=== PATIENT | female | born 1930 | race African-American/Black ===

== ENCOUNTER 2016-09-03 23:01 | Inpatient (IN) | payer MEDICARE, MEDICAID ==
[~2016-09-03] VITALS: Ht 165.1 cm; Wt 80.1 kg
[~2016-09-03 23:01] MED LIST: ACETAMINOP160 MG/51 GT; CATAPRES0.1 MG GT; COZAAR50 MG GT; DILANTIN-1125 MG/5 M GT; DOCU LIQUI50 MG/5 M1 GT; DULCOLAX10 MG RC; DUONEB 0.5-3(2.53 ML HHN; MILK OF MA400 MG/51 GT; MILK OF MA400 MG/51 ORAL; MULTI-DELYN237 ML GT; NEURONTIN100 MG GT; NORVASC5 MG GT; TYLENOL325 MG ORAL; [UNRECOGNIZED DRUG - OTHER] GT
[2016-09-03] MEDS ORDERED: EPINEPHrine 1mg/10ml Syringe IV ONE (23:30)
[2016-09-03] MEDS ORDERED: Sodium Bicarbonate 8.4% 50ml Carp ONE (23:30)
[2016-09-04] VITALS (22 sets, daily range): BP systolic 84–139; BP diastolic 37–82
[2016-09-04 01:23] LABS: MEAN CORPUSCULAR HEMOGLOBIN 34.5 PG (27.0-31.0); MEAN CORPUSCULAR HGB CONC 32.2 G/DL (32.0-36.0); MEAN CORPUSCULAR VOLUME 107 FL (80-99); MEAN PLATELET VOLUME 6.3 FL (6.5-10.1); PLATELET COUNT 146 K/UL (150-450); RED BLOOD COUNT 2.65 M/UL (4.20-5.40); RED CELL DISTRIBUTION WIDTH 13.8 % (11.6-14.8); WHITE BLOOD COUNT 14.9 K/UL (4.8-10.8)
[2016-09-04] MEDS ORDERED: Piperacillin/Tazobactam 3.375 GM in NS 110 ML IV ONE (01:45)
[2016-09-04] MEDS ORDERED: Azithromycin 500 MG in NS 275 ML IV ONE (01:45)
[2016-09-04 01:47] LABS: ALANINE AMINOTRANSFERASE 268 U/L (3-33); ALBUMIN/GLOBULIN RATIO 0.5 (1.0-2.7); ANION GAP 8 (5-15); ASPARTATE AMINO TRANSFERASE 366 U/L (5-40); CALCIUM 8.2 mg/dL (8.6-10.2); CARBON DIOXIDE 35 mEQ/L (20-30); CHLORIDE 81 mEQ/L (98-107); CREATININE 0.4 mg/dL (0.5-0.9); HEMOLYSIS 11; POTASSIUM 5.5 mEQ/L (3.4-4.9); SODIUM 124 mEQ/L (135-145); TOTAL PROTEIN 6.8 g/dL (6.6-8.7)
[2016-09-04 01:49] LABS: TROPONIN I < 0.30 ng/mL (<=0.30)
[2016-09-04] MEDS ORDERED: Zosyn 3.375gm inj ONE (01:49)
[2016-09-04 01:50] LABS: REFLEX LACTIC ACID YES OR NO YES
[2016-09-04] MEDS ORDERED: Azithromycin Inj IV ONE (02:24)
[2016-09-04 02:45] LABS: APPEARANCE,URINE SLIGHTLY CLOUDY; KETONES,URINE NEGATIVE (NEGATIVE); NITRITE,URINE NEGATIVE (NEGATIVE); PH,URINE 5 (4.5-8.0); PROTEIN,URINE 3+ (NEGATIVE); UROBILINOGEN,URINE NORMAL MG/DL (0.0-1.0)
--- NOTE | 2016-09-04 02:53 | Emergency Room Report ---
History of Present Illness General Chief Complaint: Dyspnea/Respdistress Source: Medical Record Present Illness HPI 85-year-old female presents to ED for evaluation. Per EMS patient was hypoxic at her [facility] tonight. O2 saturation low on room air. Saturations slightly improved on nonrebreather. Patient is altered and lethargic. Unable to provide any additional history at this time. No reported fevers chills. No reported chest pain. No other aggravating or leading factors. No other associated symptoms Allergies: Coded Allergies: No Known Allergies (Verified , 03/14/16) Uncoded Allergies: MILK (Allergy, Unknown, 07/11/11) Patient History Past Medical History: asthma, COPD, dementia Pertinent Family History: none Social History: Denies: alcohol use, drug use, smoking Last Menstrual Period: NA Now: No Immunizations: UTD Reviewed Nursing Documentation: PMH: Agreed, PSxH: Agreed Nursing Documentation-PMH Hx Cardiac Problems: Yes Hx Asthma: Yes Hx COPD: Yes - PNEUMONIA, SOB Hx Cancer: No Hx Dementia: Yes Hx Epilepsy: Yes Hx Paralysis: Yes - hemiplegia Review of Systems All Other Systems: limited Physical Exam Vital Signs Date Time Temp Pulse Resp B/P Pulse Ox O2 Delivery O2 Flow Rate FiO2 09/03/16 23:02 98.2 80 18 139/42 98 Room Air 09/04/16 00:15 100 Sp02 EP Interpretation: reviewed, normal General Appearance: mild distress, lethargic Head: normocephalic Eyes: bilateral eye PERRL, bilateral eye normal inspection ENT: hearing grossly normal Neck: normal inspection Respiratory: chest non-tender, decreased breath sounds, crackles, speaking full sentences Cardiovascular #1: regular rate, rhythm, no edema Gastrointestinal: normal inspection Rectal: deferred Genitourinary: no CVA tenderness Musculoskeletal: normal inspection Neurologic: other - altered Psychiatric: other - altered Skin: normal inspection Lymphatic: normal inspection Procedures Critical Care Time Critical Care Time i. I feel this is a highly complex case requiring extensive working including EKG/Rhythm strip, Xray/CT/US, Blood/urine lab work, repeat exams while in ED, and administration of strong opiates/narcotics for pain control, admission to hospital or close patient follow up. Total time: 30 min bedside evaluation and treatment excludes procedures (EKG). Reason for critical care: Respiratory arrest, cardiac arrest Possible complications: hypotension, hypertension, IA, shock, arrhythmias, metabolic acidosis, end organ damage, respiratory failure. Interventions: Intubation, defibrillation, labs, IV fluids, chest x-ray, EKG, antibiotics, central line Course: Patient brought in for shortness of breath. Just after patient was placed in bed patient became lethargic and unresponsive. Most pulses. Patient had a contracted neck with a very difficult airway. Ultimately patient was intubated. Intraosseous access placed this patient had no IV access initially. Compressions done. Given calcium and bicarbonate. Given epi x2. Patient had one run of V. fib and was shocked. Patient regained pulses. Elevated WBC. Elevated lactate. Abx given. Central line placed. Consultations: nursing staff, EMS, family Performed by: Dr Dunham Tolerated well condition = critical j. because of unstable vital signs this patient had a condition that could potentially threaten life or limb. I feel this is a critical patient who required my full attention while patient was considered critical. Total Critical Care Time excluding procedures was greater than 35 minutes Cardioversion Cardioversion: Consent: Emergent Indication: Other - vfib Type: Desynchonis Response: Sinus Attempts: One Patient Tolerated: Well Complications: None Central Line Central Line : Consent: Emergent Central Line Lumen: triple Maximal Sterile Barrier Tech: yes cap, yes mask, yes sterile gown, yes sterile gloves, yes large sterile sheet, yes hand hygiene, yes chlorhexidine prep Central Line Postion: femoral (R) Complications: none Central Line Post Position: sutured, good blood return Attempts: One Patient Tolerated: Well Complications: None CPR/Code Blue CPR/Code Blue Narrative Patient brought in for shortness of breath. Hypoxic at this facility. After patient placed in bed patient became unresponsive. lost pulses. Initial rhythm asystole. Compressions started. Given epi x2. Given calcium and bicarbonate. Patient was intubated. Patient is in V. fib and was subsequently shocked times one. Patient regained pulses. Intubation Intubation : Consent: Verbal Intubation Method: orotracheal Tube Size (cm): 6.0 Intubation Complications: no complications Post Intubation Xray: Yes Attempts: One Patient Tolerated: Well Medical Decision Making Diagnostic Impression: Primary Impression: Pneumonia Qualified Codes: J18.9 - Pneumonia, unspecified organism Additional Impressions: Cardiac arrest Respiratory distress Septic shock ER Course 85-year-old female presents ED with shortness of breath, hypoxic at this facility Differential-pneumonia, pneumothorax, COPD, CHF Patient based on stretcher. Prior to patient being initially evaluated patient became hypoxic and unresponsive. Patient lost pulses. Impression started. Patient given calcium and bicarbonate. Patient given epi x2. Patient had a contracted neck and does had a very difficult airway. Ultimately I was able to intubate the patient. Patient had one run of ventricular fibrillation and was shocked. Patient did regain pulses. Initially patient had no IV access and intraosseous was placed in the leg. Chest x-ray shows ET tube in place, right-sided infiltrates EKG-normal sinus rhythm, no acute ischemic changes Labs-leukocytosis noted, lactic acid elevated, troponins negative Patient became hypotensive despite IV fluids. Right femoral central line placed. BP improving with IV fluids. Case discussed with Dr. franklin and he agreed to admit the patient Diagnoses-pneumonia, cardiac arrest, respiratory distress, septic shock Patient admitted to ICU in critical condition Labs Test 09/04/16 01:15 09/04/16 02:19 09/04/16 02:34 White Blood Count 14.9 K/UL (4.8-10.8) Red Blood Count 2.65 M/UL (4.20-5.40) Hemoglobin 9.1 G/DL (12.0-16.0) Hematocrit 28.4 % (37.0-47.0) Mean Corpuscular Volume 107 FL (80-99) Mean Corpuscular Hemoglobin 34.5 PG (27.0-31.0) Mean Corpuscular Hemoglobin Concent 32.2 G/DL (32.0-36.0) Red Cell Distribution Width 13.8 % (11.6-14.8) Platelet Count 146 K/UL (150-450) Mean Platelet Volume 6.3 FL (6.5-10.1) Neutrophils (%) (Auto) % (45.0-75.0) Lymphocytes (%) (Auto) % (20.0-45.0) Monocytes (%) (Auto) % (1.0-10.0) Eosinophils (%) (Auto) % (0.0-3.0) Basophils (%) (Auto) % (0.0-2.0) Sodium Level 124 mEQ/L (135-145) Potassium Level 5.5 mEQ/L (3.4-4.9) Chloride Level 81 mEQ/L (98-107) Carbon Dioxide Level 35 mEQ/L (20-30) Anion Gap 8 (5-15) Blood Urea Nitrogen 27 mg/dL (7-23) Creatinine 0.4 mg/dL (0.5-0.9) Estimat Glomerular Filtration Rate mL/min (>60) Glucose Level 126 mg/dL (74-106) Lactic Acid Level 3.20 mmol/L (0.66-2.22) Calcium Level 8.2 mg/dL (8.6-10.2) Total Bilirubin < 0.2 mg/dL (0.0-1.2) Aspartate Amino Transf (AST/SGOT) 366 U/L (5-40) Alanine Aminotransferase (ALT/SGPT) 268 U/L (3-33) Alkaline Phosphatase 237 U/L (35-104) Total Creatine Kinase 104 U/L (26-140) Troponin I < 0.30 ng/mL (<=0.30) Total Protein 6.8 g/dL (6.6-8.7) Albumin 2.5 g/dL (3.5-5.2) Globulin 4.3 g/dL Albumin/Globulin Ratio 0.5 (1.0-2.7) EKG Diagnostic Results Rate: normal Rhythm: other - 1st degree av block ST Segments: no acute changes ASA given to the pt in ED: No Rhythm Strip Diag. Results EP Interpretation: yes Rhythm: NSR, no PVC's, no ectopy Chest X-Ray Diagnostic Results EP Interpretation: No Findings: no pneumothorax, no acute cardiopulmonary disease, other - intubated. R perihilar infitlrates Number of Views: 1 Last Vital Signs Date Time Temp Pulse Resp B/P Pulse Ox O2 Delivery O2 Flow Rate FiO2 09/04/16 00:57 70 14 100 09/04/16 00:19 Mechanical Ventilator 09/04/16 00:19 98.2 117/82 98 Status: improved Disposition: ADMITTED INPATIENT Condition: Critical Referrals: NON PHYSICIAN (PCP) CHRISTIANO DUNHAM M.D. September 04, 2016 02:53
[2016-09-04 02:55] LABS: LEUKOCYTE ESTERASE ,URINE 2+ (NEGATIVE); RBC,URINE 15-20 /HPF (0 - 2)
[2016-09-04 02:56] LABS: AMORPHOUS SEDIMENT,UR MANY /LPF; BACTERIA,URINE MODERATE /HPF; FINE GRANULAR CASTS,URINE 0-2 /LPF; SQUAMOUS EPITHELIAL CELL,UR FEW /LPF (NONE/OCC); WBC,URINE 15-20 /HPF (0 - 2)
[2016-09-04 02:56] LABS: CKMB 5.1 ng/mL (< 3.8)
[2016-09-04 04:16] LABS: ABG BASE EXCESS 5.2; ABG PCO2 82.8 mmHg (35.0-45.0)
[2016-09-04 04:17] LABS: ABG ALLEN TEST POSITIVE
[2016-09-04] MEDS ORDERED: Sodium Polystyrene Sulfonate 15gm Powder GT ONE (04:45)
[2016-09-04] MEDS ORDERED: D5NS 1,000 ML IV SCH (05:39)
[2016-09-04] MEDS: metroNIDAZOLE 500mg 100 ML IVPB SCH ×3 (06:36→22:00)
[2016-09-04] MEDS: DuoNeb 0.5-3(2.5)mg/3ml neb HHN SCH ×3 (06:50→20:05)
[2016-09-04] MEDS ORDERED: cefTRIAXone 1 GM in NS 55 ML IVPB SCH (08:00)
[2016-09-04] MEDS ORDERED: Tubing IV Secondary IV ONE (08:06)
[2016-09-04] MEDS ORDERED: NS 55 ML IV ONE (08:06)
--- NOTE | 2016-09-04 11:02 | Diagnostic Imaging Report ---
Indications: Shortness of breath, status post intubation Technique: Portable AP chest Findings: Comparison: 03/11/2016 Endotracheal tube has been placed, tip 4-5 cm above wilder. Defibrillator patch overlies lower left hemithorax. Pulmonary inflation has increased. Increased interstitial markings persist throughout both lungs. Focal area of parenchymal consolidation in the right infrahilar region has increased. 2 cm pleural-based lucency with mural thickening in the lateral left upper lung persists, unchanged. Blunting of the right costophrenic angle persists; left remain sharp. Heart size remains within normal limits. Pulmonary vasculature obscured. Bony bridging is present between the scapular coracoid process and overlying clavicle. IMPRESSION: Endotracheal tube in good position Persistent bilateral interstitial infiltrates/disease, nonspecific Increase in right infrahilar consolidative opacity--atelectasis versus edema versus pneumonia versus mass Persistent small right basal pleural effusion versus thickening Other stable chronic changes as described Evidence of previous injury to the left coracoclavicular ligament with ossification This correlates with [facility] preliminary report.
[2016-09-04 12:46] LABS: ABG ALLEN TEST POSITIVE; ABG BASE EXCESS 7
[2016-09-04] MEDS ORDERED: Albuterol ud Inhalation HHN SCH (13:00)
[2016-09-04] MEDS: Gentamicin 0.3% Opth Soln 5ml BOTH EYES SCH ×3 (13:00→21:19)
--- NOTE | 2016-09-04 14:23 | Cardiology Report ---
APPROVED REPORT EKG Measurement Heart [id number] Sinus rhythm with 1st degree AV block Otherwise normal ECG
[2016-09-04] MEDS: D5NS 1,000 ML IV SCH (14:43)
[2016-09-04 15:44] LABS: REFLEX LACTIC ACID YES OR NO YES
--- NOTE | 2016-09-04 15:52 | Wound Care Consultation ---
Wound Assessment Wound Assessment #1: Wound Number: #1 Wound Present on Admission: Yes New Wound: No Status Change of Wound: No Wound Location Body Site Modif: left, mid, lateral Wound Location Body Site: foot Wound Type: pressure ulcer Aydee Test: Does not Aydee Pressure Ulcer Stage: IV/unstageable Wound Thickness: Full Thickness Wound Length: 0.8 Wound Width: 0.5 Wound Depth: 0.1 Percent of Wound Victor/Red: 100 Other Colors Identified: surrounding wound noted callus, yellow Wound Drainage Description: Serosanguineous Wound Drainage Amount: Scant Wound Drainage Odor: None/Absent Tissue Surrounding Wound: Erythemic Wound General Appearance: Reddened Wound Assessment #2: Wound Number: #2 Wound Present on Admission: Yes New Wound: No Status Change of Wound: No Wound Location Body Site Modif: right Wound Location Body Site: heel Wound Type: pressure ulcer Aydee Test: Does not Aydee Pressure Ulcer Stage: deep tissue injury Wound Thickness: Full Thickness Wound Length: 5.0 Wound Width: 5.0 Wound Depth: utd Percent of Wound Purple/Maroon: 100 Wound Drainage Amount: None Wound Drainage Odor: None/Absent Tissue Surrounding Wound: Intact Wound General Appearance: Reddened Wound Comment #1 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 #2 right heel deep tissue injury. #3 Full thickness scar tissue to right lateral malleolus, scattered to left lateral foot, left 5th metatarsal head, left lateral malleolus,left heel,left mid foot, noted left 4th toe with hyperpigmentation and scar tissue. Recommendation. -Local wound care as ordered. -Apply low air loss overlay SPR mattress. -Keep clean and dry. -Optimize nutrition. -Heel protectors. -Avoid shear and friction. -Offload affected site. -Asses and notify MD for any further changes to skin noted. MITCH GAMBLE September 04, 2016 15:52
[2016-09-04] MEDS: Heparin 5000 units/ml inj SUBQ SCH (21:00)
[2016-09-04] MEDS: levETIRAcetam 500 MG in D5W 110 ML IV SCH (21:19)
[2016-09-04] MEDS: Pantoprazole Inj IVP SCH (21:20)
[2016-09-04 22:31] LABS: REFLEX LACTIC ACID YES OR NO YES
[2016-09-04 22:38] LABS: ABG ALLEN TEST POSITIVE; ABG BASE EXCESS 7.6; ABG PCO2 51.2 mmHg (35.0-45.0)
[2016-09-05] VITALS (24 sets, daily range): BP systolic 106–174; BP diastolic 34–96
[2016-09-05] MEDS: Gentamicin 0.3% Opth Soln 5ml BOTH EYES SCH ×6 (00:45→20:46)
[2016-09-05] MEDS: DuoNeb 0.5-3(2.5)mg/3ml neb HHN SCH ×4 (00:49→19:25)
[2016-09-05] MEDS: metroNIDAZOLE 500mg 100 ML IVPB SCH ×3 (05:14→22:07)
[2016-09-05 05:36] LABS: MEAN CORPUSCULAR HEMOGLOBIN 33.3 PG (27.0-31.0); MEAN CORPUSCULAR VOLUME 107 FL (80-99); MEAN PLATELET VOLUME 7.4 FL (6.5-10.1); PLATELET COUNT 100 K/UL (150-450); RED BLOOD COUNT 2.18 M/UL (4.20-5.40); RED CELL DISTRIBUTION WIDTH 15.1 % (11.6-14.8)
[2016-09-05 05:41] LABS: WHITE BLOOD COUNT 32.9 K/UL (4.8-10.8)
[2016-09-05 05:58] LABS: ALANINE AMINOTRANSFERASE 228 U/L (3-33); ANION GAP 8 (5-15); ASPARTATE AMINO TRANSFERASE 275 U/L (5-40); BILIRUBIN,DIRECT 0.1 mg/dL (0.1-0.3); CALCIUM 7.4 mg/dL (8.6-10.2); CARBON DIOXIDE 32 mEQ/L (20-30); CHLORIDE 92 mEQ/L (98-107); CREATININE 0.5 mg/dL (0.5-0.9); HEMOLYSIS 2; POTASSIUM 3.9 mEQ/L (3.4-4.9); SODIUM 132 mEQ/L (135-145); TOTAL PROTEIN 5.8 g/dL (6.6-8.7)
[2016-09-05] MEDS: D5NS 1,000 ML IV SCH (06:01)
[2016-09-05] MEDS: Heparin 5000 units/ml inj SUBQ SCH ×2 (09:00→20:47)
[2016-09-05] MEDS: levETIRAcetam 500 MG in D5W 110 ML IV SCH ×2 (09:32→20:47)
[2016-09-05] MEDS: Pantoprazole Inj IVP SCH ×2 (09:32→20:47)
[2016-09-05 10:08] LABS: BAND NEUTROPHILS % (MANUAL) 9 % (0-8); LYMPHOCYTES % (MANUAL) 7 % (20-45); METAMYELOCYTES % 2 % (0-0); NEUTROPHILS % (MANUAL) 81 % (45-75); TOTAL CELLS COUNTED 100
[2016-09-05 10:09] LABS: ANISOCYTOSIS 1+; BASOPHILS % (MANUAL) 0 % (0-2); EOSINOPHILS % (MANUAL) 0 % (0-3); PLATELET ESTIMATE DECREASED; PLATELET MORPHOLOGY NORMAL
[2016-09-05 10:10] LABS: HYPOCHROMASIA 1+; MACROCYTES 1+; STOMATOCYTES OCCASIONAL
[2016-09-05] MEDS ORDERED: KCl 10% 40mEq/30ml liquid NG ONE (11:00)
[2016-09-05 12:00] LABS: ABG PCO2 61.3 mmHg (35.0-45.0)
[2016-09-05 12:01] LABS: ABG ALLEN TEST POSITIVE; ABG BASE EXCESS 7.1
--- NOTE | 2016-09-05 12:13 | History and Physical ---
History of Present Illness General Date patient seen: September 04, 2016 Time patient seen: 10:00 Reason for Hospitalization: Dyspnea/Respdistress Present Illness HPI Acute respiratory failure and pneumonia Allergies: Coded Allergies: No Known Allergies (Verified , 03/14/16) Uncoded Allergies: MILK (Allergy, Unknown, 07/11/11) Medication History Scheduled Amlodipine Besylate (Norvasc), 5 MG GT DAILY, (Reported) Clonidine Hcl* (Catapres*), 0.1 MG GT EVERY 6 HOURS, (Reported) Gabapentin* (Neurontin*), 100 MG GT THREE TIMES A DAY, (Reported) Losartan Potassium* (Cozaar*), 100 MG GT DAILY, (Reported) Multivitamin Liquid* (Multi-Delyn*), 5 ML GT DAILY, (Reported) Phenytoin (Dilantin-125), 125 MG GT DAILY, (Reported) Scheduled PRN Acetaminophen (Tylenol), 650 MG ORAL Q6H PRN for Prn Pain/Headache/Temp > 101, ( Reported) Magnesium Hydroxide* (Milk Of Magnesia*), 30 ML ORAL DAILY PRN for Constipation, (Reported) Miscellaneous Medications Bisacodyl (Dulcolax), 10 MG RC, (Reported) Docusate Sodium (Docu Liquid), 100 MG GT, (Reported) Ipratropium/Albuterol Sulfate (DuoNeb 0.5-3(2.5)mg/3ml), 3 ML HHN, (Reported) Vit/Iron Fumarate/Fa (O-Bi Fa Tablet), 1 EACH GT, (Reported) Patient History Limited by: medical condition History Provided By: Medical Record Healthcare decision maker Resuscitation status Full Code Advanced Directive on File Social History Social History: (1) Pneumonia (2) Respiratory distress (3) Septic shock (4) Cardiac arrest (5) esophageal wall thickening (6) Feeding by G-tube (7) Dysphagia Review of Systems Eye: Reports: no symptoms ENT: Reports: no symptoms Respiratory: Reports: other, shortness of breath Cardiovascular: Reports: other - Patient had cardiac arrest Gastrointestinal: Reports: no symptoms Genitourinary: Reports: no symptoms Musculoskeletal: Reports: joint swelling, muscle stiffness Skin: Reports: no symptoms Psychiatric: Reports: prior hx Neurological: Reports: no symptoms, tremors Endocrine: Reports: no symptoms Hematologic/Lymphatic: Reports: no symptoms Physical Exam General Appearance: lethargic Lines, tubes and drains: central line HEENT: PERRL, supple Neck: normal alignment Respiratory/Chest: rhonchi - bilaterally Cardiovascular/Chest: normal rate Abdomen: normal bowel sounds Genitourinary/Rectal: normal genital exam Extremities: pitting Skin Exam: warm/dry Neurologic: unresponsiveness, other - eyes open Last 24 Hour Vital Signs Date Time Temp Pulse Resp B/P Pulse Ox O2 Delivery O2 Flow Rate FiO2 09/05/16 11:00 83 17 121/34 100 Mechanical Ventilator 60 09/05/16 10:50 82 17 60 09/05/16 10:00 86 17 115/34 100 Mechanical Ventilator 60 09/05/16 09:08 87 17 60 09/05/16 09:00 84 17 109/34 100 Mechanical Ventilator 60 09/05/16 08:00 84 09/05/16 08:00 60 09/05/16 08:00 98.1 85 17 106/34 100 Mechanical Ventilator 60 09/05/16 07:00 85 17 116/36 100 Mechanical Ventilator 60 09/05/16 07:00 83 17 100 Mechanical Ventilator 09/05/16 06:55 84 17 60 09/05/16 06:55 83 17 100 Mechanical Ventilator 09/05/16 06:00 86 20 116/56 100 Mechanical Ventilator 60 09/05/16 05:01 94 23 60 09/05/16 05:00 88 20 115/88 100 Mechanical Ventilator 60 09/05/16 04:00 98.6 90 20 115/35 100 Mechanical Ventilator 60 09/05/16 04:00 60 09/05/16 04:00 88 09/05/16 03:30 96 18 60 09/05/16 03:00 79 15 123/49 100 Mechanical Ventilator 60 09/05/16 02:00 89 15 125/56 100 Mechanical Ventilator 60 09/05/16 01:00 90 17 118/96 100 Mechanical Ventilator 60 09/05/16 00:51 96 20 100 Mechanical Ventilator 09/05/16 00:51 92 21 99 Mechanical Ventilator 09/05/16 00:50 94 20 60 09/05/16 00:00 60 09/05/16 00:00 98.4 89 17 126/79 100 Mechanical Ventilator 60 09/05/16 00:00 89 09/04/16 23:03 83 29 60 09/04/16 23:00 86 17 120/37 100 Mechanical Ventilator 45 09/04/16 22:00 86 17 119/41 100 Mechanical Ventilator 45 09/04/16 21:30 88 26 60 09/04/16 21:00 90 21 103/64 100 Mechanical Ventilator 45 09/04/16 20:17 93 19 Mechanical Ventilator 09/04/16 20:00 98.9 80 18 127/42 100 Mechanical Ventilator 45 09/04/16 20:00 50 09/04/16 19:40 99 18 100 Mechanical Ventilator 09/04/16 19:40 92 09/04/16 19:30 97 20 99 Mechanical Ventilator 09/04/16 19:30 93 19 Mechanical Ventilator 09/04/16 19:30 93 23 40 09/04/16 19:00 84 20 110/37 100 Mechanical Ventilator 45 09/04/16 18:00 92 19 104/38 100 Mechanical Ventilator 45 09/04/16 17:00 95 19 130/47 98 Mechanical Ventilator 45 09/04/16 16:58 94 20 30 09/04/16 16:00 80 09/04/16 16:00 97.4 80 18 101/37 100 Mechanical Ventilator 45 09/04/16 15:00 80 19 108/43 98 Mechanical Ventilator 45 09/04/16 14:50 78 17 30 09/04/16 14:00 80 18 111/41 98 Mechanical Ventilator 45 09/04/16 13:00 83 17 114/45 98 Mechanical Ventilator 30 09/04/16 13:00 45 09/04/16 12:43 85 17 100 Mechanical Ventilator 30 09/04/16 12:33 84 17 30 09/04/16 12:33 84 19 96 Mechanical Ventilator 30 09/04/16 12:00 97.8 84 20 128/52 99 Mechanical Ventilator 30 09/04/16 12:00 78 09/04/16 12:00 30 Intake and Output 09/04/16 09/05/16 19:00 07:00 Intake Total 1395 ml 1985 ml Output Total 570 ml 490 ml Balance 825 ml 1495 ml Intake Free Water 200 ml IV Total 1255 ml 1380 ml Tube Feeding 140 ml 405 ml Output Urine Total 570 ml 490 ml # Bowel Movements 1 1 Laboratory Tests Test 09/04/16 12:35 09/04/16 15:08 09/04/16 21:43 09/04/16 21:55 Arterial Blood pH 7.400 (7.350-7.450) 7.426 (7.350-7.450) Arterial Blood Partial Pressure CO2 53.0 mmHg (35.0-45.0) H 51.2 mmHg (35.0-45.0) H Arterial Blood Partial Pressure O2 53.0 mmHg (75.0-100.0) L 79.7 mmHg (75.0-100.0) Arterial Blood HCO3 32.4 mmol/L (22.0-26.0) H 32.9 mmol/L (22.0-26.0) H Arterial Blood Oxygen Saturation 88.0 % (92.0-98.0) L 95.7 % (92.0-98.0) Arterial Blood Base Excess 7 7.6 Victorino Test Positive Positive Lactic Acid Level 3.80 mmol/L (0.66-2.22) H 2.90 mmol/L (0.66-2.22) H Test 09/05/16 04:00 White Blood Count 32.9 K/UL (4.8-10.8) #*H Red Blood Count 2.18 M/UL (4.20-5.40) L Hemoglobin 7.3 G/DL (12.0-16.0) L Hematocrit 23.4 % (37.0-47.0) L Mean Corpuscular Volume 107 FL (80-99) H Mean Corpuscular Hemoglobin 33.3 PG (27.0-31.0) H Mean Corpuscular Hemoglobin Concent 31.0 G/DL (32.0-36.0) L Red Cell Distribution Width 15.1 % (11.6-14.8) H Platelet Count 100 K/UL (150-450) L Mean Platelet Volume 7.4 FL (6.5-10.1) Neutrophils (%) (Auto) % (45.0-75.0) Lymphocytes (%) (Auto) % (20.0-45.0) Monocytes (%) (Auto) % (1.0-10.0) Eosinophils (%) (Auto) % (0.0-3.0) Basophils (%) (Auto) % (0.0-2.0) Differential Total Cells Counted 100 Neutrophils % (Manual) 81 % (45-75) H Lymphocytes % (Manual) 7 % (20-45) L Monocytes % (Manual) 1 % (1-10) Eosinophils % (Manual) 0 % (0-3) Basophils % (Manual) 0 % (0-2) Metamyelocytes % 2 % (0-0) H Band Neutrophils 9 % (0-8) H Platelet Estimate Decreased L Platelet Morphology Normal Hypochromasia 1+ Anisocytosis 1+ Macrocytosis 1+ Stomatocytes Occasional Sodium Level 132 mEQ/L (135-145) L Potassium Level 3.9 mEQ/L (3.4-4.9) Chloride Level 92 mEQ/L (98-107) L Carbon Dioxide Level 32 mEQ/L (20-30) H Anion Gap 8 (5-15) Blood Urea Nitrogen 32 mg/dL (7-23) H Creatinine 0.5 mg/dL (0.5-0.9) Estimat Glomerular Filtration Rate mL/min (>60) Glucose Level 143 mg/dL (74-106) H Lactic Acid Level 1.50 mmol/L (0.66-2.22) Calcium Level 7.4 mg/dL (8.6-10.2) L Total Bilirubin < 0.2 mg/dL (0.0-1.2) Direct Bilirubin 0.1 mg/dL (0.1-0.3) Aspartate Amino Transf (AST/SGOT) 275 U/L (5-40) H Alanine Aminotransferase (ALT/SGPT) 228 U/L (3-33) H Alkaline Phosphatase 170 U/L (35-104) H Total Protein 5.8 g/dL (6.6-8.7) L Albumin 2.0 g/dL (3.5-5.2) L Height (Feet): 5 Height (Inches): 6.00 Weight (Pounds): 180 Medications Current Medications Medications (Trade) Dose Ordered Sig/Lonny Route PRN Reason Start Time Stop Time Status Last Admin Dose Admin Albuterol/ Ipratropium 3 ml 3 ml Q6HRT HHN 09/04/16 07:00 09/09/16 06:59 09/05/16 07:04 Dextrose/Sodium Chloride 1,000 ml @ 60 mls/hr [id number] IV 09/05/16 12:30 10/05/16 12:29 09/05/16 06:01 Gentamicin Sulfate 2 drop 2 drop EVERY 4 HOURS BOTH EYES 09/04/16 13:00 09/11/16 12:59 09/05/16 09:50 Heparin Sodium (Porcine) (Heparin 5000 units/ml) 5,000 units EVERY 12 HOURS SUBQ 09/04/16 21:00 10/04/16 20:59 Levetiracetam 500 mg/Dextrose 115 ml @ 460 mls/hr Q12HR IV 09/04/16 21:00 10/04/16 20:59 09/05/16 09:32 Metronidazole (Flagyl) 100 ml @ 100 mls/hr Q8H IVPB 09/04/16 06:00 09/11/16 05:59 09/05/16 05:14 Pantoprazole (Protonix) 40 mg EVERY 12 HOURS IVP 09/04/16 21:00 10/04/16 20:59 09/05/16 09:32 Piperacillin Sod/ Tazobactam Sod/ Dextrose (Zosyn/D5W) 110 ml @ 27.5 mls/hr Q8HR@0400,1200,1800 IVPB 09/05/16 12:00 09/12/16 11:59 Assessment/Plan Status: stable Status Narrative s/p cardiopulmonary arrest stable Assessment/Plan 1/ Acute Respiratory failure 2/ Anoxic encephalopathy 3/ Sepsis 4/ Pneumonia 5/ S/P cardiac arrest 6/ COPD 7/ Anemia 8/ Elevated LFT 9/ Hx of decubital ulcer Plan: See order YONI ROCHE September 05, 2016 12:12
[2016-09-05] MEDS: Piperacillin/Tazobactam 3.375 GM in D5W 110 ML IVPB SCH ×2 (12:32→17:24)
--- NOTE | 2016-09-05 16:42 | GI Initial Consult Note ---
Luna Rodriguez NAdolphPAdolph 09/05/16 1642: History of Present Illness General Date patient seen: September 05, 2016 Time patient seen: 16:31 Reason for Hospitalization: Dyspnea/Respdistress Referring physician: YONI ROCHE Reason for Consultation: ANEMIA Present Illness HPI 85-year-old female presents to ED for evaluation. Per EMS patient was hypoxic at her group home [facility]. O2 saturation low on room air. Saturations slightly improved on nonrebreather. Patient is altered and lethargic. Unable to provide any additional history at this time. No reported fevers chills. No reported chest pain. No other aggravating or leading factors. No other associated symptoms. GI CONSULT: HPI as noted above. GI consulted for anemia. ROS limited, pt intubated in ICU with no active s/sx of bleeding. Presents with leukocytosis, anemia with low hemoglobin 7.3, abnormal LFTs, and hypoalbuminemia. Unknown history of endoscopic procedures. Home Meds Reported Medications Acetaminophen (Tylenol) 325 Mg Tablet, 650 MG ORAL Q6H Y for Prn Pain/Headache/ Temp > 101, #30 TAB 0 Refills 03/12/16 Magnesium Hydroxide* (MILK OF MAGNESIA*) 400 Mg/5 Ml Oral.susp, 30 ML ORAL DAILY Y for Constipation, ML 03/12/16 Vit/Iron Fumarate/Fa (O-VCIK FA TABLET) 1 Each Tablet, 1 EACH GT, TAB 03/12/16 Amlodipine Besylate (Norvasc) 5 Mg Tablet, 5 MG GT DAILY, TAB 03/12/16 Gabapentin* (NEURONTIN*) 100 Mg Capsule, 100 MG GT THREE TIMES A DAY, #15 CAP 0 Refills 03/12/16 Multivitamin Liquid* (MULTI-DELYN*) 237 Ml Liquid, 5 ML GT DAILY, ML 03/12/16 Ipratropium/Albuterol Sulfate (DuoNeb 0.5-3(2.5)mg/3ml) 3 Ml Ampul.neb, 3 ML HHN , EA 03/12/16 Bisacodyl (DULCOLAX) 10 Mg Supp.rect, 10 MG RC, SUPP 03/12/16 Docusate Sodium (DOCU LIQUID) 50 Mg/5 Ml Liquid, 100 MG GT, ML 03/12/16 Phenytoin (DILANTIN-125) 125 Mg/5 Ml Oral.susp, 125 MG GT DAILY, ML 03/12/16 Losartan Potassium* (COZAAR*) 50 Mg Tablet, 100 MG GT DAILY, TAB 03/12/16 Clonidine Hcl* (CATAPRES*) 0.1 Mg Tablet, 0.1 MG GT EVERY 6 HOURS, TAB 03/12/16 Med list reviewed/reconciled: Yes Allergies: Coded Allergies: No Known Allergies (Verified , 03/14/16) Uncoded Allergies: MILK (Allergy, Unknown, 07/11/11) Patient History Limited by: medical condition History Provided By: Medical Record PMH Narrative Past Medical History: asthma, COPD, dementia Pertinent Family History: none Social History: Denies: alcohol use, drug use, smoking Last Menstrual Period: NA Now: No Immunizations: UTD Reviewed Nursing Documentation: PMH: Agreed, PSxH: Agreed Nursing Documentation-PMH Hx Cardiac Problems: Yes Hx Asthma: Yes Hx COPD: Yes - PNEUMONIA, SOB Hx Cancer: No Hx Dementia: Yes Hx Epilepsy: Yes Hx Paralysis: Yes - hemiplegia Review of Systems All Other Systems: negative except mentioned in HPI Physical Exam Vital Signs Date Time Temp Pulse Resp B/P Pulse Ox O2 Delivery O2 Flow Rate FiO2 09/03/16 23:02 98.2 80 18 139/42 98 Room Air 09/04/16 00:15 100 Sp02 EP Interpretation: reviewed Labs Laboratory Tests Test 09/04/16 21:43 09/04/16 21:55 09/05/16 04:00 09/05/16 11:50 Arterial Blood pH 7.426 (7.350-7.450) 7.359 (7.350-7.450) Arterial Blood Partial Pressure CO2 51.2 mmHg (35.0-45.0) H 61.3 mmHg (35.0-45.0) *H Arterial Blood Partial Pressure O2 79.7 mmHg (75.0-100.0) 123.3 mmHg (75.0-100.0) H Arterial Blood HCO3 32.9 mmol/L (22.0-26.0) H 33.8 mmol/L (22.0-26.0) H Arterial Blood Oxygen Saturation 95.7 % (92.0-98.0) 98.2 % (92.0-98.0) H Arterial Blood Base Excess 7.6 7.1 Victorino Test Positive Positive Lactic Acid Level 2.90 mmol/L (0.66-2.22) H 1.50 mmol/L (0.66-2.22) White Blood Count 32.9 K/UL (4.8-10.8) #*H Red Blood Count 2.18 M/UL (4.20-5.40) L Hemoglobin 7.3 G/DL (12.0-16.0) L Hematocrit 23.4 % (37.0-47.0) L Mean Corpuscular Volume 107 FL (80-99) H Mean Corpuscular Hemoglobin 33.3 PG (27.0-31.0) H Mean Corpuscular Hemoglobin Concent 31.0 G/DL (32.0-36.0) L Red Cell Distribution Width 15.1 % (11.6-14.8) H Platelet Count 100 K/UL (150-450) L Mean Platelet Volume 7.4 FL (6.5-10.1) Neutrophils (%) (Auto) % (45.0-75.0) Lymphocytes (%) (Auto) % (20.0-45.0) Monocytes (%) (Auto) % (1.0-10.0) Eosinophils (%) (Auto) % (0.0-3.0) Basophils (%) (Auto) % (0.0-2.0) Differential Total Cells Counted 100 Neutrophils % (Manual) 81 % (45-75) H Lymphocytes % (Manual) 7 % (20-45) L Monocytes % (Manual) 1 % (1-10) Eosinophils % (Manual) 0 % (0-3) Basophils % (Manual) 0 % (0-2) Metamyelocytes % 2 % (0-0) H Band Neutrophils 9 % (0-8) H Platelet Estimate Decreased L Platelet Morphology Normal Hypochromasia 1+ Anisocytosis 1+ Macrocytosis 1+ Stomatocytes Occasional Sodium Level 132 mEQ/L (135-145) L Potassium Level 3.9 mEQ/L (3.4-4.9) Chloride Level 92 mEQ/L (98-107) L Carbon Dioxide Level 32 mEQ/L (20-30) H Anion Gap 8 (5-15) Blood Urea Nitrogen 32 mg/dL (7-23) H Creatinine 0.5 mg/dL (0.5-0.9) Estimat Glomerular Filtration Rate mL/min (>60) Glucose Level 143 mg/dL (74-106) H Calcium Level 7.4 mg/dL (8.6-10.2) L Total Bilirubin < 0.2 mg/dL (0.0-1.2) Direct Bilirubin 0.1 mg/dL (0.1-0.3) Aspartate Amino Transf (AST/SGOT) 275 U/L (5-40) H Alanine Aminotransferase (ALT/SGPT) 228 U/L (3-33) H Alkaline Phosphatase 170 U/L (35-104) H Total Protein 5.8 g/dL (6.6-8.7) L Albumin 2.0 g/dL (3.5-5.2) L General Appearance: no apparent distress Head: normocephalic EENT: normal ENT inspection Neck: supple Respiratory: other - mech vent Cardiovascular: normal rate Gastrointestinal: normal inspection, non tender, soft Rectal: deferred Genitourinary: no CVA tenderness Musculoskeletal: back normal Neurologic: alert Skin: normal inspection, normal color, no rash, warm/dry Lymphatic: normal inspection, no adenopathy Current Medications Current Medications Medications (Trade) Dose Ordered Sig/Lonny Route PRN Reason Start Time Stop Time Status Last Admin Dose Admin Albuterol/ Ipratropium 3 ml 3 ml Q6HRT HHN 09/04/16 07:00 09/09/16 06:59 09/05/16 13:48 Dextrose/Sodium Chloride 1,000 ml @ 60 mls/hr [id number] IV 09/05/16 12:30 10/05/16 12:29 09/05/16 06:01 Gentamicin Sulfate 2 drop 2 drop EVERY 4 HOURS BOTH EYES 09/04/16 13:00 09/11/16 12:59 09/05/16 12:32 Heparin Sodium (Porcine) (Heparin 5000 units/ml) 5,000 units EVERY 12 HOURS SUBQ 09/04/16 21:00 10/04/16 20:59 Levetiracetam 500 mg/Dextrose 115 ml @ 460 mls/hr Q12HR IV 09/04/16 21:00 10/04/16 20:59 09/05/16 09:32 Metronidazole (Flagyl) 100 ml @ 100 mls/hr Q8H IVPB 09/04/16 06:00 09/11/16 05:59 09/05/16 14:35 Pantoprazole (Protonix) 40 mg EVERY 12 HOURS IVP 09/04/16 21:00 10/04/16 20:59 09/05/16 09:32 Piperacillin Sod/ Tazobactam Sod/ Dextrose (Zosyn/D5W) 110 ml @ 27.5 mls/hr Q8HR@0400,1200,1800 IVPB 09/05/16 12:00 09/12/16 11:59 09/05/16 12:32 GI: Plan Problems: (1) Anemia (2) LFT elevation (3) Hypoalbuminemia (4) esophageal wall thickening (5) Feeding by G-tube (6) Dysphagia (7) Septic shock Plan hold GI procedures given elevated WBC anemia work up ordered hep panel ordered abdominal U/S OB stool uncollected GTFs per dietary ppi abx fu labs Discussed with Dr. Britt. Thank you for referring this patient, we will follow. NAWAF BRITT 09/07/16 0916: History of Present Illness General Reason for Hospitalization: Dyspnea/Respdistress Present Illness Home Meds Reported Medications Acetaminophen (Tylenol) 325 Mg Tablet, 650 MG ORAL Q6H Y for Prn Pain/Headache/ Temp > 101, #30 TAB 0 Refills 03/12/16 Magnesium Hydroxide* (MILK OF MAGNESIA*) 400 Mg/5 Ml Oral.susp, 30 ML ORAL DAILY Y for Constipation, ML 03/12/16 Vit/Iron Fumarate/Fa (O-VICK FA TABLET) 1 Each Tablet, 1 EACH GT, TAB 03/12/16 Amlodipine Besylate (Norvasc) 5 Mg Tablet, 5 MG GT DAILY, TAB 03/12/16 Gabapentin* (NEURONTIN*) 100 Mg Capsule, 100 MG GT THREE TIMES A DAY, #15 CAP 0 Refills 03/12/16 Multivitamin Liquid* (MULTI-DELYN*) 237 Ml Liquid, 5 ML GT DAILY, ML 03/12/16 Ipratropium/Albuterol Sulfate (DuoNeb 0.5-3(2.5)mg/3ml) 3 Ml Ampul.neb, 3 ML HHN , EA 03/12/16 Bisacodyl (DULCOLAX) 10 Mg Supp.rect, 10 MG RC, SUPP 03/12/16 Docusate Sodium (DOCU LIQUID) 50 Mg/5 Ml Liquid, 100 MG GT, ML 03/12/16 Phenytoin (DILANTIN-125) 125 Mg/5 Ml Oral.susp, 125 MG GT DAILY, ML 03/12/16 Losartan Potassium* (COZAAR*) 50 Mg Tablet, 100 MG GT DAILY, TAB 03/12/16 Clonidine Hcl* (CATAPRES*) 0.1 Mg Tablet, 0.1 MG GT EVERY 6 HOURS, TAB 03/12/16 Allergies: Coded Allergies: No Known Allergies (Verified , 03/14/16) Uncoded Allergies: MILK (Allergy, Unknown, 07/11/11) GI: Plan Plan The patient was seen and examined at bedside and all new and available data was reviewed in the patients chart. I agree with the above findings, impression and plan. (Patient seen earlier today. Signature stamp does not reflect patient encounter time.). -[facility] Naresh N.PAdolph September 05, 2016 16:42 NAWAF BRITT September 07, 2016 09:16
--- NOTE | 2016-09-05 20:47 | Cardiology Progress Note ---
Assessment/Plan Assessment/Plan The patient is seen and examined, full consult note will be dictated. Objective Last 24 Hour Vital Signs Date Time Temp Pulse Resp B/P Pulse Ox O2 Delivery O2 Flow Rate FiO2 09/05/16 20:00 98 17 174/48 98 Mechanical Ventilator 35 09/05/16 20:00 96 09/05/16 19:40 90 18 100 Mechanical Ventilator 09/05/16 19:25 92 22 100 Mechanical Ventilator 09/05/16 19:23 92 25 35 09/05/16 19:15 35 09/05/16 19:00 98.9 97 18 154/49 100 Mechanical Ventilator 35 09/05/16 18:00 82 17 133/47 100 Mechanical Ventilator 35 09/05/16 17:10 86 18 35 09/05/16 17:00 82 17 133/47 100 Mechanical Ventilator 35 09/05/16 16:00 35 09/05/16 16:00 99.0 85 18 141/50 100 Mechanical Ventilator 40 09/05/16 16:00 87 09/05/16 15:23 87 17 35 09/05/16 15:00 85 17 127/47 99 Mechanical Ventilator 40 09/05/16 14:00 83 17 113/37 100 Mechanical Ventilator 40 09/05/16 13:29 91 19 100 Mechanical Ventilator 09/05/16 13:29 91 18 100 Mechanical Ventilator 09/05/16 13:29 91 20 40 09/05/16 13:00 87 13 117/40 100 Mechanical Ventilator 50 09/05/16 12:05 50 09/05/16 12:00 98.5 88 19 127/38 100 Mechanical Ventilator 50 09/05/16 12:00 50 09/05/16 12:00 93 09/05/16 11:00 83 17 121/34 100 Mechanical Ventilator 60 09/05/16 10:50 82 17 60 09/05/16 10:00 86 17 115/34 100 Mechanical Ventilator 60 09/05/16 09:08 87 17 60 09/05/16 09:00 84 17 109/34 100 Mechanical Ventilator 60 09/05/16 08:00 84 09/05/16 08:00 60 09/05/16 08:00 98.1 85 17 106/34 100 Mechanical Ventilator 60 09/05/16 07:00 85 17 116/36 100 Mechanical Ventilator 60 09/05/16 07:00 83 17 100 Mechanical Ventilator 09/05/16 06:55 84 17 60 09/05/16 06:55 83 17 100 Mechanical Ventilator 09/05/16 06:00 86 20 116/56 100 Mechanical Ventilator 60 09/05/16 05:01 94 23 60 09/05/16 05:00 88 20 115/88 100 Mechanical Ventilator 60 09/05/16 04:00 98.6 90 20 115/35 100 Mechanical Ventilator 60 09/05/16 04:00 60 09/05/16 04:00 88 09/05/16 03:30 96 18 60 09/05/16 03:00 79 15 123/49 100 Mechanical Ventilator 60 09/05/16 02:00 89 15 125/56 100 Mechanical Ventilator 60 09/05/16 01:00 90 17 118/96 100 Mechanical Ventilator 60 09/05/16 00:51 96 20 100 Mechanical Ventilator 09/05/16 00:51 92 21 99 Mechanical Ventilator 09/05/16 00:50 94 20 60 09/05/16 00:00 60 09/05/16 00:00 98.4 89 17 126/79 100 Mechanical Ventilator 60 09/05/16 00:00 89 09/04/16 23:03 83 29 60 09/04/16 23:00 86 17 120/37 100 Mechanical Ventilator 45 09/04/16 22:00 86 17 119/41 100 Mechanical Ventilator 45 09/04/16 21:30 88 26 60 09/04/16 21:00 90 21 103/64 100 Mechanical Ventilator 45 Intake and Output 09/04/16 09/05/16 19:00 07:00 Intake Total 1395 ml 1985 ml Output Total 570 ml 490 ml Balance 825 ml 1495 ml Intake Free Water 200 ml IV Total 1255 ml 1380 ml Tube Feeding 140 ml 405 ml Output Urine Total 570 ml 490 ml # Bowel Movements 1 1 Laboratory Tests Test 09/04/16 21:43 09/04/16 21:55 09/05/16 04:00 09/05/16 11:50 Arterial Blood pH 7.426 (7.350-7.450) 7.359 (7.350-7.450) Arterial Blood Partial Pressure CO2 51.2 mmHg (35.0-45.0) H 61.3 mmHg (35.0-45.0) *H Arterial Blood Partial Pressure O2 79.7 mmHg (75.0-100.0) 123.3 mmHg (75.0-100.0) H Arterial Blood HCO3 32.9 mmol/L (22.0-26.0) H 33.8 mmol/L (22.0-26.0) H Arterial Blood Oxygen Saturation 95.7 % (92.0-98.0) 98.2 % (92.0-98.0) H Arterial Blood Base Excess 7.6 7.1 Victorino Test Positive Positive Lactic Acid Level 2.90 mmol/L (0.66-2.22) H 1.50 mmol/L (0.66-2.22) White Blood Count 32.9 K/UL (4.8-10.8) #*H Red Blood Count 2.18 M/UL (4.20-5.40) L Hemoglobin 7.3 G/DL (12.0-16.0) L Hematocrit 23.4 % (37.0-47.0) L Mean Corpuscular Volume 107 FL (80-99) H Mean Corpuscular Hemoglobin 33.3 PG (27.0-31.0) H Mean Corpuscular Hemoglobin Concent 31.0 G/DL (32.0-36.0) L Red Cell Distribution Width 15.1 % (11.6-14.8) H Platelet Count 100 K/UL (150-450) L Mean Platelet Volume 7.4 FL (6.5-10.1) Neutrophils (%) (Auto) % (45.0-75.0) Lymphocytes (%) (Auto) % (20.0-45.0) Monocytes (%) (Auto) % (1.0-10.0) Eosinophils (%) (Auto) % (0.0-3.0) Basophils (%) (Auto) % (0.0-2.0) Differential Total Cells Counted 100 Neutrophils % (Manual) 81 % (45-75) H Lymphocytes % (Manual) 7 % (20-45) L Monocytes % (Manual) 1 % (1-10) Eosinophils % (Manual) 0 % (0-3) Basophils % (Manual) 0 % (0-2) Metamyelocytes % 2 % (0-0) H Band Neutrophils 9 % (0-8) H Platelet Estimate Decreased L Platelet Morphology Normal Hypochromasia 1+ Anisocytosis 1+ Macrocytosis 1+ Stomatocytes Occasional Sodium Level 132 mEQ/L (135-145) L Potassium Level 3.9 mEQ/L (3.4-4.9) Chloride Level 92 mEQ/L (98-107) L Carbon Dioxide Level 32 mEQ/L (20-30) H Anion Gap 8 (5-15) Blood Urea Nitrogen 32 mg/dL (7-23) H Creatinine 0.5 mg/dL (0.5-0.9) Estimat Glomerular Filtration Rate mL/min (>60) Glucose Level 143 mg/dL (74-106) H Calcium Level 7.4 mg/dL (8.6-10.2) L Total Bilirubin < 0.2 mg/dL (0.0-1.2) Direct Bilirubin 0.1 mg/dL (0.1-0.3) Aspartate Amino Transf (AST/SGOT) 275 U/L (5-40) H Alanine Aminotransferase (ALT/SGPT) 228 U/L (3-33) H Alkaline Phosphatase 170 U/L (35-104) H Total Protein 5.8 g/dL (6.6-8.7) L Albumin 2.0 g/dL (3.5-5.2) L Microbiology Date/Time Source Procedure Growth Status 09/04/16 01:15 Blood Blood Culture - Preliminary NO GROWTH AFTER 24 HOURS Resulted 09/04/16 01:00 Blood Blood Culture - Preliminary NO GROWTH AFTER 24 HOURS Resulted 09/04/16 02:19 Urine,Clean Catch Urine Culture - Preliminary NO GROWTH AFTER 24 HOURS Resulted MARK LEVY September 05, 2016 20:47
[2016-09-05] MEDS ORDERED: Diltiazem 25mg/5ml IV ONE (21:00)
[2016-09-05 21:44] LABS: TROPONIN I < 0.30 ng/mL (<=0.30)
--- NOTE | 2016-09-05 22:20 | Consultation ---
History of Present Illness General Chief Complaint: Dyspnea/Respdistress Referring physician: YONI ROCHE Reason for Consultation: Azotemia, hyponatremia Present Illness HPI Most of the history is obtained from medical the record. This is an 85-year- old female with PMHx significant for organic brain injury, COPD, dysphagia, CVA , seizure disorder and chronic anemia, who was admitted to the hospital from the residential due to respiratory issues. The patient was found to be have anemia, hyponatremia and hyperkalemia. Patient is altered and lethargic. Unable to provide any additional history at this time. No reported fevers chills. No reported chest pain. No other aggravating or leading factors. No other associated symptoms. Allergies: Coded Allergies: No Known Allergies (Verified , 03/14/16) Uncoded Allergies: MILK (Allergy, Unknown, 07/11/11) Medication History Scheduled Amlodipine Besylate (Norvasc), 5 MG GT DAILY, (Reported) Clonidine Hcl* (Catapres*), 0.1 MG GT EVERY 6 HOURS, (Reported) Gabapentin* (Neurontin*), 100 MG GT THREE TIMES A DAY, (Reported) Losartan Potassium* (Cozaar*), 100 MG GT DAILY, (Reported) Multivitamin Liquid* (Multi-Delyn*), 5 ML GT DAILY, (Reported) Phenytoin (Dilantin-125), 125 MG GT DAILY, (Reported) Scheduled PRN Acetaminophen (Tylenol), 650 MG ORAL Q6H PRN for Prn Pain/Headache/Temp > 101, ( Reported) Magnesium Hydroxide* (Milk Of Magnesia*), 30 ML ORAL DAILY PRN for Constipation, (Reported) Miscellaneous Medications Bisacodyl (Dulcolax), 10 MG RC, (Reported) Docusate Sodium (Docu Liquid), 100 MG GT, (Reported) Ipratropium/Albuterol Sulfate (DuoNeb 0.5-3(2.5)mg/3ml), 3 ML HHN, (Reported) Vit/Iron Fumarate/Fa (O-Bi Fa Tablet), 1 EACH GT, (Reported) Patient History Limited by: age, medical condition History Provided By: Medical Record Healthcare decision maker Resuscitation status Full Code Advanced Directive on File Past Medical/Surgical History Past Medical/Surgical History: (1) Respiratory distress (2) Dysphagia (3) esophageal wall thickening (4) Feeding by G-tube Review of Systems ROS Narrative Unable to obtain information due to pt's mental status Physical Exam General Appearance: no apparent distress Lines, tubes and drains: peripheral HEENT: normocephalic, atraumatic Neck: non-tender Respiratory/Chest: decreased breath sounds Cardiovascular/Chest: normal rate, regular rhythm Abdomen: soft, no organomegaly, feeding tube Extremities: no calf tenderness Skin Exam: warm/dry Neurologic: motor weakness, disoriented Last 24 Hour Vital Signs Date Time Temp Pulse Resp B/P Pulse Ox O2 Delivery O2 Flow Rate FiO2 09/05/16 21:25 96 26 35 09/05/16 21:00 93 18 145/48 99 Mechanical Ventilator 35 09/05/16 20:00 98 17 174/48 98 Mechanical Ventilator 35 09/05/16 20:00 96 09/05/16 19:40 90 18 100 Mechanical Ventilator 09/05/16 19:25 92 22 100 Mechanical Ventilator 09/05/16 19:23 92 25 35 09/05/16 19:15 35 09/05/16 19:00 98.9 97 18 154/49 100 Mechanical Ventilator 35 09/05/16 18:00 82 17 133/47 100 Mechanical Ventilator 35 09/05/16 17:10 86 18 35 09/05/16 17:00 82 17 133/47 100 Mechanical Ventilator 35 09/05/16 16:00 35 09/05/16 16:00 99.0 85 18 141/50 100 Mechanical Ventilator 40 09/05/16 16:00 87 09/05/16 15:23 87 17 35 09/05/16 15:00 85 17 127/47 99 Mechanical Ventilator 40 09/05/16 14:00 83 17 113/37 100 Mechanical Ventilator 40 09/05/16 13:29 91 19 100 Mechanical Ventilator 09/05/16 13:29 91 18 100 Mechanical Ventilator 09/05/16 13:29 91 20 40 09/05/16 13:00 87 13 117/40 100 Mechanical Ventilator 50 09/05/16 12:05 50 09/05/16 12:00 98.5 88 19 127/38 100 Mechanical Ventilator 50 09/05/16 12:00 50 09/05/16 12:00 93 09/05/16 11:00 83 17 121/34 100 Mechanical Ventilator 60 09/05/16 10:50 82 17 60 09/05/16 10:00 86 17 115/34 100 Mechanical Ventilator 60 09/05/16 09:08 87 17 60 09/05/16 09:00 84 17 109/34 100 Mechanical Ventilator 60 09/05/16 08:00 84 09/05/16 08:00 60 09/05/16 08:00 98.1 85 17 106/34 100 Mechanical Ventilator 60 09/05/16 07:00 85 17 116/36 100 Mechanical Ventilator 60 09/05/16 07:00 83 17 100 Mechanical Ventilator 09/05/16 06:55 84 17 60 09/05/16 06:55 83 17 100 Mechanical Ventilator 09/05/16 06:00 86 20 116/56 100 Mechanical Ventilator 60 09/05/16 05:01 94 23 60 09/05/16 05:00 88 20 115/88 100 Mechanical Ventilator 60 09/05/16 04:00 98.6 90 20 115/35 100 Mechanical Ventilator 60 09/05/16 04:00 60 09/05/16 04:00 88 09/05/16 03:30 96 18 60 09/05/16 03:00 79 15 123/49 100 Mechanical Ventilator 60 09/05/16 02:00 89 15 125/56 100 Mechanical Ventilator 60 09/05/16 01:00 90 17 118/96 100 Mechanical Ventilator 60 09/05/16 00:51 96 20 100 Mechanical Ventilator 09/05/16 00:51 92 21 99 Mechanical Ventilator 09/05/16 00:50 94 20 60 09/05/16 00:00 60 09/05/16 00:00 98.4 89 17 126/79 100 Mechanical Ventilator 60 09/05/16 00:00 89 09/04/16 23:03 83 29 60 09/04/16 23:00 86 17 120/37 100 Mechanical Ventilator 45 Intake and Output 09/04/16 09/05/16 19:00 07:00 Intake Total 1395 ml 1985 ml Output Total 570 ml 490 ml Balance 825 ml 1495 ml Intake Free Water 200 ml IV Total 1255 ml 1380 ml Tube Feeding 140 ml 405 ml Output Urine Total 570 ml 490 ml # Bowel Movements 1 1 Laboratory Tests Test 09/05/16 04:00 09/05/16 11:50 09/05/16 21:10 White Blood Count 32.9 K/UL (4.8-10.8) #*H Red Blood Count 2.18 M/UL (4.20-5.40) L Hemoglobin 7.3 G/DL (12.0-16.0) L Hematocrit 23.4 % (37.0-47.0) L Mean Corpuscular Volume 107 FL (80-99) H Mean Corpuscular Hemoglobin 33.3 PG (27.0-31.0) H Mean Corpuscular Hemoglobin Concent 31.0 G/DL (32.0-36.0) L Red Cell Distribution Width 15.1 % (11.6-14.8) H Platelet Count 100 K/UL (150-450) L Mean Platelet Volume 7.4 FL (6.5-10.1) Neutrophils (%) (Auto) % (45.0-75.0) Lymphocytes (%) (Auto) % (20.0-45.0) Monocytes (%) (Auto) % (1.0-10.0) Eosinophils (%) (Auto) % (0.0-3.0) Basophils (%) (Auto) % (0.0-2.0) Differential Total Cells Counted 100 Neutrophils % (Manual) 81 % (45-75) H Lymphocytes % (Manual) 7 % (20-45) L Monocytes % (Manual) 1 % (1-10) Eosinophils % (Manual) 0 % (0-3) Basophils % (Manual) 0 % (0-2) Metamyelocytes % 2 % (0-0) H Band Neutrophils 9 % (0-8) H Platelet Estimate Decreased L Platelet Morphology Normal Hypochromasia 1+ Anisocytosis 1+ Macrocytosis 1+ Stomatocytes Occasional Sodium Level 132 mEQ/L (135-145) L Potassium Level 3.9 mEQ/L (3.4-4.9) Chloride Level 92 mEQ/L (98-107) L Carbon Dioxide Level 32 mEQ/L (20-30) H Anion Gap 8 (5-15) Blood Urea Nitrogen 32 mg/dL (7-23) H Creatinine 0.5 mg/dL (0.5-0.9) Estimat Glomerular Filtration Rate mL/min (>60) Glucose Level 143 mg/dL (74-106) H Lactic Acid Level 1.50 mmol/L (0.66-2.22) Calcium Level 7.4 mg/dL (8.6-10.2) L Total Bilirubin < 0.2 mg/dL (0.0-1.2) Direct Bilirubin 0.1 mg/dL (0.1-0.3) Aspartate Amino Transf (AST/SGOT) 275 U/L (5-40) H Alanine Aminotransferase (ALT/SGPT) 228 U/L (3-33) H Alkaline Phosphatase 170 U/L (35-104) H Total Protein 5.8 g/dL (6.6-8.7) L Albumin 2.0 g/dL (3.5-5.2) L Arterial Blood pH 7.359 (7.350-7.450) Arterial Blood Partial Pressure CO2 61.3 mmHg (35.0-45.0) *H Arterial Blood Partial Pressure O2 123.3 mmHg (75.0-100.0) H Arterial Blood HCO3 33.8 mmol/L (22.0-26.0) H Arterial Blood Oxygen Saturation 98.2 % (92.0-98.0) H Arterial Blood Base Excess 7.1 Victorino Test Positive Troponin I < 0.30 ng/mL (<=0.30) Height (Feet): 5 Height (Inches): 6.00 Weight (Pounds): 180 Medications Current Medications Medications (Trade) Dose Ordered Sig/Lonny Route PRN Reason Start Time Stop Time Status Last Admin Dose Admin Albuterol/ Ipratropium 3 ml 3 ml Q6HRT HHN 09/04/16 07:00 09/09/16 06:59 09/05/16 19:25 Dextrose/Sodium Chloride 1,000 ml @ 60 mls/hr [id number] IV 09/05/16 12:30 10/05/16 12:29 09/05/16 06:01 Diltiazem HCl (Cardizem) 5 mg PRN ONCE IV 09/05/16 21:00 09/05/16 21:01 UNV Gentamicin Sulfate 2 drop 2 drop EVERY 4 HOURS BOTH EYES 09/04/16 13:00 09/11/16 12:59 09/05/16 20:46 Heparin Sodium (Porcine) (Heparin 5000 units/ml) 5,000 units EVERY 12 HOURS SUBQ 09/04/16 21:00 10/04/16 20:59 Levetiracetam 500 mg/Dextrose 115 ml @ 460 mls/hr Q12HR IV 09/04/16 21:00 10/04/16 20:59 09/05/16 20:47 Metronidazole (Flagyl) 100 ml @ 100 mls/hr Q8H IVPB 09/04/16 06:00 09/11/16 05:59 09/05/16 22:07 Pantoprazole (Protonix) 40 mg EVERY 12 HOURS IVP 09/04/16 21:00 10/04/16 20:59 09/05/16 20:47 Piperacillin Sod/ Tazobactam Sod/ Dextrose (Zosyn/D5W) 110 ml @ 27.5 mls/hr Q8HR@0400,1200,1800 IVPB 09/05/16 12:00 09/12/16 11:59 09/05/16 17:24 Assessment/Plan Problem List: (1) Azotemia ICD Codes: R79.89 - Other specified abnormal findings of blood chemistry SNOMED: 764636574 (2) Hyperkalemia ICD Codes: E87.5 - Hyperkalemia SNOMED: 71203321 (3) Hyponatremia ICD Codes: E87.1 - Hypo-osmolality and hyponatremia SNOMED: 80977378 (4) Septic shock ICD Codes: A41.9 - Sepsis, unspecified organism; R65.21 - Severe sepsis with septic shock SNOMED: 59900872 (5) Respiratory distress ICD Codes: R06.00 - Dyspnea, unspecified; R65.21 - Severe sepsis with septic shock SNOMED: 375681558 (6) Dysphagia ICD Codes: R13.10 - Dysphagia, unspecified SNOMED: 97918099, 301520426 (7) Pneumonia ICD Codes: J18.9 - Pneumonia, unspecified organism SNOMED: 287118347 Qualifiers: Qualified Codes: J18.9 - Pneumonia, unspecified organism (8) Anemia ICD Codes: D64.9 - Anemia, unspecified SNOMED: 268701496 (9) Dehydration ICD Codes: E86.0 - Dehydration SNOMED: 36670372 Assessment/Plan Supportive care Monitor lytes, correct PRN Avoid nephrotoxic agents G-Tube feeding per GI Monitor H&H, transfuse PRN Monitor neuro status Continue wound care DVT prophylaxis AM labs JOSSIE YAÑEZ September 05, 2016 22:20
[2016-09-06] VITALS (24 sets, daily range): BP systolic 121–146; BP diastolic 39–71
[2016-09-06] MEDS: Gentamicin 0.3% Opth Soln 5ml BOTH EYES SCH ×6 (01:02→20:25)
[2016-09-06] MEDS: DuoNeb 0.5-3(2.5)mg/3ml neb HHN SCH ×4 (01:06→18:55)
[2016-09-06] MEDS: D5NS 1,000 ML IV SCH ×2 (03:37→20:26)
[2016-09-06] MEDS: Piperacillin/Tazobactam 3.375 GM in D5W 110 ML IVPB SCH ×3 (03:41→18:00)
[2016-09-06 05:39] LABS: MEAN CORPUSCULAR HEMOGLOBIN 33.5 PG (27.0-31.0); MEAN CORPUSCULAR HGB CONC 32.4 G/DL (32.0-36.0); MEAN CORPUSCULAR VOLUME 104 FL (80-99); MEAN PLATELET VOLUME 8.4 FL (6.5-10.1); PLATELET COUNT 83 K/UL (150-450); RED BLOOD COUNT 3.13 M/UL (4.20-5.40); RED CELL DISTRIBUTION WIDTH 17.6 % (11.6-14.8)
[2016-09-06] MEDS: metroNIDAZOLE 500mg 100 ML IVPB SCH ×3 (05:43→22:12)
[2016-09-06 05:58] LABS: ALANINE AMINOTRANSFERASE 204 U/L (3-33); ALBUMIN/GLOBULIN RATIO 0.6 (1.0-2.7); ANION GAP 7 (5-15); ASPARTATE AMINO TRANSFERASE 160 U/L (5-40); CALCIUM 7.3 mg/dL (8.6-10.2); CARBON DIOXIDE 33 mEQ/L (20-30); CHLORIDE 99 mEQ/L (98-107); CREATININE 0.4 mg/dL (0.5-0.9); HEMOLYSIS 0; POTASSIUM 3.6 mEQ/L (3.4-4.9); SODIUM 139 mEQ/L (135-145); TOTAL PROTEIN 6.3 g/dL (6.6-8.7)
[2016-09-06 06:03] LABS: WHITE BLOOD COUNT 29.5 K/UL (4.8-10.8)
[2016-09-06 06:05] LABS: FERRITIN 406 ng/mL (13-150); THYROID STIMULATING HORMONE 0.517 uIU/mL (0.300-4.500)
[2016-09-06 06:43] LABS: HEMOLYSIS 4; IRON 32 ug/dL (37-145); TOTAL IRON BINDING CAPACITY 178 ug/dL (250-400)
[2016-09-06] MEDS: Heparin 5000 units/ml inj SUBQ SCH ×2 (09:00→20:30)
[2016-09-06] MEDS: Pantoprazole Inj IVP SCH ×2 (09:13→20:27)
[2016-09-06] MEDS: levETIRAcetam 500 MG in D5W 110 ML IV SCH ×2 (09:13→20:27)
[2016-09-06 10:56] LABS: ANISOCYTOSIS 1+; BAND NEUTROPHILS % (MANUAL) 2 % (0-8); BASOPHILS % (MANUAL) 0 % (0-2); EOSINOPHILS % (MANUAL) 0 % (0-3); LYMPHOCYTES % (MANUAL) 5 % (20-45); NEUTROPHILS % (MANUAL) 90 % (45-75); PLATELET ESTIMATE DECREASED; PLATELET MORPHOLOGY NORMAL; TOTAL CELLS COUNTED 100
[2016-09-06] MEDS ORDERED: Tubing Blood Filter IV ONE (10:56)
[2016-09-06] MEDS ORDERED: Tubing IV Secondary IV ONE (10:56)
[2016-09-06] MEDS ORDERED: NS 275ml ONE (10:56)
[2016-09-06 10:57] LABS: HYPOCHROMASIA 1+; MACROCYTES 1+
--- NOTE | 2016-09-06 11:12 | GI Progress Note ---
Assessment/Plan Problems: (1) Dehydration ICD Codes: E86.0 - Dehydration SNOMED: 18992942 (2) Hyponatremia ICD Codes: E87.1 - Hypo-osmolality and hyponatremia SNOMED: 00905433 (3) LFT elevation ICD Codes: R94.5 - Abnormal results of liver function studies SNOMED: 447764205 (4) Hypoalbuminemia ICD Codes: E88.09 - Other disorders of plasma-protein metabolism, not elsewhere classified SNOMED: 221561833 (5) Anemia ICD Codes: D64.9 - Anemia, unspecified SNOMED: 251478666 (6) Feeding by G-tube ICD Codes: Z93.1 - Gastrostomy status SNOMED: 247156750, 778335524 (7) Dysphagia ICD Codes: R13.10 - Dysphagia, unspecified SNOMED: 84887115, 531349198 Status: unchanged Status Narrative Discussed with Dr. Britt. Assessment/Plan OB stool negative elevated CEA >> 8.8 hold GI procedures given elevated WBC monitor H&H, transfuse prn GTFs per dietary ppi abx fu hep panel fu abdominal U/S fu labs The patient was seen and examined at bedside and all new and available data was reviewed in the patients chart. I agree with the above findings, impression and plan. (Patient seen earlier today. Signature stamp does not reflect patient encounter time.). -Nawaf Britt MD Subjective Subjective limited Objective Last 24 Hour Vital Signs Date Time Temp Pulse Resp B/P Pulse Ox O2 Delivery O2 Flow Rate FiO2 09/06/16 10:00 90 20 134/44 100 Mechanical Ventilator 30 09/06/16 09:00 86 19 136/51 100 Mechanical Ventilator 30 09/06/16 08:44 93 26 30 09/06/16 08:00 30 09/06/16 08:00 98.3 88 18 139/44 100 Mechanical Ventilator 30 09/06/16 08:00 95 09/06/16 07:11 98 19 100 Mechanical Ventilator 09/06/16 07:01 97 19 30 09/06/16 07:01 97 19 100 Mechanical Ventilator 09/06/16 07:00 94 19 137/44 100 Mechanical Ventilator 30 09/06/16 06:00 94 20 142/49 99 Mechanical Ventilator 30 09/06/16 05:00 92 22 129/42 99 Mechanical Ventilator 30 5/18/17 04:49 96 14 30 18/17 04:00 99 18/17 04:00 30 18/17 04:00 98.3 99 24 140/41 97 Mechanical Ventilator 30 18/17 03:22 93 27 30 18/17 03:00 92 26 140/41 98 Mechanical Ventilator 30 18/17 02:00 92 18 134/42 99 Mechanical Ventilator 30 18/17 01:17 93 18 100 Mechanical Ventilator 18/17 01:08 92 26 100 Mechanical Ventilator 18/17 01:06 94 26 30 18/17 01:00 92 18 128/40 100 Mechanical Ventilator 35 18/17 00:00 98.7 93 19 139/39 100 Mechanical Ventilator 35 18/17 00:00 35 18/17 00:00 97 09/05/16 23:15 92 28 35 09/05/17 23:00 90 18 132/40 99 Mechanical Ventilator 35 09/05/ 22:00 90 19 137/49 100 Mechanical Ventilator 35 09/05/17 21:25 96 26 35 09/05/17 21:00 35 09/05/ 21:00 93 18 145/48 99 Mechanical Ventilator 35 09/05/17 20:00 98 17 174/48 98 Mechanical Ventilator 35 09/05/17 20:00 96 09/05/16 19:40 90 18 100 Mechanical Ventilator 09/05/16 19:25 92 22 100 Mechanical Ventilator 09/05/ 19:23 92 25 35 09/05/17 19:15 35 09/05/16 19:00 98.9 97 18 154/49 100 Mechanical Ventilator 35 17/17 18:00 82 17 133/47 100 Mechanical Ventilator 35 17/17 17:10 86 18 35 17/17 17:00 82 17 133/47 100 Mechanical Ventilator 35 17/17 16:00 35 17/17 16:00 99.0 85 18 141/50 100 Mechanical Ventilator 40 17/17 16:00 87 /17/17 15:23 87 17 35 17/17 15:00 85 17 127/47 99 Mechanical Ventilator 40 17/17 14:00 83 17 113/37 100 Mechanical Ventilator 40 17/17 13:29 91 19 100 Mechanical Ventilator 09/05/16 13:29 91 18 100 Mechanical Ventilator 09/05/16 13:29 91 20 40 09/05/16 13:00 87 13 117/40 100 Mechanical Ventilator 50 09/05/16 12:05 50 09/05/16 12:00 98.5 88 19 127/38 100 Mechanical Ventilator 50 09/05/16 12:00 50 09/05/16 12:00 93 Intake and Output 09/05/16 09/06/16 19:00 07:00 Intake Total 2202.5 ml 1325.0 ml Output Total 470 ml 450 ml Balance 1732.5 ml 875.0 ml Intake Free Water 150 ml IV Total 1012.5 ml 1145.0 ml Tube Feeding 540 ml 180 ml Blood Product 500 ml Output Urine Total 470 ml 450 ml # Bowel Movements 4 Laboratory Tests Test 09/05/16 11:50 09/05/16 21:10 09/05/16 21:30 09/06/16 04:00 Arterial Blood pH 7.359 (7.350-7.450) Arterial Blood Partial Pressure CO2 61.3 mmHg (35.0-45.0) *H Arterial Blood Partial Pressure O2 123.3 mmHg (75.0-100.0) H Arterial Blood HCO3 33.8 mmol/L (22.0-26.0) H Arterial Blood Oxygen Saturation 98.2 % (92.0-98.0) H Arterial Blood Base Excess 7.1 Victorino Test Positive Troponin I < 0.30 ng/mL (<=0.30) Stool Occult Blood Negative (NEGATIVE) White Blood Count 29.5 K/UL (4.8-10.8) *H Red Blood Count 3.13 M/UL (4.20-5.40) L Hemoglobin 10.5 G/DL (12.0-16.0) #L Hematocrit 32.4 % (37.0-47.0) #L Mean Corpuscular Volume 104 FL (80-99) H Mean Corpuscular Hemoglobin 33.5 PG (27.0-31.0) H Mean Corpuscular Hemoglobin Concent 32.4 G/DL (32.0-36.0) Red Cell Distribution Width 17.6 % (11.6-14.8) H Platelet Count 83 K/UL (150-450) L Mean Platelet Volume 8.4 FL (6.5-10.1) Neutrophils (%) (Auto) % (45.0-75.0) Lymphocytes (%) (Auto) % (20.0-45.0) Monocytes (%) (Auto) % (1.0-10.0) Eosinophils (%) (Auto) % (0.0-3.0) Basophils (%) (Auto) % (0.0-2.0) Differential Total Cells Counted 100 Neutrophils % (Manual) 90 % (45-75) H Lymphocytes % (Manual) 5 % (20-45) L Monocytes % (Manual) 3 % (1-10) Eosinophils % (Manual) 0 % (0-3) Basophils % (Manual) 0 % (0-2) Band Neutrophils 2 % (0-8) Platelet Estimate Decreased L Platelet Morphology Normal Hypochromasia 1+ Anisocytosis 1+ Macrocytosis 1+ Reticulocyte Count 2.0 % (0.0-2.0) Sodium Level 139 mEQ/L (135-145) Potassium Level 3.6 mEQ/L (3.4-4.9) Chloride Level 99 mEQ/L (98-107) Carbon Dioxide Level 33 mEQ/L (20-30) H Anion Gap 7 (5-15) Blood Urea Nitrogen 24 mg/dL (7-23) H Creatinine 0.4 mg/dL (0.5-0.9) L Estimat Glomerular Filtration Rate mL/min (>60) Glucose Level 96 mg/dL (74-106) Calcium Level 7.3 mg/dL (8.6-10.2) L Iron Level 32 ug/dL (37-145) L Total Iron Binding Capacity 178 ug/dL (250-400) L Percent Iron Saturation 18 % (15-50) Unsaturated Iron Binding 146 ug/dL (112-346) Ferritin 406 ng/mL (13-150) H Total Bilirubin 0.4 mg/dL (0.0-1.2) Aspartate Amino Transf (AST/SGOT) 160 U/L (5-40) H Alanine Aminotransferase (ALT/SGPT) 204 U/L (3-33) H Alkaline Phosphatase 163 U/L (35-104) H Total Protein 6.3 g/dL (6.6-8.7) L Albumin 2.5 g/dL (3.5-5.2) L Globulin 3.8 g/dL Albumin/Globulin Ratio 0.6 (1.0-2.7) L Carcinoembryonic Antigen 8.8 ng/mL H Vitamin B12 Level > 2000 pg/mL (211-946) H Folate Pending Thyroid Stimulating Hormone (TSH) 0.517 uIU/mL (0.300-4.500) Free Thyroxine 0.87 ng/dL (0.86-1.85) Hepatitis A IgM Antibody Pending Hepatitis B Surface Antigen Pending Hepatitis B Core IgM Antibody Pending Hepatitis C Antibody Pending Microbiology Date/Time Source Procedure Growth Status 09/05/16 12:43 Sputum Gram Stain - Final Resulted 09/05/16 12:43 Sputum Sputum Culture - Preliminary NO GROWTH Resulted Height (Feet): 5 Height (Inches): 6.00 Weight (Pounds): 180 General Appearance: overweight Cardiovascular: normal rate Respiratory/Chest: other - [facility] vent Abdominal Exam: GT site - c/d/i Luna Rodriguez NKarly September 06, 2016 11:12 NAWAF BRITT September 07, 2016 09:18
--- NOTE | 2016-09-06 23:47 | Critical Care Progress Note ---
Assessment/Plan Problem List: (1) Cardiac arrest (2) Septic shock (3) Respiratory distress (4) Dysphagia (5) Pneumonia (6) Feeding by G-tube (7) esophageal wall thickening (8) Hypoalbuminemia (9) LFT elevation (10) Hyperkalemia (11) Azotemia (12) Hyponatremia (13) Dehydration Status: stable Assessment/Plan Can't wean her due to poor lung compliance. She may need diuresis. Will adjust fluids. Critical Care - Subjective Interval Events: Neuro status slightly better. Localizes to pain ROS Limited/Unobtainable: Yes Intubation Day: 3 Condition: critical IV Access: central EKG Rhythm: Sinus Rhythm IV Fluids: d5 1/2 NS Tube Feeding: yes Residuals: minimal Tube Feeding Tolerated: yes I&O: Intake and Output 09/05/16 09/06/16 19:00 07:00 Intake Total 2202.5 ml 1325.0 ml Output Total 470 ml 450 ml Balance 1732.5 ml 875.0 ml Intake Free Water 150 ml IV Total 1012.5 ml 1145.0 ml Tube Feeding 540 ml 180 ml Blood Product 500 ml Output Urine Total 470 ml 450 ml # Bowel Movements 4 Critical Care - Objective CXR: Hemodynamics stable ET-Tube: 6.0 ET Position: 23 Last 24 Hour Vital Signs Date Time Temp Pulse Resp B/P Pulse Ox O2 Delivery O2 Flow Rate FiO2 09/06/16 23:19 72 17 30 09/06/16 23:00 72 18 144/46 99 Mechanical Ventilator 30 09/06/16 22:00 79 18 144/45 98 Mechanical Ventilator 30 09/06/16 21:00 77 17 134/42 98 Mechanical Ventilator 30 09/06/16 20:51 77 17 30 09/06/16 20:00 99.9 83 21 139/45 97 Mechanical Ventilator 30 09/06/16 20:00 30 09/06/16 20:00 83 09/06/16 19:02 82 19 146/48 99 Mechanical Ventilator 30 09/06/16 19:02 84 16 100 Mechanical Ventilator 30 09/06/16 18:55 82 24 30 09/06/16 18:54 82 24 100 Mechanical Ventilator 30 09/06/16 18:00 83 19 121/71 99 Mechanical Ventilator 30 09/06/16 17:00 85 20 124/56 100 Mechanical Ventilator 30 5/18/17 16:49 80 16 30 5/18/17 16:00 83 518/17 16:00 30 518/17 16:00 98.3 87 20 128/71 100 Mechanical Ventilator 30 518/17 15:00 99 20 131/61 100 Mechanical Ventilator 30 5/18/17 14:45 92 23 30 5/18/17 14:00 88 20 129/41 100 Mechanical Ventilator 30 5/18/17 13:00 89 20 131/56 100 Mechanical Ventilator 30 518/17 12:40 82 21 100 Mechanical Ventilator 518/17 12:30 82 21 30 518/17 12:30 82 21 100 Mechanical Ventilator 518/17 12:00 30 18/17 12:00 98.4 85 20 123/46 100 Mechanical Ventilator 30 518/17 12:00 83 518/17 11:00 91 20 124/56 100 Mechanical Ventilator 30 518/17 10:48 87 26 30 5/18/17 10:00 90 20 134/44 100 Mechanical Ventilator 30 518/17 09:00 86 19 136/51 100 Mechanical Ventilator 30 518/17 08:44 93 26 30 5/18/17 08:00 30 518/17 08:00 98.3 88 18 139/44 100 Mechanical Ventilator 30 518/17 08:00 95 18/17 07:11 98 19 100 Mechanical Ventilator 18/17 07:01 97 19 30 518/17 07:01 97 19 100 Mechanical Ventilator 518/17 07:00 94 19 137/44 100 Mechanical Ventilator 30 518/17 06:00 94 20 142/49 99 Mechanical Ventilator 30 518/17 05:00 92 22 129/42 99 Mechanical Ventilator 30 5/18/17 04:49 96 14 30 5/18/17 04:00 99 5/18/17 04:00 30 5/18/17 04:00 98.3 99 24 140/41 97 Mechanical Ventilator 30 5/18/17 03:22 93 27 30 5/18/17 03:00 92 26 140/41 98 Mechanical Ventilator 30 5/18/17 02:00 92 18 134/42 99 Mechanical Ventilator 30 5/18/17 01:17 93 18 100 Mechanical Ventilator 518/17 01:08 92 26 100 Mechanical Ventilator 5/18/17 01:06 94 26 30 09/06/16 01:00 92 18 128/40 100 Mechanical Ventilator 35 09/06/16 00:00 98.7 93 19 139/39 100 Mechanical Ventilator 35 09/06/16 00:00 35 09/06/16 00:00 97 Status: somnolent Condition: improving Neck: no JVD Lungs: rhonchi Heart: normal rate Abdomen: soft Extremities: edema Micro: Microbiology Date/Time Source Procedure Growth Status 09/04/16 01:15 Blood Blood Culture - Preliminary NO GROWTH AFTER 48 HOURS Resulted 09/04/16 01:00 Blood Blood Culture - Preliminary NO GROWTH AFTER 48 HOURS Resulted 09/05/16 12:43 Sputum Gram Stain - Final Resulted 09/05/16 12:43 Sputum Sputum Culture - Preliminary NO GROWTH Resulted 09/04/16 04:22 Nasal Nares MRSA Culture - Final Staphylococcus Aureus - Mrsa Complete 09/04/16 02:19 Urine,Clean Catch Urine Culture - Final NO GROWTH AFTER 48 HOURS Complete Accucheck: 121 YONI ROCHE September 06, 2016 23:46
--- NOTE | 2016-09-06 23:58 | General Progress Note ---
Assessment/Plan Problem List: (1) Cardiac arrest Assessment & Plan: Anoxic encephalopathy with occasional myolclonic movement ICD Codes: I46.9 - Cardiac arrest, cause unspecified SNOMED: 774223056 (2) Septic shock Assessment & Plan: Improved ICD Codes: A41.9 - Sepsis, unspecified organism; R65.21 - Severe sepsis with septic shock SNOMED: 68629483 (3) Respiratory distress Assessment & Plan: On ventilator ICD Codes: R06.00 - Dyspnea, unspecified; R65.21 - Severe sepsis with septic shock SNOMED: 555128228 (4) Dysphagia Assessment & Plan: Tube feed started ICD Codes: R13.10 - Dysphagia, unspecified SNOMED: 60646120, 851490973 (5) Pneumonia Assessment & Plan: Antibiotic adjusted ICD Codes: J18.9 - Pneumonia, unspecified organism SNOMED: 940834356 Qualifiers: Qualified Codes: J18.9 - Pneumonia, unspecified organism (6) Feeding by G-tube ICD Codes: Z93.1 - Gastrostomy status SNOMED: 735991336, 854969523 (7) esophageal wall thickening (8) Hypoalbuminemia ICD Codes: E88.09 - Other disorders of plasma-protein metabolism, not elsewhere classified SNOMED: 235491287 (9) LFT elevation ICD Codes: R94.5 - Abnormal results of liver function studies SNOMED: 841502033 (10) Hyperkalemia ICD Codes: E87.5 - Hyperkalemia SNOMED: 89638135 (11) Azotemia ICD Codes: R79.89 - Other specified abnormal findings of blood chemistry SNOMED: 076038014 (12) Hyponatremia ICD Codes: E87.1 - Hypo-osmolality and hyponatremia SNOMED: 59158064 (13) Dehydration ICD Codes: E86.0 - Dehydration SNOMED: 32205501 Assessment/Plan Can't wean her due to poor lung compliance. She may need diuresis. Will adjust fluids. Subjective Date patient seen: September 05, 2016 Time patient seen: 11:30 ROS Limited/Unobtainable: Yes Constitutional: Reports: no symptoms HEENT: Reports: no symptoms Cardiovascular: Reports: no symptoms Allergies: Coded Allergies: No Known Allergies (Verified , 03/14/16) Uncoded Allergies: MILK (Allergy, Unknown, 3/21/12) Subjective On vent AC mode 35% FIO2 Objective Last 24 Hour Vital Signs Date Time Temp Pulse Resp B/P Pulse Ox O2 Delivery O2 Flow Rate FiO2 09/06/16 23:19 72 17 30 09/06/16 23:00 72 18 144/46 99 Mechanical Ventilator 30 09/06/16 22:00 79 18 144/45 98 Mechanical Ventilator 30 09/06/16 21:00 77 17 134/42 98 Mechanical Ventilator 30 09/06/16 20:51 77 17 30 09/06/16 20:00 99.9 83 21 139/45 97 Mechanical Ventilator 30 09/06/16 20:00 30 09/06/16 20:00 83 09/06/16 19:02 82 19 146/48 99 Mechanical Ventilator 30 09/06/16 19:02 84 16 100 Mechanical Ventilator 30 09/06/16 18:55 82 24 30 09/06/16 18:54 82 24 100 Mechanical Ventilator 30 09/06/16 18:00 83 19 121/71 99 Mechanical Ventilator 30 09/06/16 17:00 85 20 124/56 100 Mechanical Ventilator 30 09/06/16 16:49 80 16 30 09/06/16 16:00 83 09/06/16 16:00 30 09/06/16 16:00 98.3 87 20 128/71 100 Mechanical Ventilator 30 09/06/16 15:00 99 20 131/61 100 Mechanical Ventilator 30 09/06/16 14:45 92 23 30 09/06/16 14:00 88 20 129/41 100 Mechanical Ventilator 30 09/06/16 13:00 89 20 131/56 100 Mechanical Ventilator 30 09/06/16 12:40 82 21 100 Mechanical Ventilator 09/06/16 12:30 82 21 30 09/06/16 12:30 82 21 100 Mechanical Ventilator 09/06/16 12:00 30 09/06/16 12:00 98.4 85 20 123/46 100 Mechanical Ventilator 30 09/06/16 12:00 83 09/06/16 11:00 91 20 124/56 100 Mechanical Ventilator 30 09/06/17 10:48 87 26 30 09/06/17 10:00 90 20 134/44 100 Mechanical Ventilator 30 09/06/ 09:00 86 19 136/51 100 Mechanical Ventilator 30 09/06/16 08:44 93 26 30 09/06/ 08:00 30 09/06/16 08:00 98.3 88 18 139/44 100 Mechanical Ventilator 30 09/06/16 08:00 95 09/06/16 07:11 98 19 100 Mechanical Ventilator 09/06/16 07:01 97 19 30 09/06/16 07:01 97 19 100 Mechanical Ventilator 09/06/16 07:00 94 19 137/44 100 Mechanical Ventilator 30 09/06/16 06:00 94 20 142/49 99 Mechanical Ventilator 30 09/06/16 05:00 92 22 129/42 99 Mechanical Ventilator 30 09/06/16 04:49 96 14 30 09/06/16 04:00 99 09/06/16 04:00 30 09/06/16 04:00 98.3 99 24 140/41 97 Mechanical Ventilator 30 09/06/16 03:22 93 27 30 09/06/16 03:00 92 26 140/41 98 Mechanical Ventilator 30 09/06/16 02:00 92 18 134/42 99 Mechanical Ventilator 30 09/06/16 01:17 93 18 100 Mechanical Ventilator 09/06/16 01:08 92 26 100 Mechanical Ventilator 09/06/16 01:06 94 26 30 09/06/16 01:00 92 18 128/40 100 Mechanical Ventilator 35 09/06/16 00:00 98.7 93 19 139/39 100 Mechanical Ventilator 35 09/06/16 00:00 35 09/06/16 00:00 97 Intake and Output 09/05/16 09/06/16 19:00 07:00 Intake Total 2202.5 ml 1325.0 ml Output Total 470 ml 450 ml Balance 1732.5 ml 875.0 ml Intake Free Water 150 ml IV Total 1012.5 ml 1145.0 ml Tube Feeding 540 ml 180 ml Blood Product 500 ml Output Urine Total 470 ml 450 ml # Bowel Movements 4 Laboratory Tests 09/06/16 04:00: White Blood Count 29.5*H, Red Blood Count 3.13L, Hemoglobin 10.5#L, Hematocrit 32.4#L, Mean Corpuscular Volume 104H, Mean Corpuscular Hemoglobin 33.5H, Mean Corpuscular Hemoglobin Concent 32.4, Red Cell Distribution Width 17.6H, Platelet Count 83L, Mean Platelet Volume 8.4, Neutrophils (%) (Auto) , Lymphocytes (%) (Auto) , Monocytes (%) (Auto) , Eosinophils (%) (Auto) , Basophils (%) (Auto) , Differential Total Cells Counted 100, Neutrophils % ( Manual) 90H, Lymphocytes % (Manual) 5L, Monocytes % (Manual) 3, Eosinophils % ( Manual) 0, Basophils % (Manual) 0, Band Neutrophils 2, Platelet Estimate DecreasedL, Platelet Morphology Normal, Hypochromasia 1+, Anisocytosis 1+, Macrocytosis 1+, Reticulocyte Count 2.0, Sodium Level 139, Potassium Level 3.6, Chloride Level 99, Carbon Dioxide Level 33H, Anion Gap 7, Blood Urea Nitrogen 24H, Creatinine 0.4L, Estimat Glomerular Filtration Rate , Glucose Level 96, Calcium Level 7.3L, Iron Level 32L, Total Iron Binding Capacity 178L, Percent Iron Saturation 18, Unsaturated Iron Binding 146, Ferritin 406H, Total Bilirubin 0.4, Aspartate Amino Transf (AST/SGOT) 160H, Alanine Aminotransferase (ALT/SGPT) 204H, Alkaline Phosphatase 163H, Total Protein 6.3L, Albumin 2.5L, Globulin 3.8, Albumin/Globulin Ratio 0.6L, Carcinoembryonic Antigen 8.8H, Vitamin B12 Level > 2000H, Folate [Pending], Thyroid Stimulating Hormone (TSH) 0.517, Free Thyroxine 0.87, Hepatitis A IgM Antibody [Pending], Hepatitis B Surface Antigen [Pending], Hepatitis B Core IgM Antibody [Pending], Hepatitis C Antibody [Pending] Height (Feet): 5 Height (Inches): 6.00 Weight (Pounds): 180 General Appearance: no apparent distress EENT: PERRL/EOMI Neck: non-tender Cardiovascular: normal rate, no gallop/murmur Respiratory/Chest: chest wall non-tender Abdomen: normal bowel sounds Edema: mild edema Neurologic: unresponsive Skin: normal pigmentation YONI ROCHE September 06, 2016 23:58
[2016-09-07] VITALS (24 sets, daily range): BP systolic 132–163; BP diastolic 22–83
[2016-09-07] MEDS: Gentamicin 0.3% Opth Soln 5ml BOTH EYES SCH ×6 (01:09→20:40)
[2016-09-07] MEDS: DuoNeb 0.5-3(2.5)mg/3ml neb HHN SCH ×4 (01:20→19:16)
[2016-09-07] MEDS: Piperacillin/Tazobactam 3.375 GM in D5W 110 ML IVPB SCH ×3 (04:15→17:30)
[2016-09-07 05:38] LABS: MEAN CORPUSCULAR HEMOGLOBIN 33.7 PG (27.0-31.0); MEAN CORPUSCULAR HGB CONC 32.6 G/DL (32.0-36.0); MEAN CORPUSCULAR VOLUME 103 FL (80-99); MEAN PLATELET VOLUME 7.4 FL (6.5-10.1); PLATELET COUNT 79 K/UL (150-450); RED BLOOD COUNT 3.07 M/UL (4.20-5.40); RED CELL DISTRIBUTION WIDTH 16.9 % (11.6-14.8); WHITE BLOOD COUNT 19.6 K/UL (4.8-10.8)
[2016-09-07] MEDS: metroNIDAZOLE 500mg 100 ML IVPB SCH ×3 (05:44→21:46)
[2016-09-07 06:01] LABS: ALANINE AMINOTRANSFERASE 137 U/L (3-33); ALBUMIN/GLOBULIN RATIO 0.5 (1.0-2.7); ANION GAP 8 (5-15); ASPARTATE AMINO TRANSFERASE 79 U/L (5-40); CALCIUM 7.2 mg/dL (8.6-10.2); CARBON DIOXIDE 32 mEQ/L (20-30); CHLORIDE 99 mEQ/L (98-107); CREATININE 0.4 mg/dL (0.5-0.9); HEMOLYSIS 1; POTASSIUM 3.1 mEQ/L (3.4-4.9); SODIUM 139 mEQ/L (135-145); TOTAL PROTEIN 6.1 g/dL (6.6-8.7)
[2016-09-07] MEDS: Ascorbic Acid 500mg tab GT SCH (08:41)
[2016-09-07] MEDS: Pantoprazole Inj IVP SCH ×2 (08:41→20:40)
[2016-09-07] MEDS: levETIRAcetam 500 MG in D5W 110 ML IV SCH ×2 (08:41→21:00)
[2016-09-07] MEDS: Heparin 5000 units/ml inj SUBQ SCH ×2 (08:41→20:43)
[2016-09-07] MEDS ORDERED: D5NS 1000ml IV ONE ×2 (09:31→10:00)
[2016-09-07] MEDS ORDERED: Tubing IV Secondary IV ONE (10:00)
[2016-09-07 10:09] LABS: BAND NEUTROPHILS % (MANUAL) 3 % (0-8); EOSINOPHILS % (MANUAL) 3 % (0-3); LYMPHOCYTES % (MANUAL) 7 % (20-45); NEUTROPHILS % (MANUAL) 82 % (45-75); TOTAL CELLS COUNTED 100
[2016-09-07 10:11] LABS: ANISOCYTOSIS 1+; BASOPHILS % (MANUAL) 0 % (0-2); MACROCYTES 1+; PLATELET ESTIMATE DECREASED; PLATELET MORPHOLOGY NORMAL
[2016-09-07 10:12] LABS: HYPOCHROMASIA 1+; STOMATOCYTES OCCASIONAL
--- NOTE | 2016-09-07 10:53 | GI Progress Note ---
Assessment/Plan Problems: (1) Dehydration ICD Codes: E86.0 - Dehydration SNOMED: 52271297 (2) Hyponatremia ICD Codes: E87.1 - Hypo-osmolality and hyponatremia SNOMED: 18367885 (3) LFT elevation ICD Codes: R94.5 - Abnormal results of liver function studies SNOMED: 529213288 (4) Hypoalbuminemia ICD Codes: E88.09 - Other disorders of plasma-protein metabolism, not elsewhere classified SNOMED: 566342181 (5) Anemia ICD Codes: D64.9 - Anemia, unspecified SNOMED: 888659955 (6) Feeding by G-tube ICD Codes: Z93.1 - Gastrostomy status SNOMED: 940265384, 838504280 (7) Dysphagia ICD Codes: R13.10 - Dysphagia, unspecified SNOMED: 94371247, 774494030 Status: progressing, unchanged Status Narrative Discussed with Dr. Britt. Assessment/Plan OB stool negative elevated CEA >> 8.8 hep panel >> negative hold GI procedures given elevated WBC EGD/colonoscopy when stable given anemia and elevated CEA. monitor H&H, transfuse prn GTFs per dietary ppi abx fu abdominal U/S fu labs Subjective Subjective limited Objective Last 24 Hour Vital Signs Date Time Temp Pulse Resp B/P Pulse Ox O2 Delivery O2 Flow Rate FiO2 09/07/16 10:00 79 20 151/52 99 Mechanical Ventilator 30 09/07/16 09:11 81 20 30 09/07/16 09:00 83 22 143/52 97 Mechanical Ventilator 30 09/07/16 08:00 99.0 80 17 134/44 100 Mechanical Ventilator 30 09/07/16 08:00 76 09/07/16 08:00 30 09/07/16 07:36 75 17 100 Mechanical Ventilator 30 09/07/16 07:23 81 16 100 Mechanical Ventilator 30 09/07/16 07:22 81 17 30 09/07/16 07:00 83 17 137/52 97 Mechanical Ventilator 30 09/07/16 06:00 74 18 132/40 99 Mechanical Ventilator 30 09/07/16 05:18 83 17 30 09/07/16 05:00 84 18 135/36 99 Mechanical Ventilator 30 09/07/16 04:00 98.6 87 19 144/50 97 Mechanical Ventilator 30 09/07/16 04:00 30 5/19/17 04:00 87 17 03:00 86 18 144/50 97 Mechanical Ventilator 30 5/17 03:00 76 17 30 09/07/17 02:00 82 18 137/40 96 Mechanical Ventilator 30 5/17 01:24 103 23 100 Mechanical Ventilator 100 09/07/17 01:20 84 22 30 519/17 01:19 84 22 100 Mechanical Ventilator 30 5/17 01:00 82 18 146/48 98 Mechanical Ventilator 30 09/07/17 00:00 30 09/07/17 00:00 98.7 83 18 148/49 100 Mechanical Ventilator 30 09/07/17 00:00 77 18/17 23:19 72 17 30 518/17 23:00 72 18 144/46 99 Mechanical Ventilator 30 518/17 22:00 79 18 144/45 98 Mechanical Ventilator 30 518/17 21:00 77 17 134/42 98 Mechanical Ventilator 30 518/17 20:51 77 17 30 518/17 20:00 98.9 83 21 139/45 97 Mechanical Ventilator 30 518/17 20:00 30 18/17 20:00 83 518/17 19:02 82 19 146/48 99 Mechanical Ventilator 30 518/17 19:02 84 16 100 Mechanical Ventilator 30 518/17 18:55 82 24 30 5/18/17 18:54 82 24 100 Mechanical Ventilator 30 5/18/17 18:00 83 19 121/71 99 Mechanical Ventilator 30 518/17 17:00 85 20 124/56 100 Mechanical Ventilator 30 5/18/17 16:49 80 16 30 5/18/17 16:00 83 5/18/17 16:00 30 5/18/17 16:00 98.3 87 20 128/71 100 Mechanical Ventilator 30 5/18/17 15:00 99 20 131/61 100 Mechanical Ventilator 30 5/18/17 14:45 92 23 30 5/18/17 14:00 88 20 129/41 100 Mechanical Ventilator 30 5/18/17 13:00 89 20 131/56 100 Mechanical Ventilator 30 5/18/17 12:40 82 21 100 Mechanical Ventilator 5/18/17 12:30 82 21 30 5/18/17 12:30 82 21 100 Mechanical Ventilator 5/18/17 12:00 30 09/06/16 12:00 98.4 85 20 123/46 100 Mechanical Ventilator 30 09/06/16 12:00 83 09/06/16 11:00 91 20 124/56 100 Mechanical Ventilator 30 Intake and Output 09/06/16 09/07/16 19:00 07:00 Intake Total 1352.5 ml 957.5 ml Output Total 420 ml 470 ml Balance 932.5 ml 487.5 ml Intake Free Water 200 ml IV Total 1072.5 ml 957.5 ml Tube Feeding 80 ml 0 ml Output Urine Total 420 ml 470 ml # Bowel Movements 3 2 Laboratory Tests Test 09/07/16 04:00 White Blood Count 19.6 K/UL (4.8-10.8) H Red Blood Count 3.07 M/UL (4.20-5.40) L Hemoglobin 10.3 G/DL (12.0-16.0) L Hematocrit 31.6 % (37.0-47.0) L Mean Corpuscular Volume 103 FL (80-99) H Mean Corpuscular Hemoglobin 33.7 PG (27.0-31.0) H Mean Corpuscular Hemoglobin Concent 32.6 G/DL (32.0-36.0) Red Cell Distribution Width 16.9 % (11.6-14.8) H Platelet Count 79 K/UL (150-450) L Mean Platelet Volume 7.4 FL (6.5-10.1) Neutrophils (%) (Auto) % (45.0-75.0) Lymphocytes (%) (Auto) % (20.0-45.0) Monocytes (%) (Auto) % (1.0-10.0) Eosinophils (%) (Auto) % (0.0-3.0) Basophils (%) (Auto) % (0.0-2.0) Differential Total Cells Counted 100 Neutrophils % (Manual) 82 % (45-75) H Lymphocytes % (Manual) 7 % (20-45) L Monocytes % (Manual) 5 % (1-10) Eosinophils % (Manual) 3 % (0-3) Basophils % (Manual) 0 % (0-2) Band Neutrophils 3 % (0-8) Platelet Estimate Decreased L Platelet Morphology Normal Hypochromasia 1+ Anisocytosis 1+ Macrocytosis 1+ Stomatocytes Occasional Sodium Level 139 mEQ/L (135-145) Potassium Level 3.1 mEQ/L (3.4-4.9) L Chloride Level 99 mEQ/L (98-107) Carbon Dioxide Level 32 mEQ/L (20-30) H Anion Gap 8 (5-15) Blood Urea Nitrogen 18 mg/dL (7-23) Creatinine 0.4 mg/dL (0.5-0.9) L Estimat Glomerular Filtration Rate mL/min (>60) Glucose Level 98 mg/dL (74-106) Calcium Level 7.2 mg/dL (8.6-10.2) L Total Bilirubin 0.4 mg/dL (0.0-1.2) Aspartate Amino Transf (AST/SGOT) 79 U/L (5-40) H Alanine Aminotransferase (ALT/SGPT) 137 U/L (3-33) H Alkaline Phosphatase 143 U/L (35-104) H Total Protein 6.1 g/dL (6.6-8.7) L Albumin 2.1 g/dL (3.5-5.2) L Globulin 4.0 g/dL Albumin/Globulin Ratio 0.5 (1.0-2.7) L Height (Feet): 5 Height (Inches): 6.00 Weight (Pounds): 180 General Appearance: no apparent distress, alert Cardiovascular: normal rate, other Respiratory/Chest: other - mech vent Abdominal Exam: GT site - c/d/i Luna Rodriguez N.P. September 07, 2016 10:53
[2016-09-07] MEDS ORDERED: Heparin 2000 units/Ns 1000ml INJ ONE (13:15)
[2016-09-07] MEDS ORDERED: Sodium Bicarbonate 4% 2.4meq/5ml vial INJ ONE (13:15)
[2016-09-07] MEDS ORDERED: Lidocaine 1% Plain 30 ml INJ ONE (13:15)
[2016-09-07] MEDS ORDERED: KCl 10% 40mEq/30ml liquid NG ONE ×2 (14:00)
--- NOTE | 2016-09-07 15:21 | Diagnostic Imaging Report ---
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 The right upper extremity was prepped with alcohol. All elements of maximal sterile barrier technique were followed including usage of a cap, mask, sterile gown, sterile gloves, hand hygiene and a large sterile sheet. Sonographic evaluation of the upper extremity was performed demonstrating a patent and compressible basilic vein. Access was obtained under real-time ultrasound guidance and digital image was saved and archived. An .018 wire was introduced. Needle exchanged for a 5 [place] peel-away sheath. Measurements were obtained. A 5 [place] dual-lumen Power PICC line catheter was cut to 35 cm and introduced over the wire. Peel-away sheath and wire were removed.Catheter was secured to the skin using 2-0 Prolene suture. Both ports aspirate and flush easily. Post procedure chest x-ray demonstrates good position of the PICC line catheter within the SVC. Moderate pulmonary edema noted. Impression: Successful placement of an upper extremity PICC line catheter
--- NOTE | 2016-09-07 20:46 | Nephrology Progress Note ---
Assessment/Plan Problem List: (1) Azotemia (2) Hyperkalemia (3) Hyponatremia (4) Septic shock (5) Respiratory distress (6) Dysphagia (7) Pneumonia (8) Anemia (9) Dehydration Plan Supportive care Monitor lytes, correct PRN Avoid nephrotoxic agents G-Tube feeding per GI Monitor H&H, transfuse PRN Monitor neuro status Continue wound care DVT prophylaxis PPI AM labs Subjective ROS Limited/Unobtainable: Yes Subjective In no distress Objective Objective Last 24 Hour Vital Signs Date Time Temp Pulse Resp B/P Pulse Ox O2 Delivery O2 Flow Rate FiO2 09/07/16 20:00 98.3 68 20 148/70 100 Mechanical Ventilator 30 09/07/16 20:00 30 09/07/16 19:37 77 18 100 Mechanical Ventilator 30 09/07/16 19:16 77 18 100 Mechanical Ventilator 30 09/07/16 19:12 77 18 30 09/07/16 19:00 78 20 153/58 97 Mechanical Ventilator 30 09/07/16 18:00 83 26 163/83 100 Mechanical Ventilator 30 09/07/16 17:00 75 18 163/69 99 Mechanical Ventilator 30 09/07/16 16:53 78 18 30 09/07/16 16:00 30 09/07/16 16:00 98.6 75 17 154/58 100 Mechanical Ventilator 30 09/07/16 16:00 75 09/07/16 15:01 94 18 30 09/07/16 15:00 89 21 160/22 99 Mechanical Ventilator 30 09/07/16 14:00 89 21 141/49 97 Mechanical Ventilator 30 09/07/16 13:06 77 17 100 Mechanical Ventilator 30 09/07/16 13:00 78 17 151/55 100 Mechanical Ventilator 30 09/07/16 12:56 89 18 100 Mechanical Ventilator 30 09/07/16 12:50 82 19 30 09/07/16 12:00 98.7 82 22 157/67 99 Mechanical Ventilator 30 09/07/16 12:00 82 09/07/16 12:00 30 09/07/16 11:27 78 18 30 09/07/16 11:00 81 18 150/58 100 Mechanical Ventilator 30 09/07/16 10:00 79 20 151/52 99 Mechanical Ventilator 30 09/07/16 09:11 81 20 30 09/07/16 09:00 83 22 143/52 97 Mechanical Ventilator 30 09/07/16 08:00 99.0 80 17 134/44 100 Mechanical Ventilator 30 09/07/16 08:00 76 09/07/16 08:00 30 09/07/16 07:36 75 17 100 Mechanical Ventilator 30 09/07/16 07:23 81 16 100 Mechanical Ventilator 30 09/07/16 07:22 81 17 30 09/07/16 07:00 83 17 137/52 97 Mechanical Ventilator 30 09/07/16 06:00 74 18 132/40 99 Mechanical Ventilator 30 09/07/16 05:18 83 17 30 09/07/16 05:00 84 18 135/36 99 Mechanical Ventilator 30 09/07/16 04:00 98.6 87 19 144/50 97 Mechanical Ventilator 30 09/07/16 04:00 30 09/07/16 04:00 87 09/07/16 03:00 86 18 144/50 97 Mechanical Ventilator 30 09/07/16 03:00 76 17 30 09/07/16 02:00 82 18 137/40 96 Mechanical Ventilator 30 09/07/16 01:24 103 23 100 Mechanical Ventilator 100 09/07/16 01:20 84 22 30 09/07/16 01:19 84 22 100 Mechanical Ventilator 30 09/07/16 01:00 82 18 146/48 98 Mechanical Ventilator 30 09/07/16 00:00 30 09/07/16 00:00 98.7 83 18 148/49 100 Mechanical Ventilator 30 09/07/16 00:00 77 09/06/16 23:19 72 17 30 09/06/16 23:00 72 18 144/46 99 Mechanical Ventilator 30 09/06/16 22:00 79 18 144/45 98 Mechanical Ventilator 30 09/06/16 21:00 77 17 134/42 98 Mechanical Ventilator 30 09/06/16 20:51 77 17 30 Intake and Output 09/06/16 09/07/16 19:00 07:00 Intake Total 1352.5 ml 957.5 ml Output Total 420 ml 470 ml Balance 932.5 ml 487.5 ml Intake Free Water 200 ml IV Total 1072.5 ml 957.5 ml Tube Feeding 80 ml 0 ml Output Urine Total 420 ml 470 ml # Bowel Movements 3 2 Laboratory Tests 09/07/16 04:00: White Blood Count 19.6H, Red Blood Count 3.07L, Hemoglobin 10.3L, Hematocrit 31.6L, Mean Corpuscular Volume 103H, Mean Corpuscular Hemoglobin 33.7H, Mean Corpuscular Hemoglobin Concent 32.6, Red Cell Distribution Width 16.9H, Platelet Count 79L, Mean Platelet Volume 7.4, Neutrophils (%) (Auto) , Lymphocytes (%) (Auto) , Monocytes (%) (Auto) , Eosinophils (%) (Auto) , Basophils (%) (Auto) , Differential Total Cells Counted 100, Neutrophils % ( Manual) 82H, Lymphocytes % (Manual) 7L, Monocytes % (Manual) 5, Eosinophils % ( Manual) 3, Basophils % (Manual) 0, Band Neutrophils 3, Platelet Estimate DecreasedL, Platelet Morphology Normal, Hypochromasia 1+, Anisocytosis 1+, Macrocytosis 1+, Stomatocytes Occasional, Sodium Level 139, Potassium Level 3.1L , Chloride Level 99, Carbon Dioxide Level 32H, Anion Gap 8, Blood Urea Nitrogen 18, Creatinine 0.4L, Estimat Glomerular Filtration Rate , Glucose Level 98, Calcium Level 7.2L, Total Bilirubin 0.4, Aspartate Amino Transf (AST/SGOT) 79H, Alanine Aminotransferase (ALT/SGPT) 137H, Alkaline Phosphatase 143H, Total Protein 6.1L, Albumin 2.1L, Globulin 4.0, Albumin/Globulin Ratio 0.5L Height (Feet): 5 Height (Inches): 6.00 Weight (Pounds): 180 General Appearance: no apparent distress EENT: normal ENT inspection Neck: normal alignment Cardiovascular: normal rate, regular rhythm Respiratory/Chest: decreased breath sounds, crackles/rales Abdomen: soft, other - PEG Extremities: non-tender Neurologic: motor weakness JOSSIE YAÑEZ September 07, 2016 20:46
[2016-09-08] VITALS (24 sets, daily range): BP systolic 120–165; BP diastolic 34–94
[2016-09-08] MEDS: DuoNeb 0.5-3(2.5)mg/3ml neb HHN SCH ×4 (00:41→19:25)
--- NOTE | 2016-09-08 00:56 | General Progress Note ---
Assessment/Plan Problem List: (1) Cardiac arrest Assessment & Plan: Anoxic encephalopathy with occasional myolclonic movement ICD Codes: I46.9 - Cardiac arrest, cause unspecified SNOMED: 999410147 (2) Septic shock Assessment & Plan: Improved ICD Codes: A41.9 - Sepsis, unspecified organism; R65.21 - Severe sepsis with septic shock SNOMED: 58332445 (3) Respiratory distress Assessment & Plan: On ventilator ICD Codes: R06.00 - Dyspnea, unspecified; R65.21 - Severe sepsis with septic shock SNOMED: 665330356 (4) Dysphagia Assessment & Plan: Tube feed started ICD Codes: R13.10 - Dysphagia, unspecified SNOMED: 69177511, 953903850 (5) Pneumonia Assessment & Plan: Antibiotic adjusted ICD Codes: J18.9 - Pneumonia, unspecified organism SNOMED: 425375801 Qualifiers: Qualified Codes: J18.9 - Pneumonia, unspecified organism (6) Feeding by G-tube ICD Codes: Z93.1 - Gastrostomy status SNOMED: 033665567, 084479821 (7) esophageal wall thickening (8) Hypoalbuminemia ICD Codes: E88.09 - Other disorders of plasma-protein metabolism, not elsewhere classified SNOMED: 782472926 (9) LFT elevation ICD Codes: R94.5 - Abnormal results of liver function studies SNOMED: 291413712 (10) Hyperkalemia ICD Codes: E87.5 - Hyperkalemia SNOMED: 81759943 (11) Azotemia ICD Codes: R79.89 - Other specified abnormal findings of blood chemistry SNOMED: 367691884 (12) Hyponatremia ICD Codes: E87.1 - Hypo-osmolality and hyponatremia SNOMED: 81335207 (13) Dehydration ICD Codes: E86.0 - Dehydration SNOMED: 09859216 Status: stable Status Narrative She is improving. WBC better. Will check ABG in am. Will wean as tolerated. 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 Bactroban ordered for nares. Assessment/Plan Can't wean her due to poor lung compliance. She may need diuresis. Will adjust fluids. Subjective Date patient seen: September 07, 2016 Time patient seen: 13:54 ROS Limited/Unobtainable: Yes Constitutional: Reports: no symptoms HEENT: Reports: no symptoms Cardiovascular: Reports: no symptoms Respiratory: Reports: other, sputum Allergies: Coded Allergies: No Known Allergies (Verified , 03/14/16) Uncoded Allergies: MILK (Allergy, Unknown, 07/11/11) Subjective On vent AC mode 35% FIO2 Objective Last 24 Hour Vital Signs Date Time Temp Pulse Resp B/P Pulse Ox O2 Delivery O2 Flow Rate FiO2 09/08/16 00:42 77 17 100 Mechanical Ventilator 30 09/08/16 00:41 72 17 30 09/07/16 23:00 77 17 133/43 100 Mechanical Ventilator 30 09/07/16 22:48 75 17 30 09/07/16 22:00 79 17 151/61 100 Mechanical Ventilator 30 09/07/16 21:00 82 17 137/50 100 Mechanical Ventilator 30 09/07/16 20:55 75 17 30 09/07/16 20:00 98.3 68 20 148/70 100 Mechanical Ventilator 30 09/07/16 20:00 30 09/07/16 20:00 78 09/07/16 19:37 77 18 100 Mechanical Ventilator 30 09/07/16 19:16 77 18 100 Mechanical Ventilator 30 09/07/16 19:12 77 18 30 09/07/16 19:00 78 20 153/58 97 Mechanical Ventilator 30 09/07/16 18:00 83 26 163/83 100 Mechanical Ventilator 30 09/07/16 17:00 75 18 163/69 99 Mechanical Ventilator 30 09/07/16 16:53 78 18 30 09/07/16 16:00 30 09/07/16 16:00 98.6 75 17 154/58 100 Mechanical Ventilator 30 09/07/16 16:00 75 09/07/16 15:01 94 18 30 09/07/16 15:00 89 21 160/22 99 Mechanical Ventilator 30 09/07/16 14:00 89 21 141/49 97 Mechanical Ventilator 30 09/07/16 13:06 77 17 100 Mechanical Ventilator 30 09/07/16 13:00 78 17 151/55 100 Mechanical Ventilator 30 09/07/16 12:56 89 18 100 Mechanical Ventilator 30 09/07/16 12:50 82 19 30 09/07/16 12:00 98.7 82 22 157/67 99 Mechanical Ventilator 30 09/07/16 12:00 82 09/07/16 12:00 30 09/07/16 11:27 78 18 30 09/07/16 11:00 81 18 150/58 100 Mechanical Ventilator 30 09/07/16 10:00 79 20 151/52 99 Mechanical Ventilator 30 09/07/16 09:11 81 20 30 09/07/16 09:00 83 22 143/52 97 Mechanical Ventilator 30 09/07/16 08:00 99.0 80 17 134/44 100 Mechanical Ventilator 30 09/07/16 08:00 76 09/07/16 08:00 30 09/07/16 07:36 75 17 100 Mechanical Ventilator 30 09/07/16 07:23 81 16 100 Mechanical Ventilator 30 09/07/16 07:22 81 17 30 09/07/16 07:00 83 17 137/52 97 Mechanical Ventilator 30 09/07/16 06:00 74 18 132/40 99 Mechanical Ventilator 30 09/07/16 05:18 83 17 30 09/07/16 05:00 84 18 135/36 99 Mechanical Ventilator 30 09/07/16 04:00 98.6 87 19 144/50 97 Mechanical Ventilator 30 09/07/16 04:00 30 09/07/16 04:00 87 09/07/16 03:00 86 18 144/50 97 Mechanical Ventilator 30 09/07/16 03:00 76 17 30 09/07/16 02:00 82 18 137/40 96 Mechanical Ventilator 30 09/07/16 01:24 103 23 100 Mechanical Ventilator 100 09/07/16 01:20 84 22 30 09/07/16 01:19 84 22 100 Mechanical Ventilator 30 09/07/16 01:00 82 18 146/48 98 Mechanical Ventilator 30 Intake and Output 09/07/16 09/08/16 19:00 07:00 Intake Total 1402.5 ml 170 ml Output Total 895 ml 215 ml Balance 507.5 ml -45 ml Intake Free Water 100 ml IV Total 927.5 ml Tube Feeding 315 ml 170 ml Other 60 ml Output Urine Total 895 ml 215 ml # Bowel Movements 1 1 Laboratory Tests 09/07/16 04:00: White Blood Count 19.6H, Red Blood Count 3.07L, Hemoglobin 10.3L, Hematocrit 31.6L, Mean Corpuscular Volume 103H, Mean Corpuscular Hemoglobin 33.7H, Mean Corpuscular Hemoglobin Concent 32.6, Red Cell Distribution Width 16.9H, Platelet Count 79L, Mean Platelet Volume 7.4, Neutrophils (%) (Auto) , Lymphocytes (%) (Auto) , Monocytes (%) (Auto) , Eosinophils (%) (Auto) , Basophils (%) (Auto) , Differential Total Cells Counted 100, Neutrophils % ( Manual) 82H, Lymphocytes % (Manual) 7L, Monocytes % (Manual) 5, Eosinophils % ( Manual) 3, Basophils % (Manual) 0, Band Neutrophils 3, Platelet Estimate DecreasedL, Platelet Morphology Normal, Hypochromasia 1+, Anisocytosis 1+, Macrocytosis 1+, Stomatocytes Occasional, Sodium Level 139, Potassium Level 3.1L , Chloride Level 99, Carbon Dioxide Level 32H, Anion Gap 8, Blood Urea Nitrogen 18, Creatinine 0.4L, Estimat Glomerular Filtration Rate , Glucose Level 98, Calcium Level 7.2L, Total Bilirubin 0.4, Aspartate Amino Transf (AST/SGOT) 79H, Alanine Aminotransferase (ALT/SGPT) 137H, Alkaline Phosphatase 143H, Total Protein 6.1L, Albumin 2.1L, Globulin 4.0, Albumin/Globulin Ratio 0.5L Height (Feet): 5 Height (Inches): 6.00 Weight (Pounds): 180 General Appearance: no apparent distress EENT: PERRL/EOMI Neck: non-tender Cardiovascular: normal rate Respiratory/Chest: chest wall non-tender, rhonchi - bilaterally Abdomen: normal bowel sounds, non tender Extremities: swelling Neurologic: unresponsive YONI ROCHE September 08, 2016 00:56
[2016-09-08] MEDS: Gentamicin 0.3% Opth Soln 5ml BOTH EYES SCH ×6 (01:04→21:25)
[2016-09-08 04:13] LABS: MEAN CORPUSCULAR HEMOGLOBIN 32.8 PG (27.0-31.0); MEAN CORPUSCULAR HGB CONC 31.7 G/DL (32.0-36.0); MEAN CORPUSCULAR VOLUME 104 FL (80-99); MEAN PLATELET VOLUME 8.2 FL (6.5-10.1); PLATELET COUNT 79 K/UL (150-450); RED CELL DISTRIBUTION WIDTH 16.3 % (11.6-14.8)
[2016-09-08 04:36] LABS: ALANINE AMINOTRANSFERASE 95 U/L (3-33); ALBUMIN/GLOBULIN RATIO 0.5 (1.0-2.7); ANION GAP 11 (5-15); ASPARTATE AMINO TRANSFERASE 45 U/L (5-40); CALCIUM 7.5 mg/dL (8.6-10.2); CARBON DIOXIDE 31 mEQ/L (20-30); CHLORIDE 101 mEQ/L (98-107); CREATININE 0.5 mg/dL (0.5-0.9); HEMOLYSIS 1; POTASSIUM 3.4 mEQ/L (3.4-4.9); SODIUM 143 mEQ/L (135-145); TOTAL PROTEIN 5.7 g/dL (6.6-8.7)
[2016-09-08] MEDS: Piperacillin/Tazobactam 3.375 GM in D5W 110 ML IVPB SCH ×2 (04:38→13:01)
[2016-09-08] MEDS: Dyna-Hex 2% Top Sol 8oz TOPIC SCH (04:38)
[2016-09-08] MEDS: metroNIDAZOLE 500mg 100 ML IVPB SCH ×3 (06:12→22:40)
--- NOTE | 2016-09-08 07:04 | Critical Care Progress Note ---
Assessment/Plan Problem List: (1) Cardiac arrest (2) Septic shock (3) Respiratory distress (4) Dysphagia (5) Pneumonia (6) Feeding by G-tube (7) esophageal wall thickening (8) Anemia (9) Hypoalbuminemia (10) Azotemia (11) Hyponatremia (12) Dehydration Assessment/Plan additional medical problems Respiratory acidosis Respiratory failure PLAN ID evaluation IV antibiotics follow up final cultures wean if able cardiology follow up noted meds reviewed medications/laboratory data/nursing notes/ICU care reviewed in detail note reviewed and edited care discussed with RN and RT ICU time spent 35 minutes Critical Care - Subjective Interval Events: asked to follow for Dr. Preciado patient critical ROS Limited/Unobtainable: Yes Condition: critical EKG Rhythm: Sinus Rhythm Residuals: minimal Tube Feeding Tolerated: yes I&O: Intake and Output 09/07/16 09/08/16 19:00 07:00 Intake Total 1402.5 ml 1145.0 ml Output Total 895 ml 595 ml Balance 507.5 ml 550.0 ml Intake Free Water 100 ml IV Total 927.5 ml 630.0 ml Tube Feeding 315 ml 515 ml Other 60 ml Output Urine Total 895 ml 595 ml # Bowel Movements 1 5 Critical Care - Objective ET-Tube: 6.0 ET Position: 23 Last 24 Hour Vital Signs Date Time Temp Pulse Resp B/P Pulse Ox O2 Delivery O2 Flow Rate FiO2 09/08/16 06:00 88 17 164/55 97 Mechanical Ventilator 30 09/08/16 05:08 99 25 30 09/08/16 05:00 97 17 156/55 100 Mechanical Ventilator 30 09/08/16 04:00 30 09/08/16 04:00 85 09/08/16 04:00 98.9 89 21 149/58 96 Mechanical Ventilator 30 09/08/16 03:00 96 17 135/38 100 Mechanical Ventilator 30 09/08/16 02:57 69 17 30 09/08/16 02:00 94 17 120/49 100 Mechanical Ventilator 30 09/08/16 01:02 77 17 100 Mechanical Ventilator 30 09/08/16 01:00 68 17 141/46 100 Mechanical Ventilator 30 09/08/16 00:42 77 17 100 Mechanical Ventilator 30 09/08/16 00:41 72 17 30 09/08/16 00:00 30 09/08/16 00:00 99.4 74 17 131/40 100 Mechanical Ventilator 30 09/08/16 00:00 74 09/07/16 23:00 77 17 133/43 100 Mechanical Ventilator 30 09/07/16 22:48 75 17 30 09/07/16 22:00 79 17 151/61 100 Mechanical Ventilator 30 09/07/16 21:00 82 17 137/50 100 Mechanical Ventilator 30 09/07/16 20:55 75 17 30 09/07/16 20:00 98.3 68 20 148/70 100 Mechanical Ventilator 30 09/07/16 20:00 30 09/07/16 20:00 78 09/07/16 19:37 77 18 100 Mechanical Ventilator 30 09/07/16 19:16 77 18 100 Mechanical Ventilator 30 09/07/16 19:12 77 18 30 09/07/16 19:00 78 20 153/58 97 Mechanical Ventilator 30 09/07/16 18:00 83 26 163/83 100 Mechanical Ventilator 30 09/07/16 17:00 75 18 163/69 99 Mechanical Ventilator 30 09/07/16 16:53 78 18 30 09/07/16 16:00 30 09/07/16 16:00 98.6 75 17 154/58 100 Mechanical Ventilator 30 09/07/16 16:00 75 09/07/16 15:01 94 18 30 09/07/16 15:00 89 21 160/22 99 Mechanical Ventilator 30 09/07/16 14:00 89 21 141/49 97 Mechanical Ventilator 30 09/07/16 13:06 77 17 100 Mechanical Ventilator 30 09/07/16 13:00 78 17 151/55 100 Mechanical Ventilator 30 09/07/16 12:56 89 18 100 Mechanical Ventilator 30 09/07/16 12:50 82 19 30 09/07/16 12:00 98.7 82 22 157/67 99 Mechanical Ventilator 30 09/07/16 12:00 82 09/07/16 12:00 30 09/07/16 11:27 78 18 30 09/07/16 11:00 81 18 150/58 100 Mechanical Ventilator 30 09/07/16 10:00 79 20 151/52 99 Mechanical Ventilator 30 09/07/16 09:11 81 20 30 09/07/16 09:00 83 22 143/52 97 Mechanical Ventilator 30 09/07/16 08:00 99.0 80 17 134/44 100 Mechanical Ventilator 30 09/07/16 08:00 76 5/19/17 08:00 30 09/07/16 07:36 75 17 100 Mechanical Ventilator 30 09/07/16 07:23 81 16 100 Mechanical Ventilator 30 09/07/16 07:22 81 17 30 Labs: Labs Test 09/05/16 11:50 09/05/16 21:10 09/05/16 21:30 09/06/16 04:00 Arterial Blood pH 7.359 (7.350-7.450) Arterial Blood Partial Pressure CO2 61.3 mmHg (35.0-45.0) Arterial Blood Partial Pressure O2 123.3 mmHg (75.0-100.0) Arterial Blood HCO3 33.8 mmol/L (22.0-26.0) Arterial Blood Oxygen Saturation 98.2 % (92.0-98.0) Arterial Blood Base Excess 7.1 Victorino Test Positive Troponin I < 0.30 ng/mL (<=0.30) Stool Occult Blood Negative (NEGATIVE) White Blood Count 29.5 K/UL (4.8-10.8) Red Blood Count 3.13 M/UL (4.20-5.40) Hemoglobin 10.5 G/DL (12.0-16.0) Hematocrit 32.4 % (37.0-47.0) Mean Corpuscular Volume 104 FL (80-99) Mean Corpuscular Hemoglobin 33.5 PG (27.0-31.0) Mean Corpuscular Hemoglobin Concent 32.4 G/DL (32.0-36.0) Red Cell Distribution Width 17.6 % (11.6-14.8) Platelet Count 83 K/UL (150-450) Mean Platelet Volume 8.4 FL (6.5-10.1) Neutrophils (%) (Auto) % (45.0-75.0) Lymphocytes (%) (Auto) % (20.0-45.0) Monocytes (%) (Auto) % (1.0-10.0) Eosinophils (%) (Auto) % (0.0-3.0) Basophils (%) (Auto) % (0.0-2.0) Differential Total Cells Counted 100 Neutrophils % (Manual) 90 % (45-75) Lymphocytes % (Manual) 5 % (20-45) Monocytes % (Manual) 3 % (1-10) Eosinophils % (Manual) 0 % (0-3) Basophils % (Manual) 0 % (0-2) Band Neutrophils 2 % (0-8) Platelet Estimate Decreased Platelet Morphology Normal Hypochromasia 1+ Anisocytosis 1+ Macrocytosis 1+ Reticulocyte Count 2.0 % (0.0-2.0) Sodium Level 139 mEQ/L (135-145) Potassium Level 3.6 mEQ/L (3.4-4.9) Chloride Level 99 mEQ/L (98-107) Carbon Dioxide Level 33 mEQ/L (20-30) Anion Gap 7 (5-15) Blood Urea Nitrogen 24 mg/dL (7-23) Creatinine 0.4 mg/dL (0.5-0.9) Estimat Glomerular Filtration Rate mL/min (>60) Glucose Level 96 mg/dL (74-106) Calcium Level 7.3 mg/dL (8.6-10.2) Iron Level 32 ug/dL (37-145) Total Iron Binding Capacity 178 ug/dL (250-400) Percent Iron Saturation 18 % (15-50) Unsaturated Iron Binding 146 ug/dL (112-346) Ferritin 406 ng/mL (13-150) Total Bilirubin 0.4 mg/dL (0.0-1.2) Aspartate Amino Transf (AST/SGOT) 160 U/L (5-40) Alanine Aminotransferase (ALT/SGPT) 204 U/L (3-33) Alkaline Phosphatase 163 U/L (35-104) Total Protein 6.3 g/dL (6.6-8.7) Albumin 2.5 g/dL (3.5-5.2) Globulin 3.8 g/dL Albumin/Globulin Ratio 0.6 (1.0-2.7) Carcinoembryonic Antigen 8.8 ng/mL Vitamin B12 Level > 2000 pg/mL (211-946) Folate 19.2 ng/mL (>3.0) Thyroid Stimulating Hormone (TSH) 0.517 uIU/mL (0.300-4.500) Free Thyroxine 0.87 ng/dL (0.86-1.85) Hepatitis A IgM Antibody Negative (Negative) Hepatitis B Surface Antigen Negative (Negative) Hepatitis B Core IgM Antibody Negative (Negative) Hepatitis C Antibody 0.2 s/co ratio (0.0-0.9) Test 09/07/16 04:00 09/08/16 04:00 White Blood Count 19.6 K/UL (4.8-10.8) 11.0 K/UL (4.8-10.8) Red Blood Count 3.07 M/UL (4.20-5.40) 3.00 M/UL (4.20-5.40) Hemoglobin 10.3 G/DL (12.0-16.0) 9.8 G/DL (12.0-16.0) Hematocrit 31.6 % (37.0-47.0) 31.0 % (37.0-47.0) Mean Corpuscular Volume 103 FL (80-99) 104 FL (80-99) Mean Corpuscular Hemoglobin 33.7 PG (27.0-31.0) 32.8 PG (27.0-31.0) Mean Corpuscular Hemoglobin Concent 32.6 G/DL (32.0-36.0) 31.7 G/DL (32.0-36.0) Red Cell Distribution Width 16.9 % (11.6-14.8) 16.3 % (11.6-14.8) Platelet Count 79 K/UL (150-450) 79 K/UL (150-450) Mean Platelet Volume 7.4 FL (6.5-10.1) 8.2 FL (6.5-10.1) Neutrophils (%) (Auto) % (45.0-75.0) % (45.0-75.0) Lymphocytes (%) (Auto) % (20.0-45.0) % (20.0-45.0) Monocytes (%) (Auto) % (1.0-10.0) % (1.0-10.0) Eosinophils (%) (Auto) % (0.0-3.0) % (0.0-3.0) Basophils (%) (Auto) % (0.0-2.0) % (0.0-2.0) Differential Total Cells Counted 100 Neutrophils % (Manual) 82 % (45-75) Lymphocytes % (Manual) 7 % (20-45) Monocytes % (Manual) 5 % (1-10) Eosinophils % (Manual) 3 % (0-3) Basophils % (Manual) 0 % (0-2) Band Neutrophils 3 % (0-8) Platelet Estimate Decreased Platelet Morphology Normal Hypochromasia 1+ Anisocytosis 1+ Macrocytosis 1+ Stomatocytes Occasional Sodium Level 139 mEQ/L (135-145) 143 mEQ/L (135-145) Potassium Level 3.1 mEQ/L (3.4-4.9) 3.4 mEQ/L (3.4-4.9) Chloride Level 99 mEQ/L (98-107) 101 mEQ/L (98-107) Carbon Dioxide Level 32 mEQ/L (20-30) 31 mEQ/L (20-30) Anion Gap 8 (5-15) 11 (5-15) Blood Urea Nitrogen 18 mg/dL (7-23) 17 mg/dL (7-23) Creatinine 0.4 mg/dL (0.5-0.9) 0.5 mg/dL (0.5-0.9) Estimat Glomerular Filtration Rate mL/min (>60) mL/min (>60) Glucose Level 98 mg/dL (74-106) 108 mg/dL (74-106) Calcium Level 7.2 mg/dL (8.6-10.2) 7.5 mg/dL (8.6-10.2) Total Bilirubin 0.4 mg/dL (0.0-1.2) 0.3 mg/dL (0.0-1.2) Aspartate Amino Transf (AST/SGOT) 79 U/L (5-40) 45 U/L (5-40) Alanine Aminotransferase (ALT/SGPT) 137 U/L (3-33) 95 U/L (3-33) Alkaline Phosphatase 143 U/L (35-104) 116 U/L (35-104) Total Protein 6.1 g/dL (6.6-8.7) 5.7 g/dL (6.6-8.7) Albumin 2.1 g/dL (3.5-5.2) 2.1 g/dL (3.5-5.2) Globulin 4.0 g/dL 3.6 g/dL Albumin/Globulin Ratio 0.5 (1.0-2.7) 0.5 (1.0-2.7) Objective: WDWN NAD chronically ill oral ETT reduced breath sounds bilaterally with some rhonchi [id number] without MRG NABS nontender no HSM; feeding tube no CCE nonfocal; reduced LOC Micro: Microbiology Date/Time Source Procedure Growth Status 09/05/16 12:43 Sputum Gram Stain - Final Resulted 09/05/16 12:43 Sputum Culture - Preliminary Gram Negative Bacillus 1 Resulted Accucheck: 121 LESLY COLINDRES September 08, 2016 07:04
[2016-09-08] MEDS: Heparin 5000 units/ml inj SUBQ SCH ×2 (09:00→21:00)
[2016-09-08] MEDS ORDERED: Dyna-Hex 2% Top Sol 8oz TOPIC SCH (09:00)
[2016-09-08] MEDS: Pantoprazole Inj IVP SCH ×2 (09:28→21:25)
[2016-09-08] MEDS: Ascorbic Acid 500mg tab GT SCH (09:28)
[2016-09-08] MEDS: levETIRAcetam 500 MG in D5W 110 ML IV SCH ×2 (09:28→21:25)
[2016-09-08] MEDS ORDERED: 1/2 NS 1000ml IV ONE (10:17)
[2016-09-08] MEDS ORDERED: D5NS 1000ml IV ONE (10:17)
[2016-09-08] MEDS ORDERED: NS 275ml ONE (10:17)
--- NOTE | 2016-09-08 11:22 | General Progress Note ---
Assessment/Plan Problem List: (1) Respiratory failure ICD Codes: J96.90 - Respiratory failure, unspecified, unspecified whether with hypoxia or hypercapnia SNOMED: 564547713 (2) LFT elevation ICD Codes: R94.5 - Abnormal results of liver function studies SNOMED: 744339859 (3) Anemia ICD Codes: D64.9 - Anemia, unspecified SNOMED: 616966952 (4) Feeding by G-tube ICD Codes: Z93.1 - Gastrostomy status SNOMED: 076002412, 708154002 (5) Dysphagia ICD Codes: R13.10 - Dysphagia, unspecified SNOMED: 99658717, 190004167 Assessment/Plan neg stool OB hold GI procedures for now ppi GTF fu abd us fu labs Subjective ROS Limited/Unobtainable: No Allergies: Coded Allergies: No Known Allergies (Verified , 03/14/16) Uncoded Allergies: MILK (Allergy, Unknown, 07/11/11) Objective Last 24 Hour Vital Signs Date Time Temp Pulse Resp B/P Pulse Ox O2 Delivery O2 Flow Rate FiO2 09/08/16 10:00 94 18 165/63 100 Mechanical Ventilator 30 09/08/16 09:17 90 19 30 09/08/16 09:00 90 20 143/43 100 Mechanical Ventilator 30 09/08/16 08:00 98.6 93 23 152/94 96 Mechanical Ventilator 30 09/08/16 08:00 30 09/08/16 08:00 91 09/08/16 07:20 87 17 100 Mechanical Ventilator 30 09/08/16 07:09 88 17 100 Mechanical Ventilator 30 09/08/16 07:08 90 18 30 09/08/16 07:00 93 17 157/50 100 Mechanical Ventilator 30 09/08/16 06:00 88 17 164/55 97 Mechanical Ventilator 30 09/08/16 05:08 99 25 30 09/08/16 05:00 97 17 156/55 100 Mechanical Ventilator 30 09/08/16 04:00 30 09/08/16 04:00 85 09/08/16 04:00 98.9 89 21 149/58 96 Mechanical Ventilator 30 09/08/16 03:00 96 17 135/38 100 Mechanical Ventilator 30 09/08/16 02:57 69 17 30 09/08/16 02:00 94 17 120/49 100 Mechanical Ventilator 30 09/08/16 01:02 77 17 100 Mechanical Ventilator 30 09/08/16 01:00 68 17 141/46 100 Mechanical Ventilator 30 09/08/16 00:42 77 17 100 Mechanical Ventilator 30 09/08/16 00:41 72 17 30 09/08/16 00:00 30 09/08/16 00:00 99.4 74 17 131/40 100 Mechanical Ventilator 30 09/08/16 00:00 74 09/07/16 23:00 77 17 133/43 100 Mechanical Ventilator 30 09/07/16 22:48 75 17 30 09/07/16 22:00 79 17 151/61 100 Mechanical Ventilator 30 09/07/16 21:00 82 17 137/50 100 Mechanical Ventilator 30 09/07/16 20:55 75 17 30 09/07/16 20:00 98.3 68 20 148/70 100 Mechanical Ventilator 30 09/07/16 20:00 30 09/07/16 20:00 78 09/07/16 19:37 77 18 100 Mechanical Ventilator 30 09/07/16 19:16 77 18 100 Mechanical Ventilator 30 09/07/16 19:12 77 18 30 09/07/16 19:00 78 20 153/58 97 Mechanical Ventilator 30 09/07/16 18:00 83 26 163/83 100 Mechanical Ventilator 30 09/07/16 17:00 75 18 163/69 99 Mechanical Ventilator 30 09/07/16 16:53 78 18 30 09/07/16 16:00 30 09/07/16 16:00 98.6 75 17 154/58 100 Mechanical Ventilator 30 09/07/16 16:00 75 09/07/16 15:01 94 18 30 09/07/16 15:00 89 21 160/22 99 Mechanical Ventilator 30 09/07/16 14:00 89 21 141/49 97 Mechanical Ventilator 30 09/07/16 13:06 77 17 100 Mechanical Ventilator 30 09/07/16 13:00 78 17 151/55 100 Mechanical Ventilator 30 09/07/16 12:56 89 18 100 Mechanical Ventilator 30 09/07/16 12:50 82 19 30 09/07/16 12:00 98.7 82 22 157/67 99 Mechanical Ventilator 30 09/07/16 12:00 82 09/07/16 12:00 30 09/07/16 11:27 78 18 30 Intake and Output 09/07/16 09/08/16 19:00 07:00 Intake Total 1402.5 ml 1335.0 ml Output Total 895 ml 655 ml Balance 507.5 ml 680.0 ml Intake Free Water 100 ml IV Total 927.5 ml 765.0 ml Tube Feeding 315 ml 570 ml Other 60 ml Output Urine Total 895 ml 655 ml # Bowel Movements 1 5 Laboratory Tests 09/08/16 04:00: White Blood Count 11.0H, Red Blood Count 3.00L, Hemoglobin 9.8L, Hematocrit 31.0L, Mean Corpuscular Volume 104H, Mean Corpuscular Hemoglobin 32.8H, Mean Corpuscular Hemoglobin Concent 31.7L, Red Cell Distribution Width 16.3H, Platelet Count 79L, Mean Platelet Volume 8.2, Neutrophils (%) (Auto) , Lymphocytes (%) (Auto) , Monocytes (%) (Auto) , Eosinophils (%) (Auto) , Basophils (%) (Auto) , Sodium Level 143, Potassium Level 3.4, Chloride Level 101 , Carbon Dioxide Level 31H, Anion Gap 11, Blood Urea Nitrogen 17, Creatinine 0.5 , Estimat Glomerular Filtration Rate , Glucose Level 108H, Calcium Level 7.5L, Total Bilirubin 0.3, Aspartate Amino Transf (AST/SGOT) 45H, Alanine Aminotransferase (ALT/SGPT) 95H, Alkaline Phosphatase 116H, Total Protein 5.7L, Albumin 2.1L, Globulin 3.6, Albumin/Globulin Ratio 0.5L Height (Feet): 5 Height (Inches): 6.00 Weight (Pounds): 180 General Appearance: lethargic EENT: normal ENT inspection Neck: supple Cardiovascular: normal rate Respiratory/Chest: decreased breath sounds Abdomen: normal bowel sounds, non tender, soft Extremities: non-tender PILAR SCHMITT September 08, 2016 11:22
--- NOTE | 2016-09-08 17:35 | Nephrology Progress Note ---
Assessment/Plan Problem List: (1) Azotemia Assessment: Resolved (2) Hyperkalemia Assessment: Resolved (3) Hyponatremia Assessment: Resolved (4) Septic shock (5) Respiratory distress (6) Dysphagia (7) Pneumonia (8) Anemia (9) Dehydration Plan Supportive care Monitor lytes, correct PRN Avoid nephrotoxic agents G-Tube feeding per GI Monitor H&H, transfuse PRN Monitor neuro status Continue wound care DVT prophylaxis PPI AM labs Subjective ROS Limited/Unobtainable: Yes Subjective In no distress Objective Objective Last 24 Hour Vital Signs Date Time Temp Pulse Resp B/P Pulse Ox O2 Delivery O2 Flow Rate FiO2 09/08/16 17:02 89 22 30 09/08/16 17:00 91 23 143/58 100 Mechanical Ventilator 30 09/08/16 16:00 97.1 89 20 139/64 100 Mechanical Ventilator 30 09/08/16 16:00 91 09/08/16 16:00 30 09/08/16 15:03 90 19 30 09/08/16 15:00 93 21 140/47 98 Mechanical Ventilator 30 09/08/16 14:00 94 22 149/56 99 Mechanical Ventilator 30 09/08/16 13:23 78 17 100 Mechanical Ventilator 30 09/08/16 13:14 87 17 100 Mechanical Ventilator 30 09/08/16 13:12 87 17 30 09/08/16 13:00 85 32 139/50 98 Mechanical Ventilator 30 09/08/16 12:00 98.5 85 27 142/51 98 Mechanical Ventilator 30 09/08/16 12:00 30 09/08/16 12:00 84 09/08/16 11:23 91 18 30 09/08/16 11:00 85 20 151/50 100 Mechanical Ventilator 30 09/08/16 10:00 94 18 165/63 100 Mechanical Ventilator 30 09/08/16 09:17 90 19 30 09/08/16 09:00 90 20 143/43 100 Mechanical Ventilator 30 09/08/16 08:00 98.6 93 23 152/94 96 Mechanical Ventilator 30 09/08/16 08:00 30 09/08/16 08:00 91 09/08/16 07:20 87 17 100 Mechanical Ventilator 30 09/08/16 07:09 88 17 100 Mechanical Ventilator 30 09/08/16 07:08 90 18 30 09/08/16 07:00 93 17 157/50 100 Mechanical Ventilator 30 09/08/16 06:00 88 17 164/55 97 Mechanical Ventilator 30 09/08/16 05:08 99 25 30 09/08/16 05:00 97 17 156/55 100 Mechanical Ventilator 30 09/08/16 04:00 30 09/08/16 04:00 85 09/08/16 04:00 98.9 89 21 149/58 96 Mechanical Ventilator 30 09/08/16 03:00 96 17 135/38 100 Mechanical Ventilator 30 09/08/16 02:57 69 17 30 09/08/16 02:00 94 17 120/49 100 Mechanical Ventilator 30 09/08/16 01:02 77 17 100 Mechanical Ventilator 30 09/08/16 01:00 68 17 141/46 100 Mechanical Ventilator 30 09/08/16 00:42 77 17 100 Mechanical Ventilator 30 09/08/16 00:41 72 17 30 09/08/16 00:00 30 09/08/16 00:00 99.4 74 17 131/40 100 Mechanical Ventilator 30 09/08/16 00:00 74 09/07/16 23:00 77 17 133/43 100 Mechanical Ventilator 30 09/07/16 22:48 75 17 30 09/07/16 22:00 79 17 151/61 100 Mechanical Ventilator 30 09/07/16 21:00 82 17 137/50 100 Mechanical Ventilator 30 09/07/16 20:55 75 17 30 09/07/16 20:00 98.3 68 20 148/70 100 Mechanical Ventilator 30 09/07/16 20:00 30 09/07/16 20:00 78 09/07/16 19:37 77 18 100 Mechanical Ventilator 30 09/07/16 19:16 77 18 100 Mechanical Ventilator 30 09/07/16 19:12 77 18 30 09/07/16 19:00 78 20 153/58 97 Mechanical Ventilator 30 09/07/16 18:00 83 26 163/83 100 Mechanical Ventilator 30 Intake and Output 09/07/16 09/08/16 19:00 07:00 Intake Total 1402.5 ml 1335.0 ml Output Total 895 ml 655 ml Balance 507.5 ml 680.0 ml Intake Free Water 100 ml IV Total 927.5 ml 765.0 ml Tube Feeding 315 ml 570 ml Other 60 ml Output Urine Total 895 ml 655 ml # Bowel Movements 1 5 Laboratory Tests 09/08/16 04:00: White Blood Count 11.0H, Red Blood Count 3.00L, Hemoglobin 9.8L, Hematocrit 31.0L, Mean Corpuscular Volume 104H, Mean Corpuscular Hemoglobin 32.8H, Mean Corpuscular Hemoglobin Concent 31.7L, Red Cell Distribution Width 16.3H, Platelet Count 79L, Mean Platelet Volume 8.2, Neutrophils (%) (Auto) , Lymphocytes (%) (Auto) , Monocytes (%) (Auto) , Eosinophils (%) (Auto) , Basophils (%) (Auto) , Sodium Level 143, Potassium Level 3.4, Chloride Level 101 , Carbon Dioxide Level 31H, Anion Gap 11, Blood Urea Nitrogen 17, Creatinine 0.5 , Estimat Glomerular Filtration Rate , Glucose Level 108H, Calcium Level 7.5L, Total Bilirubin 0.3, Aspartate Amino Transf (AST/SGOT) 45H, Alanine Aminotransferase (ALT/SGPT) 95H, Alkaline Phosphatase 116H, Total Protein 5.7L, Albumin 2.1L, Globulin 3.6, Albumin/Globulin Ratio 0.5L Height (Feet): 5 Height (Inches): 6.00 Weight (Pounds): 180 General Appearance: no apparent distress EENT: normal ENT inspection Neck: normal alignment Cardiovascular: normal rate Respiratory/Chest: decreased breath sounds, crackles/rales Abdomen: soft - PEG Extremities: non-tender JOSSIE YAÑEZ September 08, 2016 17:35
[2016-09-08] MEDS ORDERED: Meropenem 1 GM in NS 55 ML IVPB SCH (18:30)
[2016-09-08] MEDS: Meropenem 1 GM in NS 110 ML IVPB SCH (19:53)
--- NOTE | 2016-09-08 23:55 | Cardiology Progress Note ---
Assessment/Plan Assessment/Plan 1. Asystole cardiac arrest due to respiratory arrest due to severe hypoxemia due to acute exacerbation of COPD/pneumonia, echo reveals normal LVEF with no wall motion abnormalities. 2. Pneumonia/leukocytosis. Subjective Subjective On mechanical ventilator. Sinus rhythm at 94. Objective Last 24 Hour Vital Signs Date Time Temp Pulse Resp B/P Pulse Ox O2 Delivery O2 Flow Rate FiO2 09/08/16 23:30 94 20 30 09/08/16 21:03 92 23 30 09/08/16 20:00 98.0 89 17 123/66 100 Mechanical Ventilator 30 09/08/16 20:00 89 09/08/16 20:00 30 09/08/16 19:35 94 20 100 Mechanical Ventilator 30 09/08/16 19:26 93 20 100 Mechanical Ventilator 30 09/08/16 19:23 95 26 30 09/08/16 19:00 88 18 132/46 97 Mechanical Ventilator 30 09/08/16 18:00 93 20 140/34 100 Mechanical Ventilator 30 09/08/16 17:02 89 22 30 09/08/16 17:00 91 23 143/58 100 Mechanical Ventilator 30 09/08/16 16:00 97.1 89 20 139/64 100 Mechanical Ventilator 30 09/08/16 16:00 91 09/08/16 16:00 30 09/08/16 15:03 90 19 30 09/08/16 15:00 93 21 140/47 98 Mechanical Ventilator 30 09/08/16 14:00 94 22 149/56 99 Mechanical Ventilator 30 09/08/16 13:23 78 17 100 Mechanical Ventilator 30 09/08/16 13:14 87 17 100 Mechanical Ventilator 30 09/08/16 13:12 87 17 30 09/08/16 13:00 85 32 139/50 98 Mechanical Ventilator 30 09/08/16 12:00 98.5 85 27 142/51 98 Mechanical Ventilator 30 09/08/16 12:00 30 09/08/16 12:00 84 09/08/16 11:23 91 18 30 09/08/16 11:00 85 20 151/50 100 Mechanical Ventilator 30 09/08/16 10:00 94 18 165/63 100 Mechanical Ventilator 30 09/08/16 09:17 90 19 30 09/08/16 09:00 90 20 143/43 100 Mechanical Ventilator 30 09/08/16 08:00 98.6 93 23 152/94 96 Mechanical Ventilator 30 09/08/16 08:00 30 09/08/16 08:00 91 09/08/16 07:20 87 17 100 Mechanical Ventilator 30 09/08/16 07:09 88 17 100 Mechanical Ventilator 30 09/08/16 07:08 90 18 30 09/08/16 07:00 93 17 157/50 100 Mechanical Ventilator 30 09/08/16 06:00 88 17 164/55 97 Mechanical Ventilator 30 09/08/16 05:08 99 25 30 09/08/16 05:00 97 17 156/55 100 Mechanical Ventilator 30 09/08/16 04:00 30 09/08/16 04:00 85 09/08/16 04:00 98.9 89 21 149/58 96 Mechanical Ventilator 09/08/16 03:00 96 17 135/38 100 Mechanical Ventilator 30 09/08/16 02:57 69 17 30 09/08/16 02:00 94 17 120/49 100 Mechanical Ventilator 09/08/16 01:02 77 17 100 Mechanical Ventilator 30 09/08/16 01:00 68 17 141/46 100 Mechanical Ventilator 30 09/08/16 00:42 77 17 100 Mechanical Ventilator 30 09/08/16 00:41 72 17 30 09/08/16 00:00 30 09/08/16 00:00 99.4 74 17 131/40 100 Mechanical Ventilator 09/08/16 00:00 74 Intake and Output 09/07/16 09/08/16 19:00 07:00 Intake Total 1402.5 ml 1335.0 ml Output Total 895 ml 655 ml Balance 507.5 ml 680.0 ml Intake Free Water 100 ml IV Total 927.5 ml 765.0 ml Tube Feeding 315 ml 570 ml Other 60 ml Output Urine Total 895 ml 655 ml # Bowel Movements 1 5 2D Echo: LVEf 55%, Grade I LVDD, RVSP 57 mmHg Laboratory Tests Test 09/08/16 04:00 White Blood Count 11.0 K/UL (4.8-10.8) H Red Blood Count 3.00 M/UL (4.20-5.40) L Hemoglobin 9.8 G/DL (12.0-16.0) L Hematocrit 31.0 % (37.0-47.0) L Mean Corpuscular Volume 104 FL (80-99) H Mean Corpuscular Hemoglobin 32.8 PG (27.0-31.0) H Mean Corpuscular Hemoglobin Concent 31.7 G/DL (32.0-36.0) L Red Cell Distribution Width 16.3 % (11.6-14.8) H Platelet Count 79 K/UL (150-450) L Mean Platelet Volume 8.2 FL (6.5-10.1) Neutrophils (%) (Auto) % (45.0-75.0) Lymphocytes (%) (Auto) % (20.0-45.0) Monocytes (%) (Auto) % (1.0-10.0) Eosinophils (%) (Auto) % (0.0-3.0) Basophils (%) (Auto) % (0.0-2.0) Sodium Level 143 mEQ/L (135-145) Potassium Level 3.4 mEQ/L (3.4-4.9) Chloride Level 101 mEQ/L (98-107) Carbon Dioxide Level 31 mEQ/L (20-30) H Anion Gap 11 (5-15) Blood Urea Nitrogen 17 mg/dL (7-23) Creatinine 0.5 mg/dL (0.5-0.9) Estimat Glomerular Filtration Rate mL/min (>60) Glucose Level 108 mg/dL (74-106) H Calcium Level 7.5 mg/dL (8.6-10.2) L Total Bilirubin 0.3 mg/dL (0.0-1.2) Aspartate Amino Transf (AST/SGOT) 45 U/L (5-40) H Alanine Aminotransferase (ALT/SGPT) 95 U/L (3-33) H Alkaline Phosphatase 116 U/L (35-104) H Total Protein 5.7 g/dL (6.6-8.7) L Albumin 2.1 g/dL (3.5-5.2) L Globulin 3.6 g/dL Albumin/Globulin Ratio 0.5 (1.0-2.7) L Objective HEENT: normocephalic, atraumatic, PERRLA, EOMI Neck: no JVD, no carotid bruit, upstroke 2+ B/L Respiratory: decreased breath sounds, crackles Cardiovascular: regular rate, rhythm, normal S1S2, no murmurs, gallops or rubs Gastrointestinal: normal BS, soft non-tender, non-distended Musculoskeletal: no clubbing cyanosis or edema MARK LEVY September 08, 2016 23:55
[2016-09-09] VITALS (24 sets, daily range): BP systolic 129–160; BP diastolic 32–81
[2016-09-09] MEDS: DuoNeb 0.5-3(2.5)mg/3ml neb HHN SCH ×2 (00:49→06:54)
[2016-09-09] MEDS: Gentamicin 0.3% Opth Soln 5ml BOTH EYES SCH ×6 (01:00→20:38)
--- NOTE | 2016-09-09 01:00 | Cardiology Progress Note ---
Assessment/Plan Assessment/Plan 1. Pulmonary arrest leading to asystole cardiac arrest. Echo reveals normal LVEF (55%) and no wall motion abnormalities. 2. Acute exacerbation of COPD with respiratory failure 3. Pneumonia/Leukocytosis Subjective Subjective Sinus rhythm at 76 with 1st degree AVB. Objective Last 24 Hour Vital Signs Date Time Temp Pulse Resp B/P Pulse Ox O2 Delivery O2 Flow Rate FiO2 09/09/16 00:47 97 27 30 09/08/16 23:30 94 20 30 09/08/16 21:03 92 23 30 09/08/16 20:00 98.0 89 17 123/66 100 Mechanical Ventilator 30 09/08/16 20:00 89 09/08/16 20:00 30 09/08/16 19:35 94 20 100 Mechanical Ventilator 30 09/08/16 19:26 93 20 100 Mechanical Ventilator 30 09/08/16 19:23 95 26 30 09/08/16 19:00 88 18 132/46 97 Mechanical Ventilator 30 09/08/16 18:00 93 20 140/34 100 Mechanical Ventilator 30 09/08/16 17:02 89 22 30 09/08/16 17:00 91 23 143/58 100 Mechanical Ventilator 30 09/08/16 16:00 97.1 89 20 139/64 100 Mechanical Ventilator 30 09/08/16 16:00 91 09/08/16 16:00 30 09/08/16 15:03 90 19 30 09/08/16 15:00 93 21 140/47 98 Mechanical Ventilator 30 09/08/16 14:00 94 22 149/56 99 Mechanical Ventilator 30 09/08/16 13:23 78 17 100 Mechanical Ventilator 30 09/08/16 13:14 87 17 100 Mechanical Ventilator 30 09/08/16 13:12 87 17 30 09/08/16 13:00 85 32 139/50 98 Mechanical Ventilator 30 09/08/16 12:00 98.5 85 27 142/51 98 Mechanical Ventilator 30 09/08/16 12:00 30 09/08/16 12:00 84 09/08/16 11:23 91 18 30 09/08/16 11:00 85 20 151/50 100 Mechanical Ventilator 30 09/08/16 10:00 94 18 165/63 100 Mechanical Ventilator 30 09/08/16 09:17 90 19 30 09/08/16 09:00 90 20 143/43 100 Mechanical Ventilator 30 09/08/16 08:00 98.6 93 23 152/94 96 Mechanical Ventilator 30 09/08/16 08:00 30 09/08/16 08:00 91 09/08/16 07:20 87 17 100 Mechanical Ventilator 30 09/08/16 07:09 88 17 100 Mechanical Ventilator 30 09/08/16 07:08 90 18 30 09/08/16 07:00 93 17 157/50 100 Mechanical Ventilator 30 09/08/16 06:00 88 17 164/55 97 Mechanical Ventilator 30 09/08/16 05:08 99 25 30 09/08/16 05:00 97 17 156/55 100 Mechanical Ventilator 30 09/08/16 04:00 30 09/08/16 04:00 85 09/08/16 04:00 98.9 89 21 149/58 96 Mechanical Ventilator 30 09/08/16 03:00 96 17 135/38 100 Mechanical Ventilator 30 09/08/16 02:57 69 17 30 09/08/16 02:00 94 17 120/49 100 Mechanical Ventilator 30 09/08/16 01:02 77 17 100 Mechanical Ventilator 30 09/08/16 01:00 68 17 141/46 100 Mechanical Ventilator 30 Intake and Output 09/08/16 09/09/16 19:00 07:00 Intake Total 1712.5 ml 205 ml Output Total 385 ml 50 ml Balance 1327.5 ml 155 ml IV Total 852.5 ml 150 ml Tube Feeding 660 ml 55 ml Blood Product 200 ml Output Urine Total 385 ml 50 ml # Bowel Movements 1 1 2D Echo: LVEF 55%, Grade I LVDD, RVSP 57 mmHg c/w Moderate Pul. HTN Laboratory Tests Test 09/08/16 04:00 White Blood Count 11.0 K/UL (4.8-10.8) H Red Blood Count 3.00 M/UL (4.20-5.40) L Hemoglobin 9.8 G/DL (12.0-16.0) L Hematocrit 31.0 % (37.0-47.0) L Mean Corpuscular Volume 104 FL (80-99) H Mean Corpuscular Hemoglobin 32.8 PG (27.0-31.0) H Mean Corpuscular Hemoglobin Concent 31.7 G/DL (32.0-36.0) L Red Cell Distribution Width 16.3 % (11.6-14.8) H Platelet Count 79 K/UL (150-450) L Mean Platelet Volume 8.2 FL (6.5-10.1) Neutrophils (%) (Auto) % (45.0-75.0) Lymphocytes (%) (Auto) % (20.0-45.0) Monocytes (%) (Auto) % (1.0-10.0) Eosinophils (%) (Auto) % (0.0-3.0) Basophils (%) (Auto) % (0.0-2.0) Sodium Level 143 mEQ/L (135-145) Potassium Level 3.4 mEQ/L (3.4-4.9) Chloride Level 101 mEQ/L (98-107) Carbon Dioxide Level 31 mEQ/L (20-30) H Anion Gap 11 (5-15) Blood Urea Nitrogen 17 mg/dL (7-23) Creatinine 0.5 mg/dL (0.5-0.9) Estimat Glomerular Filtration Rate mL/min (>60) Glucose Level 108 mg/dL (74-106) H Calcium Level 7.5 mg/dL (8.6-10.2) L Total Bilirubin 0.3 mg/dL (0.0-1.2) Aspartate Amino Transf (AST/SGOT) 45 U/L (5-40) H Alanine Aminotransferase (ALT/SGPT) 95 U/L (3-33) H Alkaline Phosphatase 116 U/L (35-104) H Total Protein 5.7 g/dL (6.6-8.7) L Albumin 2.1 g/dL (3.5-5.2) L Globulin 3.6 g/dL Albumin/Globulin Ratio 0.5 (1.0-2.7) L Objective HEENT: normocephalic, atraumatic, PERRLA, EOMI Neck: no JVD, no carotid bruit with normal upstroke Respiratory: decreased breath sounds, crackles both bases Cardiovascular: Normal S1S2, regular rate, rhythm, no murmurs, gallops or rubs Musculoskeletal: no clubbing, cyanosis or edema MARK LEVY September 09, 2016 01:00
[2016-09-09 05:39] LABS: MEAN CORPUSCULAR HEMOGLOBIN 33.5 PG (27.0-31.0); MEAN CORPUSCULAR HGB CONC 32.2 G/DL (32.0-36.0); MEAN CORPUSCULAR VOLUME 104 FL (80-99); MEAN PLATELET VOLUME 7.8 FL (6.5-10.1); PLATELET COUNT 82 K/UL (150-450); RED BLOOD COUNT 2.92 M/UL (4.20-5.40); RED CELL DISTRIBUTION WIDTH 16.3 % (11.6-14.8); WHITE BLOOD COUNT 12.2 K/UL (4.8-10.8)
[2016-09-09] MEDS: metroNIDAZOLE 500mg 100 ML IVPB SCH ×3 (05:50→22:00)
[2016-09-09 06:35] LABS: ALANINE AMINOTRANSFERASE 68 U/L (3-33); ALBUMIN/GLOBULIN RATIO 0.5 (1.0-2.7); ANION GAP 10 (5-15); ASPARTATE AMINO TRANSFERASE 29 U/L (5-40); CALCIUM 7.4 mg/dL (8.6-10.2); CARBON DIOXIDE 31 mEQ/L (20-30); CHLORIDE 101 mEQ/L (98-107); CREATININE 0.4 mg/dL (0.5-0.9); HEMOLYSIS 9; POTASSIUM 3.5 mEQ/L (3.4-4.9); SODIUM 142 mEQ/L (135-145); TOTAL PROTEIN 5.6 g/dL (6.6-8.7)
[2016-09-09 08:10] LABS: ANISOCYTOSIS 1+; BAND NEUTROPHILS % (MANUAL) 0 % (0-8); BASOPHILS % (MANUAL) 0 % (0-2); EOSINOPHILS % (MANUAL) 4 % (0-3); HYPOCHROMASIA 1+; LYMPHOCYTES % (MANUAL) 11 % (20-45); MACROCYTES 1+; NEUTROPHILS % (MANUAL) 73 % (45-75); PLATELET ESTIMATE DECREASED; PLATELET MORPHOLOGY NORMAL; TOTAL CELLS COUNTED 100
--- NOTE | 2016-09-09 08:38 | Critical Care Progress Note ---
Assessment/Plan Problem List: (1) Cardiac arrest (2) Septic shock (3) Respiratory distress (4) Dysphagia (5) Pneumonia (6) Feeding by G-tube (7) esophageal wall thickening (8) Anemia (9) Hypoalbuminemia (10) Azotemia (11) Hyponatremia (12) Dehydration Assessment/Plan additional medical problems Respiratory acidosis Respiratory failure ESBL PLAN ID evaluation pending IV antibiotics empiric follow up final cultures wean if able cardiology follow up noted meds reviewed continue as is consider wean in am supportive care ICU management noted medications/laboratory data/nursing notes/ICU care reviewed in detail note reviewed and edited care discussed with RN and RT ICU time spent 35 minutes Critical Care - Subjective Interval Events: care noted with ESBL on the ventilator poor LOC ROS Limited/Unobtainable: Yes Condition: critical EKG Rhythm: Sinus Rhythm Residuals: minimal Tube Feeding Tolerated: yes I&O: Intake and Output 09/08/16 09/09/16 19:00 07:00 Intake Total 1712.5 ml 1680 ml Output Total 385 ml 480 ml Balance 1327.5 ml 1200 ml Intake Free Water 200 ml IV Total 852.5 ml 875 ml Tube Feeding 660 ml 605 ml Blood Product 200 ml Output Urine Total 385 ml 480 ml # Bowel Movements 1 3 Critical Care - Objective ET-Tube: 6.0 ET Position: 23 Last 24 Hour Vital Signs Date Time Temp Pulse Resp B/P Pulse Ox O2 Delivery O2 Flow Rate FiO2 09/09/16 07:00 90 20 100 Mechanical Ventilator 30 09/09/16 06:40 96 20 30 09/09/16 06:40 98 20 100 Mechanical Ventilator 30 09/09/16 06:00 25 23 143/56 100 Mechanical Ventilator 30 09/09/16 05:51 98 20 30 09/09/16 05:00 98.0 92 18 131/52 100 Mechanical Ventilator 30 09/09/16 04:00 85 17 141/43 100 Mechanical Ventilator 30 09/09/16 04:00 90 09/09/16 04:00 30 09/09/16 03:06 79 16 30 09/09/16 03:00 89 18 140/51 100 Mechanical Ventilator 30 09/09/16 02:00 81 17 143/81 100 Mechanical Ventilator 30 09/09/16 01:30 90 20 100 Mechanical Ventilator 30 09/09/16 01:00 89 17 155/65 100 Mechanical Ventilator 30 09/09/16 00:49 96 20 100 Mechanical Ventilator 30 09/09/16 00:47 97 27 30 09/09/16 00:00 98.5 89 17 146/66 100 Mechanical Ventilator 30 09/09/16 00:00 30 09/09/16 00:00 97 09/08/16 23:30 94 20 30 09/08/16 23:00 89 17 141/57 100 Mechanical Ventilator 30 09/08/16 22:00 89 17 146/63 100 Mechanical Ventilator 30 09/08/16 21:03 92 23 30 09/08/16 21:00 89 17 146/39 100 Mechanical Ventilator 30 09/08/16 20:00 98.0 89 17 123/66 100 Mechanical Ventilator 30 09/08/16 20:00 89 09/08/16 20:00 30 09/08/16 19:35 94 20 100 Mechanical Ventilator 30 09/08/16 19:26 93 20 100 Mechanical Ventilator 30 09/08/16 19:23 95 26 30 09/08/16 19:00 88 18 132/46 97 Mechanical Ventilator 30 09/08/16 18:00 93 20 140/34 100 Mechanical Ventilator 30 09/08/16 17:02 89 22 30 09/08/16 17:00 91 23 143/58 100 Mechanical Ventilator 30 09/08/16 16:00 97.1 89 20 139/64 100 Mechanical Ventilator 30 09/08/16 16:00 91 09/08/16 16:00 30 09/08/16 15:03 90 19 30 09/08/16 15:00 93 21 140/47 98 Mechanical Ventilator 30 09/08/16 14:00 94 22 149/56 99 Mechanical Ventilator 30 09/08/16 13:23 78 17 100 Mechanical Ventilator 30 09/08/16 13:14 87 17 100 Mechanical Ventilator 30 09/08/16 13:12 87 17 30 09/08/16 13:00 85 32 139/50 98 Mechanical Ventilator 30 09/08/16 12:00 98.5 85 27 142/51 98 Mechanical Ventilator 30 09/08/16 12:00 30 09/08/16 12:00 84 09/08/16 11:23 91 18 30 09/08/16 11:00 85 20 151/50 100 Mechanical Ventilator 30 09/08/16 10:00 94 18 165/63 100 Mechanical Ventilator 30 09/08/16 09:17 90 19 30 09/08/16 09:00 90 20 143/43 100 Mechanical Ventilator 30 Labs: Labs Test 09/07/16 04:00 09/08/16 04:00 09/09/16 04:30 White Blood Count 19.6 K/UL (4.8-10.8) 11.0 K/UL (4.8-10.8) 12.2 K/UL (4.8-10.8) Red Blood Count 3.07 M/UL (4.20-5.40) 3.00 M/UL (4.20-5.40) 2.92 M/UL (4.20-5.40) Hemoglobin 10.3 G/DL (12.0-16.0) 9.8 G/DL (12.0-16.0) 9.8 G/DL (12.0-16.0) Hematocrit 31.6 % (37.0-47.0) 31.0 % (37.0-47.0) 30.5 % (37.0-47.0) Mean Corpuscular Volume 103 FL (80-99) 104 FL (80-99) 104 FL (80-99) Mean Corpuscular Hemoglobin 33.7 PG (27.0-31.0) 32.8 PG (27.0-31.0) 33.5 PG (27.0-31.0) Mean Corpuscular Hemoglobin Concent 32.6 G/DL (32.0-36.0) 31.7 G/DL (32.0-36.0) 32.2 G/DL (32.0-36.0) Red Cell Distribution Width 16.9 % (11.6-14.8) 16.3 % (11.6-14.8) 16.3 % (11.6-14.8) Platelet Count 79 K/UL (150-450) 79 K/UL (150-450) 82 K/UL (150-450) Mean Platelet Volume 7.4 FL (6.5-10.1) 8.2 FL (6.5-10.1) 7.8 FL (6.5-10.1) Neutrophils (%) (Auto) % (45.0-75.0) % (45.0-75.0) % (45.0-75.0) Lymphocytes (%) (Auto) % (20.0-45.0) % (20.0-45.0) % (20.0-45.0) Monocytes (%) (Auto) % (1.0-10.0) % (1.0-10.0) % (1.0-10.0) Eosinophils (%) (Auto) % (0.0-3.0) % (0.0-3.0) % (0.0-3.0) Basophils (%) (Auto) % (0.0-2.0) % (0.0-2.0) % (0.0-2.0) Differential Total Cells Counted 100 100 Neutrophils % (Manual) 82 % (45-75) 73 % (45-75) Lymphocytes % (Manual) 7 % (20-45) 11 % (20-45) Monocytes % (Manual) 5 % (1-10) 12 % (1-10) Eosinophils % (Manual) 3 % (0-3) 4 % (0-3) Basophils % (Manual) 0 % (0-2) 0 % (0-2) Band Neutrophils 3 % (0-8) 0 % (0-8) Platelet Estimate Decreased Decreased Platelet Morphology Normal Normal Hypochromasia 1+ 1+ Anisocytosis 1+ 1+ Macrocytosis 1+ 1+ Stomatocytes Occasional Sodium Level 139 mEQ/L (135-145) 143 mEQ/L (135-145) 142 mEQ/L (135-145) Potassium Level 3.1 mEQ/L (3.4-4.9) 3.4 mEQ/L (3.4-4.9) 3.5 mEQ/L (3.4-4.9) Chloride Level 99 mEQ/L (98-107) 101 mEQ/L (98-107) 101 mEQ/L (98-107) Carbon Dioxide Level 32 mEQ/L (20-30) 31 mEQ/L (20-30) 31 mEQ/L (20-30) Anion Gap 8 (5-15) 11 (5-15) 10 (5-15) Blood Urea Nitrogen 18 mg/dL (7-23) 17 mg/dL (7-23) 18 mg/dL (7-23) Creatinine 0.4 mg/dL (0.5-0.9) 0.5 mg/dL (0.5-0.9) 0.4 mg/dL (0.5-0.9) Estimat Glomerular Filtration Rate mL/min (>60) mL/min (>60) mL/min (>60) Glucose Level 98 mg/dL (74-106) 108 mg/dL (74-106) 101 mg/dL (74-106) Calcium Level 7.2 mg/dL (8.6-10.2) 7.5 mg/dL (8.6-10.2) 7.4 mg/dL (8.6-10.2) Total Bilirubin 0.4 mg/dL (0.0-1.2) 0.3 mg/dL (0.0-1.2) 0.3 mg/dL (0.0-1.2) Aspartate Amino Transf (AST/SGOT) 79 U/L (5-40) 45 U/L (5-40) 29 U/L (5-40) Alanine Aminotransferase (ALT/SGPT) 137 U/L (3-33) 95 U/L (3-33) 68 U/L (3-33) Alkaline Phosphatase 143 U/L (35-104) 116 U/L (35-104) 106 U/L (35-104) Total Protein 6.1 g/dL (6.6-8.7) 5.7 g/dL (6.6-8.7) 5.6 g/dL (6.6-8.7) Albumin 2.1 g/dL (3.5-5.2) 2.1 g/dL (3.5-5.2) 2.0 g/dL (3.5-5.2) Globulin 4.0 g/dL 3.6 g/dL 3.6 g/dL Albumin/Globulin Ratio 0.5 (1.0-2.7) 0.5 (1.0-2.7) 0.5 (1.0-2.7) Objective: WDWN NAD chronically ill oral ETT in place reduced breath sounds bilaterally with some persistent rhonchi [id number] without MRG NABS nontender no HSM; feeding tube; no distention no CCE nonfocal; reduced LOC reduced ROM Accucheck: 121 LESLY COLINDRES September 09, 2016 08:38
--- NOTE | 2016-09-09 08:54 | General Progress Note ---
Assessment/Plan Problem List: (1) Respiratory failure ICD Codes: J96.90 - Respiratory failure, unspecified, unspecified whether with hypoxia or hypercapnia SNOMED: 478717490 (2) LFT elevation ICD Codes: R94.5 - Abnormal results of liver function studies SNOMED: 122169418 (3) Anemia ICD Codes: D64.9 - Anemia, unspecified SNOMED: 720260114 (4) Feeding by G-tube ICD Codes: Z93.1 - Gastrostomy status SNOMED: 054243859, 322137376 (5) Dysphagia ICD Codes: R13.10 - Dysphagia, unspecified SNOMED: 00990891, 320095397 Assessment/Plan neg stool OB hold GI procedures for now ppi GTF fu abd us fu labs Subjective ROS Limited/Unobtainable: No Allergies: Coded Allergies: No Known Allergies (Verified , 03/14/16) Uncoded Allergies: MILK (Allergy, Unknown, 07/11/11) Objective Last 24 Hour Vital Signs Date Time Temp Pulse Resp B/P Pulse Ox O2 Delivery O2 Flow Rate FiO2 09/09/16 07:00 90 20 100 Mechanical Ventilator 30 09/09/16 06:40 96 20 30 09/09/16 06:40 98 20 100 Mechanical Ventilator 30 09/09/16 06:00 25 23 143/56 100 Mechanical Ventilator 30 09/09/16 05:51 98 20 30 09/09/16 05:00 98.0 92 18 131/52 100 Mechanical Ventilator 30 09/09/16 04:00 85 17 141/43 100 Mechanical Ventilator 30 09/09/16 04:00 90 09/09/16 04:00 30 09/09/16 03:06 79 16 30 09/09/16 03:00 89 18 140/51 100 Mechanical Ventilator 30 09/09/16 02:00 81 17 143/81 100 Mechanical Ventilator 30 09/09/16 01:30 90 20 100 Mechanical Ventilator 30 09/09/16 01:00 89 17 155/65 100 Mechanical Ventilator 30 09/09/16 00:49 96 20 100 Mechanical Ventilator 30 09/09/16 00:47 97 27 30 09/09/16 00:00 98.5 89 17 146/66 100 Mechanical Ventilator 30 09/09/16 00:00 30 09/09/16 00:00 97 09/08/16 23:30 94 20 30 09/08/16 23:00 89 17 141/57 100 Mechanical Ventilator 30 09/08/16 22:00 89 17 146/63 100 Mechanical Ventilator 30 09/08/16 21:03 92 23 30 09/08/16 21:00 89 17 146/39 100 Mechanical Ventilator 30 09/08/16 20:00 98.0 89 17 123/66 100 Mechanical Ventilator 30 09/08/16 20:00 89 09/08/16 20:00 30 09/08/16 19:35 94 20 100 Mechanical Ventilator 30 09/08/16 19:26 93 20 100 Mechanical Ventilator 30 09/08/16 19:23 95 26 30 09/08/16 19:00 88 18 132/46 97 Mechanical Ventilator 30 09/08/16 18:00 93 20 140/34 100 Mechanical Ventilator 30 09/08/16 17:02 89 22 30 09/08/16 17:00 91 23 143/58 100 Mechanical Ventilator 30 09/08/16 16:00 97.1 89 20 139/64 100 Mechanical Ventilator 30 09/08/16 16:00 91 09/08/16 16:00 30 09/08/16 15:03 90 19 30 09/08/16 15:00 93 21 140/47 98 Mechanical Ventilator 30 09/08/16 14:00 94 22 149/56 99 Mechanical Ventilator 30 09/08/16 13:23 78 17 100 Mechanical Ventilator 30 09/08/16 13:14 87 17 100 Mechanical Ventilator 30 09/08/16 13:12 87 17 30 09/08/16 13:00 85 32 139/50 98 Mechanical Ventilator 30 09/08/16 12:00 98.5 85 27 142/51 98 Mechanical Ventilator 30 09/08/16 12:00 30 09/08/16 12:00 84 09/08/16 11:23 91 18 30 09/08/16 11:00 85 20 151/50 100 Mechanical Ventilator 30 09/08/16 10:00 94 18 165/63 100 Mechanical Ventilator 30 09/08/16 09:17 90 19 30 09/08/16 09:00 90 20 143/43 100 Mechanical Ventilator 30 Intake and Output 09/08/16 09/09/16 19:00 07:00 Intake Total 1712.5 ml 1680 ml Output Total 385 ml 480 ml Balance 1327.5 ml 1200 ml Intake Free Water 200 ml IV Total 852.5 ml 875 ml Tube Feeding 660 ml 605 ml Blood Product 200 ml Output Urine Total 385 ml 480 ml # Bowel Movements 1 3 Laboratory Tests 09/09/16 04:30: White Blood Count 12.2H, Red Blood Count 2.92L, Hemoglobin 9.8L, Hematocrit 30.5L, Mean Corpuscular Volume 104H, Mean Corpuscular Hemoglobin 33.5H, Mean Corpuscular Hemoglobin Concent 32.2, Red Cell Distribution Width 16.3H, Platelet Count 82L, Mean Platelet Volume 7.8, Neutrophils (%) (Auto) , Lymphocytes (%) (Auto) , Monocytes (%) (Auto) , Eosinophils (%) (Auto) , Basophils (%) (Auto) , Differential Total Cells Counted 100, Neutrophils % ( Manual) 73, Lymphocytes % (Manual) 11L, Monocytes % (Manual) 12H, Eosinophils % (Manual) 4H, Basophils % (Manual) 0, Band Neutrophils 0, Platelet Estimate DecreasedL, Platelet Morphology Normal, Hypochromasia 1+, Anisocytosis 1+, Macrocytosis 1+, Sodium Level 142, Potassium Level 3.5, Chloride Level 101, Carbon Dioxide Level 31H, Anion Gap 10, Blood Urea Nitrogen 18, Creatinine 0.4L , Estimat Glomerular Filtration Rate , Glucose Level 101, Calcium Level 7.4L, Total Bilirubin 0.3, Aspartate Amino Transf (AST/SGOT) 29, Alanine Aminotransferase (ALT/SGPT) 68H, Alkaline Phosphatase 106H, Total Protein 5.6L, Albumin 2.0L, Globulin 3.6, Albumin/Globulin Ratio 0.5L Height (Feet): 5 Height (Inches): 6.00 Weight (Pounds): 176 General Appearance: no apparent distress EENT: normal ENT inspection Neck: supple Cardiovascular: normal rate Respiratory/Chest: decreased breath sounds Abdomen: normal bowel sounds, non tender, soft Extremities: non-tender PILAR SCHMITT September 09, 2016 08:54
[2016-09-09] MEDS: Heparin 5000 units/ml inj SUBQ SCH ×2 (09:00→20:39)
[2016-09-09] MEDS: Meropenem 1 GM in NS 110 ML IVPB SCH ×2 (09:50→19:19)
[2016-09-09] MEDS: Pantoprazole Inj IVP SCH ×2 (10:12→20:38)
[2016-09-09] MEDS: levETIRAcetam 500 MG in D5W 110 ML IV SCH ×2 (10:12→20:38)
[2016-09-09] MEDS: Ascorbic Acid 500mg tab GT SCH (10:12)
[2016-09-09] MEDS: Dyna-Hex 2% Top Sol 8oz TOPIC SCH (13:05)
--- NOTE | 2016-09-09 17:00 | Nephrology Progress Note ---
Assessment/Plan Problem List: (1) Azotemia Assessment: Resolved (2) Hyperkalemia Assessment: Resolved (3) Hyponatremia Assessment: Resolved (4) Septic shock (5) Respiratory distress (6) Dysphagia (7) Pneumonia (8) Anemia (9) Dehydration Plan Supportive care Monitor lytes, correct PRN Avoid nephrotoxic agents G-Tube feeding per GI Monitor H&H, transfuse PRN Monitor neuro status Continue wound care DVT prophylaxis AM labs Subjective ROS Limited/Unobtainable: Yes Subjective In no distress Objective Objective Last 24 Hour Vital Signs Date Time Temp Pulse Resp B/P Pulse Ox O2 Delivery O2 Flow Rate FiO2 09/09/16 15:00 89 29 132/36 99 Mechanical Ventilator 30 09/09/16 14:50 88 17 30 09/09/16 14:00 87 30 129/40 100 Mechanical Ventilator 30 09/09/16 14:00 87 25 129/40 100 Mechanical Ventilator 30 09/09/16 13:10 90 21 98 Mechanical Ventilator 30 09/09/16 13:10 Mechanical Ventilator 30 09/09/16 13:10 91 21 30 09/09/16 13:00 90 31 144/50 99 Mechanical Ventilator 30 09/09/16 12:00 98.0 90 22 134/33 99 Mechanical Ventilator 30 09/09/16 12:00 30 09/09/16 12:00 89 09/09/16 11:00 89 22 135/32 100 Mechanical Ventilator 30 09/09/16 10:50 91 23 30 09/09/16 10:00 92 23 144/49 98 Mechanical Ventilator 30 09/09/16 09:20 94 23 30 09/09/16 09:00 93 23 143/52 98 Mechanical Ventilator 30 09/09/16 08:00 30 09/09/16 08:00 98.0 96 20 137/46 100 Mechanical Ventilator 30 09/09/16 08:00 100 09/09/16 07:00 93 20 138/52 100 Mechanical Ventilator 30 09/09/16 07:00 90 20 100 Mechanical Ventilator 30 09/09/16 06:40 96 20 30 09/09/16 06:40 98 20 100 Mechanical Ventilator 30 09/09/16 06:00 25 23 143/56 100 Mechanical Ventilator 30 09/09/16 05:51 98 20 30 09/09/16 05:00 98.0 92 18 131/52 100 Mechanical Ventilator 30 09/09/16 04:00 85 17 141/43 100 Mechanical Ventilator 30 09/09/16 04:00 90 09/09/16 04:00 30 09/09/16 03:06 79 16 30 09/09/16 03:00 89 18 140/51 100 Mechanical Ventilator 30 09/09/16 02:00 81 17 143/81 100 Mechanical Ventilator 30 09/09/16 01:30 90 20 100 Mechanical Ventilator 30 09/09/16 01:00 89 17 155/65 100 Mechanical Ventilator 30 09/09/16 00:49 96 20 100 Mechanical Ventilator 30 09/09/16 00:47 97 27 30 09/09/16 00:00 98.5 89 17 146/66 100 Mechanical Ventilator 30 09/09/16 00:00 30 09/09/16 00:00 97 09/08/16 23:30 94 20 30 09/08/16 23:00 89 17 141/57 100 Mechanical Ventilator 30 09/08/16 22:00 89 17 146/63 100 Mechanical Ventilator 30 09/08/16 21:03 92 23 30 09/08/16 21:00 89 17 146/39 100 Mechanical Ventilator 30 09/08/16 20:00 98.0 89 17 123/66 100 Mechanical Ventilator 30 09/08/16 20:00 89 09/08/16 20:00 30 09/08/16 19:35 94 20 100 Mechanical Ventilator 30 09/08/16 19:26 93 20 100 Mechanical Ventilator 30 09/08/16 19:23 95 26 30 09/08/16 19:00 88 18 132/46 97 Mechanical Ventilator 30 09/08/16 18:00 93 20 140/34 100 Mechanical Ventilator 30 09/08/16 17:02 89 22 30 09/08/16 17:00 91 23 143/58 100 Mechanical Ventilator 30 Intake and Output 09/08/16 09/09/16 19:00 07:00 Intake Total 1712.5 ml 1735 ml Output Total 385 ml 515 ml Balance 1327.5 ml 1220 ml Intake Free Water 200 ml IV Total 852.5 ml 875 ml Tube Feeding 660 ml 660 ml Blood Product 200 ml Output Urine Total 385 ml 515 ml # Bowel Movements 1 3 Laboratory Tests 09/09/16 04:30: White Blood Count 12.2H, Red Blood Count 2.92L, Hemoglobin 9.8L, Hematocrit 30.5L, Mean Corpuscular Volume 104H, Mean Corpuscular Hemoglobin 33.5H, Mean Corpuscular Hemoglobin Concent 32.2, Red Cell Distribution Width 16.3H, Platelet Count 82L, Mean Platelet Volume 7.8, Neutrophils (%) (Auto) , Lymphocytes (%) (Auto) , Monocytes (%) (Auto) , Eosinophils (%) (Auto) , Basophils (%) (Auto) , Differential Total Cells Counted 100, Neutrophils % ( Manual) 73, Lymphocytes % (Manual) 11L, Monocytes % (Manual) 12H, Eosinophils % (Manual) 4H, Basophils % (Manual) 0, Band Neutrophils 0, Platelet Estimate DecreasedL, Platelet Morphology Normal, Hypochromasia 1+, Anisocytosis 1+, Macrocytosis 1+, Sodium Level 142, Potassium Level 3.5, Chloride Level 101, Carbon Dioxide Level 31H, Anion Gap 10, Blood Urea Nitrogen 18, Creatinine 0.4L , Estimat Glomerular Filtration Rate , Glucose Level 101, Calcium Level 7.4L, Total Bilirubin 0.3, Aspartate Amino Transf (AST/SGOT) 29, Alanine Aminotransferase (ALT/SGPT) 68H, Alkaline Phosphatase 106H, Total Protein 5.6L, Albumin 2.0L, Globulin 3.6, Albumin/Globulin Ratio 0.5L Height (Feet): 5 Height (Inches): 6.00 Weight (Pounds): 176 General Appearance: no apparent distress Neck: supple Cardiovascular: normal rate Respiratory/Chest: decreased breath sounds, crackles/rales Abdomen: soft, other - PEG Extremities: moderate edema, pitting Neurologic: unresponsive JOSSIE YAÑEZ September 09, 2016 17:00
[2016-09-09] MEDS ORDERED: 1/2 NS 1000ml IV ONE (17:25)
[2016-09-09] MEDS ORDERED: Tubing IV Secondary IV ONE (17:25)
--- NOTE | 2016-09-09 19:15 | Consultation ---
DATE OF CONSULTATION: 09/09/2016 This consult is for coverage of Dr. Curran CONSULTING PHYSICIAN: Tico Turner M.D. PRIMARY ATTENDING: Aren Preciado M.D. REASON FOR CONSULTATION: Sepsis and pneumonia. HISTORY OF PRESENT ILLNESS: This is an 85-year-old female who is a [facility] resident admitted on 09/04/2016 with hypoxemia decreasing the O2 saturation in the [facility]. She had also altered mental status. She had asystolic cardiac arrest in hospital. The patient was hyponatremic, hyperkalemic, and had lactic acidosis at the time of admission. She is currently intubated. During the Hospital Course, a PICC line was placed. PAST MEDICAL HISTORY: Significant for COPD, dementia, anemia, and seizure disorder. The patient has a history of NG tube placement. ALLERGIES: No known drug allergies. MEDICATIONS: Meropenem, chlorhexidine, sodium chloride, vitamin C, Cardizem, heparin, Protonix, Keppra, gentamicin eye drops, and Flagyl. SOCIAL HISTORY: A penit[facility]iary resident with advanced dementia. No other history can be obtained. PHYSICAL EXAMINATION: VITAL SIGNS: Pulse is 90, temperature 98, and blood pressure 143/56. The patient was afebrile since admission, but was hypothermic at the time of admission. HEAD AND NECK: Orally intubated. Has protruding tongue and swollen lip. HEART: Regular. LUNGS: The patient has mechanical ventilator. Has bilateral rhonchi. ABDOMEN: Very soft. The patient has G-tube placement. EXTREMITIES: PICC line in the right upper extremity. Has bilateral sequential compression devices of legs. LABORATORY DATA: WBC 12.2, hemoglobin 9.8, hematocrit 30.5, and platelets 82,000. Coags with the latest labs are sodium of 142, potassium 3.5, chloride 101, bicarbonate 31, BUN 18, and creatinine 0.4. AST and ALT are 29 and 68. Alkaline phosphatase is 106. Albumin is 2. MRSA screen is positive. Blood culture x2 are negative. Urine culture negative. UA screening is positive. Sputum culture grew E. coli ESBL and usual upper respiratory ben. Chest x-ray showed bilateral interstitial infiltrate or disease. Increasing right infrahilar opacity, atelectasis versus pneumonia versus edema versus mass. IMPRESSION: 1. Sepsis. Source of infection seems to be pneumonia. 2. The patient also has hypercarbic respiratory failure. 3. Had cardiac arrest. 4. Had advanced dementia. 5. Has a gastrostomy tube in place. 6. Had history of seizure disorder. 7. Has anemia and thrombocytopenia. 8. Decreased albumin RECOMMENDATION: We would continue with meropenem that was started yesterday. We will follow up the cultures and clinical course. At the end of my exam, I thank Dr. Levine and Dr. Heaton for involving me in the care of this patient. Tico Turner M.D. DR: ELVIS JOB#: [id number] CC:
--- NOTE | 2016-09-09 22:12 | Cardiology Progress Note ---
Assessment/Plan Assessment/Plan 1. Asystole cardiac arrest due to respiratory arrest due to severe hypoxemia due to acute exacerbation of COPD/pneumonia, echo reveals normal LVEF with no wall motion abnormalities. 2. Pneumonia/leukocytosis. 3. Hypoxic, hypercarbic respiratory failure Subjective Subjective On mechanical ventilator. High peak inspiratory pressure on the vent. per RT Sinus rhythm at 90. Objective Last 24 Hour Vital Signs Date Time Temp Pulse Resp B/P Pulse Ox O2 Delivery O2 Flow Rate FiO2 09/09/16 21:00 88 19 144/51 9 Mechanical Ventilator 30 09/09/16 20:56 90 17 Mechanical Ventilator 30 09/09/16 20:55 90 17 30 09/09/16 20:00 98.1 86 19 149/49 100 Mechanical Ventilator 30 09/09/16 20:00 30 09/09/16 19:10 93 18 30 09/09/16 19:00 91 19 160/80 98 Mechanical Ventilator 30 09/09/16 18:00 89 32 141/49 100 Mechanical Ventilator 30 09/09/16 17:10 88 20 30 09/09/16 17:00 89 33 132/36 100 Mechanical Ventilator 30 09/09/16 16:00 30 09/09/16 16:00 87 09/09/16 16:00 97.8 87 31 144/50 99 Mechanical Ventilator 30 09/09/16 15:00 89 29 132/36 99 Mechanical Ventilator 30 09/09/16 14:50 88 17 30 09/09/16 14:00 87 30 129/40 100 Mechanical Ventilator 30 09/09/16 14:00 87 25 129/40 100 Mechanical Ventilator 30 09/09/16 13:10 90 21 98 Mechanical Ventilator 30 09/09/16 13:10 Mechanical Ventilator 30 09/09/16 13:10 91 21 30 09/09/16 13:00 90 31 144/50 99 Mechanical Ventilator 30 09/09/16 12:00 98.0 90 22 134/33 99 Mechanical Ventilator 30 09/09/16 12:00 30 09/09/16 12:00 89 09/09/16 11:00 89 22 135/32 100 Mechanical Ventilator 30 09/09/16 10:50 91 23 30 09/09/16 10:00 92 23 144/49 98 Mechanical Ventilator 30 09/09/16 09:20 94 23 30 09/09/16 09:00 93 23 143/52 98 Mechanical Ventilator 30 09/09/16 08:00 30 09/09/16 08:00 98.0 96 20 137/46 100 Mechanical Ventilator 30 09/09/16 08:00 100 09/09/16 07:00 93 20 138/52 100 Mechanical Ventilator 30 09/09/16 07:00 90 20 100 Mechanical Ventilator 30 09/09/16 06:40 96 20 30 09/09/16 06:40 98 20 100 Mechanical Ventilator 30 09/09/16 06:00 25 23 143/56 100 Mechanical Ventilator 30 09/09/16 05:51 98 20 30 09/09/16 05:00 98.0 92 18 131/52 100 Mechanical Ventilator 30 09/09/16 04:00 85 17 141/43 100 Mechanical Ventilator 30 09/09/16 04:00 90 09/09/16 04:00 30 09/09/16 03:06 79 16 30 09/09/16 03:00 89 18 140/51 100 Mechanical Ventilator 30 09/09/16 02:00 81 17 143/81 100 Mechanical Ventilator 30 09/09/16 01:30 90 20 100 Mechanical Ventilator 30 09/09/16 01:00 89 17 155/65 100 Mechanical Ventilator 30 09/09/16 00:49 96 20 100 Mechanical Ventilator 30 09/09/16 00:47 97 27 30 09/09/16 00:00 98.5 89 17 146/66 100 Mechanical Ventilator 30 09/09/16 00:00 30 09/09/16 00:00 97 09/08/16 23:30 94 20 30 09/08/16 23:00 89 17 141/57 100 Mechanical Ventilator 30 Intake and Output 09/08/16 09/09/16 19:00 07:00 Intake Total 1712.5 ml 1775 ml Output Total 385 ml 515 ml Balance 1327.5 ml 1260 ml Intake Free Water 200 ml IV Total 852.5 ml 915 ml Tube Feeding 660 ml 660 ml Blood Product 200 ml Output Urine Total 385 ml 515 ml # Bowel Movements 1 3 2D Echo: LVEf 55%, Grade I LVDD, RVSP 57 mmHg Laboratory Tests Test 09/09/16 04:30 White Blood Count 12.2 K/UL (4.8-10.8) H Red Blood Count 2.92 M/UL (4.20-5.40) L Hemoglobin 9.8 G/DL (12.0-16.0) L Hematocrit 30.5 % (37.0-47.0) L Mean Corpuscular Volume 104 FL (80-99) H Mean Corpuscular Hemoglobin 33.5 PG (27.0-31.0) H Mean Corpuscular Hemoglobin Concent 32.2 G/DL (32.0-36.0) Red Cell Distribution Width 16.3 % (11.6-14.8) H Platelet Count 82 K/UL (150-450) L Mean Platelet Volume 7.8 FL (6.5-10.1) Neutrophils (%) (Auto) % (45.0-75.0) Lymphocytes (%) (Auto) % (20.0-45.0) Monocytes (%) (Auto) % (1.0-10.0) Eosinophils (%) (Auto) % (0.0-3.0) Basophils (%) (Auto) % (0.0-2.0) Differential Total Cells Counted 100 Neutrophils % (Manual) 73 % (45-75) Lymphocytes % (Manual) 11 % (20-45) L Monocytes % (Manual) 12 % (1-10) H Eosinophils % (Manual) 4 % (0-3) H Basophils % (Manual) 0 % (0-2) Band Neutrophils 0 % (0-8) Platelet Estimate Decreased L Platelet Morphology Normal Hypochromasia 1+ Anisocytosis 1+ Macrocytosis 1+ Sodium Level 142 mEQ/L (135-145) Potassium Level 3.5 mEQ/L (3.4-4.9) Chloride Level 101 mEQ/L (98-107) Carbon Dioxide Level 31 mEQ/L (20-30) H Anion Gap 10 (5-15) Blood Urea Nitrogen 18 mg/dL (7-23) Creatinine 0.4 mg/dL (0.5-0.9) L Estimat Glomerular Filtration Rate mL/min (>60) Glucose Level 101 mg/dL (74-106) Calcium Level 7.4 mg/dL (8.6-10.2) L Total Bilirubin 0.3 mg/dL (0.0-1.2) Aspartate Amino Transf (AST/SGOT) 29 U/L (5-40) Alanine Aminotransferase (ALT/SGPT) 68 U/L (3-33) H Alkaline Phosphatase 106 U/L (35-104) H Total Protein 5.6 g/dL (6.6-8.7) L Albumin 2.0 g/dL (3.5-5.2) L Globulin 3.6 g/dL Albumin/Globulin Ratio 0.5 (1.0-2.7) L Objective HEENT: Intubated, normocephalic, atraumatic, PERRLA, EOMI Neck: no JVD, no carotid bruit, upstroke 2+ B/L Respiratory: decreased breath sounds, crackles both bases Cardiovascular: regular rate, rhythm, normal S1S2, no murmurs, gallops or rubs Gastrointestinal: normal BS, soft non-tender, non-distended Musculoskeletal: no clubbing cyanosis or edema MARK LEVY September 09, 2016 22:12
[2016-09-10] VITALS (24 sets, daily range): BP systolic 126–163; BP diastolic 40–71
[2016-09-10] MEDS: Gentamicin 0.3% Opth Soln 5ml BOTH EYES SCH ×6 (01:26→20:38)
[2016-09-10] MEDS: metroNIDAZOLE 500mg 100 ML IVPB SCH ×3 (05:48→22:28)
[2016-09-10] MEDS: Heparin 5000 units/ml inj SUBQ SCH ×2 (08:07→20:39)
[2016-09-10] MEDS: Meropenem 1 GM in NS 110 ML IVPB SCH ×2 (08:07→20:38)
[2016-09-10] MEDS: Pantoprazole Inj IVP SCH ×2 (08:07→20:39)
[2016-09-10] MEDS: Dyna-Hex 2% Top Sol 8oz TOPIC SCH (08:07)
[2016-09-10] MEDS: Ascorbic Acid 500mg tab GT SCH (08:07)
--- NOTE | 2016-09-10 08:53 | Critical Care Progress Note ---
Assessment/Plan Problem List: (1) Cardiac arrest (2) Septic shock (3) Respiratory distress (4) Dysphagia (5) Pneumonia (6) Feeding by G-tube (7) esophageal wall thickening (8) Anemia (9) Hypoalbuminemia (10) Azotemia (11) Hyponatremia (12) Dehydration Assessment/Plan additional medical problems Respiratory acidosis Respiratory failure ESBL PLAN ID evaluation noted IV antibiotics noted follow up final cultures wean as able; orders placed cardiology follow up noted; rate controlled meds reviewed continue as is skin care wound care supportive care ICU management noted medications/laboratory data/nursing notes/ICU care reviewed in detail note reviewed and edited care discussed with RN and RT ICU time spent 36 minutes Critical Care - Subjective Interval Events: care noted all ICU care discussed remains ill ROS Limited/Unobtainable: Yes Condition: critical EKG Rhythm: Sinus Rhythm Residuals: minimal Tube Feeding Tolerated: yes I&O: Intake and Output 09/09/16 09/10/16 19:00 07:00 Intake Total 1140 ml 2300 ml Output Total 522 ml 610 ml Balance 618 ml 1690 ml Intake Free Water 200 ml IV Total 480 ml 1440 ml Tube Feeding 660 ml 660 ml Output Urine Total 522 ml 610 ml # Bowel Movements 3 1 Critical Care - Objective ET-Tube: 6.0 ET Position: 23 Last 24 Hour Vital Signs Date Time Temp Pulse Resp B/P Pulse Ox O2 Delivery O2 Flow Rate FiO2 09/10/16 08:00 91 09/10/16 08:00 98.5 92 18 158/60 99 Mechanical Ventilator 30 09/10/16 07:04 88 21 30 09/10/16 07:00 93 19 150/56 96 Mechanical Ventilator 30 09/10/16 06:00 87 19 143/54 98 Mechanical Ventilator 30 09/10/16 05:07 91 21 30 09/10/16 05:00 91 19 152/57 100 Mechanical Ventilator 30 09/10/16 04:00 30 09/10/16 04:00 90 09/10/16 04:00 98.7 90 19 151/48 96 Mechanical Ventilator 30 09/10/16 03:10 88 18 30 09/10/16 03:00 89 19 155/54 96 Mechanical Ventilator 30 09/10/16 02:00 90 19 145/47 96 Mechanical Ventilator 30 09/10/16 01:10 88 21 30 09/10/16 01:00 88 19 147/49 96 Mechanical Ventilator 30 09/10/16 00:00 88 09/10/16 00:00 98.5 86 19 149/58 96 Mechanical Ventilator 30 09/10/16 00:00 30 09/09/16 23:00 89 19 157/54 97 Mechanical Ventilator 30 09/09/16 22:48 89 20 30 09/09/16 22:00 87 19 143/47 96 Mechanical Ventilator 30 09/09/16 21:00 88 19 144/51 99 Mechanical Ventilator 30 09/09/16 20:56 90 17 Mechanical Ventilator 30 09/09/16 20:55 90 17 30 09/09/16 20:00 98.1 86 19 149/49 100 Mechanical Ventilator 30 09/09/16 20:00 93 09/09/16 20:00 30 09/09/16 19:10 93 18 30 09/09/16 19:00 91 19 160/80 98 Mechanical Ventilator 30 09/09/16 18:00 89 32 141/49 100 Mechanical Ventilator 30 09/09/16 17:10 88 20 30 09/09/16 17:00 89 33 132/36 100 Mechanical Ventilator 30 09/09/16 16:00 30 09/09/16 16:00 87 09/09/16 16:00 97.8 87 31 144/50 99 Mechanical Ventilator 30 09/09/16 15:00 89 29 132/36 99 Mechanical Ventilator 30 09/09/16 14:50 88 17 30 09/09/16 14:00 87 30 129/40 100 Mechanical Ventilator 30 09/09/16 14:00 87 25 129/40 100 Mechanical Ventilator 30 09/09/16 13:10 90 21 98 Mechanical Ventilator 30 09/09/16 13:10 Mechanical Ventilator 30 09/09/16 13:10 91 21 30 09/09/16 13:00 90 31 144/50 99 Mechanical Ventilator 30 09/09/16 12:00 98.0 90 22 134/33 99 Mechanical Ventilator 30 09/09/16 12:00 30 09/09/16 12:00 89 09/09/16 11:00 89 22 135/32 100 Mechanical Ventilator 30 09/09/16 10:50 91 23 30 09/09/16 10:00 92 23 144/49 98 Mechanical Ventilator 30 09/09/16 09:20 94 23 30 09/09/16 09:00 93 23 143/52 98 Mechanical Ventilator 30 Labs: Labs Test 09/08/16 04:00 09/09/16 04:30 White Blood Count 11.0 K/UL (4.8-10.8) 12.2 K/UL (4.8-10.8) Red Blood Count 3.00 M/UL (4.20-5.40) 2.92 M/UL (4.20-5.40) Hemoglobin 9.8 G/DL (12.0-16.0) 9.8 G/DL (12.0-16.0) Hematocrit 31.0 % (37.0-47.0) 30.5 % (37.0-47.0) Mean Corpuscular Volume 104 FL (80-99) 104 FL (80-99) Mean Corpuscular Hemoglobin 32.8 PG (27.0-31.0) 33.5 PG (27.0-31.0) Mean Corpuscular Hemoglobin Concent 31.7 G/DL (32.0-36.0) 32.2 G/DL (32.0-36.0) Red Cell Distribution Width 16.3 % (11.6-14.8) 16.3 % (11.6-14.8) Platelet Count 79 K/UL (150-450) 82 K/UL (150-450) Mean Platelet Volume 8.2 FL (6.5-10.1) 7.8 FL (6.5-10.1) Neutrophils (%) (Auto) % (45.0-75.0) % (45.0-75.0) Lymphocytes (%) (Auto) % (20.0-45.0) % (20.0-45.0) Monocytes (%) (Auto) % (1.0-10.0) % (1.0-10.0) Eosinophils (%) (Auto) % (0.0-3.0) % (0.0-3.0) Basophils (%) (Auto) % (0.0-2.0) % (0.0-2.0) Sodium Level 143 mEQ/L (135-145) 142 mEQ/L (135-145) Potassium Level 3.4 mEQ/L (3.4-4.9) 3.5 mEQ/L (3.4-4.9) Chloride Level 101 mEQ/L (98-107) 101 mEQ/L (98-107) Carbon Dioxide Level 31 mEQ/L (20-30) 31 mEQ/L (20-30) Anion Gap 11 (5-15) 10 (5-15) Blood Urea Nitrogen 17 mg/dL (7-23) 18 mg/dL (7-23) Creatinine 0.5 mg/dL (0.5-0.9) 0.4 mg/dL (0.5-0.9) Estimat Glomerular Filtration Rate mL/min (>60) mL/min (>60) Glucose Level 108 mg/dL (74-106) 101 mg/dL (74-106) Calcium Level 7.5 mg/dL (8.6-10.2) 7.4 mg/dL (8.6-10.2) Total Bilirubin 0.3 mg/dL (0.0-1.2) 0.3 mg/dL (0.0-1.2) Aspartate Amino Transf (AST/SGOT) 45 U/L (5-40) 29 U/L (5-40) Alanine Aminotransferase (ALT/SGPT) 95 U/L (3-33) 68 U/L (3-33) Alkaline Phosphatase 116 U/L (35-104) 106 U/L (35-104) Total Protein 5.7 g/dL (6.6-8.7) 5.6 g/dL (6.6-8.7) Albumin 2.1 g/dL (3.5-5.2) 2.0 g/dL (3.5-5.2) Globulin 3.6 g/dL 3.6 g/dL Albumin/Globulin Ratio 0.5 (1.0-2.7) 0.5 (1.0-2.7) Differential Total Cells Counted 100 Neutrophils % (Manual) 73 % (45-75) Lymphocytes % (Manual) 11 % (20-45) Monocytes % (Manual) 12 % (1-10) Eosinophils % (Manual) 4 % (0-3) Basophils % (Manual) 0 % (0-2) Band Neutrophils 0 % (0-8) Platelet Estimate Decreased Platelet Morphology Normal Hypochromasia 1+ Anisocytosis 1+ Macrocytosis 1+ Objective: WDWN NAD pupils sluggish chronically ill oral ETT in place reduced breath sounds bilaterally with improved rhonchi [id number] without MRG NABS nontender no HSM; feeding tube; no distention no CCE nonfocal; reduced LOC reduced ROM reviewed and edited Accucheck: 121 LESLY COLINDRES September 10, 2016 08:53
[2016-09-10] MEDS: levETIRAcetam 500 MG in D5W 110 ML IV SCH ×2 (09:05→20:38)
--- NOTE | 2016-09-10 10:08 | Diagnostic Imaging Report ---
Indication: Dyspnea Technique: One view of the chest Comparison: 09/07/2016 post PICC chest radiograph Findings: Again demonstrated is a right arm PICC, tip projected at the level of the right innominate vein. Extensive airspace opacities within the right upper and middle lobe, right-sided pleural effusion persists. Interstitial opacities throughout the left lung are unchanged. Some scarring is again demonstrated in the left lung. This area appears somewhat less cavitary than previously. Stable satisfactory position of endotracheal tube. Small left pleural effusion persists. Coracoclavicular ligament ossification persists, unchanged Impression: Extensive right lung infiltrates, unchanged since 09/07/2016 Bilateral diffuse interstitial disease, on the basis of interstitial edema, could also have a chronic component, likewise stable Other stable findings as described, including right-sided and small left-sided pleural effusion
--- NOTE | 2016-09-10 11:12 | Infectious Diseases Prog Note ---
Assessment/Plan Assessment/Plan A: Sepsis Pneumonia MRSA & NISREEN colonization Cardiac arrest Hypercapnic respiratory failure Dementia Anemia P; Continue Meropenem Subjective ROS Limited/Unobtainable: Yes Allergies: Coded Allergies: No Known Allergies (Verified , 03/14/16) Uncoded Allergies: MILK (Allergy, Unknown, 07/11/11) Objective Vital Signs Last 24 Hour Vital Signs Date Time Temp Pulse Resp B/P Pulse Ox O2 Delivery O2 Flow Rate FiO2 09/10/16 10:43 90 17 30 09/10/16 10:00 91 18 140/50 98 Mechanical Ventilator 30 09/10/16 09:00 92 18 154/56 98 Mechanical Ventilator 30 09/10/16 08:46 93 17 30 09/10/16 08:00 91 09/10/16 08:00 98.5 92 18 158/60 99 Mechanical Ventilator 30 09/10/16 08:00 30 09/10/16 07:04 88 21 30 09/10/16 07:00 93 19 150/56 96 Mechanical Ventilator 30 09/10/16 06:00 87 19 143/54 98 Mechanical Ventilator 30 09/10/16 05:07 91 21 30 09/10/16 05:00 91 19 152/57 100 Mechanical Ventilator 30 09/10/16 04:00 30 09/10/16 04:00 90 09/10/16 04:00 98.7 90 19 151/48 96 Mechanical Ventilator 30 09/10/16 03:10 88 18 30 09/10/16 03:00 89 19 155/54 96 Mechanical Ventilator 30 09/10/16 02:00 90 19 145/47 96 Mechanical Ventilator 30 09/10/16 01:10 88 21 30 09/10/16 01:00 88 19 147/49 96 Mechanical Ventilator 30 09/10/16 00:00 88 09/10/16 00:00 98.5 86 19 149/58 96 Mechanical Ventilator 30 09/10/16 00:00 30 09/09/16 23:00 89 19 157/54 97 Mechanical Ventilator 30 09/09/16 22:48 89 20 30 09/09/16 22:00 87 19 143/47 96 Mechanical Ventilator 30 09/09/16 21:00 88 19 144/51 99 Mechanical Ventilator 30 09/09/16 20:56 90 17 Mechanical Ventilator 30 09/09/16 20:55 90 17 30 09/09/16 20:00 98.1 86 19 149/49 100 Mechanical Ventilator 30 09/09/16 20:00 93 09/09/16 20:00 30 09/09/16 19:10 93 18 30 09/09/16 19:00 91 19 160/80 98 Mechanical Ventilator 30 09/09/16 18:00 89 32 141/49 100 Mechanical Ventilator 30 09/09/16 17:10 88 20 30 09/09/16 17:00 89 33 132/36 100 Mechanical Ventilator 30 09/09/16 16:00 30 09/09/16 16:00 87 09/09/16 16:00 97.8 87 31 144/50 99 Mechanical Ventilator 30 09/09/16 15:00 89 29 132/36 99 Mechanical Ventilator 30 09/09/16 14:50 88 17 30 09/09/16 14:00 87 30 129/40 100 Mechanical Ventilator 30 09/09/16 14:00 87 25 129/40 100 Mechanical Ventilator 30 09/09/16 13:10 90 21 98 Mechanical Ventilator 30 09/09/16 13:10 Mechanical Ventilator 30 09/09/16 13:10 91 21 30 09/09/16 13:00 90 31 144/50 99 Mechanical Ventilator 30 09/09/16 12:00 98.0 90 22 134/33 99 Mechanical Ventilator 30 09/09/16 12:00 30 09/09/16 12:00 89 Height (Feet): 5 Height (Inches): 6.00 Weight (Pounds): 186 HEENT: other - orally intubated, swelling of tongue & lower lip Respiratory/Chest: other - on ventilator Cardiovascular: normal rate Abdomen: soft, non tender, other - GT feeding Extremities: other - edema, R arm PICC line Neurologic/Psychiatric: other - opens eyes Current Medications Medications (Trade) Dose Ordered Sig/Lonny Route PRN Reason Start Time Stop Time Status Last Admin Dose Admin Ascorbic Acid (Vitamin C) 500 mg DAILY GT 09/07/16 09:00 10/07/16 08:59 09/10/16 08:07 Chlorhexidine Gluconate 1 applic 1 applic DAILY TOPIC 09/08/16 09:00 10/08/16 08:59 09/10/16 08:07 Diltiazem HCl (Cardizem) 5 mg Q1H PRN IV SBP>170 09/06/16 08:00 10/06/16 07:59 Gentamicin Sulfate 2 drop 2 drop EVERY 4 HOURS BOTH EYES 09/04/16 13:00 09/11/16 12:59 09/10/16 08:07 Heparin Sodium (Porcine) (Heparin 5000 units/ml) 5,000 units EVERY 12 HOURS SUBQ 09/04/16 21:00 10/04/16 20:59 Levetiracetam/ Dextrose (Keppra/D5W) 115 ml @ 460 mls/hr Q12HR IV 09/04/16 21:00 10/04/16 20:59 09/10/16 09:05 Meropenem/Sodium Chloride (Merrem/Sodium Chloride) 110 ml @ 220 mls/hr Q12HR@0730,1930 IVPB 09/08/16 19:30 09/13/16 19:29 09/10/16 08:07 Metronidazole (Flagyl) 100 ml @ 100 mls/hr Q8H IVPB 09/04/16 06:00 09/11/16 05:59 09/10/16 05:48 Pantoprazole (Protonix) 40 mg EVERY 12 HOURS IVP 09/04/16 21:00 10/04/16 20:59 09/10/16 08:07 Sodium Chloride 1,000 ml @ 40 mls/hr Q24H IV 09/07/16 15:00 10/07/16 14:59 09/09/16 15:15 JAYLIN BENTLEY September 10, 2016 11:12
--- NOTE | 2016-09-10 12:41 | GI Progress Note ---
Assessment/Plan Problems: (1) Dehydration ICD Codes: E86.0 - Dehydration SNOMED: 23044568 (2) Hyponatremia ICD Codes: E87.1 - Hypo-osmolality and hyponatremia SNOMED: 74537561 (3) LFT elevation ICD Codes: R94.5 - Abnormal results of liver function studies SNOMED: 380563662 (4) Hypoalbuminemia ICD Codes: E88.09 - Other disorders of plasma-protein metabolism, not elsewhere classified SNOMED: 103609895 (5) Anemia ICD Codes: D64.9 - Anemia, unspecified SNOMED: 935184525 (6) Feeding by G-tube ICD Codes: Z93.1 - Gastrostomy status SNOMED: 868850801, 015953934 (7) Dysphagia ICD Codes: R13.10 - Dysphagia, unspecified SNOMED: 27433525, 376739810 Status: unchanged Status Narrative Discussed with Dr. Britt. Assessment/Plan OB stool negative elevated CEA >> 8.8 hep panel >> negative hold GI procedures given elevated WBC EGD/colonoscopy when stable given anemia and elevated CEA. monitor H&H, transfuse prn GTFs per dietary ppi abx fu abdominal U/S fu labs Subjective Subjective limited Objective Last 24 Hour Vital Signs Date Time Temp Pulse Resp B/P Pulse Ox O2 Delivery O2 Flow Rate FiO2 09/10/16 12:00 89.9 89 20 144/50 98 Mechanical Ventilator 30 09/10/16 12:00 88 09/10/16 12:00 30 09/10/16 11:00 89 17 129/48 98 Mechanical Ventilator 30 09/10/16 10:45 30 09/10/16 10:43 90 17 30 09/10/16 10:00 91 18 140/50 98 Mechanical Ventilator 30 09/10/16 09:00 92 18 154/56 98 Mechanical Ventilator 30 09/10/16 08:46 93 17 30 09/10/16 08:00 91 09/10/16 08:00 98.5 92 18 158/60 99 Mechanical Ventilator 30 09/10/16 08:00 30 09/10/16 07:04 88 21 30 09/10/16 07:00 93 19 150/56 96 Mechanical Ventilator 30 09/10/16 06:00 87 19 143/54 98 Mechanical Ventilator 30 09/10/16 05:07 91 21 30 09/10/16 05:00 91 19 152/57 100 Mechanical Ventilator 30 09/10/16 04:00 30 09/10/16 04:00 90 09/10/16 04:00 98.7 90 19 151/48 96 Mechanical Ventilator 30 09/10/16 03:10 88 18 30 09/10/16 03:00 89 19 155/54 96 Mechanical Ventilator 30 09/10/16 02:00 90 19 145/47 96 Mechanical Ventilator 30 09/10/16 01:10 88 21 30 09/10/16 01:00 88 19 147/49 96 Mechanical Ventilator 30 09/10/16 00:00 88 09/10/16 00:00 98.5 86 19 149/58 96 Mechanical Ventilator 30 09/10/16 00:00 30 09/09/16 23:00 89 19 157/54 97 Mechanical Ventilator 30 09/09/16 22:48 89 20 30 09/09/16 22:00 87 19 143/47 96 Mechanical Ventilator 30 09/09/16 21:00 88 19 144/51 99 Mechanical Ventilator 30 09/09/16 20:56 90 17 Mechanical Ventilator 30 09/09/16 20:55 90 17 30 09/09/16 20:00 98.1 86 19 149/49 100 Mechanical Ventilator 30 09/09/16 20:00 93 09/09/16 20:00 30 09/09/16 19:10 93 18 30 09/09/16 19:00 91 19 160/80 98 Mechanical Ventilator 30 09/09/16 18:00 89 32 141/49 100 Mechanical Ventilator 30 09/09/16 17:10 88 20 30 09/09/16 17:00 89 33 132/36 100 Mechanical Ventilator 30 09/09/16 16:00 30 09/09/16 16:00 87 09/09/16 16:00 97.8 87 31 144/50 99 Mechanical Ventilator 30 09/09/16 15:00 89 29 132/36 99 Mechanical Ventilator 30 09/09/16 14:50 88 17 30 09/09/16 14:00 87 30 129/40 100 Mechanical Ventilator 30 09/09/16 14:00 87 25 129/40 100 Mechanical Ventilator 30 09/09/16 13:10 90 21 98 Mechanical Ventilator 30 09/09/16 13:10 Mechanical Ventilator 30 09/09/16 13:10 91 21 30 09/09/16 13:00 90 31 144/50 99 Mechanical Ventilator 30 Intake and Output 09/09/16 09/10/16 19:00 07:00 Intake Total 1140 ml 2300 ml Output Total 522 ml 610 ml Balance 618 ml 1690 ml Intake Free Water 200 ml IV Total 480 ml 1440 ml Tube Feeding 660 ml 660 ml Output Urine Total 522 ml 610 ml # Bowel Movements 3 1 Height (Feet): 5 Height (Inches): 6.00 Weight (Pounds): 186 General Appearance: no apparent distress, alert Cardiovascular: normal rate Respiratory/Chest: other - mech vent Abdominal Exam: normal bowel sounds, GT site - c/d/i Luna Rodriguez N.P. September 10, 2016 12:41
[2016-09-10 13:37] LABS: EOSINOPHILS % (AUTO) 11.9 % (0.0-3.0); LYMPHOCYTES % (AUTO) 11.7 % (20.0-45.0); MEAN CORPUSCULAR HEMOGLOBIN 32.9 PG (27.0-31.0); MEAN CORPUSCULAR HGB CONC 31.8 G/DL (32.0-36.0); MEAN CORPUSCULAR VOLUME 104 FL (80-99); MEAN PLATELET VOLUME 8.3 FL (6.5-10.1); NEUTROPHILS % (AUTO) 66.4 % (45.0-75.0); PLATELET COUNT 104 K/UL (150-450); RED BLOOD COUNT 3.04 M/UL (4.20-5.40); WHITE BLOOD COUNT 9.5 K/UL (4.8-10.8)
[2016-09-10 13:58] LABS: ALANINE AMINOTRANSFERASE 51 U/L (3-33); ALBUMIN/GLOBULIN RATIO 0.5 (1.0-2.7); ANION GAP 8 (5-15); ASPARTATE AMINO TRANSFERASE 33 U/L (5-40); CALCIUM 7.7 mg/dL (8.6-10.2); CARBON DIOXIDE 32 mEQ/L (20-30); CHLORIDE 102 mEQ/L (98-107); CREATININE 0.4 mg/dL (0.5-0.9); HEMOLYSIS 2; POTASSIUM 3.6 mEQ/L (3.4-4.9); SODIUM 142 mEQ/L (135-145); TOTAL PROTEIN 5.8 g/dL (6.6-8.7)
[2016-09-10] MEDS ORDERED: Tubing IV Secondary IV ONE (17:13)
--- NOTE | 2016-09-10 18:59 | Nephrology Progress Note ---
Assessment/Plan Problem List: (1) Cardiac arrest (2) Septic shock (3) Respiratory distress (4) Dysphagia (5) Pneumonia (6) Anemia (7) Azotemia (8) Dehydration (9) Respiratory failure Plan Supportive care Monitor lytes, correct PRN Avoid nephrotoxic agents G-Tube feeding per GI Monitor H&H, transfuse PRN Monitor neuro status Continue wound care DVT prophylaxis AM labs Subjective ROS Limited/Unobtainable: Yes Subjective Intubated, in ICU Objective Objective Last 24 Hour Vital Signs Date Time Temp Pulse Resp B/P Pulse Ox O2 Delivery O2 Flow Rate FiO2 09/10/16 18:00 90 19 153/53 98 Mechanical Ventilator 30 09/10/16 17:00 89 21 151/44 98 Mechanical Ventilator 30 09/10/16 16:43 92 17 30 09/10/16 16:00 98.4 91 48 139/47 97 Mechanical Ventilator 30 09/10/16 16:00 89 09/10/16 16:00 30 09/10/16 15:00 91 20 126/40 98 Mechanical Ventilator 30 09/10/16 14:32 84 17 30 09/10/16 14:00 83 18 141/43 98 Mechanical Ventilator 30 09/10/16 13:00 88 18 145/46 98 Mechanical Ventilator 30 09/10/16 12:45 30 09/10/16 12:34 93 17 30 09/10/16 12:00 89.9 89 20 144/50 98 Mechanical Ventilator 30 09/10/16 12:00 88 09/10/16 12:00 30 09/10/16 11:00 89 17 129/48 98 Mechanical Ventilator 30 09/10/16 10:45 30 09/10/16 10:43 90 17 30 09/10/16 10:00 91 18 140/50 98 Mechanical Ventilator 30 09/10/16 09:00 92 18 154/56 98 Mechanical Ventilator 30 09/10/16 08:46 93 17 30 09/10/16 08:00 91 09/10/16 08:00 98.5 92 18 158/60 99 Mechanical Ventilator 30 09/10/16 08:00 30 09/10/16 07:04 88 21 30 09/10/16 07:00 93 19 150/56 96 Mechanical Ventilator 30 09/10/16 06:00 87 19 143/54 98 Mechanical Ventilator 30 5/22/17 05:07 91 21 30 09/10/16 05:00 91 19 152/57 100 Mechanical Ventilator 30 09/10/16 04:00 30 09/10/16 04:00 90 09/10/16 04:00 98.7 90 19 151/48 96 Mechanical Ventilator 30 09/10/16 03:10 88 18 30 09/10/16 03:00 89 19 155/54 96 Mechanical Ventilator 30 09/10/16 02:00 90 19 145/47 96 Mechanical Ventilator 30 09/10/16 01:10 88 21 30 09/10/16 01:00 88 19 147/49 96 Mechanical Ventilator 30 09/10/16 00:00 88 09/10/16 00:00 98.5 86 19 149/58 96 Mechanical Ventilator 30 09/10/16 00:00 30 09/09/16 23:00 89 19 157/54 97 Mechanical Ventilator 30 09/09/16 22:48 89 20 30 09/09/16 22:00 87 19 143/47 96 Mechanical Ventilator 30 09/09/16 21:00 88 19 144/51 99 Mechanical Ventilator 30 09/09/16 20:56 90 17 Mechanical Ventilator 30 09/09/16 20:55 90 17 30 09/09/16 20:00 98.1 86 19 149/49 100 Mechanical Ventilator 30 09/09/16 20:00 93 09/09/16 20:00 30 09/09/16 19:10 93 18 30 09/09/16 19:00 91 19 160/80 98 Mechanical Ventilator 30 Intake and Output 09/09/16 09/10/16 19:00 07:00 Intake Total 1140 ml 2300 ml Output Total 522 ml 610 ml Balance 618 ml 1690 ml Intake Free Water 200 ml IV Total 480 ml 1440 ml Tube Feeding 660 ml 660 ml Output Urine Total 522 ml 610 ml # Bowel Movements 3 1 Laboratory Tests 09/10/16 13:15: White Blood Count 9.5, Red Blood Count 3.04L, Hemoglobin 10.0L, Hematocrit 31.5L , Mean Corpuscular Volume 104H, Mean Corpuscular Hemoglobin 32.9H, Mean Corpuscular Hemoglobin Concent 31.8L, Red Cell Distribution Width 16.0H, Platelet Count 104L, Mean Platelet Volume 8.3, Neutrophils (%) (Auto) 66.4, Lymphocytes (%) (Auto) 11.7L, Monocytes (%) (Auto) 9.0, Eosinophils (%) (Auto) 11.9H, Basophils (%) (Auto) 1.0, Sodium Level 142, Potassium Level 3.6, Chloride Level 102, Carbon Dioxide Level 32H, Anion Gap 8, Blood Urea Nitrogen 19, Creatinine 0.4L, Estimat Glomerular Filtration Rate , Glucose Level 117H, Calcium Level 7.7L, Total Bilirubin 0.2, Aspartate Amino Transf (AST/SGOT) 33, Alanine Aminotransferase (ALT/SGPT) 51H, Alkaline Phosphatase 99, Total Protein 5.8L, Albumin 2.1L, Globulin 3.7, Albumin/Globulin Ratio 0.5L Height (Feet): 5 Height (Inches): 6.00 Weight (Pounds): 186 General Appearance: no apparent distress Neck: non-tender Cardiovascular: regular rhythm Respiratory/Chest: decreased breath sounds Abdomen: soft Extremities: pitting Neurologic: unresponsive Allison Johnson N.P. September 10, 2016 18:59
--- NOTE | 2016-09-10 19:09 | Cardiology Report ---
APPROVED REPORT EKG Measurement Heart [id number] Normal sinus rhythm Normal ECG
[2016-09-10] MEDS ORDERED: Etomidate 40mg/20ml Inj IV ONE (19:58)
[2016-09-10] MEDS ORDERED: Succinylcholine 20mg/ml 10ml vial ONE (19:58)
--- NOTE | 2016-09-10 22:25 | Cardiology Progress Note ---
Assessment/Plan Assessment/Plan 1. Asystole cardiac arrest responded well to epinephrine during the code, due to respiratory failure, echo reveals normal LVEF with no wall motion abnormalities. 2. Pneumonia/leukocytosis. 3. Hypoxic, hypercarbic respiratory failure Subjective Subjective Still intubated. Sinus rhythm at 89. Objective Last 24 Hour Vital Signs Date Time Temp Pulse Resp B/P Pulse Ox O2 Delivery O2 Flow Rate FiO2 09/10/16 21:08 91 17 30 09/10/16 20:00 98.9 90 17 163/61 98 Mechanical Ventilator 30 09/10/16 20:00 30 09/10/16 19:23 89 17 30 09/10/16 19:00 91 18 157/58 98 Mechanical Ventilator 30 09/10/16 18:00 90 19 153/53 98 Mechanical Ventilator 30 09/10/16 17:00 89 21 151/44 98 Mechanical Ventilator 30 09/10/16 16:43 92 17 30 09/10/16 16:00 98.4 91 48 139/47 97 Mechanical Ventilator 30 09/10/16 16:00 89 09/10/16 16:00 30 09/10/16 15:00 91 20 126/40 98 Mechanical Ventilator 30 09/10/16 14:32 84 17 30 09/10/16 14:00 83 18 141/43 98 Mechanical Ventilator 30 09/10/16 13:00 88 18 145/46 98 Mechanical Ventilator 30 09/10/16 12:45 30 09/10/16 12:34 93 17 30 09/10/16 12:00 89.9 89 20 144/50 98 Mechanical Ventilator 30 09/10/16 12:00 88 09/10/16 12:00 30 09/10/16 11:00 89 17 129/48 98 Mechanical Ventilator 30 09/10/16 10:45 30 09/10/16 10:43 90 17 30 09/10/16 10:00 91 18 140/50 98 Mechanical Ventilator 30 09/10/16 09:00 92 18 154/56 98 Mechanical Ventilator 30 09/10/16 08:46 93 17 30 09/10/16 08:00 91 09/10/16 08:00 98.5 92 18 158/60 99 Mechanical Ventilator 30 09/10/16 08:00 30 09/10/16 07:04 88 21 30 09/10/16 07:00 93 19 150/56 96 Mechanical Ventilator 30 09/10/16 06:00 87 19 143/54 98 Mechanical Ventilator 30 09/10/16 05:07 91 21 30 09/10/16 05:00 91 19 152/57 100 Mechanical Ventilator 30 09/10/16 04:00 30 09/10/16 04:00 90 09/10/16 04:00 98.7 90 19 151/48 96 Mechanical Ventilator 30 09/10/16 03:10 88 18 30 09/10/16 03:00 89 19 155/54 96 Mechanical Ventilator 30 09/10/16 02:00 90 19 145/47 96 Mechanical Ventilator 30 09/10/16 01:10 88 21 30 09/10/16 01:00 88 19 147/49 96 Mechanical Ventilator 30 09/10/16 00:00 88 09/10/16 00:00 98.5 86 19 149/58 96 Mechanical Ventilator 30 09/10/16 00:00 30 09/09/16 23:00 89 19 157/54 97 Mechanical Ventilator 30 09/09/16 22:48 89 20 30 Intake and Output 09/09/16 09/10/16 19:00 07:00 Intake Total 1140 ml 2300 ml Output Total 522 ml 610 ml Balance 618 ml 1690 ml Intake Free Water 200 ml IV Total 480 ml 1440 ml Tube Feeding 660 ml 660 ml Output Urine Total 522 ml 610 ml # Bowel Movements 3 1 2D Echo: LVEF 55%, Grade I LVDD, RVSP 57 mmHg Laboratory Tests Test 09/10/16 13:15 White Blood Count 9.5 K/UL (4.8-10.8) Red Blood Count 3.04 M/UL (4.20-5.40) L Hemoglobin 10.0 G/DL (12.0-16.0) L Hematocrit 31.5 % (37.0-47.0) L Mean Corpuscular Volume 104 FL (80-99) H Mean Corpuscular Hemoglobin 32.9 PG (27.0-31.0) H Mean Corpuscular Hemoglobin Concent 31.8 G/DL (32.0-36.0) L Red Cell Distribution Width 16.0 % (11.6-14.8) H Platelet Count 104 K/UL (150-450) L Mean Platelet Volume 8.3 FL (6.5-10.1) Neutrophils (%) (Auto) 66.4 % (45.0-75.0) Lymphocytes (%) (Auto) 11.7 % (20.0-45.0) L Monocytes (%) (Auto) 9.0 % (1.0-10.0) Eosinophils (%) (Auto) 11.9 % (0.0-3.0) H Basophils (%) (Auto) 1.0 % (0.0-2.0) Sodium Level 142 mEQ/L (135-145) Potassium Level 3.6 mEQ/L (3.4-4.9) Chloride Level 102 mEQ/L (98-107) Carbon Dioxide Level 32 mEQ/L (20-30) H Anion Gap 8 (5-15) Blood Urea Nitrogen 19 mg/dL (7-23) Creatinine 0.4 mg/dL (0.5-0.9) L Estimat Glomerular Filtration Rate mL/min (>60) Glucose Level 117 mg/dL (74-106) H Calcium Level 7.7 mg/dL (8.6-10.2) L Total Bilirubin 0.2 mg/dL (0.0-1.2) Aspartate Amino Transf (AST/SGOT) 33 U/L (5-40) Alanine Aminotransferase (ALT/SGPT) 51 U/L (3-33) H Alkaline Phosphatase 99 U/L (35-104) Total Protein 5.8 g/dL (6.6-8.7) L Albumin 2.1 g/dL (3.5-5.2) L Globulin 3.7 g/dL Albumin/Globulin Ratio 0.5 (1.0-2.7) L Objective HEENT: Intubated, normocephalic, atraumatic, PERRLA, EOMI Neck: no JVD, no carotid bruit, upstroke 2+ B/L Respiratory: decreased breath sounds, crackles both bases Cardiovascular: regular rate, rhythm, normal S1S2, tachycardic,no murmurs, gallops or rubs Gastrointestinal: normal BS, soft non-tender, non-distended Musculoskeletal: no clubbing cyanosis or edema MARK LEVY September 10, 2016 22:25
[2016-09-11] VITALS (24 sets, daily range): BP systolic 124–166; BP diastolic 42–89
[2016-09-11] MEDS: Gentamicin 0.3% Opth Soln 5ml BOTH EYES SCH ×3 (01:00→08:03)
[2016-09-11] MEDS: Dyna-Hex 2% Top Sol 8oz TOPIC SCH (04:26)
[2016-09-11 05:31] LABS: MEAN CORPUSCULAR HEMOGLOBIN 32.9 PG (27.0-31.0); MEAN CORPUSCULAR HGB CONC 31.4 G/DL (32.0-36.0); MEAN CORPUSCULAR VOLUME 105 FL (80-99); MEAN PLATELET VOLUME 8.2 FL (6.5-10.1); PLATELET COUNT 99 K/UL (150-450); RED BLOOD COUNT 2.89 M/UL (4.20-5.40); RED CELL DISTRIBUTION WIDTH 15.6 % (11.6-14.8); WHITE BLOOD COUNT 9.9 K/UL (4.8-10.8)
[2016-09-11 06:39] LABS: ANION GAP 10 (5-15); CALCIUM 7.2 mg/dL (8.6-10.2); CARBON DIOXIDE 29 mEQ/L (20-30); CHLORIDE 99 mEQ/L (98-107); CREATININE 0.3 mg/dL (0.5-0.9); HEMOLYSIS 4; POTASSIUM 3.5 mEQ/L (3.4-4.9); SODIUM 138 mEQ/L (135-145)
[2016-09-11] MEDS: Meropenem 1 GM in NS 110 ML IVPB SCH ×2 (08:03→19:35)
[2016-09-11] MEDS: Ascorbic Acid 500mg tab GT SCH (08:03)
[2016-09-11] MEDS: Pantoprazole Inj IVP SCH ×2 (08:03→20:59)
[2016-09-11] MEDS: Heparin 5000 units/ml inj SUBQ SCH ×2 (08:04→20:59)
--- NOTE | 2016-09-11 08:29 | Critical Care Progress Note ---
Assessment/Plan Problem List: (1) Cardiac arrest (2) Septic shock (3) Respiratory distress (4) Dysphagia (5) Pneumonia (6) Feeding by G-tube (7) esophageal wall thickening (8) Anemia (9) Hypoalbuminemia (10) Azotemia (11) Hyponatremia (12) Dehydration Assessment/Plan additional medical problems Respiratory acidosis Respiratory failure ESBL PLAN ID evaluation and follow up reviewed IV antibiotics noted follow up final cultures wean as able; orders placed monitor hemodynamics meds reviewed continue as is skin care wound care without change supportive care ICU management noted medications/laboratory data/nursing notes/ICU care reviewed in detail note reviewed and edited care discussed with RN and RT ICU time spent 37 minutes Critical Care - Subjective Interval Events: care noted ICU care reviewed all appreciated ROS Limited/Unobtainable: Yes Condition: critical EKG Rhythm: Sinus Rhythm Tube Feeding Tolerated: yes I&O: Intake and Output 09/10/16 09/11/16 19:00 07:00 Intake Total 2062 ml 2200 ml Output Total 560 ml 545 ml Balance 1502 ml 1655 ml Intake Free Water 200 ml 200 ml IV Total 1172 ml 1340 ml Tube Feeding 660 ml 660 ml Other 30 ml Output Urine Total 560 ml 545 ml # Bowel Movements 1 2 Critical Care - Objective ET-Tube: 6.0 ET Position: 23 Last 24 Hour Vital Signs Date Time Temp Pulse Resp B/P Pulse Ox O2 Delivery O2 Flow Rate FiO2 09/11/16 07:17 94 18 30 09/11/16 07:00 95 18 161/89 97 Mechanical Ventilator 30 09/11/16 06:00 97 18 163/56 97 Mechanical Ventilator 30 09/11/16 05:09 96 17 30 09/11/16 05:00 95 18 164/59 96 Mechanical Ventilator 30 09/11/16 04:00 93 09/11/16 04:00 98.4 96 18 161/57 96 Mechanical Ventilator 30 09/11/16 04:00 30 09/11/16 03:00 91 18 161/61 98 Mechanical Ventilator 30 09/11/16 02:46 92 18 30 09/11/16 02:00 92 18 156/65 98 Mechanical Ventilator 30 09/11/16 01:00 93 18 151/59 96 Mechanical Ventilator 30 09/11/16 00:47 92 18 30 09/11/16 00:00 93 09/11/16 00:00 98.9 89 18 161/62 98 Mechanical Ventilator 30 09/11/16 00:00 30 09/10/16 23:00 91 18 157/55 98 Mechanical Ventilator 30 09/10/16 22:57 90 17 30 09/10/16 22:00 92 18 155/49 98 Mechanical Ventilator 30 09/10/16 21:08 91 17 30 09/10/16 21:00 89 18 152/71 98 Mechanical Ventilator 30 09/10/16 20:00 98.9 90 17 163/61 98 Mechanical Ventilator 30 09/10/16 20:00 30 09/10/16 20:00 89 09/10/16 19:23 89 17 30 09/10/16 19:00 91 18 157/58 98 Mechanical Ventilator 30 09/10/16 18:00 90 19 153/53 98 Mechanical Ventilator 30 09/10/16 17:00 89 21 151/44 98 Mechanical Ventilator 30 09/10/16 16:43 92 17 30 09/10/16 16:00 98.4 91 48 139/47 97 Mechanical Ventilator 30 09/10/16 16:00 89 09/10/16 16:00 30 09/10/16 15:00 91 20 126/40 98 Mechanical Ventilator 30 09/10/16 14:32 84 17 30 09/10/16 14:00 83 18 141/43 98 Mechanical Ventilator 30 09/10/16 13:00 88 18 145/46 98 Mechanical Ventilator 30 09/10/16 12:45 30 09/10/16 12:34 93 17 30 09/10/16 12:00 89.9 89 20 144/50 98 Mechanical Ventilator 30 09/10/16 12:00 88 09/10/16 12:00 30 09/10/16 11:00 89 17 129/48 98 Mechanical Ventilator 30 09/10/16 10:45 30 09/10/16 10:43 90 17 30 09/10/16 10:00 91 18 140/50 98 Mechanical Ventilator 30 09/10/16 09:00 92 18 154/56 98 Mechanical Ventilator 30 09/10/16 08:46 93 17 30 Labs: Labs Test 09/09/16 04:30 09/10/16 13:15 09/11/16 04:00 White Blood Count 12.2 K/UL (4.8-10.8) 9.5 K/UL (4.8-10.8) 9.9 K/UL (4.8-10.8) Red Blood Count 2.92 M/UL (4.20-5.40) 3.04 M/UL (4.20-5.40) 2.89 M/UL (4.20-5.40) Hemoglobin 9.8 G/DL (12.0-16.0) 10.0 G/DL (12.0-16.0) 9.5 G/DL (12.0-16.0) Hematocrit 30.5 % (37.0-47.0) 31.5 % (37.0-47.0) 30.2 % (37.0-47.0) Mean Corpuscular Volume 104 FL (80-99) 104 FL (80-99) 105 FL (80-99) Mean Corpuscular Hemoglobin 33.5 PG (27.0-31.0) 32.9 PG (27.0-31.0) 32.9 PG (27.0-31.0) Mean Corpuscular Hemoglobin Concent 32.2 G/DL (32.0-36.0) 31.8 G/DL (32.0-36.0) 31.4 G/DL (32.0-36.0) Red Cell Distribution Width 16.3 % (11.6-14.8) 16.0 % (11.6-14.8) 15.6 % (11.6-14.8) Platelet Count 82 K/UL (150-450) 104 K/UL (150-450) 99 K/UL (150-450) Mean Platelet Volume 7.8 FL (6.5-10.1) 8.3 FL (6.5-10.1) 8.2 FL (6.5-10.1) Neutrophils (%) (Auto) % (45.0-75.0) 66.4 % (45.0-75.0) % (45.0-75.0) Lymphocytes (%) (Auto) % (20.0-45.0) 11.7 % (20.0-45.0) % (20.0-45.0) Monocytes (%) (Auto) % (1.0-10.0) 9.0 % (1.0-10.0) % (1.0-10.0) Eosinophils (%) (Auto) % (0.0-3.0) 11.9 % (0.0-3.0) % (0.0-3.0) Basophils (%) (Auto) % (0.0-2.0) 1.0 % (0.0-2.0) % (0.0-2.0) Differential Total Cells Counted 100 Neutrophils % (Manual) 73 % (45-75) Lymphocytes % (Manual) 11 % (20-45) Monocytes % (Manual) 12 % (1-10) Eosinophils % (Manual) 4 % (0-3) Basophils % (Manual) 0 % (0-2) Band Neutrophils 0 % (0-8) Platelet Estimate Decreased Platelet Morphology Normal Hypochromasia 1+ Anisocytosis 1+ Macrocytosis 1+ Sodium Level 142 mEQ/L (135-145) 142 mEQ/L (135-145) 138 mEQ/L (135-145) Potassium Level 3.5 mEQ/L (3.4-4.9) 3.6 mEQ/L (3.4-4.9) 3.5 mEQ/L (3.4-4.9) Chloride Level 101 mEQ/L (98-107) 102 mEQ/L (98-107) 99 mEQ/L (98-107) Carbon Dioxide Level 31 mEQ/L (20-30) 32 mEQ/L (20-30) 29 mEQ/L (20-30) Anion Gap 10 (5-15) 8 (5-15) 10 (5-15) Blood Urea Nitrogen 18 mg/dL (7-23) 19 mg/dL (7-23) 17 mg/dL (7-23) Creatinine 0.4 mg/dL (0.5-0.9) 0.4 mg/dL (0.5-0.9) 0.3 mg/dL (0.5-0.9) Estimat Glomerular Filtration Rate mL/min (>60) mL/min (>60) mL/min (>60) Glucose Level 101 mg/dL (74-106) 117 mg/dL (74-106) 77 mg/dL (74-106) Calcium Level 7.4 mg/dL (8.6-10.2) 7.7 mg/dL (8.6-10.2) 7.2 mg/dL (8.6-10.2) Total Bilirubin 0.3 mg/dL (0.0-1.2) 0.2 mg/dL (0.0-1.2) Aspartate Amino Transf (AST/SGOT) 29 U/L (5-40) 33 U/L (5-40) Alanine Aminotransferase (ALT/SGPT) 68 U/L (3-33) 51 U/L (3-33) Alkaline Phosphatase 106 U/L (35-104) 99 U/L (35-104) Total Protein 5.6 g/dL (6.6-8.7) 5.8 g/dL (6.6-8.7) Albumin 2.0 g/dL (3.5-5.2) 2.1 g/dL (3.5-5.2) Globulin 3.6 g/dL 3.7 g/dL Albumin/Globulin Ratio 0.5 (1.0-2.7) 0.5 (1.0-2.7) Objective: WDWN NAD pupils sluggish chronically ill oral ETT in place reduced breath sounds bilaterally with improved rhonchi [id number] without MRG NABS nontender no HSM; feeding tube; no distention no CCE nonfocal; reduced LOC reduced ROM reviewed and edited Accucheck: 121 LESLY COLINDRES September 11, 2016 08:29
--- NOTE | 2016-09-11 09:15 | Cardiology Report ---
APPROVED REPORT EXAM: Two-dimensional and M-mode echocardiogram with Doppler and color Doppler. INDICATION Other M-Mode DIMENSIONS IVSd0.9 (0.7-1.1cm)Left Atrium (MM)3.5 (1.6-4.0cm) LVDd3.5 (3.5-5.6cm)Aortic Root2.9 (2.0-3.7cm) PWd0.8 (0.7-1.1cm)Aortic Cusp Exc.1.8 (1.5-2.0cm) LVDs2.2 (2.5-4.0cm) PWs1.3 cm Technically difficult study due to poor acoustic windows. Study quality precludes accurate assessment of regional wall motion. Normal left ventricular chamber size, systolic function and wall motion. Left ventricular ejection fraction estimated to be65-70 %. No evidence of ventricular hypertrophy. Anterior Echo-free space, may be due to pericardial fat or effusion. All other cardiac chamber sizes are within normal limits. Mild focal aortic valve sclerosis with adequate cusp excursion. Mildly thickened mitral valve leaflets with normal excursion. Mild mitral annulus and aortic root calcification. Pulmonic valve not well visualized. Normal tricuspid valve structure. IVC dilated at 1.8 cm with minimal physiologic collapse. A color flow and spectral Doppler study was performed and revealed: No aortic regurgitation. No mitral regurgitation. Mitral diastolic velocities suggest reduced left ventricular relaxation (Grade I). Mild tricuspid regurgitation. Tricuspid systolic velocities suggests peak right ventricular systolic pressure of 57 mmHg, consistent with moderate pulmonary hypertension. No pulmonic regurgitation present.
[2016-09-11] MEDS: levETIRAcetam 500 MG in D5W 110 ML IV SCH ×2 (10:44→20:59)
--- NOTE | 2016-09-11 11:42 | Infectious Diseases Prog Note ---
Assessment/Plan Assessment/Plan antibiotics : meropenem A 1. e.coli pneumonia 2. respiratory failure 3. allergic reaction 4. leucocytosis improving 5. 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 continue meropenem 2. will follow up cultures Subjective ROS Limited/Unobtainable: Yes Allergies: Coded Allergies: No Known Allergies (Verified , 03/14/16) Uncoded Allergies: MILK (Allergy, Unknown, 07/11/11) Objective Vital Signs Last 24 Hour Vital Signs Date Time Temp Pulse Resp B/P Pulse Ox O2 Delivery O2 Flow Rate FiO2 09/11/16 11:00 102 20 166/52 98 Mechanical Ventilator 40 09/11/16 11:00 102 18 40 09/11/16 10:00 98 21 158/54 95 Mechanical Ventilator 30 09/11/16 09:30 30 09/11/16 09:27 91 23 30 09/11/16 09:26 95 09/11/16 09:00 92 17 162/61 97 Mechanical Ventilator 30 09/11/16 08:00 30 09/11/16 08:00 94 09/11/16 08:00 98.9 95 20 150/49 95 Mechanical Ventilator 30 09/11/16 07:17 94 18 30 09/11/16 07:00 95 18 161/89 97 Mechanical Ventilator 30 09/11/16 06:00 97 18 163/56 97 Mechanical Ventilator 30 09/11/16 05:09 96 17 30 09/11/16 05:00 95 18 164/59 96 Mechanical Ventilator 30 09/11/16 04:00 93 09/11/16 04:00 98.4 96 18 161/57 96 Mechanical Ventilator 30 09/11/16 04:00 30 09/11/16 03:00 91 18 161/61 98 Mechanical Ventilator 30 09/11/16 02:46 92 18 30 09/11/16 02:00 92 18 156/65 98 Mechanical Ventilator 30 09/11/16 01:00 93 18 151/59 96 Mechanical Ventilator 30 09/11/16 00:47 92 18 30 09/11/16 00:00 93 09/11/16 00:00 98.9 89 18 161/62 98 Mechanical Ventilator 30 09/11/16 00:00 30 09/10/16 23:00 91 18 157/55 98 Mechanical Ventilator 30 09/10/16 22:57 90 17 30 09/10/16 22:00 92 18 155/49 98 Mechanical Ventilator 30 09/10/16 21:08 91 17 30 09/10/16 21:00 89 18 152/71 98 Mechanical Ventilator 30 09/10/16 20:00 98.9 90 17 163/61 98 Mechanical Ventilator 30 09/10/16 20:00 30 09/10/16 20:00 89 09/10/16 19:23 89 17 30 09/10/16 19:00 91 18 157/58 98 Mechanical Ventilator 30 09/10/16 18:00 90 19 153/53 98 Mechanical Ventilator 30 09/10/16 17:00 89 21 151/44 98 Mechanical Ventilator 30 09/10/16 16:43 92 17 30 09/10/16 16:00 98.4 91 48 139/47 97 Mechanical Ventilator 30 09/10/16 16:00 89 09/10/16 16:00 30 09/10/16 15:00 91 20 126/40 98 Mechanical Ventilator 30 09/10/16 14:32 84 17 30 09/10/16 14:00 83 18 141/43 98 Mechanical Ventilator 30 09/10/16 13:00 88 18 145/46 98 Mechanical Ventilator 30 09/10/16 12:45 30 09/10/16 12:34 93 17 30 09/10/16 12:00 89.9 89 20 144/50 98 Mechanical Ventilator 30 09/10/16 12:00 88 09/10/16 12:00 30 Height (Feet): 5 Height (Inches): 6.00 Weight (Pounds): 187 HEENT: other - intubated, tongue swelling Respiratory/Chest: lungs clear Cardiovascular: normal rate, regular rhythm, no gallop/murmur Abdomen: soft, non tender, other - GT Extremities: other - + edema, right arm PICC Laboratory Tests Test 09/10/16 13:15 09/11/16 04:00 White Blood Count 9.5 K/UL (4.8-10.8) 9.9 K/UL (4.8-10.8) Red Blood Count 3.04 M/UL (4.20-5.40) L 2.89 M/UL (4.20-5.40) L Hemoglobin 10.0 G/DL (12.0-16.0) L 9.5 G/DL (12.0-16.0) L Hematocrit 31.5 % (37.0-47.0) L 30.2 % (37.0-47.0) L Mean Corpuscular Volume 104 FL (80-99) H 105 FL (80-99) H Mean Corpuscular Hemoglobin 32.9 PG (27.0-31.0) H 32.9 PG (27.0-31.0) H Mean Corpuscular Hemoglobin Concent 31.8 G/DL (32.0-36.0) L 31.4 G/DL (32.0-36.0) L Red Cell Distribution Width 16.0 % (11.6-14.8) H 15.6 % (11.6-14.8) H Platelet Count 104 K/UL (150-450) L 99 K/UL (150-450) L Mean Platelet Volume 8.3 FL (6.5-10.1) 8.2 FL (6.5-10.1) Neutrophils (%) (Auto) 66.4 % (45.0-75.0) % (45.0-75.0) Lymphocytes (%) (Auto) 11.7 % (20.0-45.0) L % (20.0-45.0) Monocytes (%) (Auto) 9.0 % (1.0-10.0) % (1.0-10.0) Eosinophils (%) (Auto) 11.9 % (0.0-3.0) H % (0.0-3.0) Basophils (%) (Auto) 1.0 % (0.0-2.0) % (0.0-2.0) Sodium Level 142 mEQ/L (135-145) 138 mEQ/L (135-145) Potassium Level 3.6 mEQ/L (3.4-4.9) 3.5 mEQ/L (3.4-4.9) Chloride Level 102 mEQ/L (98-107) 99 mEQ/L (98-107) Carbon Dioxide Level 32 mEQ/L (20-30) H 29 mEQ/L (20-30) Anion Gap 8 (5-15) 10 (5-15) Blood Urea Nitrogen 19 mg/dL (7-23) 17 mg/dL (7-23) Creatinine 0.4 mg/dL (0.5-0.9) L 0.3 mg/dL (0.5-0.9) L Estimat Glomerular Filtration Rate mL/min (>60) mL/min (>60) Glucose Level 117 mg/dL (74-106) H 77 mg/dL (74-106) Calcium Level 7.7 mg/dL (8.6-10.2) L 7.2 mg/dL (8.6-10.2) L Total Bilirubin 0.2 mg/dL (0.0-1.2) Aspartate Amino Transf (AST/SGOT) 33 U/L (5-40) Alanine Aminotransferase (ALT/SGPT) 51 U/L (3-33) H Alkaline Phosphatase 99 U/L (35-104) Total Protein 5.8 g/dL (6.6-8.7) L Albumin 2.1 g/dL (3.5-5.2) L Globulin 3.7 g/dL Albumin/Globulin Ratio 0.5 (1.0-2.7) L KELLEY MITCHELL September 11, 2016 11:42
--- NOTE | 2016-09-11 13:45 | GI Progress Note ---
Assessment/Plan Problems: (1) Dehydration ICD Codes: E86.0 - Dehydration SNOMED: 82527523 (2) Hyponatremia ICD Codes: E87.1 - Hypo-osmolality and hyponatremia SNOMED: 10349614 (3) LFT elevation ICD Codes: R94.5 - Abnormal results of liver function studies SNOMED: 325887178 (4) Hypoalbuminemia ICD Codes: E88.09 - Other disorders of plasma-protein metabolism, not elsewhere classified SNOMED: 057963721 (5) Anemia ICD Codes: D64.9 - Anemia, unspecified SNOMED: 167109784 (6) Feeding by G-tube ICD Codes: Z93.1 - Gastrostomy status SNOMED: 463486169, 440933600 (7) Dysphagia ICD Codes: R13.10 - Dysphagia, unspecified SNOMED: 68297074, 309784780 Status: stable Status Narrative Discussed with Dr. Britt. Assessment/Plan OB stool negative elevated CEA >> 8.8 hep panel >> negative hold GI procedures given elevated WBC EGD/colonoscopy when stable given anemia and elevated CEA. monitor H&H, transfuse prn GTFs per dietary ppi abx fu abdominal U/S fu labs Subjective Subjective limited Objective Last 24 Hour Vital Signs Date Time Temp Pulse Resp B/P Pulse Ox O2 Delivery O2 Flow Rate FiO2 09/11/16 12:37 101 28 40 09/11/16 12:30 30 09/11/16 12:00 98.7 100 25 154/51 98 Mechanical Ventilator 40 09/11/16 12:00 30 09/11/16 12:00 99 09/11/16 11:00 102 20 166/52 98 Mechanical Ventilator 40 09/11/16 11:00 102 18 40 09/11/16 10:00 98 21 158/54 95 Mechanical Ventilator 30 09/11/16 09:30 30 09/11/16 09:27 91 23 30 09/11/16 09:26 95 09/11/16 09:00 92 17 162/61 97 Mechanical Ventilator 30 09/11/16 08:00 30 09/11/16 08:00 94 09/11/16 08:00 98.9 95 20 150/49 95 Mechanical Ventilator 30 09/11/16 07:17 94 18 30 09/11/16 07:00 95 18 161/89 97 Mechanical Ventilator 30 09/11/16 06:00 97 18 163/56 97 Mechanical Ventilator 30 09/11/16 05:09 96 17 30 09/11/16 05:00 95 18 164/59 96 Mechanical Ventilator 30 09/11/16 04:00 93 09/11/16 04:00 98.4 96 18 161/57 96 Mechanical Ventilator 30 09/11/16 04:00 30 09/11/16 03:00 91 18 161/61 98 Mechanical Ventilator 30 09/11/16 02:46 92 18 30 09/11/16 02:00 92 18 156/65 98 Mechanical Ventilator 30 09/11/16 01:00 93 18 151/59 96 Mechanical Ventilator 30 09/11/16 00:47 92 18 30 09/11/16 00:00 93 09/11/16 00:00 98.9 89 18 161/62 98 Mechanical Ventilator 30 09/11/16 00:00 30 09/10/16 23:00 91 18 157/55 98 Mechanical Ventilator 30 09/10/16 22:57 90 17 30 09/10/16 22:00 92 18 155/49 98 Mechanical Ventilator 30 09/10/16 21:08 91 17 30 09/10/16 21:00 89 18 152/71 98 Mechanical Ventilator 30 09/10/16 20:00 98.9 90 17 163/61 98 Mechanical Ventilator 30 09/10/16 20:00 30 09/10/16 20:00 89 09/10/16 19:23 89 17 30 09/10/16 19:00 91 18 157/58 98 Mechanical Ventilator 30 09/10/16 18:00 90 19 153/53 98 Mechanical Ventilator 30 09/10/16 17:00 89 21 151/44 98 Mechanical Ventilator 30 09/10/16 16:43 92 17 30 09/10/16 16:00 98.4 91 48 139/47 97 Mechanical Ventilator 30 09/10/16 16:00 89 09/10/16 16:00 30 09/10/16 15:00 91 20 126/40 98 Mechanical Ventilator 30 09/10/16 14:32 84 17 30 09/10/16 14:00 83 18 141/43 98 Mechanical Ventilator 30 Intake and Output 09/10/16 09/11/16 19:00 07:00 Intake Total 2062 ml 2200 ml Output Total 560 ml 545 ml Balance 1502 ml 1655 ml Intake Free Water 200 ml 200 ml IV Total 1172 ml 1340 ml Tube Feeding 660 ml 660 ml Other 30 ml Output Urine Total 560 ml 545 ml # Bowel Movements 1 2 Laboratory Tests Test 09/11/16 04:00 White Blood Count 9.9 K/UL (4.8-10.8) Red Blood Count 2.89 M/UL (4.20-5.40) L Hemoglobin 9.5 G/DL (12.0-16.0) L Hematocrit 30.2 % (37.0-47.0) L Mean Corpuscular Volume 105 FL (80-99) H Mean Corpuscular Hemoglobin 32.9 PG (27.0-31.0) H Mean Corpuscular Hemoglobin Concent 31.4 G/DL (32.0-36.0) L Red Cell Distribution Width 15.6 % (11.6-14.8) H Platelet Count 99 K/UL (150-450) L Mean Platelet Volume 8.2 FL (6.5-10.1) Neutrophils (%) (Auto) % (45.0-75.0) Lymphocytes (%) (Auto) % (20.0-45.0) Monocytes (%) (Auto) % (1.0-10.0) Eosinophils (%) (Auto) % (0.0-3.0) Basophils (%) (Auto) % (0.0-2.0) Sodium Level 138 mEQ/L (135-145) Potassium Level 3.5 mEQ/L (3.4-4.9) Chloride Level 99 mEQ/L (98-107) Carbon Dioxide Level 29 mEQ/L (20-30) Anion Gap 10 (5-15) Blood Urea Nitrogen 17 mg/dL (7-23) Creatinine 0.3 mg/dL (0.5-0.9) L Estimat Glomerular Filtration Rate mL/min (>60) Glucose Level 77 mg/dL (74-106) Calcium Level 7.2 mg/dL (8.6-10.2) L Height (Feet): 5 Height (Inches): 6.00 Weight (Pounds): 187 General Appearance: no apparent distress, alert Cardiovascular: normal rate Respiratory/Chest: other - [facility] vent Abdominal Exam: site - c/d/i Luna Rodriguez N.P. September 11, 2016 13:45
[2016-09-11] MEDS ORDERED: Etomidate 40mg/20ml Inj IV ONE (17:07)
[2016-09-11] MEDS ORDERED: Succinylcholine 20mg/ml 10ml vial ONE (17:07)
[2016-09-11] MEDS ORDERED: 1/2 NS 1000ml IV ONE (17:56)
[2016-09-11] MEDS ORDERED: Tubing IV Secondary IV ONE (17:56)
--- NOTE | 2016-09-11 20:31 | Nephrology Progress Note ---
Assessment/Plan Problem List: (1) Azotemia Assessment: Resolved (2) Hyperkalemia Assessment: Resolved (3) Hyponatremia Assessment: Resolved (4) Septic shock (5) Respiratory distress (6) Dysphagia (7) Pneumonia (8) Anemia (9) Dehydration Plan Supportive care Monitor lytes, correct PRN Avoid nephrotoxic agents G-Tube feeding per GI Monitor H&H, transfuse PRN Monitor neuro status Continue wound care DVT prophylaxis PPI AM labs Subjective ROS Limited/Unobtainable: Yes Subjective In no distress Objective Objective Last 24 Hour Vital Signs Date Time Temp Pulse Resp B/P Pulse Ox O2 Delivery O2 Flow Rate FiO2 09/11/16 20:00 98.0 97 23 130/44 98 Mechanical Ventilator 40 09/11/16 20:00 30 09/11/16 19:18 98 24 40 09/11/16 19:00 98 23 131/44 98 Mechanical Ventilator 40 09/11/16 18:00 100 23 140/47 95 Mechanical Ventilator 40 09/11/16 17:17 103 25 40 09/11/16 17:00 101 22 142/42 95 Mechanical Ventilator 40 09/11/16 16:00 95 09/11/16 16:00 98.8 95 20 143/50 100 Mechanical Ventilator 40 09/11/16 15:40 30 09/11/16 15:29 92 21 40 09/11/16 15:00 93 19 129/46 100 Mechanical Ventilator 40 09/11/16 14:00 90 25 125/42 100 Mechanical Ventilator 40 09/11/16 13:00 97 20 141/48 98 Mechanical Ventilator 40 09/11/16 12:37 101 28 40 09/11/16 12:30 30 09/11/16 12:00 98.7 100 25 154/51 98 Mechanical Ventilator 40 09/11/16 12:00 30 09/11/16 12:00 99 09/11/16 11:00 102 20 166/52 98 Mechanical Ventilator 40 09/11/16 11:00 102 18 40 09/11/16 10:00 98 21 158/54 95 Mechanical Ventilator 30 09/11/16 09:30 30 09/11/16 09:27 91 23 30 09/11/16 09:26 95 09/11/16 09:00 92 17 162/61 97 Mechanical Ventilator 30 09/11/16 08:00 30 09/11/16 08:00 94 09/11/16 08:00 98.9 95 20 150/49 95 Mechanical Ventilator 30 09/11/16 07:17 94 18 30 09/11/16 07:00 95 18 161/89 97 Mechanical Ventilator 30 09/11/16 06:00 97 18 163/56 97 Mechanical Ventilator 30 09/11/16 05:09 96 17 30 09/11/16 05:00 95 18 164/59 96 Mechanical Ventilator 30 09/11/16 04:00 93 09/11/16 04:00 98.4 96 18 161/57 96 Mechanical Ventilator 30 09/11/16 04:00 30 09/11/16 03:00 91 18 161/61 98 Mechanical Ventilator 30 09/11/16 02:46 92 18 30 09/11/16 02:00 92 18 156/65 98 Mechanical Ventilator 30 09/11/16 01:00 93 18 151/59 96 Mechanical Ventilator 30 09/11/16 00:47 92 18 30 09/11/16 00:00 93 09/11/16 00:00 98.9 89 18 161/62 98 Mechanical Ventilator 30 09/11/16 00:00 30 09/10/16 23:00 91 18 157/55 98 Mechanical Ventilator 30 09/10/16 22:57 90 17 30 09/10/16 22:00 92 18 155/49 98 Mechanical Ventilator 30 09/10/16 21:08 91 17 30 09/10/16 21:00 89 18 152/71 98 Mechanical Ventilator 30 Intake and Output 09/10/16 09/11/16 19:00 07:00 Intake Total 2062 ml 2200 ml Output Total 560 ml 545 ml Balance 1502 ml 1655 ml Intake Free Water 200 ml 200 ml IV Total 1172 ml 1340 ml Tube Feeding 660 ml 660 ml Other 30 ml Output Urine Total 560 ml 545 ml # Bowel Movements 1 2 Laboratory Tests 09/11/16 04:00: White Blood Count 9.9, Red Blood Count 2.89L, Hemoglobin 9.5L, Hematocrit 30.2L , Mean Corpuscular Volume 105H, Mean Corpuscular Hemoglobin 32.9H, Mean Corpuscular Hemoglobin Concent 31.4L, Red Cell Distribution Width 15.6H, Platelet Count 99L, Mean Platelet Volume 8.2, Neutrophils (%) (Auto) , Lymphocytes (%) (Auto) , Monocytes (%) (Auto) , Eosinophils (%) (Auto) , Basophils (%) (Auto) , Sodium Level 138, Potassium Level 3.5, Chloride Level 99 , Carbon Dioxide Level 29, Anion Gap 10, Blood Urea Nitrogen 17, Creatinine 0.3L , Estimat Glomerular Filtration Rate , Glucose Level 77, Calcium Level 7.2L Height (Feet): 5 Height (Inches): 6.00 Weight (Pounds): 187 General Appearance: no apparent distress Neck: supple Cardiovascular: normal rate Respiratory/Chest: decreased breath sounds Abdomen: soft, other - PEG Extremities: moderate edema, pitting Neurologic: unresponsive JOSSIE YAÑEZ September 11, 2016 20:31
--- NOTE | 2016-09-11 22:30 | Cardiology Progress Note ---
Assessment/Plan Assessment/Plan 1. Asystole cardiac arrest due to respiratory failure, echo reveals normal LVEF with no wall motion abnormalities. 2. Pneumonia/leukocytosis. 3. Hypoxic, hypercarbic respiratory failure Subjective Subjective Still intubated. Sinus rhythm at 89. Objective Last 24 Hour Vital Signs Date Time Temp Pulse Resp B/P Pulse Ox O2 Delivery O2 Flow Rate FiO2 09/11/16 21:14 96 25 40 09/11/16 21:00 97 23 125/44 98 Mechanical Ventilator 40 09/11/16 20:00 98.0 97 23 130/44 98 Mechanical Ventilator 40 09/11/16 20:00 30 09/11/16 19:18 98 24 40 09/11/16 19:00 98 23 131/44 98 Mechanical Ventilator 40 09/11/16 18:00 100 23 140/47 95 Mechanical Ventilator 40 09/11/16 17:17 103 25 40 09/11/16 17:00 101 22 142/42 95 Mechanical Ventilator 40 09/11/16 16:00 95 09/11/16 16:00 98.8 95 20 143/50 100 Mechanical Ventilator 40 09/11/16 15:40 30 09/11/16 15:29 92 21 40 09/11/16 15:00 93 19 129/46 100 Mechanical Ventilator 40 09/11/16 14:00 90 25 125/42 100 Mechanical Ventilator 40 09/11/16 13:00 97 20 141/48 98 Mechanical Ventilator 40 09/11/16 12:37 101 28 40 09/11/16 12:30 30 09/11/16 12:00 98.7 100 25 154/51 98 Mechanical Ventilator 40 09/11/16 12:00 30 09/11/16 12:00 99 09/11/16 11:00 102 20 166/52 98 Mechanical Ventilator 40 09/11/16 11:00 102 18 40 09/11/16 10:00 98 21 158/54 95 Mechanical Ventilator 30 09/11/16 09:30 30 09/11/16 09:27 91 23 30 09/11/16 09:26 95 09/11/16 09:00 92 17 162/61 97 Mechanical Ventilator 30 09/11/16 08:00 30 09/11/16 08:00 94 09/11/16 08:00 98.9 95 20 150/49 95 Mechanical Ventilator 30 09/11/16 07:17 94 18 30 09/11/16 07:00 95 18 161/89 97 Mechanical Ventilator 30 09/11/16 06:00 97 18 163/56 97 Mechanical Ventilator 30 09/11/16 05:09 96 17 30 09/11/16 05:00 95 18 164/59 96 Mechanical Ventilator 30 09/11/16 04:00 93 09/11/16 04:00 98.4 96 18 161/57 96 Mechanical Ventilator 30 09/11/16 04:00 30 09/11/16 03:00 91 18 161/61 98 Mechanical Ventilator 30 09/11/16 02:46 92 18 30 09/11/16 02:00 92 18 156/65 98 Mechanical Ventilator 30 09/11/16 01:00 93 18 151/59 96 Mechanical Ventilator 30 09/11/16 00:47 92 18 30 09/11/16 00:00 93 09/11/16 00:00 98.9 89 18 161/62 98 Mechanical Ventilator 30 09/11/16 00:00 30 09/10/16 23:00 91 18 157/55 98 Mechanical Ventilator 30 09/10/16 22:57 90 17 30 Intake and Output 09/10/16 09/11/16 19:00 07:00 Intake Total 2062 ml 2200 ml Output Total 560 ml 545 ml Balance 1502 ml 1655 ml Intake Free Water 200 ml 200 ml IV Total 1172 ml 1340 ml Tube Feeding 660 ml 660 ml Other 30 ml Output Urine Total 560 ml 545 ml # Bowel Movements 1 2 2D Echo: LVEF 55%, Grade I LVDD, RVSP 57 mmHg Laboratory Tests Test 09/11/16 04:00 White Blood Count 9.9 K/UL (4.8-10.8) Red Blood Count 2.89 M/UL (4.20-5.40) L Hemoglobin 9.5 G/DL (12.0-16.0) L Hematocrit 30.2 % (37.0-47.0) L Mean Corpuscular Volume 105 FL (80-99) H Mean Corpuscular Hemoglobin 32.9 PG (27.0-31.0) H Mean Corpuscular Hemoglobin Concent 31.4 G/DL (32.0-36.0) L Red Cell Distribution Width 15.6 % (11.6-14.8) H Platelet Count 99 K/UL (150-450) L Mean Platelet Volume 8.2 FL (6.5-10.1) Neutrophils (%) (Auto) % (45.0-75.0) Lymphocytes (%) (Auto) % (20.0-45.0) Monocytes (%) (Auto) % (1.0-10.0) Eosinophils (%) (Auto) % (0.0-3.0) Basophils (%) (Auto) % (0.0-2.0) Sodium Level 138 mEQ/L (135-145) Potassium Level 3.5 mEQ/L (3.4-4.9) Chloride Level 99 mEQ/L (98-107) Carbon Dioxide Level 29 mEQ/L (20-30) Anion Gap 10 (5-15) Blood Urea Nitrogen 17 mg/dL (7-23) Creatinine 0.3 mg/dL (0.5-0.9) L Estimat Glomerular Filtration Rate mL/min (>60) Glucose Level 77 mg/dL (74-106) Calcium Level 7.2 mg/dL (8.6-10.2) L Objective HEENT: Intubated, normocephalic, atraumatic, PERRLA, EOMI Neck: no JVD, no carotid bruit, upstroke 2+ B/L Respiratory: decreased breath sounds, crackles both bases Cardiovascular: regular rate, rhythm, normal S1S2, tachycardic,no murmurs, gallops or rubs Gastrointestinal: normal BS, soft non-tender, non-distended Musculoskeletal: no clubbing cyanosis or edema MARK LEVY September 11, 2016 22:30
[2016-09-12] VITALS (24 sets, daily range): BP systolic 105–133; BP diastolic 36–69
[2016-09-12 05:29] LABS: EOSINOPHILS % (AUTO) 10.1 % (0.0-3.0); LYMPHOCYTES % (AUTO) 14.6 % (20.0-45.0); MEAN CORPUSCULAR HEMOGLOBIN 32.1 PG (27.0-31.0); MEAN CORPUSCULAR HGB CONC 29.5 G/DL (32.0-36.0); MEAN CORPUSCULAR VOLUME 109 FL (80-99); MEAN PLATELET VOLUME 7.2 FL (6.5-10.1); MONOCYTES % (AUTO) 10.1 % (1.0-10.0); NEUTROPHILS % (AUTO) 64.2 % (45.0-75.0); PLATELET COUNT 145 K/UL (150-450); RED BLOOD COUNT 3.13 M/UL (4.20-5.40); RED CELL DISTRIBUTION WIDTH 16.7 % (11.6-14.8); WHITE BLOOD COUNT 9.5 K/UL (4.8-10.8)
[2016-09-12 05:56] LABS: ALANINE AMINOTRANSFERASE 47 U/L (3-33); ALBUMIN/GLOBULIN RATIO 0.4 (1.0-2.7); ANION GAP 4 (5-15); ASPARTATE AMINO TRANSFERASE 39 U/L (5-40); CALCIUM 7.7 mg/dL (8.6-10.2); CARBON DIOXIDE 33 mEQ/L (20-30); CHLORIDE 107 mEQ/L (98-107); CREATININE 0.4 mg/dL (0.5-0.9); HEMOLYSIS 2; POTASSIUM 4.1 mEQ/L (3.4-4.9); SODIUM 144 mEQ/L (135-145); TOTAL PROTEIN 5.8 g/dL (6.6-8.7)
[2016-09-12] MEDS: Meropenem 1 GM in NS 110 ML IVPB SCH ×2 (08:25→19:35)
--- NOTE | 2016-09-12 08:29 | Critical Care Progress Note ---
Assessment/Plan Problem List: (1) Cardiac arrest (2) Septic shock (3) Respiratory distress (4) Dysphagia (5) Pneumonia (6) Feeding by G-tube (7) esophageal wall thickening (8) Anemia (9) Hypoalbuminemia (10) Azotemia (11) Hyponatremia (12) Dehydration Assessment/Plan additional medical problems Respiratory acidosis Respiratory failure ESBL PLAN ID evaluation noted IV antibiotics noted reviewed final cultures wean as able; orders placed but difficulty with SIMV monitor hemodynamics meds reviewed continue as is skin care wound care without change supportive care ICU management noted medications/laboratory data/nursing notes/ICU care reviewed in detail note reviewed and edited care discussed with RN and RT ICU time spent 38 minutes Critical Care - Subjective Interval Events: not weaning well was on SIMV back to AC ROS Limited/Unobtainable: Yes Condition: critical EKG Rhythm: Sinus Rhythm Residuals: minimal Tube Feeding Tolerated: yes I&O: Intake and Output 09/11/16 09/12/16 19:00 07:00 Intake Total 1960 ml 1800 ml Output Total 480 ml 445 ml Balance 1480 ml 1355 ml Intake Free Water 200 ml 100 ml IV Total 1100 ml 1040 ml Tube Feeding 660 ml 660 ml Output Urine Total 480 ml 445 ml # Bowel Movements 3 1 Critical Care - Objective CXR: extensive infiltrate ET-Tube: 6.0 ET Position: 23 Last 24 Hour Vital Signs Date Time Temp Pulse Resp B/P Pulse Ox O2 Delivery O2 Flow Rate FiO2 09/12/16 07:00 87 19 121/69 100 Mechanical Ventilator 40 09/12/16 06:37 90 17 40 09/12/16 06:00 87 19 105/69 100 Mechanical Ventilator 40 09/12/16 05:24 96 17 40 09/12/16 05:00 90 21 128/45 100 Mechanical Ventilator 40 09/12/16 05:00 40 09/12/16 04:00 98.9 95 24 130/46 100 Mechanical Ventilator 40 09/12/16 04:00 95 09/12/16 04:00 40 09/12/16 03:30 95 22 40 09/12/16 03:00 97 21 133/46 100 Mechanical Ventilator 40 09/12/16 02:00 97 21 132/49 100 Mechanical Ventilator 40 09/12/16 01:30 96 25 40 09/12/16 01:00 96 23 131/47 99 Mechanical Ventilator 40 09/12/16 00:00 94 09/12/16 00:00 40 09/12/16 00:00 97.9 92 27 130/50 100 Mechanical Ventilator 40 09/11/16 23:30 94 20 40 09/11/16 23:00 91 23 124/44 99 Mechanical Ventilator 40 09/11/16 22:00 94 23 128/45 99 Mechanical Ventilator 40 09/11/16 21:14 96 25 40 09/11/16 21:00 97 23 125/44 98 Mechanical Ventilator 40 09/11/16 20:00 98.0 97 23 130/44 98 Mechanical Ventilator 40 09/11/16 20:00 98 09/11/16 20:00 40 09/11/16 19:18 98 24 40 09/11/16 19:00 98 23 131/44 98 Mechanical Ventilator 40 09/11/16 18:00 100 23 140/47 95 Mechanical Ventilator 40 09/11/16 17:17 103 25 40 09/11/16 17:00 101 22 142/42 95 Mechanical Ventilator 40 09/11/16 16:00 95 09/11/16 16:00 98.8 95 20 143/50 100 Mechanical Ventilator 40 09/11/16 15:40 30 09/11/16 15:29 92 21 40 09/11/16 15:00 93 19 129/46 100 Mechanical Ventilator 40 09/11/16 14:00 90 25 125/42 100 Mechanical Ventilator 40 09/11/16 13:00 97 20 141/48 98 Mechanical Ventilator 40 09/11/16 12:37 101 28 40 09/11/16 12:30 30 09/11/16 12:00 98.7 100 25 154/51 98 Mechanical Ventilator 40 09/11/16 12:00 30 09/11/16 12:00 99 09/11/16 11:00 102 20 166/52 98 Mechanical Ventilator 40 09/11/16 11:00 102 18 40 09/11/16 10:00 98 21 158/54 95 Mechanical Ventilator 30 09/11/16 09:30 30 09/11/16 09:27 91 23 30 09/11/16 09:26 95 09/11/16 09:00 92 17 162/61 97 Mechanical Ventilator 30 Labs: Labs Test 09/10/16 13:15 09/11/16 04:00 09/12/16 03:45 White Blood Count 9.5 K/UL (4.8-10.8) 9.9 K/UL (4.8-10.8) 9.5 K/UL (4.8-10.8) Red Blood Count 3.04 M/UL (4.20-5.40) 2.89 M/UL (4.20-5.40) 3.13 M/UL (4.20-5.40) Hemoglobin 10.0 G/DL (12.0-16.0) 9.5 G/DL (12.0-16.0) 10.1 G/DL (12.0-16.0) Hematocrit 31.5 % (37.0-47.0) 30.2 % (37.0-47.0) 34.1 % (37.0-47.0) Mean Corpuscular Volume 104 FL (80-99) 105 FL (80-99) 109 FL (80-99) Mean Corpuscular Hemoglobin 32.9 PG (27.0-31.0) 32.9 PG (27.0-31.0) 32.1 PG (27.0-31.0) Mean Corpuscular Hemoglobin Concent 31.8 G/DL (32.0-36.0) 31.4 G/DL (32.0-36.0) 29.5 G/DL (32.0-36.0) Red Cell Distribution Width 16.0 % (11.6-14.8) 15.6 % (11.6-14.8) 16.7 % (11.6-14.8) Platelet Count 104 K/UL (150-450) 99 K/UL (150-450) 145 K/UL (150-450) Mean Platelet Volume 8.3 FL (6.5-10.1) 8.2 FL (6.5-10.1) 7.2 FL (6.5-10.1) Neutrophils (%) (Auto) 66.4 % (45.0-75.0) % (45.0-75.0) 64.2 % (45.0-75.0) Lymphocytes (%) (Auto) 11.7 % (20.0-45.0) % (20.0-45.0) 14.6 % (20.0-45.0) Monocytes (%) (Auto) 9.0 % (1.0-10.0) % (1.0-10.0) 10.1 % (1.0-10.0) Eosinophils (%) (Auto) 11.9 % (0.0-3.0) % (0.0-3.0) 10.1 % (0.0-3.0) Basophils (%) (Auto) 1.0 % (0.0-2.0) % (0.0-2.0) 1.0 % (0.0-2.0) Sodium Level 142 mEQ/L (135-145) 138 mEQ/L (135-145) 144 mEQ/L (135-145) Potassium Level 3.6 mEQ/L (3.4-4.9) 3.5 mEQ/L (3.4-4.9) 4.1 mEQ/L (3.4-4.9) Chloride Level 102 mEQ/L (98-107) 99 mEQ/L (98-107) 107 mEQ/L (98-107) Carbon Dioxide Level 32 mEQ/L (20-30) 29 mEQ/L (20-30) 33 mEQ/L (20-30) Anion Gap 8 (5-15) 10 (5-15) 4 (5-15) Blood Urea Nitrogen 19 mg/dL (7-23) 17 mg/dL (7-23) 25 mg/dL (7-23) Creatinine 0.4 mg/dL (0.5-0.9) 0.3 mg/dL (0.5-0.9) 0.4 mg/dL (0.5-0.9) Estimat Glomerular Filtration Rate mL/min (>60) mL/min (>60) mL/min (>60) Glucose Level 117 mg/dL (74-106) 77 mg/dL (74-106) 99 mg/dL (74-106) Calcium Level 7.7 mg/dL (8.6-10.2) 7.2 mg/dL (8.6-10.2) 7.7 mg/dL (8.6-10.2) Total Bilirubin 0.2 mg/dL (0.0-1.2) < 0.2 mg/dL (0.0-1.2) Aspartate Amino Transf (AST/SGOT) 33 U/L (5-40) 39 U/L (5-40) Alanine Aminotransferase (ALT/SGPT) 51 U/L (3-33) 47 U/L (3-33) Alkaline Phosphatase 99 U/L (35-104) 104 U/L (35-104) Total Protein 5.8 g/dL (6.6-8.7) 5.8 g/dL (6.6-8.7) Albumin 2.1 g/dL (3.5-5.2) 1.8 g/dL (3.5-5.2) Globulin 3.7 g/dL 4.0 g/dL Albumin/Globulin Ratio 0.5 (1.0-2.7) 0.4 (1.0-2.7) Objective: WDWN NAD pupils sluggish chronically ill oral ETT in place reduced breath sounds bilaterally with some rhonchi [id number] without MRG NABS nontender no HSM; feeding tube; no distention no CCE nonfocal; reduced LOC reduced ROM reviewed and edited Accucheck: 121 LESLY COLINDRES September 12, 2016 08:29
[2016-09-12] MEDS: Heparin 5000 units/ml inj SUBQ SCH ×2 (09:00→21:02)
[2016-09-12] MEDS: levETIRAcetam 500 MG in D5W 110 ML IV SCH ×2 (09:28→21:21)
[2016-09-12] MEDS: Pantoprazole Inj IVP SCH ×2 (09:28→21:01)
[2016-09-12] MEDS: Dyna-Hex 2% Top Sol 8oz TOPIC SCH (09:28)
[2016-09-12] MEDS: Ascorbic Acid 500mg tab GT SCH (09:28)
[2016-09-12] MEDS ORDERED: 1/2 NS 1000ml IV ONE (10:41)
--- NOTE | 2016-09-12 11:14 | Infectious Diseases Prog Note ---
Assessment/Plan Assessment/Plan antibiotics : meropenem A 1. e.coli pneumonia 2. respiratory failure 3. allergic reaction 4. leucocytosis improving 5. 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 continue meropenem 2. will follow up cultures Subjective ROS Limited/Unobtainable: Yes Allergies: Coded Allergies: No Known Allergies (Verified , 03/14/16) Uncoded Allergies: MILK (Allergy, Unknown, 07/11/11) Objective Vital Signs Last 24 Hour Vital Signs Date Time Temp Pulse Resp B/P Pulse Ox O2 Delivery O2 Flow Rate FiO2 09/12/16 11:11 40 09/12/16 11:00 98 25 132/49 95 Mechanical Ventilator 40 09/12/16 10:00 94 26 122/49 98 Mechanical Ventilator 40 09/12/16 09:31 40 09/12/16 09:29 91 25 40 09/12/16 09:28 93 09/12/16 09:00 87 23 112/48 100 Mechanical Ventilator 40 09/12/16 08:00 40 09/12/16 08:00 97.6 86 18 117/52 100 Mechanical Ventilator 40 09/12/16 08:00 93 09/12/16 07:00 87 19 121/69 100 Mechanical Ventilator 40 09/12/16 06:37 90 17 40 09/12/16 06:00 87 19 105/69 100 Mechanical Ventilator 40 09/12/16 05:24 96 17 40 09/12/16 05:00 90 21 128/45 100 Mechanical Ventilator 40 09/12/16 05:00 40 09/12/16 04:00 98.9 95 24 130/46 100 Mechanical Ventilator 40 09/12/16 04:00 95 09/12/16 04:00 40 09/12/16 03:30 95 22 40 09/12/16 03:00 97 21 133/46 100 Mechanical Ventilator 40 09/12/16 02:00 97 21 132/49 100 Mechanical Ventilator 40 09/12/16 01:30 96 25 40 09/12/16 01:00 96 23 131/47 99 Mechanical Ventilator 40 09/12/16 00:00 94 09/12/16 00:00 40 09/12/16 00:00 97.9 92 27 130/50 100 Mechanical Ventilator 40 09/11/16 23:30 94 20 40 09/11/16 23:00 91 23 124/44 99 Mechanical Ventilator 40 09/11/16 22:00 94 23 128/45 99 Mechanical Ventilator 40 09/11/16 21:14 96 25 40 09/11/16 21:00 97 23 125/44 98 Mechanical Ventilator 40 09/11/16 20:00 98.0 97 23 130/44 98 Mechanical Ventilator 40 09/11/16 20:00 98 09/11/16 20:00 40 09/11/16 19:18 98 24 40 09/11/16 19:00 98 23 131/44 98 Mechanical Ventilator 40 09/11/16 18:00 100 23 140/47 95 Mechanical Ventilator 40 09/11/16 17:17 103 25 40 09/11/16 17:00 101 22 142/42 95 Mechanical Ventilator 40 09/11/16 16:00 95 09/11/16 16:00 98.8 95 20 143/50 100 Mechanical Ventilator 40 09/11/16 15:40 30 09/11/16 15:29 92 21 40 09/11/16 15:00 93 19 129/46 100 Mechanical Ventilator 40 09/11/16 14:00 90 25 125/42 100 Mechanical Ventilator 40 09/11/16 13:00 97 20 141/48 98 Mechanical Ventilator 40 09/11/16 12:37 101 28 40 09/11/16 12:30 30 09/11/16 12:00 98.7 100 25 154/51 98 Mechanical Ventilator 40 09/11/16 12:00 30 09/11/16 12:00 99 Height (Feet): 5 Height (Inches): 6.00 Weight (Pounds): 184 HEENT: other - intubated, tongue swelling Respiratory/Chest: lungs clear Cardiovascular: normal rate, regular rhythm, no gallop/murmur Abdomen: soft, non tender, other - GT Extremities: other - + edema, right arm PICC Laboratory Tests Test 09/12/16 03:45 White Blood Count 9.5 K/UL (4.8-10.8) Red Blood Count 3.13 M/UL (4.20-5.40) L Hemoglobin 10.1 G/DL (12.0-16.0) L Hematocrit 34.1 % (37.0-47.0) L Mean Corpuscular Volume 109 FL (80-99) H Mean Corpuscular Hemoglobin 32.1 PG (27.0-31.0) H Mean Corpuscular Hemoglobin Concent 29.5 G/DL (32.0-36.0) L Red Cell Distribution Width 16.7 % (11.6-14.8) H Platelet Count 145 K/UL (150-450) L Mean Platelet Volume 7.2 FL (6.5-10.1) Neutrophils (%) (Auto) 64.2 % (45.0-75.0) Lymphocytes (%) (Auto) 14.6 % (20.0-45.0) L Monocytes (%) (Auto) 10.1 % (1.0-10.0) H Eosinophils (%) (Auto) 10.1 % (0.0-3.0) H Basophils (%) (Auto) 1.0 % (0.0-2.0) Sodium Level 144 mEQ/L (135-145) Potassium Level 4.1 mEQ/L (3.4-4.9) Chloride Level 107 mEQ/L (98-107) Carbon Dioxide Level 33 mEQ/L (20-30) H Anion Gap 4 (5-15) L Blood Urea Nitrogen 25 mg/dL (7-23) H Creatinine 0.4 mg/dL (0.5-0.9) L Estimat Glomerular Filtration Rate mL/min (>60) Glucose Level 99 mg/dL (74-106) Calcium Level 7.7 mg/dL (8.6-10.2) L Total Bilirubin < 0.2 mg/dL (0.0-1.2) Aspartate Amino Transf (AST/SGOT) 39 U/L (5-40) Alanine Aminotransferase (ALT/SGPT) 47 U/L (3-33) H Alkaline Phosphatase 104 U/L (35-104) Total Protein 5.8 g/dL (6.6-8.7) L Albumin 1.8 g/dL (3.5-5.2) L Globulin 4.0 g/dL Albumin/Globulin Ratio 0.4 (1.0-2.7) L Immunoglobulin E Pending KELLEY MITCHELL September 12, 2016 11:14
--- NOTE | 2016-09-12 11:35 | GI Progress Note ---
Assessment/Plan Problems: (1) Dehydration ICD Codes: E86.0 - Dehydration SNOMED: 39088226 (2) Hyponatremia ICD Codes: E87.1 - Hypo-osmolality and hyponatremia SNOMED: 05476497 (3) LFT elevation ICD Codes: R94.5 - Abnormal results of liver function studies SNOMED: 476632794 (4) Hypoalbuminemia ICD Codes: E88.09 - Other disorders of plasma-protein metabolism, not elsewhere classified SNOMED: 255746723 (5) Anemia ICD Codes: D64.9 - Anemia, unspecified SNOMED: 772260968 (6) Feeding by G-tube ICD Codes: Z93.1 - Gastrostomy status SNOMED: 988847546, 243209316 (7) Dysphagia ICD Codes: R13.10 - Dysphagia, unspecified SNOMED: 82652609, 420562643 Status: unchanged Status Narrative Discussed with Dr. Britt. Assessment/Plan OB stool negative elevated CEA >> 8.8 hep panel >> negative hold GI procedures given elevated WBC EGD/colonoscopy when stable given anemia and elevated CEA. monitor H&H, transfuse prn GTFs per dietary ppi abx fu IgE allergy fu abdominal U/S fu labs Subjective Subjective limited Objective Last 24 Hour Vital Signs Date Time Temp Pulse Resp B/P Pulse Ox O2 Delivery O2 Flow Rate FiO2 09/12/16 11:12 99 27 40 09/12/16 11:11 40 09/12/16 11:00 98 25 132/49 95 Mechanical Ventilator 40 09/12/16 10:00 94 26 122/49 98 Mechanical Ventilator 40 09/12/16 09:31 40 09/12/16 09:29 91 25 40 09/12/16 09:28 93 09/12/16 09:00 87 23 112/48 100 Mechanical Ventilator 40 09/12/16 08:00 40 09/12/16 08:00 97.6 86 18 117/52 100 Mechanical Ventilator 40 09/12/16 08:00 93 09/12/16 07:00 87 19 121/69 100 Mechanical Ventilator 40 09/12/16 06:37 90 17 40 09/12/16 06:00 87 19 105/69 100 Mechanical Ventilator 40 09/12/16 05:24 96 17 40 09/12/16 05:00 90 21 128/45 100 Mechanical Ventilator 40 09/12/16 05:00 40 09/12/16 04:00 98.9 95 24 130/46 100 Mechanical Ventilator 40 09/12/16 04:00 95 09/12/16 04:00 40 09/12/16 03:30 95 22 40 09/12/16 03:00 97 21 133/46 100 Mechanical Ventilator 40 09/12/16 02:00 97 21 132/49 100 Mechanical Ventilator 40 09/12/16 01:30 96 25 40 09/12/16 01:00 96 23 131/47 99 Mechanical Ventilator 40 09/12/16 00:00 94 09/12/16 00:00 40 09/12/16 00:00 97.9 92 27 130/50 100 Mechanical Ventilator 40 09/11/16 23:30 94 20 40 09/11/16 23:00 91 23 124/44 99 Mechanical Ventilator 40 09/11/16 22:00 94 23 128/45 99 Mechanical Ventilator 40 09/11/16 21:14 96 25 40 09/11/16 21:00 97 23 125/44 98 Mechanical Ventilator 40 09/11/16 20:00 98.0 97 23 130/44 98 Mechanical Ventilator 40 09/11/16 20:00 98 09/11/16 20:00 40 09/11/16 19:18 98 24 40 09/11/16 19:00 98 23 131/44 98 Mechanical Ventilator 40 09/11/16 18:00 100 23 140/47 95 Mechanical Ventilator 40 09/11/16 17:17 103 25 40 09/11/16 17:00 101 22 142/42 95 Mechanical Ventilator 40 09/11/16 16:00 95 09/11/16 16:00 98.8 95 20 143/50 100 Mechanical Ventilator 40 09/11/16 15:40 30 09/11/16 15:29 92 21 40 09/11/16 15:00 93 19 129/46 100 Mechanical Ventilator 40 09/11/16 14:00 90 25 125/42 100 Mechanical Ventilator 40 09/11/16 13:00 97 20 141/48 98 Mechanical Ventilator 40 09/11/16 12:37 101 28 40 09/11/16 12:30 30 09/11/16 12:00 98.7 100 25 154/51 98 Mechanical Ventilator 40 09/11/16 12:00 30 09/11/16 12:00 99 Intake and Output 09/11/16 09/12/16 19:00 07:00 Intake Total 1960 ml 1800 ml Output Total 480 ml 445 ml Balance 1480 ml 1355 ml Intake Free Water 200 ml 100 ml IV Total 1100 ml 1040 ml Tube Feeding 660 ml 660 ml Output Urine Total 480 ml 445 ml # Bowel Movements 3 1 Laboratory Tests Test 09/12/16 03:45 White Blood Count 9.5 K/UL (4.8-10.8) Red Blood Count 3.13 M/UL (4.20-5.40) L Hemoglobin 10.1 G/DL (12.0-16.0) L Hematocrit 34.1 % (37.0-47.0) L Mean Corpuscular Volume 109 FL (80-99) H Mean Corpuscular Hemoglobin 32.1 PG (27.0-31.0) H Mean Corpuscular Hemoglobin Concent 29.5 G/DL (32.0-36.0) L Red Cell Distribution Width 16.7 % (11.6-14.8) H Platelet Count 145 K/UL (150-450) L Mean Platelet Volume 7.2 FL (6.5-10.1) Neutrophils (%) (Auto) 64.2 % (45.0-75.0) Lymphocytes (%) (Auto) 14.6 % (20.0-45.0) L Monocytes (%) (Auto) 10.1 % (1.0-10.0) H Eosinophils (%) (Auto) 10.1 % (0.0-3.0) H Basophils (%) (Auto) 1.0 % (0.0-2.0) Sodium Level 144 mEQ/L (135-145) Potassium Level 4.1 mEQ/L (3.4-4.9) Chloride Level 107 mEQ/L (98-107) Carbon Dioxide Level 33 mEQ/L (20-30) H Anion Gap 4 (5-15) L Blood Urea Nitrogen 25 mg/dL (7-23) H Creatinine 0.4 mg/dL (0.5-0.9) L Estimat Glomerular Filtration Rate mL/min (>60) Glucose Level 99 mg/dL (74-106) Calcium Level 7.7 mg/dL (8.6-10.2) L Total Bilirubin < 0.2 mg/dL (0.0-1.2) Aspartate Amino Transf (AST/SGOT) 39 U/L (5-40) Alanine Aminotransferase (ALT/SGPT) 47 U/L (3-33) H Alkaline Phosphatase 104 U/L (35-104) Total Protein 5.8 g/dL (6.6-8.7) L Albumin 1.8 g/dL (3.5-5.2) L Globulin 4.0 g/dL Albumin/Globulin Ratio 0.4 (1.0-2.7) L Immunoglobulin E Pending Height (Feet): 5 Height (Inches): 6.00 Weight (Pounds): 184 General Appearance: no apparent distress Cardiovascular: normal rate Respiratory/Chest: other - [facility] vent Abdominal Exam: GT site - c/d/i Luna Rodriguez N.P. September 12, 2016 11:35
--- NOTE | 2016-09-12 15:35 | Wound Nurse Progress Note ---
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 #2 right heel deep tissue injury. #3 Full thickness scar tissue to right lateral malleolus, scattered to left lateral foot, left 5th metatarsal head, left lateral malleolus,left heel,left mid foot, noted left 4th toe with hyperpigmentation and scar tissue. Sites are still intact. No deterioration noted. will cont same treatment and recommendations. VALARIE PARSONS RN September 12, 2016 15:35
--- NOTE | 2016-09-12 18:59 | Nephrology Progress Note ---
Assessment/Plan Problem List: (1) Cardiac arrest (2) Septic shock (3) Respiratory distress (4) Dysphagia (5) Pneumonia (6) Anemia (7) Azotemia (8) Dehydration (9) Respiratory failure Plan Supportive care Monitor lytes, correct PRN Avoid nephrotoxic agents G-Tube feeding per GI Monitor H&H, transfuse PRN Monitor neuro status Continue wound care DVT prophylaxis AM labs Subjective ROS Limited/Unobtainable: Yes Subjective Intubated, in ICU Objective Objective Last 24 Hour Vital Signs Date Time Temp Pulse Resp B/P Pulse Ox O2 Delivery O2 Flow Rate FiO2 09/12/16 18:00 88 18 118/49 100 Mechanical Ventilator 40 09/12/16 17:00 88 17 122/50 100 Mechanical Ventilator 40 09/12/16 16:33 98 17 40 09/12/16 16:00 97.9 89 19 124/54 100 Mechanical Ventilator 40 09/12/16 16:00 89 09/12/16 15:10 40 09/12/16 15:06 94 17 40 09/12/16 15:00 92 22 108/39 100 Mechanical Ventilator 40 09/12/16 14:00 93 23 108/36 98 Mechanical Ventilator 40 09/12/16 13:15 96 29 40 09/12/16 13:00 95 23 125/56 94 Mechanical Ventilator 40 09/12/16 12:00 97 09/12/16 12:00 97.2 97 28 122/53 95 Mechanical Ventilator 40 09/12/16 12:00 40 09/12/16 11:12 99 27 40 09/12/16 11:11 40 09/12/16 11:00 98 25 132/49 95 Mechanical Ventilator 40 09/12/16 10:00 94 26 122/49 98 Mechanical Ventilator 40 09/12/16 09:31 40 09/12/16 09:29 91 25 40 09/12/16 09:28 93 09/12/16 09:00 87 23 112/48 100 Mechanical Ventilator 40 09/12/16 08:00 40 09/12/16 08:00 97.6 86 18 117/52 100 Mechanical Ventilator 40 09/12/16 08:00 93 09/12/16 07:00 87 19 121/69 100 Mechanical Ventilator 40 09/12/16 06:37 90 17 40 09/12/16 06:00 87 19 105/69 100 Mechanical Ventilator 40 09/12/16 05:24 96 17 40 09/12/16 05:00 90 21 128/45 100 Mechanical Ventilator 40 09/12/16 05:00 40 09/12/16 04:00 98.9 95 24 130/46 100 Mechanical Ventilator 40 09/12/16 04:00 95 09/12/16 04:00 40 09/12/16 03:30 95 22 40 09/12/16 03:00 97 21 133/46 100 Mechanical Ventilator 40 09/12/16 02:00 97 21 132/49 100 Mechanical Ventilator 40 09/12/16 01:30 96 25 40 09/12/16 01:00 96 23 131/47 99 Mechanical Ventilator 40 09/12/16 00:00 94 09/12/16 00:00 40 09/12/16 00:00 97.9 92 27 130/50 100 Mechanical Ventilator 40 09/11/16 23:30 94 20 40 09/11/16 23:00 91 23 124/44 99 Mechanical Ventilator 40 09/11/16 22:00 94 23 128/45 99 Mechanical Ventilator 40 09/11/16 21:14 96 25 40 09/11/16 21:00 97 23 125/44 98 Mechanical Ventilator 40 09/11/16 20:00 98.0 97 23 130/44 98 Mechanical Ventilator 40 09/11/16 20:00 98 09/11/16 20:00 40 09/11/16 19:18 98 24 40 09/11/16 19:00 98 23 131/44 98 Mechanical Ventilator 40 Intake and Output 09/11/16 09/12/16 19:00 07:00 Intake Total 1960 ml 1800 ml Output Total 480 ml 445 ml Balance 1480 ml 1355 ml Intake Free Water 200 ml 100 ml IV Total 1100 ml 1040 ml Tube Feeding 660 ml 660 ml Output Urine Total 480 ml 445 ml # Bowel Movements 3 1 Laboratory Tests 09/12/16 03:45: White Blood Count 9.5, Red Blood Count 3.13L, Hemoglobin 10.1L, Hematocrit 34.1L , Mean Corpuscular Volume 109H, Mean Corpuscular Hemoglobin 32.1H, Mean Corpuscular Hemoglobin Concent 29.5L, Red Cell Distribution Width 16.7H, Platelet Count 145L, Mean Platelet Volume 7.2, Neutrophils (%) (Auto) 64.2, Lymphocytes (%) (Auto) 14.6L, Monocytes (%) (Auto) 10.1H, Eosinophils (%) (Auto ) 10.1H, Basophils (%) (Auto) 1.0, Sodium Level 144, Potassium Level 4.1, Chloride Level 107, Carbon Dioxide Level 33H, Anion Gap 4L, Blood Urea Nitrogen 25H, Creatinine 0.4L, Estimat Glomerular Filtration Rate , Glucose Level 99, Calcium Level 7.7L, Total Bilirubin < 0.2, Aspartate Amino Transf (AST/SGOT) 39 , Alanine Aminotransferase (ALT/SGPT) 47H, Alkaline Phosphatase 104, Total Protein 5.8L, Albumin 1.8L, Globulin 4.0, Albumin/Globulin Ratio 0.4L, Immunoglobulin E [Pending] Height (Feet): 5 Height (Inches): 6.00 Weight (Pounds): 184 General Appearance: no apparent distress Neck: non-tender Cardiovascular: no JVD Respiratory/Chest: decreased breath sounds Abdomen: soft Extremities: moderate edema, pitting Neurologic: unresponsive Allison Johnson N.P. September 12, 2016 18:59
--- NOTE | 2016-09-12 19:48 | Cardiology Progress Note ---
Assessment/Plan Assessment/Plan 1. Asystole cardiac arrest due to respiratory failure, echo reveals normal LVEF with no wall motion abnormalities. 2. E.Coli pneumonia/leukocytosis. 3. Hypoxic, hypercarbic respiratory failure Subjective Subjective Intubated, Fio2 40% Sinus rhythm at 88. Objective Last 24 Hour Vital Signs Date Time Temp Pulse Resp B/P Pulse Ox O2 Delivery O2 Flow Rate FiO2 09/12/16 19:17 88 17 40 09/12/16 19:00 89 18 114/68 100 Mechanical Ventilator 40 09/12/16 18:00 88 18 118/49 100 Mechanical Ventilator 40 09/12/16 17:00 88 17 122/50 100 Mechanical Ventilator 40 09/12/16 16:33 98 17 40 09/12/16 16:00 97.9 89 19 124/54 100 Mechanical Ventilator 40 09/12/16 16:00 89 09/12/16 15:10 40 09/12/16 15:06 94 17 40 09/12/16 15:00 92 22 108/39 100 Mechanical Ventilator 40 09/12/16 14:00 93 23 108/36 98 Mechanical Ventilator 40 09/12/16 13:15 96 29 40 09/12/16 13:00 95 23 125/56 94 Mechanical Ventilator 40 09/12/16 12:00 97 09/12/16 12:00 97.2 97 28 122/53 95 Mechanical Ventilator 40 09/12/16 12:00 40 09/12/16 11:12 99 27 40 09/12/16 11:11 40 09/12/16 11:00 98 25 132/49 95 Mechanical Ventilator 40 09/12/16 10:00 94 26 122/49 98 Mechanical Ventilator 40 09/12/16 09:31 40 09/12/16 09:29 91 25 40 09/12/16 09:28 93 09/12/16 09:00 87 23 112/48 100 Mechanical Ventilator 40 09/12/16 08:00 40 09/12/16 08:00 97.6 86 18 117/52 100 Mechanical Ventilator 40 09/12/16 08:00 93 09/12/16 07:00 87 19 121/69 100 Mechanical Ventilator 40 09/12/16 06:37 90 17 40 09/12/16 06:00 87 19 105/69 100 Mechanical Ventilator 40 09/12/16 05:24 96 17 40 09/12/16 05:00 90 21 128/45 100 Mechanical Ventilator 40 09/12/16 05:00 40 09/12/16 04:00 98.9 95 24 130/46 100 Mechanical Ventilator 40 09/12/16 04:00 95 09/12/16 04:00 40 09/12/16 03:30 95 22 40 09/12/16 03:00 97 21 133/46 100 Mechanical Ventilator 40 09/12/16 02:00 97 21 132/49 100 Mechanical Ventilator 40 09/12/16 01:30 96 25 40 09/12/16 01:00 96 23 131/47 99 Mechanical Ventilator 40 09/12/16 00:00 94 09/12/16 00:00 40 09/12/16 00:00 97.9 92 27 130/50 100 Mechanical Ventilator 40 09/11/16 23:30 94 20 40 09/11/16 23:00 91 23 124/44 99 Mechanical Ventilator 40 09/11/16 22:00 94 23 128/45 99 Mechanical Ventilator 40 09/11/16 21:14 96 25 40 09/11/16 21:00 97 23 125/44 98 Mechanical Ventilator 40 09/11/16 20:00 98.0 97 23 130/44 98 Mechanical Ventilator 40 09/11/16 20:00 98 09/11/16 20:00 40 Intake and Output 09/11/16 09/12/16 19:00 07:00 Intake Total 1960 ml 1800 ml Output Total 480 ml 445 ml Balance 1480 ml 1355 ml Intake Free Water 200 ml 100 ml IV Total 1100 ml 1040 ml Tube Feeding 660 ml 660 ml Output Urine Total 480 ml 445 ml # Bowel Movements 3 1 2D Echo: LVEF 55%, Grade I LVDD, RVSP 57 mmHg Laboratory Tests Test 09/12/16 03:45 White Blood Count 9.5 K/UL (4.8-10.8) Red Blood Count 3.13 M/UL (4.20-5.40) L Hemoglobin 10.1 G/DL (12.0-16.0) L Hematocrit 34.1 % (37.0-47.0) L Mean Corpuscular Volume 109 FL (80-99) H Mean Corpuscular Hemoglobin 32.1 PG (27.0-31.0) H Mean Corpuscular Hemoglobin Concent 29.5 G/DL (32.0-36.0) L Red Cell Distribution Width 16.7 % (11.6-14.8) H Platelet Count 145 K/UL (150-450) L Mean Platelet Volume 7.2 FL (6.5-10.1) Neutrophils (%) (Auto) 64.2 % (45.0-75.0) Lymphocytes (%) (Auto) 14.6 % (20.0-45.0) L Monocytes (%) (Auto) 10.1 % (1.0-10.0) H Eosinophils (%) (Auto) 10.1 % (0.0-3.0) H Basophils (%) (Auto) 1.0 % (0.0-2.0) Sodium Level 144 mEQ/L (135-145) Potassium Level 4.1 mEQ/L (3.4-4.9) Chloride Level 107 mEQ/L (98-107) Carbon Dioxide Level 33 mEQ/L (20-30) H Anion Gap 4 (5-15) L Blood Urea Nitrogen 25 mg/dL (7-23) H Creatinine 0.4 mg/dL (0.5-0.9) L Estimat Glomerular Filtration Rate mL/min (>60) Glucose Level 99 mg/dL (74-106) Calcium Level 7.7 mg/dL (8.6-10.2) L Total Bilirubin < 0.2 mg/dL (0.0-1.2) Aspartate Amino Transf (AST/SGOT) 39 U/L (5-40) Alanine Aminotransferase (ALT/SGPT) 47 U/L (3-33) H Alkaline Phosphatase 104 U/L (35-104) Total Protein 5.8 g/dL (6.6-8.7) L Albumin 1.8 g/dL (3.5-5.2) L Globulin 4.0 g/dL Albumin/Globulin Ratio 0.4 (1.0-2.7) L Immunoglobulin E Pending Objective HEENT: Intubated, normocephalic, atraumatic, PERRLA, EOMI Neck: no JVD, no carotid bruit, upstroke 2+ B/L Respiratory: decreased breath sounds, crackles both bases Cardiovascular: regular rate, rhythm, normal S1S2,no murmurs, gallops or rubs Gastrointestinal: normal BS, soft non-tender, non-distended Musculoskeletal: no clubbing cyanosis or edema MARK LEVY September 12, 2016 19:48
[2016-09-13] VITALS (24 sets, daily range): BP systolic 117–168; BP diastolic 37–79
[2016-09-13 05:24] LABS: BASOPHILS % (AUTO) 0.4 % (0.0-2.0); EOSINOPHILS % (AUTO) 7.8 % (0.0-3.0); LYMPHOCYTES % (AUTO) 16.2 % (20.0-45.0); MEAN CORPUSCULAR HEMOGLOBIN 32.5 PG (27.0-31.0); MEAN CORPUSCULAR HGB CONC 30.8 G/DL (32.0-36.0); MEAN CORPUSCULAR VOLUME 105 FL (80-99); MEAN PLATELET VOLUME 7.2 FL (6.5-10.1); MONOCYTES % (AUTO) 8.2 % (1.0-10.0); NEUTROPHILS % (AUTO) 67.4 % (45.0-75.0); PLATELET COUNT 138 K/UL (150-450); RED BLOOD COUNT 2.63 M/UL (4.20-5.40); RED CELL DISTRIBUTION WIDTH 16.2 % (11.6-14.8)
[2016-09-13] MEDS: Dyna-Hex 2% Top Sol 8oz TOPIC SCH (05:26)
[2016-09-13 05:42] LABS: ANION GAP 5 (5-15); CALCIUM 7.6 mg/dL (8.6-10.2); CARBON DIOXIDE 33 mEQ/L (20-30); CHLORIDE 106 mEQ/L (98-107); CREATININE 0.3 mg/dL (0.5-0.9); HEMOLYSIS 4; MAGNESIUM 1.7 mg/dL (1.7-2.5); PHOSPHORUS 1.6 mg/dL (2.5-4.8); POTASSIUM 4.1 mEQ/L (3.4-4.9); SODIUM 144 mEQ/L (135-145)
[2016-09-13] MEDS: Pantoprazole Inj IVP SCH ×2 (08:23→21:28)
[2016-09-13] MEDS: Meropenem 1 GM in NS 110 ML IVPB SCH ×2 (08:23→19:04)
[2016-09-13] MEDS: Ascorbic Acid 500mg tab GT SCH (08:23)
[2016-09-13] MEDS: Heparin 5000 units/ml inj SUBQ SCH ×2 (08:26→21:29)
[2016-09-13] MEDS: levETIRAcetam 500 MG in D5W 110 ML IV SCH ×2 (10:14→21:28)
--- NOTE | 2016-09-13 11:52 | GI Progress Note ---
Assessment/Plan Problems: (1) Dehydration ICD Codes: E86.0 - Dehydration SNOMED: 74592195 (2) Hyponatremia ICD Codes: E87.1 - Hypo-osmolality and hyponatremia SNOMED: 61639065 (3) LFT elevation ICD Codes: R94.5 - Abnormal results of liver function studies SNOMED: 498670693 (4) Hypoalbuminemia ICD Codes: E88.09 - Other disorders of plasma-protein metabolism, not elsewhere classified SNOMED: 434868457 (5) Anemia ICD Codes: D64.9 - Anemia, unspecified SNOMED: 745154686 (6) Feeding by G-tube ICD Codes: Z93.1 - Gastrostomy status SNOMED: 212628668, 513917489 (7) Dysphagia ICD Codes: R13.10 - Dysphagia, unspecified SNOMED: 52156806, 461840094 Status: unchanged Status Narrative Discussed with Dr. Britt. Assessment/Plan OB stool negative elevated CEA >> 8.8 hep panel >> negative IgE elevation >> milk allergy? concerns for GTF dairy based formula. hold GI procedures given elevated WBC EGD/colonoscopy when stable given anemia and elevated CEA. monitor H&H, transfuse prn GTFs per dietary ppi abx fu labs Subjective Subjective limited Objective Last 24 Hour Vital Signs Date Time Temp Pulse Resp B/P Pulse Ox O2 Delivery O2 Flow Rate FiO2 09/13/16 11:00 99 20 148/64 100 Mechanical Ventilator 40 09/13/16 10:52 98 18 40 09/13/16 10:00 99 09/13/16 10:00 98 20 146/61 100 Mechanical Ventilator 40 09/13/16 09:27 93 16 40 09/13/16 09:00 92 20 168/63 100 Mechanical Ventilator 40 09/13/16 08:00 88 09/13/16 08:00 99.2 87 20 120/47 100 Mechanical Ventilator 40 09/13/16 08:00 40 09/13/16 07:11 90 17 40 09/13/16 07:00 89 20 119/48 100 Mechanical Ventilator 40 09/13/16 06:00 93 20 129/37 100 Mechanical Ventilator 40 09/13/16 05:21 95 17 40 09/13/16 05:00 94 17 134/57 100 Mechanical Ventilator 40 09/13/16 04:00 98.3 97 17 134/56 99 Mechanical Ventilator 40 09/13/16 04:00 95 09/13/16 04:00 40 09/13/16 03:00 90 28 120/50 99 Mechanical Ventilator 40 09/13/16 02:55 87 17 40 09/13/16 02:00 88 27 117/41 100 Mechanical Ventilator 40 09/13/16 01:13 92 17 40 09/13/16 01:00 90 30 129/44 100 Mechanical Ventilator 40 09/13/16 00:00 98 27 125/41 100 Mechanical Ventilator 40 09/13/16 00:00 105 09/13/16 00:00 40 09/12/16 23:00 96 17 127/46 100 Mechanical Ventilator 40 09/12/16 23:00 97.9 96 17 127/48 99 Mechanical Ventilator 40 09/12/16 22:45 89 17 40 09/12/16 22:00 90 19 126/40 100 Mechanical Ventilator 40 09/12/16 21:00 89 17 133/51 100 Mechanical Ventilator 40 09/12/16 20:56 87 17 40 09/12/16 20:00 40 09/12/16 20:00 97.8 88 17 123/50 100 Mechanical Ventilator 40 09/12/16 20:00 88 09/12/16 19:17 88 17 40 09/12/16 19:00 89 18 114/68 100 Mechanical Ventilator 40 09/12/16 18:00 88 18 118/49 100 Mechanical Ventilator 40 09/12/16 17:00 88 17 122/50 100 Mechanical Ventilator 40 09/12/16 16:33 98 17 40 09/12/16 16:00 97.9 89 19 124/54 100 Mechanical Ventilator 40 09/12/16 16:00 89 09/12/16 15:10 40 09/12/16 15:06 94 17 40 09/12/16 15:00 92 22 108/39 100 Mechanical Ventilator 40 09/12/16 14:00 93 23 108/36 98 Mechanical Ventilator 40 09/12/16 13:15 96 29 40 09/12/16 13:00 95 23 125/56 94 Mechanical Ventilator 40 09/12/16 12:00 97 09/12/16 12:00 97.2 97 28 122/53 95 Mechanical Ventilator 40 09/12/16 12:00 40 Intake and Output 09/12/16 09/13/16 19:00 07:00 Intake Total 1525 ml 1620 ml Output Total 415 ml 440 ml Balance 1110 ml 1180 ml Intake Free Water 100 ml 200 ml IV Total 705 ml 705 ml Tube Feeding 660 ml 715 ml Other 60 ml Output Urine Total 415 ml 440 ml # Bowel Movements 2 Laboratory Tests Test 09/13/16 04:00 White Blood Count 8.0 K/UL (4.8-10.8) Red Blood Count 2.63 M/UL (4.20-5.40) L Hemoglobin 8.6 G/DL (12.0-16.0) L Hematocrit 27.7 % (37.0-47.0) L Mean Corpuscular Volume 105 FL (80-99) H Mean Corpuscular Hemoglobin 32.5 PG (27.0-31.0) H Mean Corpuscular Hemoglobin Concent 30.8 G/DL (32.0-36.0) L Red Cell Distribution Width 16.2 % (11.6-14.8) H Platelet Count 138 K/UL (150-450) L Mean Platelet Volume 7.2 FL (6.5-10.1) Neutrophils (%) (Auto) 67.4 % (45.0-75.0) Lymphocytes (%) (Auto) 16.2 % (20.0-45.0) L Monocytes (%) (Auto) 8.2 % (1.0-10.0) Eosinophils (%) (Auto) 7.8 % (0.0-3.0) H Basophils (%) (Auto) 0.4 % (0.0-2.0) Sodium Level 144 mEQ/L (135-145) Potassium Level 4.1 mEQ/L (3.4-4.9) Chloride Level 106 mEQ/L (98-107) Carbon Dioxide Level 33 mEQ/L (20-30) H Anion Gap 5 (5-15) Blood Urea Nitrogen 32 mg/dL (7-23) H Creatinine 0.3 mg/dL (0.5-0.9) L Estimat Glomerular Filtration Rate mL/min (>60) Glucose Level 97 mg/dL (74-106) Calcium Level 7.6 mg/dL (8.6-10.2) L Phosphorus Level 1.6 mg/dL (2.5-4.8) L Magnesium Level 1.7 mg/dL (1.7-2.5) Height (Feet): 5 Height (Inches): 6.00 Weight (Pounds): 190 General Appearance: no apparent distress Cardiovascular: normal rate Respiratory/Chest: other - mech vent Abdominal Exam: GT site - c/d/i Luna Rodriguez N.P. September 13, 2016 11:52
--- NOTE | 2016-09-13 13:26 | Infectious Diseases Prog Note ---
Assessment/Plan Assessment/Plan A: Sepsis Pneumonia MRSA & NISREEN colonization Cardiac arrest Hypercapnic respiratory failure Dementia Anemia P; Continue Meropenem Subjective ROS Limited/Unobtainable: Yes Allergies: Coded Allergies: No Known Allergies (Verified , 03/14/16) Uncoded Allergies: MILK (Allergy, Unknown, 07/11/11) Objective Vital Signs Last 24 Hour Vital Signs Date Time Temp Pulse Resp B/P Pulse Ox O2 Delivery O2 Flow Rate FiO2 09/13/16 13:00 95 20 143/51 100 Mechanical Ventilator 40 09/13/16 12:36 98 19 40 09/13/16 12:00 40 09/13/16 12:00 97 09/13/16 12:00 98.7 98 20 138/58 100 Mechanical Ventilator 40 09/13/16 11:00 99 20 148/64 100 Mechanical Ventilator 40 09/13/16 10:52 98 18 40 09/13/16 10:00 99 09/13/16 10:00 40 09/13/16 10:00 98 20 146/61 100 Mechanical Ventilator 40 09/13/16 09:27 93 16 40 09/13/16 09:00 92 20 168/63 100 Mechanical Ventilator 40 09/13/16 08:00 88 09/13/16 08:00 99.2 87 20 120/47 100 Mechanical Ventilator 40 09/13/16 08:00 40 09/13/16 07:11 90 17 40 09/13/16 07:00 89 20 119/48 100 Mechanical Ventilator 40 09/13/16 06:00 93 20 129/37 100 Mechanical Ventilator 40 09/13/16 05:21 95 17 40 09/13/16 05:00 94 17 134/57 100 Mechanical Ventilator 40 09/13/16 04:00 98.3 97 17 134/56 99 Mechanical Ventilator 40 09/13/16 04:00 95 09/13/16 04:00 40 09/13/16 03:00 90 28 120/50 99 Mechanical Ventilator 40 09/13/16 02:55 87 17 40 09/13/16 02:00 88 27 117/41 100 Mechanical Ventilator 40 09/13/16 01:13 92 17 40 09/13/16 01:00 90 30 129/44 100 Mechanical Ventilator 40 09/13/16 00:00 98 27 125/41 100 Mechanical Ventilator 40 09/13/16 00:00 105 09/13/16 00:00 40 09/12/16 23:00 96 17 127/46 100 Mechanical Ventilator 40 09/12/16 23:00 97.9 96 17 127/48 99 Mechanical Ventilator 40 09/12/16 22:45 89 17 40 09/12/16 22:00 90 19 126/40 100 Mechanical Ventilator 40 09/12/16 21:00 89 17 133/51 100 Mechanical Ventilator 40 09/12/16 20:56 87 17 40 09/12/16 20:00 40 09/12/16 20:00 97.8 88 17 123/50 100 Mechanical Ventilator 40 09/12/16 20:00 88 09/12/16 19:17 88 17 40 09/12/16 19:00 89 18 114/68 100 Mechanical Ventilator 40 09/12/16 18:00 88 18 118/49 100 Mechanical Ventilator 40 09/12/16 17:00 88 17 122/50 100 Mechanical Ventilator 40 09/12/16 16:33 98 17 40 09/12/16 16:00 97.9 89 19 124/54 100 Mechanical Ventilator 40 09/12/16 16:00 89 09/12/16 15:10 40 09/12/16 15:06 94 17 40 09/12/16 15:00 92 22 108/39 100 Mechanical Ventilator 40 09/12/16 14:00 93 23 108/36 98 Mechanical Ventilator 40 Height (Feet): 5 Height (Inches): 6.00 Weight (Pounds): 190 HEENT: other - orally intubated, swelling of tongues & lips Respiratory/Chest: expiratory wheezing, other - orally intubated Cardiovascular: normal rate Abdomen: soft, non tender, other - GT feeding Extremities: other - R arm PICC line, edema Neurologic/Psychiatric: unresponsiveness Laboratory Tests Test 09/13/16 04:00 White Blood Count 8.0 K/UL (4.8-10.8) Red Blood Count 2.63 M/UL (4.20-5.40) L Hemoglobin 8.6 G/DL (12.0-16.0) L Hematocrit 27.7 % (37.0-47.0) L Mean Corpuscular Volume 105 FL (80-99) H Mean Corpuscular Hemoglobin 32.5 PG (27.0-31.0) H Mean Corpuscular Hemoglobin Concent 30.8 G/DL (32.0-36.0) L Red Cell Distribution Width 16.2 % (11.6-14.8) H Platelet Count 138 K/UL (150-450) L Mean Platelet Volume 7.2 FL (6.5-10.1) Neutrophils (%) (Auto) 67.4 % (45.0-75.0) Lymphocytes (%) (Auto) 16.2 % (20.0-45.0) L Monocytes (%) (Auto) 8.2 % (1.0-10.0) Eosinophils (%) (Auto) 7.8 % (0.0-3.0) H Basophils (%) (Auto) 0.4 % (0.0-2.0) Sodium Level 144 mEQ/L (135-145) Potassium Level 4.1 mEQ/L (3.4-4.9) Chloride Level 106 mEQ/L (98-107) Carbon Dioxide Level 33 mEQ/L (20-30) H Anion Gap 5 (5-15) Blood Urea Nitrogen 32 mg/dL (7-23) H Creatinine 0.3 mg/dL (0.5-0.9) L Estimat Glomerular Filtration Rate mL/min (>60) Glucose Level 97 mg/dL (74-106) Calcium Level 7.6 mg/dL (8.6-10.2) L Phosphorus Level 1.6 mg/dL (2.5-4.8) L Magnesium Level 1.7 mg/dL (1.7-2.5) Current Medications Medications (Trade) Dose Ordered Sig/Lonny Route PRN Reason Start Time Stop Time Status Last Admin Dose Admin Ascorbic Acid (Vitamin C) 500 mg DAILY GT 09/07/16 09:00 10/07/16 08:59 09/13/16 08:23 Chlorhexidine Gluconate 1 applic 1 applic DAILY TOPIC 09/08/16 09:00 10/08/16 08:59 09/13/16 05:26 Diltiazem HCl (Cardizem) 5 mg Q1H PRN IV SBP>170 09/06/16 08:00 10/06/16 07:59 Heparin Sodium (Porcine) (Heparin 5000 units/ml) 5,000 units EVERY 12 HOURS SUBQ 09/04/16 21:00 10/04/16 20:59 09/13/16 08:26 Levetiracetam/ Dextrose (Keppra/D5W) 115 ml @ 460 mls/hr Q12HR IV 09/04/16 21:00 10/04/16 20:59 09/13/16 10:14 Meropenem/Sodium Chloride (Merrem/Sodium Chloride) 110 ml @ 220 mls/hr Q12HR@0730,1930 IVPB 09/08/16 19:30 09/17/16 19:29 09/13/16 08:23 Pantoprazole 40 mg 40 mg EVERY 12 HOURS IVP 09/04/16 21:00 10/04/16 20:59 09/13/16 08:23 Phosphorus (Phospha 250 Neutral) 500 mg THREE TIMES A DAY GT 09/13/16 13:00 10/13/16 12:59 Sodium Chloride 1,000 ml @ 40 mls/hr Q24H IV 09/07/16 15:00 10/07/16 14:59 09/11/16 15:32 JAYLIN BENTLEY September 13, 2016 13:26
[2016-09-13] MEDS: Phospha 250 Neutral tab GT SCH ×2 (13:31→17:53)
--- NOTE | 2016-09-13 23:57 | Cardiology Progress Note ---
Assessment/Plan Assessment/Plan 1. Asystole cardiac arrest due to respiratory failure, echo reveals normal LVEF with no wall motion abnormalities. 2. E.Coli pneumonia/leukocytosis. 3. Hypoxic, hypercarbic respiratory failure Subjective Subjective Intubated, Fio2 40% Sinus rhythm at 86. Objective Last 24 Hour Vital Signs Date Time Temp Pulse Resp B/P Pulse Ox O2 Delivery O2 Flow Rate FiO2 09/13/16 23:15 88 17 40 09/13/16 21:25 90 18 40 09/13/16 19:12 93 17 40 09/13/16 19:00 88 24 154/58 100 Mechanical Ventilator 40 09/13/16 18:00 88 24 152/52 100 Mechanical Ventilator 40 09/13/16 17:18 88 16 40 09/13/16 17:00 88 24 147/62 100 Mechanical Ventilator 40 09/13/16 16:00 91 09/13/16 16:00 98.6 89 20 157/79 100 Mechanical Ventilator 40 09/13/16 16:00 40 09/13/16 15:00 40 09/13/16 15:00 86 24 144/52 100 Mechanical Ventilator 40 09/13/16 14:46 87 17 40 09/13/16 14:00 89 24 144/58 100 Mechanical Ventilator 40 09/13/16 13:00 95 20 143/51 100 Mechanical Ventilator 40 09/13/16 12:36 98 19 40 09/13/16 12:00 40 09/13/16 12:00 97 09/13/16 12:00 98.7 98 20 138/58 100 Mechanical Ventilator 40 09/13/16 11:00 99 20 148/64 100 Mechanical Ventilator 40 09/13/16 10:52 98 18 40 09/13/16 10:00 99 09/13/16 10:00 40 09/13/16 10:00 98 20 146/61 100 Mechanical Ventilator 40 09/13/16 09:27 93 16 40 09/13/16 09:00 92 20 168/63 100 Mechanical Ventilator 40 09/13/16 08:00 88 09/13/16 08:00 99.2 87 20 120/47 100 Mechanical Ventilator 40 09/13/16 08:00 40 09/13/16 07:11 90 17 40 09/13/16 07:00 89 20 119/48 100 Mechanical Ventilator 40 09/13/16 06:00 93 20 129/37 100 Mechanical Ventilator 40 09/13/16 05:21 95 17 40 09/13/16 05:00 94 17 134/57 100 Mechanical Ventilator 40 09/13/16 04:00 98.3 97 17 134/56 99 Mechanical Ventilator 40 09/13/16 04:00 95 09/13/16 04:00 40 09/13/16 03:00 90 28 120/50 99 Mechanical Ventilator 40 09/13/16 02:55 87 17 40 09/13/16 02:00 88 27 117/41 100 Mechanical Ventilator 40 09/13/16 01:13 92 17 40 09/13/16 01:00 90 30 129/44 100 Mechanical Ventilator 40 09/13/16 00:00 98 27 125/41 100 Mechanical Ventilator 40 09/13/16 00:00 105 09/13/16 00:00 40 Intake and Output 09/12/16 09/13/16 19:00 07:00 Intake Total 1525 ml 1620 ml Output Total 415 ml 440 ml Balance 1110 ml 1180 ml Intake Free Water 100 ml 200 ml IV Total 705 ml 705 ml Tube Feeding 660 ml 715 ml Other 60 ml Output Urine Total 415 ml 440 ml # Bowel Movements 2 2D Echo: LVEF 55%, Grade I LVDD, RVSP 57 mmHg Laboratory Tests Test 09/13/16 04:00 White Blood Count 8.0 K/UL (4.8-10.8) Red Blood Count 2.63 M/UL (4.20-5.40) L Hemoglobin 8.6 G/DL (12.0-16.0) L Hematocrit 27.7 % (37.0-47.0) L Mean Corpuscular Volume 105 FL (80-99) H Mean Corpuscular Hemoglobin 32.5 PG (27.0-31.0) H Mean Corpuscular Hemoglobin Concent 30.8 G/DL (32.0-36.0) L Red Cell Distribution Width 16.2 % (11.6-14.8) H Platelet Count 138 K/UL (150-450) L Mean Platelet Volume 7.2 FL (6.5-10.1) Neutrophils (%) (Auto) 67.4 % (45.0-75.0) Lymphocytes (%) (Auto) 16.2 % (20.0-45.0) L Monocytes (%) (Auto) 8.2 % (1.0-10.0) Eosinophils (%) (Auto) 7.8 % (0.0-3.0) H Basophils (%) (Auto) 0.4 % (0.0-2.0) Sodium Level 144 mEQ/L (135-145) Potassium Level 4.1 mEQ/L (3.4-4.9) Chloride Level 106 mEQ/L (98-107) Carbon Dioxide Level 33 mEQ/L (20-30) H Anion Gap 5 (5-15) Blood Urea Nitrogen 32 mg/dL (7-23) H Creatinine 0.3 mg/dL (0.5-0.9) L Estimat Glomerular Filtration Rate mL/min (>60) Glucose Level 97 mg/dL (74-106) Calcium Level 7.6 mg/dL (8.6-10.2) L Phosphorus Level 1.6 mg/dL (2.5-4.8) L Magnesium Level 1.7 mg/dL (1.7-2.5) Microbiology Date/Time Source Procedure Growth Status 09/13/16 04:00 Stool Clostridium difficile Toxin Assay - Final Complete Objective HEENT: Intubated, normocephalic, atraumatic, PERRLA, EOMI Neck: no JVD, no carotid bruit, upstroke 2+ B/L Respiratory: decreased breath sounds, crackles both bases Cardiovascular: regular rate, rhythm, normal S1S2,no murmurs, gallops or rubs Gastrointestinal: normal BS, soft non-tender, non-distended Musculoskeletal: no clubbing cyanosis or edema MARK LEVY September 13, 2016 23:57
[2016-09-14] VITALS (24 sets, daily range): BP systolic 141–181; BP diastolic 49–95
[2016-09-14] MEDS: Diltiazem 25mg/5ml IV PRN ×4 (01:29→10:17)
[2016-09-14] MEDS: Dyna-Hex 2% Top Sol 8oz TOPIC SCH (01:47)
[2016-09-14 05:12] LABS: BASOPHILS % (AUTO) 0.7 % (0.0-2.0); EOSINOPHILS % (AUTO) 7.7 % (0.0-3.0); MEAN CORPUSCULAR HEMOGLOBIN 32.8 PG (27.0-31.0); MEAN CORPUSCULAR HGB CONC 31.3 G/DL (32.0-36.0); MEAN CORPUSCULAR VOLUME 105 FL (80-99); MONOCYTES % (AUTO) 7.7 % (1.0-10.0); PLATELET COUNT 209 K/UL (150-450); RED BLOOD COUNT 2.81 M/UL (4.20-5.40); RED CELL DISTRIBUTION WIDTH 15.4 % (11.6-14.8); WHITE BLOOD COUNT 8.7 K/UL (4.8-10.8)
[2016-09-14 05:46] LABS: ANION GAP 4 (5-15); CALCIUM 7.9 mg/dL (8.6-10.2); CARBON DIOXIDE 36 mEQ/L (20-30); CHLORIDE 106 mEQ/L (98-107); CREATININE 0.3 mg/dL (0.5-0.9); HEMOLYSIS 0; PHOSPHORUS 2.9 mg/dL (2.5-4.8); SODIUM 146 mEQ/L (135-145)
[2016-09-14] MEDS: Meropenem 1 GM in NS 110 ML IVPB SCH ×2 (07:37→19:30)
[2016-09-14] MEDS: Heparin 5000 units/ml inj SUBQ SCH ×2 (09:16→20:50)
[2016-09-14] MEDS: Ascorbic Acid 500mg tab GT SCH (09:17)
[2016-09-14] MEDS: Phospha 250 Neutral tab GT SCH ×3 (09:17→18:08)
[2016-09-14] MEDS: Pantoprazole Inj IVP SCH ×2 (09:17→20:53)
[2016-09-14] MEDS: levETIRAcetam 500 MG in D5W 110 ML IV SCH ×2 (09:17→20:52)
--- NOTE | 2016-09-14 10:54 | General Progress Note ---
Assessment/Plan Problem List: (1) Cardiac arrest Assessment & Plan: Anoxic encephalopathy with occasional myolclonic movement ICD Codes: I46.9 - Cardiac arrest, cause unspecified SNOMED: 886198594 (2) Septic shock Assessment & Plan: Improved ICD Codes: A41.9 - Sepsis, unspecified organism; R65.21 - Severe sepsis with septic shock SNOMED: 68319966 (3) Respiratory distress Assessment & Plan: On ventilator ICD Codes: R06.00 - Dyspnea, unspecified; R65.21 - Severe sepsis with septic shock SNOMED: 267678996 (4) Dysphagia Assessment & Plan: Tube feed started ICD Codes: R13.10 - Dysphagia, unspecified SNOMED: 60623961, 625299126 (5) Pneumonia Assessment & Plan: Antibiotic adjusted ICD Codes: J18.9 - Pneumonia, unspecified organism SNOMED: 687878816 Qualifiers: Qualified Codes: J13 - Pneumonia due to Streptococcus pneumoniae (6) Feeding by G-tube ICD Codes: Z93.1 - Gastrostomy status SNOMED: 696743271, 659013836 (7) esophageal wall thickening (8) Hypoalbuminemia ICD Codes: E88.09 - Other disorders of plasma-protein metabolism, not elsewhere classified SNOMED: 098534770 (9) LFT elevation ICD Codes: R94.5 - Abnormal results of liver function studies SNOMED: 751505026 (10) Hyperkalemia ICD Codes: E87.5 - Hyperkalemia SNOMED: 74134649 (11) Azotemia ICD Codes: R79.89 - Other specified abnormal findings of blood chemistry SNOMED: 512766124 (12) Hyponatremia ICD Codes: E87.1 - Hypo-osmolality and hyponatremia SNOMED: 96625296 (13) Dehydration ICD Codes: E86.0 - Dehydration SNOMED: 65212440 (14) Anemia ICD Codes: D64.9 - Anemia, unspecified SNOMED: 141369784 Status: stable - Will need trach. will check ABG, lasix started Assessment/Plan Can't wean her due to poor lung compliance. She may need diuresis. Will adjust fluids. Subjective Date patient seen: September 13, 2016 Time patient seen: 14:25 ROS Limited/Unobtainable: Yes Genitourinary: Reports: other Allergies: Coded Allergies: No Known Allergies (Verified , 03/14/16) Uncoded Allergies: MILK (Allergy, Unknown, 07/11/11) Subjective On vent AC mode 35% FIO2 Objective Last 24 Hour Vital Signs Date Time Temp Pulse Resp B/P Pulse Ox O2 Delivery O2 Flow Rate FiO2 09/14/16 10:17 87 186/63 09/14/16 10:00 35 09/14/16 10:00 88 18 168/69 100 Mechanical Ventilator 35 09/14/16 09:45 100 09/14/16 09:00 83 19 141/49 100 Mechanical Ventilator 40 09/14/16 09:00 88 17 40 09/14/16 08:00 40 09/14/16 08:00 86 09/14/16 08:00 98.7 84 26 149/55 98 Mechanical Ventilator 40 09/14/16 07:00 83 24 158/53 98 Mechanical Ventilator 40 09/14/16 07:00 82 17 40 09/14/16 06:27 93 181/84 09/14/16 06:00 80 28 181/84 99 Mechanical Ventilator 40 09/14/16 05:03 91 17 40 09/14/16 05:00 88 28 174/77 99 Mechanical Ventilator 40 09/14/16 04:09 90 171/61 09/14/16 04:00 98.2 91 31 174/73 100 Mechanical Ventilator 40 09/14/16 04:00 40 09/14/16 04:00 91 09/14/16 03:00 89 32 180/85 100 Mechanical Ventilator 40 09/14/16 02:31 89 17 40 09/14/16 02:00 91 28 161/78 99 Mechanical Ventilator 40 09/14/16 01:29 89 171/56 09/14/16 01:10 87 19 40 09/14/16 01:00 90 28 150/60 99 Mechanical Ventilator 40 09/14/16 00:00 98.8 91 28 158/60 99 Mechanical Ventilator 40 09/14/16 00:00 91 09/14/16 00:00 40 09/13/16 23:15 88 17 40 09/13/16 23:00 88 29 160/60 100 Mechanical Ventilator 40 09/13/16 22:00 86 23 154/58 100 Mechanical Ventilator 40 09/13/16 21:25 90 18 40 09/13/16 21:00 88 23 156/58 100 Mechanical Ventilator 40 09/13/16 20:00 144 09/13/16 20:00 98.6 88 30 155/53 100 Mechanical Ventilator 40 09/13/16 20:00 40 09/13/16 19:12 93 17 40 09/13/16 19:00 88 24 154/58 100 Mechanical Ventilator 40 09/13/16 18:00 88 24 152/52 100 Mechanical Ventilator 40 09/13/16 17:18 88 16 40 09/13/16 17:00 88 24 147/62 100 Mechanical Ventilator 40 09/13/16 16:00 91 09/13/16 16:00 98.6 89 20 157/79 100 Mechanical Ventilator 40 09/13/16 16:00 40 09/13/16 15:00 40 09/13/16 15:00 86 24 144/52 100 Mechanical Ventilator 40 09/13/16 14:46 87 17 40 09/13/16 14:00 89 24 144/58 100 Mechanical Ventilator 40 09/13/16 13:00 95 20 143/51 100 Mechanical Ventilator 40 09/13/16 12:36 98 19 40 09/13/16 12:00 40 09/13/16 12:00 97 09/13/16 12:00 98.7 98 20 138/58 100 Mechanical Ventilator 40 09/13/16 11:00 99 20 148/64 100 Mechanical Ventilator 40 09/13/16 10:52 98 18 40 Intake and Output 09/13/16 09/14/16 19:00 07:00 Intake Total 1275 ml 1390 ml Output Total 1250 ml 2400 ml Balance 25 ml -1010 ml Intake Free Water 210 ml 250 ml IV Total 405 ml 480 ml Tube Feeding 660 ml 660 ml Output Urine Total 1250 ml 2400 ml # Bowel Movements 2 5 Laboratory Tests 09/14/16 04:00: White Blood Count 8.7, Red Blood Count 2.81L, Hemoglobin 9.2L, Hematocrit 29.4L , Mean Corpuscular Volume 105H, Mean Corpuscular Hemoglobin 32.8H, Mean Corpuscular Hemoglobin Concent 31.3L, Red Cell Distribution Width 15.4H, Platelet Count 209#, Mean Platelet Volume 7.0, Neutrophils (%) (Auto) 64.0, Lymphocytes (%) (Auto) 20.0, Monocytes (%) (Auto) 7.7, Eosinophils (%) (Auto) 7.7H, Basophils (%) (Auto) 0.7, Sodium Level 146H, Potassium Level 4.0, Chloride Level 106, Carbon Dioxide Level 36H, Anion Gap 4L, Blood Urea Nitrogen 24H, Creatinine 0.3L, Estimat Glomerular Filtration Rate , Glucose Level 100, Calcium Level 7.9L, Phosphorus Level 2.9 Height (Feet): 5 Height (Inches): 6.00 Weight (Pounds): 189 General Appearance: no apparent distress EENT: pharynx normal Neck: non-tender Cardiovascular: normal rate Respiratory/Chest: rhonchi - bilaterally Abdomen: normal bowel sounds Edema: no edema noted Generalized Edema: moderate edema YONI ROCHE September 14, 2016 10:54
[2016-09-14 11:01] LABS: ABG PCO2 57.7 mmHg (35.0-45.0)
[2016-09-14 11:02] LABS: ABG ALLEN TEST POSITIVE; ABG BASE EXCESS 14.5
--- NOTE | 2016-09-14 12:37 | Infectious Diseases Prog Note ---
Assessment/Plan Assessment/Plan antibiotics : meropenem A 1. e.coli pneumonia 2. respiratory failure 3. allergic reaction 4. leucocytosis resolved 5. 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 continue meropenem 2. will follow up cultures Subjective ROS Limited/Unobtainable: Yes Allergies: Coded Allergies: No Known Allergies (Verified , 03/14/16) Uncoded Allergies: MILK (Allergy, Unknown, 07/11/11) Objective Vital Signs Last 24 Hour Vital Signs Date Time Temp Pulse Resp B/P Pulse Ox O2 Delivery O2 Flow Rate FiO2 09/14/16 12:00 98.9 87 20 153/53 98 Mechanical Ventilator 35 09/14/16 12:00 82 09/14/16 11:00 84 17 40 09/14/16 11:00 40 09/14/16 11:00 87 18 169/80 98 Mechanical Ventilator 35 09/14/16 10:35 35 09/14/16 10:17 87 186/63 09/14/16 10:00 35 09/14/16 10:00 88 18 168/69 100 Mechanical Ventilator 35 09/14/16 09:45 100 09/14/16 09:00 83 19 141/49 100 Mechanical Ventilator 40 09/14/16 09:00 88 17 40 09/14/16 08:00 40 09/14/16 08:00 86 09/14/16 08:00 98.7 84 26 149/55 98 Mechanical Ventilator 40 09/14/16 07:00 83 24 158/53 98 Mechanical Ventilator 40 09/14/16 07:00 82 17 40 09/14/16 06:27 93 181/84 09/14/16 06:00 80 28 181/84 99 Mechanical Ventilator 40 09/14/16 05:03 91 17 40 09/14/16 05:00 88 28 174/77 99 Mechanical Ventilator 40 09/14/16 04:09 90 171/61 09/14/16 04:00 98.2 91 31 174/73 100 Mechanical Ventilator 40 09/14/16 04:00 40 09/14/16 04:00 91 09/14/16 03:00 89 32 180/85 100 Mechanical Ventilator 40 09/14/16 02:31 89 17 40 09/14/16 02:00 91 28 161/78 99 Mechanical Ventilator 40 09/14/16 01:29 89 171/56 09/14/16 01:10 87 19 40 09/14/16 01:00 90 28 150/60 99 Mechanical Ventilator 40 09/14/16 00:00 98.8 91 28 158/60 99 Mechanical Ventilator 40 09/14/16 00:00 91 09/14/16 00:00 40 09/13/16 23:15 88 17 40 09/13/16 23:00 88 29 160/60 100 Mechanical Ventilator 40 09/13/16 22:00 86 23 154/58 100 Mechanical Ventilator 40 09/13/16 21:25 90 18 40 09/13/16 21:00 88 23 156/58 100 Mechanical Ventilator 40 09/13/16 20:00 144 09/13/16 20:00 98.6 88 30 155/53 100 Mechanical Ventilator 40 09/13/16 20:00 40 09/13/16 19:12 93 17 40 09/13/16 19:00 88 24 154/58 100 Mechanical Ventilator 40 09/13/16 18:00 88 24 152/52 100 Mechanical Ventilator 40 09/13/16 17:18 88 16 40 09/13/16 17:00 88 24 147/62 100 Mechanical Ventilator 40 09/13/16 16:00 91 09/13/16 16:00 98.6 89 20 157/79 100 Mechanical Ventilator 40 09/13/16 16:00 40 09/13/16 15:00 40 09/13/16 15:00 86 24 144/52 100 Mechanical Ventilator 40 09/13/16 14:46 87 17 40 09/13/16 14:00 89 24 144/58 100 Mechanical Ventilator 40 09/13/16 13:00 95 20 143/51 100 Mechanical Ventilator 40 09/13/16 12:36 98 19 40 Height (Feet): 5 Height (Inches): 6.00 Weight (Pounds): 189 HEENT: other - intubated Respiratory/Chest: lungs clear Cardiovascular: normal rate, regular rhythm, no gallop/murmur Abdomen: soft, non tender, other - GT Extremities: other - + edema, right arm PICC Microbiology Date/Time Source Procedure Growth Status 09/13/16 04:00 Stool Clostridium difficile Toxin Assay - Final Complete Laboratory Tests Test 09/14/16 04:00 09/14/16 10:54 White Blood Count 8.7 K/UL (4.8-10.8) Red Blood Count 2.81 M/UL (4.20-5.40) L Hemoglobin 9.2 G/DL (12.0-16.0) L Hematocrit 29.4 % (37.0-47.0) L Mean Corpuscular Volume 105 FL (80-99) H Mean Corpuscular Hemoglobin 32.8 PG (27.0-31.0) H Mean Corpuscular Hemoglobin Concent 31.3 G/DL (32.0-36.0) L Red Cell Distribution Width 15.4 % (11.6-14.8) H Platelet Count 209 K/UL (150-450) # Mean Platelet Volume 7.0 FL (6.5-10.1) Neutrophils (%) (Auto) 64.0 % (45.0-75.0) Lymphocytes (%) (Auto) 20.0 % (20.0-45.0) Monocytes (%) (Auto) 7.7 % (1.0-10.0) Eosinophils (%) (Auto) 7.7 % (0.0-3.0) H Basophils (%) (Auto) 0.7 % (0.0-2.0) Sodium Level 146 mEQ/L (135-145) H Potassium Level 4.0 mEQ/L (3.4-4.9) Chloride Level 106 mEQ/L (98-107) Carbon Dioxide Level 36 mEQ/L (20-30) H Anion Gap 4 (5-15) L Blood Urea Nitrogen 24 mg/dL (7-23) H Creatinine 0.3 mg/dL (0.5-0.9) L Estimat Glomerular Filtration Rate mL/min (>60) Glucose Level 100 mg/dL (74-106) Calcium Level 7.9 mg/dL (8.6-10.2) L Phosphorus Level 2.9 mg/dL (2.5-4.8) Arterial Blood pH 7.463 (7.350-7.450) Arterial Blood Partial Pressure CO2 57.7 mmHg (35.0-45.0) *H Arterial Blood Partial Pressure O2 70.8 mmHg (75.0-100.0) L Arterial Blood HCO3 40.4 mmol/L (22.0-26.0) H Arterial Blood Oxygen Saturation 94.3 % (92.0-98.0) Arterial Blood Base Excess 14.5 Victorino Test Positive KELLEY MITCHELL September 14, 2016 12:37
--- NOTE | 2016-09-14 13:38 | GI Progress Note ---
Assessment/Plan Problems: (1) Dehydration ICD Codes: E86.0 - Dehydration SNOMED: 83895209 (2) Hyponatremia ICD Codes: E87.1 - Hypo-osmolality and hyponatremia SNOMED: 14069558 (3) LFT elevation ICD Codes: R94.5 - Abnormal results of liver function studies SNOMED: 948926771 (4) Hypoalbuminemia ICD Codes: E88.09 - Other disorders of plasma-protein metabolism, not elsewhere classified SNOMED: 963713209 (5) Anemia ICD Codes: D64.9 - Anemia, unspecified SNOMED: 894404709 (6) Feeding by G-tube ICD Codes: Z93.1 - Gastrostomy status SNOMED: 745943060, 482781561 (7) Dysphagia ICD Codes: R13.10 - Dysphagia, unspecified SNOMED: 03437877, 019365061 Status: unchanged Status Narrative Discussed with Dr. Britt. Assessment/Plan OB stool negative elevated CEA >> 8.8 hep panel >> negative IgE elevation >> milk allergy? concerns for GTF dairy based formula. hold GI procedures given elevated WBC EGD/colonoscopy when stable given anemia and elevated CEA. monitor H&H, transfuse prn GTFs per dietary >> TF CHANGE:--> VIVONEX RTF @60 ml x 24 hrs + Prosource BID ppi abx fu labs Subjective Subjective limited Objective Last 24 Hour Vital Signs Date Time Temp Pulse Resp B/P Pulse Ox O2 Delivery O2 Flow Rate FiO2 09/14/16 13:00 80 17 40 09/14/16 13:00 77 18 154/52 100 Mechanical Ventilator 40 09/14/16 12:00 98.9 87 20 153/53 98 Mechanical Ventilator 35 09/14/16 12:00 82 09/14/16 11:00 84 17 40 09/14/16 11:00 40 09/14/16 11:00 87 18 169/80 98 Mechanical Ventilator 35 09/14/16 10:35 35 09/14/16 10:17 87 186/63 09/14/16 10:00 35 09/14/16 10:00 88 18 168/69 100 Mechanical Ventilator 35 09/14/16 09:45 100 09/14/16 09:00 83 19 141/49 100 Mechanical Ventilator 40 09/14/16 09:00 88 17 40 09/14/16 08:00 40 5/26/17 08:00 86 09/14/16 08:00 98.7 84 26 149/55 98 Mechanical Ventilator 40 09/14/16 07:00 83 24 158/53 98 Mechanical Ventilator 40 09/14/16 07:00 82 17 40 09/14/16 06:27 93 181/84 09/14/16 06:00 80 28 181/84 99 Mechanical Ventilator 40 09/14/16 05:03 91 17 40 09/14/16 05:00 88 28 174/77 99 Mechanical Ventilator 40 09/14/16 04:09 90 171/61 09/14/16 04:00 98.2 91 31 174/73 100 Mechanical Ventilator 40 09/14/16 04:00 40 09/14/16 04:00 91 09/14/16 03:00 89 32 180/85 100 Mechanical Ventilator 40 09/14/16 02:31 89 17 40 09/14/16 02:00 91 28 161/78 99 Mechanical Ventilator 40 09/14/16 01:29 89 171/56 09/14/16 01:10 87 19 40 09/14/16 01:00 90 28 150/60 99 Mechanical Ventilator 40 09/14/16 00:00 98.8 91 28 158/60 99 Mechanical Ventilator 40 09/14/16 00:00 91 09/14/16 00:00 40 09/13/16 23:15 88 17 40 09/13/16 23:00 88 29 160/60 100 Mechanical Ventilator 40 09/13/16 22:00 86 23 154/58 100 Mechanical Ventilator 40 09/13/16 21:25 90 18 40 09/13/16 21:00 88 23 156/58 100 Mechanical Ventilator 40 09/13/16 20:00 144 09/13/16 20:00 98.6 88 30 155/53 100 Mechanical Ventilator 40 09/13/16 20:00 40 09/13/16 19:12 93 17 40 09/13/16 19:00 88 24 154/58 100 Mechanical Ventilator 40 09/13/16 18:00 88 24 152/52 100 Mechanical Ventilator 40 09/13/16 17:18 88 16 40 09/13/16 17:00 88 24 147/62 100 Mechanical Ventilator 40 09/13/16 16:00 91 09/13/16 16:00 98.6 89 20 157/79 100 Mechanical Ventilator 40 09/13/16 16:00 40 09/13/16 15:00 40 09/13/16 15:00 86 24 144/52 100 Mechanical Ventilator 40 09/13/16 14:46 87 17 40 09/13/16 14:00 89 24 144/58 100 Mechanical Ventilator 40 Intake and Output 09/13/16 09/14/16 19:00 07:00 Intake Total 1275 ml 1390 ml Output Total 1250 ml 2400 ml Balance 25 ml -1010 ml Intake Free Water 210 ml 250 ml IV Total 405 ml 480 ml Tube Feeding 660 ml 660 ml Output Urine Total 1250 ml 2400 ml # Bowel Movements 2 5 Laboratory Tests Test 09/14/16 04:00 09/14/16 10:54 White Blood Count 8.7 K/UL (4.8-10.8) Red Blood Count 2.81 M/UL (4.20-5.40) L Hemoglobin 9.2 G/DL (12.0-16.0) L Hematocrit 29.4 % (37.0-47.0) L Mean Corpuscular Volume 105 FL (80-99) H Mean Corpuscular Hemoglobin 32.8 PG (27.0-31.0) H Mean Corpuscular Hemoglobin Concent 31.3 G/DL (32.0-36.0) L Red Cell Distribution Width 15.4 % (11.6-14.8) H Platelet Count 209 K/UL (150-450) # Mean Platelet Volume 7.0 FL (6.5-10.1) Neutrophils (%) (Auto) 64.0 % (45.0-75.0) Lymphocytes (%) (Auto) 20.0 % (20.0-45.0) Monocytes (%) (Auto) 7.7 % (1.0-10.0) Eosinophils (%) (Auto) 7.7 % (0.0-3.0) H Basophils (%) (Auto) 0.7 % (0.0-2.0) Sodium Level 146 mEQ/L (135-145) H Potassium Level 4.0 mEQ/L (3.4-4.9) Chloride Level 106 mEQ/L (98-107) Carbon Dioxide Level 36 mEQ/L (20-30) H Anion Gap 4 (5-15) L Blood Urea Nitrogen 24 mg/dL (7-23) H Creatinine 0.3 mg/dL (0.5-0.9) L Estimat Glomerular Filtration Rate mL/min (>60) Glucose Level 100 mg/dL (74-106) Calcium Level 7.9 mg/dL (8.6-10.2) L Phosphorus Level 2.9 mg/dL (2.5-4.8) Arterial Blood pH 7.463 (7.350-7.450) Arterial Blood Partial Pressure CO2 57.7 mmHg (35.0-45.0) *H Arterial Blood Partial Pressure O2 70.8 mmHg (75.0-100.0) L Arterial Blood HCO3 40.4 mmol/L (22.0-26.0) H Arterial Blood Oxygen Saturation 94.3 % (92.0-98.0) Arterial Blood Base Excess 14.5 Victorino Test Positive Height (Feet): 5 Height (Inches): 6.00 Weight (Pounds): 189 General Appearance: no apparent distress, alert Cardiovascular: normal rate Respiratory/Chest: other - mech vent Abdominal Exam: normal bowel sounds, non tender, soft, GT site - c/d/i Luna Rodriguez N.P. September 14, 2016 13:38
--- NOTE | 2016-09-14 14:32 | Nephrology Progress Note ---
Assessment/Plan Problem List: (1) Cardiac arrest (2) Septic shock (3) Respiratory distress (4) Dysphagia (5) Pneumonia (6) Anemia (7) Azotemia (8) Dehydration (9) Respiratory failure Plan Supportive care Monitor lytes, correct PRN Avoid nephrotoxic agents G-Tube feeding per GI Monitor H&H, transfuse PRN Monitor neuro status Continue wound care DVT prophylaxis AM labs Subjective ROS Limited/Unobtainable: Yes Subjective Intubated, in ICU Objective Objective Last 24 Hour Vital Signs Date Time Temp Pulse Resp B/P Pulse Ox O2 Delivery O2 Flow Rate FiO2 09/14/16 14:00 79 17 165/63 100 Mechanical Ventilator 40 09/14/16 13:00 80 17 40 09/14/16 13:00 77 18 154/52 100 Mechanical Ventilator 40 09/14/16 12:00 98.9 87 20 153/53 98 Mechanical Ventilator 35 09/14/16 12:00 82 09/14/16 11:00 84 17 40 09/14/16 11:00 40 09/14/16 11:00 87 18 169/80 98 Mechanical Ventilator 35 09/14/16 10:35 35 09/14/16 10:17 87 186/63 09/14/16 10:00 35 09/14/16 10:00 88 18 168/69 100 Mechanical Ventilator 35 09/14/16 09:45 100 09/14/16 09:00 83 19 141/49 100 Mechanical Ventilator 40 09/14/16 09:00 88 17 40 09/14/16 08:00 40 09/14/16 08:00 86 09/14/16 08:00 98.7 84 26 149/55 98 Mechanical Ventilator 40 09/14/16 07:00 83 24 158/53 98 Mechanical Ventilator 40 09/14/16 07:00 82 17 40 09/14/16 06:27 93 181/84 09/14/16 06:00 80 28 181/84 99 Mechanical Ventilator 40 09/14/16 05:03 91 17 40 09/14/16 05:00 88 28 174/77 99 Mechanical Ventilator 40 09/14/16 04:09 90 171/61 09/14/16 04:00 98.2 91 31 174/73 100 Mechanical Ventilator 40 09/14/16 04:00 40 09/14/16 04:00 91 09/14/16 03:00 89 32 180/85 100 Mechanical Ventilator 40 09/14/16 02:31 89 17 40 09/14/16 02:00 91 28 161/78 99 Mechanical Ventilator 40 09/14/16 01:29 89 171/56 09/14/16 01:10 87 19 40 09/14/16 01:00 90 28 150/60 99 Mechanical Ventilator 40 09/14/16 00:00 98.8 91 28 158/60 99 Mechanical Ventilator 40 09/14/16 00:00 91 09/14/16 00:00 40 09/13/16 23:15 88 17 40 09/13/16 23:00 88 29 160/60 100 Mechanical Ventilator 40 09/13/16 22:00 86 23 154/58 100 Mechanical Ventilator 40 09/13/16 21:25 90 18 40 09/13/16 21:00 88 23 156/58 100 Mechanical Ventilator 40 09/13/16 20:00 144 09/13/16 20:00 98.6 88 30 155/53 100 Mechanical Ventilator 40 09/13/16 20:00 40 09/13/16 19:12 93 17 40 09/13/16 19:00 88 24 154/58 100 Mechanical Ventilator 40 09/13/16 18:00 88 24 152/52 100 Mechanical Ventilator 40 09/13/16 17:18 88 16 40 09/13/16 17:00 88 24 147/62 100 Mechanical Ventilator 40 09/13/16 16:00 91 09/13/16 16:00 98.6 89 20 157/79 100 Mechanical Ventilator 40 09/13/16 16:00 40 09/13/16 15:00 40 09/13/16 15:00 86 24 144/52 100 Mechanical Ventilator 40 09/13/16 14:46 87 17 40 Intake and Output 09/13/16 09/14/16 19:00 07:00 Intake Total 1275 ml 1390 ml Output Total 1250 ml 2400 ml Balance 25 ml -1010 ml Intake Free Water 210 ml 250 ml IV Total 405 ml 480 ml Tube Feeding 660 ml 660 ml Output Urine Total 1250 ml 2400 ml # Bowel Movements 2 5 Laboratory Tests 09/14/16 04:00: White Blood Count 8.7, Red Blood Count 2.81L, Hemoglobin 9.2L, Hematocrit 29.4L , Mean Corpuscular Volume 105H, Mean Corpuscular Hemoglobin 32.8H, Mean Corpuscular Hemoglobin Concent 31.3L, Red Cell Distribution Width 15.4H, Platelet Count 209#, Mean Platelet Volume 7.0, Neutrophils (%) (Auto) 64.0, Lymphocytes (%) (Auto) 20.0, Monocytes (%) (Auto) 7.7, Eosinophils (%) (Auto) 7.7H, Basophils (%) (Auto) 0.7, Sodium Level 146H, Potassium Level 4.0, Chloride Level 106, Carbon Dioxide Level 36H, Anion Gap 4L, Blood Urea Nitrogen 24H, Creatinine 0.3L, Estimat Glomerular Filtration Rate , Glucose Level 100, Calcium Level 7.9L, Phosphorus Level 2.9 09/14/16 10:54: Arterial Blood pH 7.463H, Arterial Blood Partial Pressure CO2 57.7*H, Arterial Blood Partial Pressure O2 70.8L, Arterial Blood HCO3 40.4H, Arterial Blood Oxygen Saturation 94.3, Arterial Blood Base Excess 14.5, Victorino Test Positive Height (Feet): 5 Height (Inches): 6.00 Weight (Pounds): 189 General Appearance: no apparent distress Neck: supple Cardiovascular: normal rate, regular rhythm Respiratory/Chest: decreased breath sounds Abdomen: other - PEG Neurologic: unresponsive Allison Johnson N.P. September 14, 2016 14:32
[2016-09-14] MEDS ORDERED: 1/2 NS 1000ml IV ONE ×2 (17:45→17:47)
--- NOTE | 2016-09-14 19:43 | Nephrology Progress Note ---
Assessment/Plan Problem List: (1) Azotemia (2) Hyperkalemia Assessment: Resolved (3) Hyponatremia Assessment: Resolved (4) Septic shock (5) Respiratory distress (6) Dysphagia (7) Pneumonia (8) Anemia (9) Dehydration Plan Supportive care Monitor lytes, correct PRN Avoid nephrotoxic agents G-Tube feeding per GI Monitor H&H, transfuse PRN Monitor neuro status Continue wound care DVT prophylaxis PPI AM labs Subjective ROS Limited/Unobtainable: Yes Subjective Late entry for 09/13/16 Objective Objective Last 24 Hour Vital Signs Date Time Temp Pulse Resp B/P Pulse Ox O2 Delivery O2 Flow Rate FiO2 09/14/16 19:00 75 21 153/51 100 Mechanical Ventilator 40 09/14/16 18:45 68 17 40 09/14/16 18:00 72 19 152/64 100 Mechanical Ventilator 40 09/14/16 17:30 83 17 40 09/14/16 17:00 80 19 157/62 100 Mechanical Ventilator 40 09/14/16 16:00 83 09/14/16 16:00 98.7 81 20 154/54 98 Mechanical Ventilator 40 09/14/16 16:00 40 09/14/16 15:00 82 17 40 09/14/16 15:00 76 20 157/61 100 Mechanical Ventilator 40 09/14/16 14:00 79 17 165/63 100 Mechanical Ventilator 40 09/14/16 13:00 80 17 40 09/14/16 13:00 77 18 154/52 100 Mechanical Ventilator 40 09/14/16 12:00 98.9 87 20 153/53 98 Mechanical Ventilator 35 09/14/16 12:00 82 09/14/16 11:00 84 17 40 09/14/16 11:00 40 09/14/16 11:00 87 18 169/80 98 Mechanical Ventilator 35 09/14/16 10:35 35 09/14/16 10:17 87 186/63 09/14/16 10:00 35 09/14/16 10:00 88 18 168/69 100 Mechanical Ventilator 35 09/14/16 09:45 100 09/14/16 09:00 83 19 141/49 100 Mechanical Ventilator 40 09/14/16 09:00 88 17 40 09/14/16 08:00 40 09/14/16 08:00 86 09/14/16 08:00 98.7 84 26 149/55 98 Mechanical Ventilator 40 09/14/16 07:00 83 24 158/53 98 Mechanical Ventilator 40 09/14/16 07:00 82 17 40 09/14/16 06:27 93 181/84 09/14/16 06:00 80 28 181/84 99 Mechanical Ventilator 40 09/14/16 05:03 91 17 40 09/14/16 05:00 88 28 174/77 99 Mechanical Ventilator 40 09/14/16 04:09 90 171/61 09/14/16 04:00 98.2 91 31 174/73 100 Mechanical Ventilator 40 09/14/16 04:00 40 09/14/16 04:00 91 09/14/16 03:00 89 32 180/85 100 Mechanical Ventilator 40 09/14/16 02:31 89 17 40 09/14/16 02:00 91 28 161/78 99 Mechanical Ventilator 40 09/14/16 01:29 89 171/56 09/14/16 01:10 87 19 40 09/14/16 01:00 90 28 150/60 99 Mechanical Ventilator 40 09/14/16 00:00 98.8 91 28 158/60 99 Mechanical Ventilator 40 09/14/16 00:00 91 09/14/16 00:00 40 09/13/16 23:15 88 17 40 09/13/16 23:00 88 29 160/60 100 Mechanical Ventilator 40 09/13/16 22:00 86 23 154/58 100 Mechanical Ventilator 40 09/13/16 21:25 90 18 40 09/13/16 21:00 88 23 156/58 100 Mechanical Ventilator 40 09/13/16 20:00 144 09/13/16 20:00 98.6 88 30 155/53 100 Mechanical Ventilator 40 09/13/16 20:00 40 Intake and Output 09/13/16 09/14/16 19:00 07:00 Intake Total 1275 ml 1390 ml Output Total 1250 ml 2400 ml Balance 25 ml -1010 ml Intake Free Water 210 ml 250 ml IV Total 405 ml 480 ml Tube Feeding 660 ml 660 ml Output Urine Total 1250 ml 2400 ml # Bowel Movements 2 5 Laboratory Tests 09/14/16 04:00: White Blood Count 8.7, Red Blood Count 2.81L, Hemoglobin 9.2L, Hematocrit 29.4L , Mean Corpuscular Volume 105H, Mean Corpuscular Hemoglobin 32.8H, Mean Corpuscular Hemoglobin Concent 31.3L, Red Cell Distribution Width 15.4H, Platelet Count 209#, Mean Platelet Volume 7.0, Neutrophils (%) (Auto) 64.0, Lymphocytes (%) (Auto) 20.0, Monocytes (%) (Auto) 7.7, Eosinophils (%) (Auto) 7.7H, Basophils (%) (Auto) 0.7, Sodium Level 146H, Potassium Level 4.0, Chloride Level 106, Carbon Dioxide Level 36H, Anion Gap 4L, Blood Urea Nitrogen 24H, Creatinine 0.3L, Estimat Glomerular Filtration Rate , Glucose Level 100, Calcium Level 7.9L, Phosphorus Level 2.9 09/14/16 10:54: Arterial Blood pH 7.463H, Arterial Blood Partial Pressure CO2 57.7*H, Arterial Blood Partial Pressure O2 70.8L, Arterial Blood HCO3 40.4H, Arterial Blood Oxygen Saturation 94.3, Arterial Blood Base Excess 14.5, Victorino Test Positive Height (Feet): 5 Height (Inches): 6.00 Weight (Pounds): 189 General Appearance: no apparent distress Cardiovascular: normal rate Respiratory/Chest: decreased breath sounds, crackles/rales Abdomen: other - PEG Neurologic: unresponsive JOSSIE YAÑEZ September 14, 2016 19:43
--- NOTE | 2016-09-14 23:59 | Pulmonolgy Critical Care Note ---
Critical Care - Asmt/Plan Problems: (1) Respiratory failure (2) Respiratory distress (3) Dysphagia (4) Pneumonia (5) Feeding by G-tube (6) Anemia (7) Hypoalbuminemia (8) LFT elevation (9) Hyperkalemia Disposition: keep in ICU Critical Care - Objective Last 24 Hour Vital Signs Date Time Temp Pulse Resp B/P Pulse Ox O2 Delivery O2 Flow Rate FiO2 09/14/16 23:00 73 17 144/50 100 Mechanical Ventilator 40 09/14/16 22:53 84 19 40 09/14/16 22:00 78 28 156/59 99 Mechanical Ventilator 40 09/14/16 21:06 86 17 40 09/14/16 21:00 78 22 169/50 100 Mechanical Ventilator 40 09/14/16 20:30 85 17 Mechanical Ventilator 30 09/14/16 20:00 98.9 84 22 143/95 100 Mechanical Ventilator 40 09/14/16 20:00 84 09/14/16 20:00 40 09/14/16 19:00 75 21 153/51 100 Mechanical Ventilator 40 09/14/16 18:45 68 17 40 09/14/16 18:00 72 19 152/64 100 Mechanical Ventilator 40 09/14/16 17:30 83 17 40 09/14/16 17:00 80 19 157/62 100 Mechanical Ventilator 40 09/14/16 16:00 83 09/14/16 16:00 98.7 81 20 154/54 98 Mechanical Ventilator 40 09/14/16 16:00 40 09/14/16 15:00 82 17 40 09/14/16 15:00 76 20 157/61 100 Mechanical Ventilator 40 09/14/16 14:00 79 17 165/63 100 Mechanical Ventilator 40 09/14/16 13:00 80 17 40 09/14/16 13:00 77 18 154/52 100 Mechanical Ventilator 40 09/14/16 12:00 98.9 87 20 153/53 98 Mechanical Ventilator 35 09/14/16 12:00 82 09/14/16 11:00 84 17 40 09/14/16 11:00 40 09/14/16 11:00 87 18 169/80 98 Mechanical Ventilator 35 09/14/16 10:35 35 09/14/16 10:17 87 186/63 09/14/16 10:00 35 09/14/16 10:00 88 18 168/69 100 Mechanical Ventilator 35 09/14/16 09:45 100 09/14/16 09:00 83 19 141/49 100 Mechanical Ventilator 40 09/14/16 09:00 88 17 40 09/14/16 08:00 40 09/14/16 08:00 86 09/14/16 08:00 98.7 84 26 149/55 98 Mechanical Ventilator 40 09/14/16 07:00 83 24 158/53 98 Mechanical Ventilator 40 09/14/16 07:00 82 17 40 09/14/16 06:27 93 181/84 09/14/16 06:00 80 28 181/84 99 Mechanical Ventilator 40 09/14/16 05:03 91 17 40 09/14/16 05:00 88 28 174/77 99 Mechanical Ventilator 40 09/14/16 04:09 90 171/61 09/14/16 04:00 98.2 91 31 174/73 100 Mechanical Ventilator 40 09/14/16 04:00 40 09/14/16 04:00 91 09/14/16 03:00 89 32 180/85 100 Mechanical Ventilator 40 09/14/16 02:31 89 17 40 09/14/16 02:00 91 28 161/78 99 Mechanical Ventilator 40 09/14/16 01:29 89 171/56 09/14/16 01:10 87 19 40 09/14/16 01:00 90 28 150/60 99 Mechanical Ventilator 40 09/14/16 00:00 98.8 91 28 158/60 99 Mechanical Ventilator 40 09/14/16 00:00 91 09/14/16 00:00 40 Status: somnolent Condition: grave HEENT: atraumatic Neck: full ROM Lungs: rhonchi Heart: HR/BP stable Abdomen: soft, non-tender, active bowel sounds, feeding tube Micro: Microbiology Date/Time Source Procedure Growth Status 09/13/16 04:00 Stool Clostridium difficile Toxin Assay - Final Complete Accucheck: 121 Critical Care - Subjective ROS Limited/Unobtainable: Yes ICU Day: 10 Intubation Day: 10 Condition: improving IV Access: central EKG Rhythm: Sinus Rhythm FI02: 40 Vent Support Breath Rate: 17 Vent Support Mode: AC Vent Tidal Volume: 500 Sputum Amount: Scant PEEP: 5.0 PIP: 45 Tube Feeding Amount: 50 I&O: Intake and Output 09/13/16 09/14/16 19:00 07:00 Intake Total 1275 ml 1390 ml Output Total 1250 ml 2400 ml Balance 25 ml -1010 ml Intake Free Water 210 ml 250 ml IV Total 405 ml 480 ml Tube Feeding 660 ml 660 ml Output Urine Total 1250 ml 2400 ml # Bowel Movements 2 5 ET-Tube: 6.0 ET Position: 23 YONI ROCHE September 14, 2016 23:59
[2016-09-15] VITALS (24 sets, daily range): BP systolic 146–169; BP diastolic 50–85
[2016-09-15] MEDS: Dyna-Hex 2% Top Sol 8oz TOPIC SCH (04:40)
[2016-09-15 05:55] LABS: BASOPHILS % (AUTO) 0.7 % (0.0-2.0); EOSINOPHILS % (AUTO) 7.4 % (0.0-3.0); LYMPHOCYTES % (AUTO) 22.1 % (20.0-45.0); MEAN CORPUSCULAR HEMOGLOBIN 32.4 PG (27.0-31.0); MEAN CORPUSCULAR HGB CONC 31.7 G/DL (32.0-36.0); MEAN CORPUSCULAR VOLUME 102 FL (80-99); MONOCYTES % (AUTO) 7.4 % (1.0-10.0); NEUTROPHILS % (AUTO) 62.4 % (45.0-75.0); PLATELET COUNT 231 K/UL (150-450); RED BLOOD COUNT 2.86 M/UL (4.20-5.40); RED CELL DISTRIBUTION WIDTH 15.3 % (11.6-14.8); WHITE BLOOD COUNT 7.9 K/UL (4.8-10.8)
[2016-09-15 06:13] LABS: ALANINE AMINOTRANSFERASE 33 U/L (3-33); ALBUMIN/GLOBULIN RATIO 0.5 (1.0-2.7); ASPARTATE AMINO TRANSFERASE 34 U/L (5-40); CALCIUM 8.1 mg/dL (8.6-10.2); CHLORIDE 100 mEQ/L (98-107); CREATININE 0.3 mg/dL (0.5-0.9); HEMOLYSIS 2; POTASSIUM 3.6 mEQ/L (3.4-4.9); SODIUM 144 mEQ/L (135-145); TOTAL PROTEIN 5.9 g/dL (6.6-8.7)
[2016-09-15 06:14] LABS: ANION GAP 4 (5-15); CARBON DIOXIDE 40 mEQ/L (20-30)
[2016-09-15] MEDS: Meropenem 1 GM in NS 110 ML IVPB SCH ×2 (07:39→19:36)
[2016-09-15] MEDS: Pantoprazole Inj IVP SCH ×2 (08:15→20:45)
[2016-09-15] MEDS: Phospha 250 Neutral tab GT SCH ×3 (08:15→17:30)
[2016-09-15] MEDS: Ascorbic Acid 500mg tab GT SCH (08:15)
[2016-09-15] MEDS: Heparin 5000 units/ml inj SUBQ SCH ×2 (08:17→20:57)
[2016-09-15] MEDS: levETIRAcetam 500 MG in D5W 110 ML IV SCH ×2 (08:44→20:51)
--- NOTE | 2016-09-15 10:48 | Infectious Diseases Prog Note ---
Assessment/Plan Assessment/Plan antibiotics : meropenem A 1. e.coli pneumonia 2. respiratory failure 3. allergic reaction 4. leucocytosis resolved 5. 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 continue meropenem 2. will follow up cultures 3. cxr Subjective ROS Limited/Unobtainable: Yes Allergies: Coded Allergies: No Known Allergies (Verified , 03/14/16) Uncoded Allergies: MILK (Allergy, Unknown, 07/11/11) Objective Vital Signs Last 24 Hour Vital Signs Date Time Temp Pulse Resp B/P Pulse Ox O2 Delivery O2 Flow Rate FiO2 09/15/16 10:00 85 20 152/54 100 Mechanical Ventilator 40 09/15/16 09:01 80 18 40 09/15/16 09:00 79 21 168/61 100 Mechanical Ventilator 40 09/15/16 08:00 98.7 80 20 160/54 100 Mechanical Ventilator 40 09/15/16 08:00 73 09/15/16 07:58 40 09/15/16 07:00 81 21 156/58 100 Mechanical Ventilator 09/15/16 07:00 82 17 40 09/15/16 06:00 79 17 152/51 100 Mechanical Ventilator 40 09/15/16 05:04 90 20 40 09/15/16 05:00 80 23 169/76 100 Mechanical Ventilator 40 09/15/16 04:00 40 09/15/16 04:00 98.9 80 21 167/60 100 Mechanical Ventilator 40 09/15/16 04:00 81 09/15/16 03:00 78 22 167/58 100 Mechanical Ventilator 40 09/15/16 02:50 79 18 40 09/15/16 02:00 84 21 160/60 100 Mechanical Ventilator 40 09/15/16 01:23 75 17 40 09/15/16 01:00 76 19 167/65 100 Mechanical Ventilator 40 09/15/16 00:00 69 09/15/16 00:00 98.8 69 23 167/52 100 Mechanical Ventilator 40 09/15/16 00:00 40 09/14/16 23:00 73 17 144/50 100 Mechanical Ventilator 40 09/14/16 22:53 84 19 40 09/14/16 22:00 78 28 156/59 99 Mechanical Ventilator 40 09/14/16 21:06 86 17 40 09/14/16 21:00 78 22 169/50 100 Mechanical Ventilator 40 09/14/16 20:30 85 17 Mechanical Ventilator 30 09/14/16 20:00 98.9 84 22 143/95 100 Mechanical Ventilator 40 09/14/16 20:00 84 09/14/16 20:00 40 09/14/16 19:00 75 21 153/51 100 Mechanical Ventilator 40 09/14/16 18:45 68 17 40 09/14/16 18:00 72 19 152/64 100 Mechanical Ventilator 40 09/14/16 17:30 83 17 40 09/14/16 17:00 80 19 157/62 100 Mechanical Ventilator 40 09/14/16 16:00 83 09/14/16 16:00 98.7 81 20 154/54 98 Mechanical Ventilator 40 09/14/16 16:00 40 09/14/16 15:00 82 17 40 09/14/16 15:00 76 20 157/61 100 Mechanical Ventilator 40 09/14/16 14:00 79 17 165/63 100 Mechanical Ventilator 40 09/14/16 13:00 80 17 40 09/14/16 13:00 77 18 154/52 100 Mechanical Ventilator 40 09/14/16 12:00 98.9 87 20 153/53 98 Mechanical Ventilator 35 09/14/16 12:00 82 09/14/16 11:00 84 17 40 09/14/16 11:00 40 09/14/16 11:00 87 18 169/80 98 Mechanical Ventilator 35 Height (Feet): 5 Height (Inches): 6.00 Weight (Pounds): 198 HEENT: other Respiratory/Chest: lungs clear Cardiovascular: normal rate, regular rhythm, no gallop/murmur Abdomen: soft, non tender, other - GT Extremities: other - + edema, right arm PICC Microbiology Date/Time Source Procedure Growth Status 09/13/16 04:00 Stool Clostridium difficile Toxin Assay - Final Complete Laboratory Tests Test 09/14/16 10:54 09/15/16 05:00 Arterial Blood pH 7.463 (7.350-7.450) Arterial Blood Partial Pressure CO2 57.7 mmHg (35.0-45.0) *H Arterial Blood Partial Pressure O2 70.8 mmHg (75.0-100.0) L Arterial Blood HCO3 40.4 mmol/L (22.0-26.0) H Arterial Blood Oxygen Saturation 94.3 % (92.0-98.0) Arterial Blood Base Excess 14.5 Victorino Test Positive White Blood Count 7.9 K/UL (4.8-10.8) Red Blood Count 2.86 M/UL (4.20-5.40) L Hemoglobin 9.3 G/DL (12.0-16.0) L Hematocrit 29.3 % (37.0-47.0) L Mean Corpuscular Volume 102 FL (80-99) H Mean Corpuscular Hemoglobin 32.4 PG (27.0-31.0) H Mean Corpuscular Hemoglobin Concent 31.7 G/DL (32.0-36.0) L Red Cell Distribution Width 15.3 % (11.6-14.8) H Platelet Count 231 K/UL (150-450) Mean Platelet Volume 7.0 FL (6.5-10.1) Neutrophils (%) (Auto) 62.4 % (45.0-75.0) Lymphocytes (%) (Auto) 22.1 % (20.0-45.0) Monocytes (%) (Auto) 7.4 % (1.0-10.0) Eosinophils (%) (Auto) 7.4 % (0.0-3.0) H Basophils (%) (Auto) 0.7 % (0.0-2.0) Sodium Level 144 mEQ/L (135-145) Potassium Level 3.6 mEQ/L (3.4-4.9) Chloride Level 100 mEQ/L (98-107) Carbon Dioxide Level 40 mEQ/L (20-30) H Anion Gap 4 (5-15) L Blood Urea Nitrogen 19 mg/dL (7-23) Creatinine 0.3 mg/dL (0.5-0.9) L Estimat Glomerular Filtration Rate mL/min (>60) Glucose Level 110 mg/dL (74-106) H Calcium Level 8.1 mg/dL (8.6-10.2) L Total Bilirubin < 0.2 mg/dL (0.0-1.2) Aspartate Amino Transf (AST/SGOT) 34 U/L (5-40) Alanine Aminotransferase (ALT/SGPT) 33 U/L (3-33) Alkaline Phosphatase 94 U/L (35-104) Total Protein 5.9 g/dL (6.6-8.7) L Albumin 2.0 g/dL (3.5-5.2) L Globulin 3.9 g/dL Albumin/Globulin Ratio 0.5 (1.0-2.7) L KELLEY MITCHELL September 15, 2016 10:48
--- NOTE | 2016-09-15 11:06 | Pulmonolgy Critical Care Note ---
Critical Care - Asmt/Plan Problems: (1) Respiratory failure (2) Respiratory distress (3) Dysphagia (4) Pneumonia (5) Feeding by G-tube (6) Anemia (7) Hypoalbuminemia (8) LFT elevation (9) Hyperkalemia Assessment/Plan: Because of her mental status right lung pneumonia and inability to wean from the vent, she will need tracheostomy. Disposition: keep in ICU Time Spent (Minutes): 40 Notes Reviewed: ID Discussed with: nurses Critical Care - Objective Last 24 Hour Vital Signs Date Time Temp Pulse Resp B/P Pulse Ox O2 Delivery O2 Flow Rate FiO2 09/15/16 10:00 85 20 152/54 100 Mechanical Ventilator 40 09/15/16 09:01 80 18 40 09/15/16 09:00 79 21 168/61 100 Mechanical Ventilator 40 09/15/16 08:00 98.7 80 20 160/54 100 Mechanical Ventilator 40 09/15/16 08:00 73 09/15/16 07:58 40 09/15/16 07:00 81 21 156/58 100 Mechanical Ventilator 09/15/16 07:00 82 17 40 09/15/16 06:00 79 17 152/51 100 Mechanical Ventilator 40 09/15/16 05:04 90 20 40 09/15/16 05:00 80 23 169/76 100 Mechanical Ventilator 40 09/15/16 04:00 40 09/15/16 04:00 98.9 80 21 167/60 100 Mechanical Ventilator 40 09/15/16 04:00 81 09/15/16 03:00 78 22 167/58 100 Mechanical Ventilator 40 09/15/16 02:50 79 18 40 09/15/16 02:00 84 21 160/60 100 Mechanical Ventilator 40 09/15/16 01:23 75 17 40 09/15/16 01:00 76 19 167/65 100 Mechanical Ventilator 40 09/15/16 00:00 69 09/15/16 00:00 98.8 69 23 167/52 100 Mechanical Ventilator 40 09/15/16 00:00 40 09/14/16 23:00 73 17 144/50 100 Mechanical Ventilator 40 09/14/16 22:53 84 19 40 09/14/16 22:00 78 28 156/59 99 Mechanical Ventilator 40 09/14/16 21:06 86 17 40 09/14/16 21:00 78 22 169/50 100 Mechanical Ventilator 40 09/14/16 20:30 85 17 Mechanical Ventilator 30 09/14/16 20:00 98.9 84 22 143/95 100 Mechanical Ventilator 40 09/14/16 20:00 84 09/14/16 20:00 40 09/14/16 19:00 75 21 153/51 100 Mechanical Ventilator 40 09/14/16 18:45 68 17 40 09/14/16 18:00 72 19 152/64 100 Mechanical Ventilator 40 09/14/16 17:30 83 17 40 09/14/16 17:00 80 19 157/62 100 Mechanical Ventilator 40 09/14/16 16:00 83 09/14/16 16:00 98.7 81 20 154/54 98 Mechanical Ventilator 40 09/14/16 16:00 40 09/14/16 15:00 82 17 40 09/14/16 15:00 76 20 157/61 100 Mechanical Ventilator 40 09/14/16 14:00 79 17 165/63 100 Mechanical Ventilator 40 09/14/16 13:00 80 17 40 09/14/16 13:00 77 18 154/52 100 Mechanical Ventilator 40 09/14/16 12:00 98.9 87 20 153/53 98 Mechanical Ventilator 35 09/14/16 12:00 82 09/14/16 11:00 84 17 40 09/14/16 11:00 40 09/14/16 11:00 87 18 169/80 98 Mechanical Ventilator 35 Status: sedated Condition: grave HEENT: atraumatic Neck: trach Lungs: rhonchi Abdomen: non-tender, active bowel sounds Extremities: edema Decubiti: none, other - DTI of left lateral foot and right heal Micro: Microbiology Date/Time Source Procedure Growth Status 09/13/16 04:00 Stool Clostridium difficile Toxin Assay - Final Complete Accucheck: 121 Critical Care - Subjective ROS Limited/Unobtainable: Yes ICU Day: 11 Intubation Day: 11 Interval Events: Her tongue is enlarging and her lips are large. FI02: 40 Vent Support Breath Rate: 17 Vent Support Mode: AC Vent Tidal Volume: 500 Sputum Amount: Large PEEP: 5.0 PIP: 45 Tube Feeding Amount: 50 I&O: Intake and Output 09/14/16 09/15/16 19:00 07:00 Intake Total 1220 ml 1505 ml Output Total 1750 ml 1210 ml Balance -530 ml 295 ml Intake Free Water 50 ml 200 ml IV Total 675 ml 705 ml Tube Feeding 395 ml 600 ml Other 100 ml Output Urine Total 1750 ml 1210 ml # Bowel Movements 1 6 CXR: Failed weaning multiple times. She will need trach. ET-Tube: 6.0 ET Position: 23 YONI ROCHE September 15, 2016 11:06
--- NOTE | 2016-09-15 11:43 | Diagnostic Imaging Report ---
Indication: Abnormal breath sounds Comparison: 09/10/16 A single view chest radiograph was obtained. Findings: Interstitial edema is present. Heart size is normal. There is a right pleural effusion. Endotracheal tube position remains satisfactory. PICC line again noted. Impression: Interstitial edema. This may be noncardiogenic. Right pleural effusion No change
--- NOTE | 2016-09-15 14:34 | Cardiology Progress Note ---
Assessment/Plan Assessment/Plan 1. Asystole cardiac arrest due to respiratory failure, echo reveals normal LVEF with no wall motion abnormalities. 2. E.Coli pneumonia/leukocytosis. 3. Hypoxic, hypercarbic respiratory failure, awaiting tracheostomy tube placement. 4. s/p PEG Subjective Subjective Intubated, Fio2 40% Sinus rhythm a 75. Sedated Objective Last 24 Hour Vital Signs Date Time Temp Pulse Resp B/P Pulse Ox O2 Delivery O2 Flow Rate FiO2 09/15/16 14:00 76 21 156/62 100 Mechanical Ventilator 40 09/15/16 13:00 76 17 40 09/15/16 13:00 70 19 161/62 99 Mechanical Ventilator 40 09/15/16 12:00 98.2 74 20 146/54 100 Mechanical Ventilator 40 09/15/16 12:00 74 09/15/16 12:00 40 09/15/16 11:00 70 20 146/58 100 Mechanical Ventilator 40 09/15/16 10:56 71 17 40 09/15/16 10:00 85 20 152/54 100 Mechanical Ventilator 40 09/15/16 09:01 80 18 40 09/15/16 09:00 79 21 168/61 100 Mechanical Ventilator 40 09/15/16 08:00 98.7 80 20 160/54 100 Mechanical Ventilator 40 09/15/16 08:00 73 09/15/16 07:58 40 09/15/16 07:00 81 21 156/58 100 Mechanical Ventilator 09/15/16 07:00 82 17 40 09/15/16 06:00 79 17 152/51 100 Mechanical Ventilator 40 09/15/16 05:04 90 20 40 09/15/16 05:00 80 23 169/76 100 Mechanical Ventilator 40 09/15/16 04:00 40 09/15/16 04:00 98.9 80 21 167/60 100 Mechanical Ventilator 40 09/15/16 04:00 81 09/15/16 03:00 78 22 167/58 100 Mechanical Ventilator 40 09/15/16 02:50 79 18 40 09/15/16 02:00 84 21 160/60 100 Mechanical Ventilator 40 09/15/16 01:23 75 17 40 09/15/16 01:00 76 19 167/65 100 Mechanical Ventilator 40 09/15/16 00:00 69 09/15/16 00:00 98.8 69 23 167/52 100 Mechanical Ventilator 40 09/15/16 00:00 40 09/14/16 23:00 73 17 144/50 100 Mechanical Ventilator 40 09/14/16 22:53 84 19 40 09/14/16 22:00 78 28 156/59 99 Mechanical Ventilator 40 09/14/16 21:06 86 17 40 09/14/16 21:00 78 22 169/50 100 Mechanical Ventilator 40 09/14/16 20:30 85 17 Mechanical Ventilator 30 09/14/16 20:00 98.9 84 22 143/95 100 Mechanical Ventilator 40 09/14/16 20:00 84 09/14/16 20:00 40 09/14/16 19:00 75 21 153/51 100 Mechanical Ventilator 40 09/14/16 18:45 68 17 40 09/14/16 18:00 72 19 152/64 100 Mechanical Ventilator 40 09/14/16 17:30 83 17 40 09/14/16 17:00 80 19 157/62 100 Mechanical Ventilator 40 09/14/16 16:00 83 09/14/16 16:00 98.7 81 20 154/54 98 Mechanical Ventilator 40 09/14/16 16:00 40 09/14/16 15:00 82 17 40 09/14/16 15:00 76 20 157/61 100 Mechanical Ventilator 40 Intake and Output 09/14/16 09/15/16 19:00 07:00 Intake Total 1220 ml 1505 ml Output Total 1750 ml 1210 ml Balance -530 ml 295 ml Intake Free Water 50 ml 200 ml IV Total 675 ml 705 ml Tube Feeding 395 ml 600 ml Other 100 ml Output Urine Total 1750 ml 1210 ml # Bowel Movements 1 6 2D Echo: LVEF 55%, Grade I LVDD, RVSP 57 mmHg Laboratory Tests Test 09/15/16 05:00 White Blood Count 7.9 K/UL (4.8-10.8) Red Blood Count 2.86 M/UL (4.20-5.40) L Hemoglobin 9.3 G/DL (12.0-16.0) L Hematocrit 29.3 % (37.0-47.0) L Mean Corpuscular Volume 102 FL (80-99) H Mean Corpuscular Hemoglobin 32.4 PG (27.0-31.0) H Mean Corpuscular Hemoglobin Concent 31.7 G/DL (32.0-36.0) L Red Cell Distribution Width 15.3 % (11.6-14.8) H Platelet Count 231 K/UL (150-450) Mean Platelet Volume 7.0 FL (6.5-10.1) Neutrophils (%) (Auto) 62.4 % (45.0-75.0) Lymphocytes (%) (Auto) 22.1 % (20.0-45.0) Monocytes (%) (Auto) 7.4 % (1.0-10.0) Eosinophils (%) (Auto) 7.4 % (0.0-3.0) H Basophils (%) (Auto) 0.7 % (0.0-2.0) Sodium Level 144 mEQ/L (135-145) Potassium Level 3.6 mEQ/L (3.4-4.9) Chloride Level 100 mEQ/L (98-107) Carbon Dioxide Level 40 mEQ/L (20-30) H Anion Gap 4 (5-15) L Blood Urea Nitrogen 19 mg/dL (7-23) Creatinine 0.3 mg/dL (0.5-0.9) L Estimat Glomerular Filtration Rate mL/min (>60) Glucose Level 110 mg/dL (74-106) H Calcium Level 8.1 mg/dL (8.6-10.2) L Total Bilirubin < 0.2 mg/dL (0.0-1.2) Aspartate Amino Transf (AST/SGOT) 34 U/L (5-40) Alanine Aminotransferase (ALT/SGPT) 33 U/L (3-33) Alkaline Phosphatase 94 U/L (35-104) Total Protein 5.9 g/dL (6.6-8.7) L Albumin 2.0 g/dL (3.5-5.2) L Globulin 3.9 g/dL Albumin/Globulin Ratio 0.5 (1.0-2.7) L Microbiology Date/Time Source Procedure Growth Status 09/13/16 04:00 Stool Clostridium difficile Toxin Assay - Final Complete Objective HEENT: Intubated, normocephalic, atraumatic, PERRLA, EOMI Neck: no JVD, no carotid bruit, upstroke 2+ B/L Respiratory: decreased breath sounds, crackles both bases Cardiovascular: regular rate, rhythm, normal S1S2,no murmurs, gallops or rubs Gastrointestinal: normal BS, soft non-tender, non-distended, GT in place Musculoskeletal: no clubbing cyanosis or edema MARK LEVY September 15, 2016 14:34
--- NOTE | 2016-09-15 15:57 | Nephrology Progress Note ---
Assessment/Plan Problem List: (1) Azotemia (2) Hyperkalemia Assessment: Resolved (3) Hyponatremia Assessment: Resolved (4) Septic shock (5) Respiratory distress (6) Dysphagia (7) Pneumonia (8) Anemia (9) Dehydration Plan Supportive care Monitor lytes, correct PRN Avoid nephrotoxic agents G-Tube feeding per GI Monitor H&H, transfuse PRN Monitor neuro status Continue wound care DVT prophylaxis PPI AM labs Subjective ROS Limited/Unobtainable: Yes Subjective Intubated, on mech vent in ICU Objective Objective Last 24 Hour Vital Signs Date Time Temp Pulse Resp B/P Pulse Ox O2 Delivery O2 Flow Rate FiO2 09/15/16 15:00 73 17 40 09/15/16 15:00 74 20 162/66 100 Mechanical Ventilator 40 09/15/16 14:00 76 21 156/62 100 Mechanical Ventilator 40 09/15/16 13:00 76 17 40 09/15/16 13:00 70 19 161/62 99 Mechanical Ventilator 40 09/15/16 12:00 98.2 74 20 146/54 100 Mechanical Ventilator 40 09/15/16 12:00 74 09/15/16 12:00 40 09/15/16 11:00 70 20 146/58 100 Mechanical Ventilator 40 09/15/16 10:56 71 17 40 09/15/16 10:00 85 20 152/54 100 Mechanical Ventilator 40 09/15/16 09:01 80 18 40 09/15/16 09:00 79 21 168/61 100 Mechanical Ventilator 40 09/15/16 08:00 98.7 80 20 160/54 100 Mechanical Ventilator 40 09/15/16 08:00 73 09/15/16 07:58 40 09/15/16 07:00 81 21 156/58 100 Mechanical Ventilator 09/15/16 07:00 82 17 40 09/15/16 06:00 79 17 152/51 100 Mechanical Ventilator 40 09/15/16 05:04 90 20 40 09/15/16 05:00 80 23 169/76 100 Mechanical Ventilator 40 09/15/16 04:00 40 09/15/16 04:00 98.9 80 21 167/60 100 Mechanical Ventilator 40 09/15/16 04:00 81 09/15/16 03:00 78 22 167/58 100 Mechanical Ventilator 40 09/15/16 02:50 79 18 40 09/15/16 02:00 84 21 160/60 100 Mechanical Ventilator 40 09/15/16 01:23 75 17 40 09/15/16 01:00 76 19 167/65 100 Mechanical Ventilator 40 09/15/16 00:00 69 09/15/16 00:00 98.8 69 23 167/52 100 Mechanical Ventilator 40 09/15/16 00:00 40 09/14/16 23:00 73 17 144/50 100 Mechanical Ventilator 40 09/14/16 22:53 84 19 40 09/14/16 22:00 78 28 156/59 99 Mechanical Ventilator 40 09/14/16 21:06 86 17 40 09/14/16 21:00 78 22 169/50 100 Mechanical Ventilator 40 09/14/16 20:30 85 17 Mechanical Ventilator 30 09/14/16 20:00 98.9 84 22 143/95 100 Mechanical Ventilator 40 09/14/16 20:00 84 09/14/16 20:00 40 09/14/16 19:00 75 21 153/51 100 Mechanical Ventilator 40 09/14/16 18:45 68 17 40 09/14/16 18:00 72 19 152/64 100 Mechanical Ventilator 40 09/14/16 17:30 83 17 40 09/14/16 17:00 80 19 157/62 100 Mechanical Ventilator 40 09/14/16 16:00 83 09/14/16 16:00 98.7 81 20 154/54 98 Mechanical Ventilator 40 09/14/16 16:00 40 Intake and Output 09/14/16 09/15/16 19:00 07:00 Intake Total 1220 ml 1505 ml Output Total 1750 ml 1210 ml Balance -530 ml 295 ml Intake Free Water 50 ml 200 ml IV Total 675 ml 705 ml Tube Feeding 395 ml 600 ml Other 100 ml Output Urine Total 1750 ml 1210 ml # Bowel Movements 1 6 Laboratory Tests 09/15/16 05:00: White Blood Count 7.9, Red Blood Count 2.86L, Hemoglobin 9.3L, Hematocrit 29.3L , Mean Corpuscular Volume 102H, Mean Corpuscular Hemoglobin 32.4H, Mean Corpuscular Hemoglobin Concent 31.7L, Red Cell Distribution Width 15.3H, Platelet Count 231, Mean Platelet Volume 7.0, Neutrophils (%) (Auto) 62.4, Lymphocytes (%) (Auto) 22.1, Monocytes (%) (Auto) 7.4, Eosinophils (%) (Auto) 7.4H, Basophils (%) (Auto) 0.7, Sodium Level 144, Potassium Level 3.6, Chloride Level 100, Carbon Dioxide Level 40H, Anion Gap 4L, Blood Urea Nitrogen 19, Creatinine 0.3L, Estimat Glomerular Filtration Rate , Glucose Level 110H, Calcium Level 8.1L, Total Bilirubin < 0.2, Aspartate Amino Transf (AST/SGOT) 34 , Alanine Aminotransferase (ALT/SGPT) 33, Alkaline Phosphatase 94, Total Protein 5.9L, Albumin 2.0L, Globulin 3.9, Albumin/Globulin Ratio 0.5L Height (Feet): 5 Height (Inches): 6.00 Weight (Pounds): 198 General Appearance: no apparent distress Neck: supple Cardiovascular: normal rate Respiratory/Chest: crackles/rales Abdomen: other - peg Genitourinary/Rectal: other - simpson Extremities: moderate edema, pitting Neurologic: unresponsive JOSSIE YAÑEZ September 15, 2016 15:57
[2016-09-15] MEDS ORDERED: 1/2 NS 1000ml IV ONE (16:29)
[2016-09-16] VITALS (25 sets, daily range): BP systolic 123–168; BP diastolic 51–115
--- NOTE | 2016-09-16 01:33 | Pulmonolgy Critical Care Note ---
Critical Care - Asmt/Plan Problems: (1) Respiratory failure (2) Respiratory distress (3) Dysphagia (4) Pneumonia (5) Feeding by G-tube (6) Anemia (7) Hypoalbuminemia (8) LFT elevation (9) Hyperkalemia Assessment/Plan: Because of her mental status right lung pneumonia and inability to wean from the vent, she will need tracheostomy. Cardiac: continue to monitor HR/BP Infectious Disease: check cultures Gastrointestinal: continue feedings/current rate Critical Care - Objective Last 24 Hour Vital Signs Date Time Temp Pulse Resp B/P Pulse Ox O2 Delivery O2 Flow Rate FiO2 09/16/16 01:06 78 17 40 09/16/16 00:00 40 09/16/16 00:00 98.7 70 19 164/60 100 Mechanical Ventilator 40 09/16/16 00:00 73 09/15/16 23:00 78 20 150/62 99 Mechanical Ventilator 40 09/15/16 22:51 75 17 40 09/15/16 22:00 75 20 154/50 99 Mechanical Ventilator 40 09/15/16 21:15 77 17 40 09/15/16 21:00 73 20 162/75 100 Mechanical Ventilator 40 09/15/16 20:00 79 09/15/16 20:00 97.7 78 19 161/72 100 Mechanical Ventilator 40 09/15/16 20:00 40 09/15/16 19:00 70 20 169/64 100 Mechanical Ventilator 40 09/15/16 18:46 81 17 40 09/15/16 18:00 71 21 168/65 100 Mechanical Ventilator 40 09/15/16 17:00 83 20 153/85 98 Mechanical Ventilator 40 09/15/16 17:00 83 19 40 09/15/16 16:00 98.9 74 19 163/61 100 Mechanical Ventilator 40 09/15/16 16:00 40 09/15/16 16:00 78 09/15/16 15:00 73 17 40 09/15/16 15:00 74 20 162/66 100 Mechanical Ventilator 40 09/15/16 14:00 76 21 156/62 100 Mechanical Ventilator 40 09/15/16 13:00 76 17 40 09/15/16 13:00 70 19 161/62 99 Mechanical Ventilator 40 09/15/16 12:00 98.2 74 20 146/54 100 Mechanical Ventilator 40 09/15/16 12:00 74 09/15/16 12:00 40 09/15/16 11:00 70 20 146/58 100 Mechanical Ventilator 40 09/15/16 10:56 71 17 40 09/15/16 10:00 85 20 152/54 100 Mechanical Ventilator 40 09/15/16 09:01 80 18 40 09/15/16 09:00 79 21 168/61 100 Mechanical Ventilator 40 09/15/16 08:00 98.7 80 20 160/54 100 Mechanical Ventilator 40 09/15/16 08:00 73 09/15/16 07:58 40 09/15/16 07:00 81 21 156/58 100 Mechanical Ventilator 09/15/16 07:00 82 17 40 09/15/16 06:00 79 17 152/51 100 Mechanical Ventilator 40 09/15/16 05:04 90 20 40 09/15/16 05:00 80 23 169/76 100 Mechanical Ventilator 40 09/15/16 04:00 40 09/15/16 04:00 98.9 80 21 167/60 100 Mechanical Ventilator 40 09/15/16 04:00 81 09/15/16 03:00 78 22 167/58 100 Mechanical Ventilator 40 09/15/16 02:50 79 18 40 09/15/16 02:00 84 21 160/60 100 Mechanical Ventilator 40 Status: obtunded Condition: grave HEENT: atraumatic Neck: full ROM Lungs: rhonchi Heart: HR/BP stable Abdomen: soft, non-tender, active bowel sounds Extremities: edema Micro: Microbiology Date/Time Source Procedure Growth Status 09/13/16 04:00 Stool Clostridium difficile Toxin Assay - Final Complete Accucheck: 121 Critical Care - Subjective ROS Limited/Unobtainable: Yes ICU Day: 12 Intubation Day: 12 Interval Events: This is late entry. Patient was seen about 10 AM on 04/17. Over all no change in the size of her tongue and lips. FI02: 40 Vent Support Breath Rate: 17 Vent Support Mode: AC Vent Tidal Volume: 500 Sputum Amount: Scant PEEP: 5.0 PIP: 44 Tube Feeding Amount: 50 I&O: Intake and Output 09/15/16 09/16/16 19:00 07:00 Intake Total 1525 ml 735 ml Output Total 1070 ml 750 ml Balance 455 ml -15 ml Intake Free Water 100 ml 100 ml IV Total 645 ml 385 ml Tube Feeding 600 ml 250 ml Other 180 ml Output Urine Total 1070 ml 750 ml # Bowel Movements 1 2 ET-Tube: 6.0 ET Position: 23 YONI ROCHE September 16, 2016 01:33
[2016-09-16] MEDS: Dyna-Hex 2% Top Sol 8oz TOPIC SCH (05:33)
[2016-09-16 07:55] LABS: BASOPHILS % (AUTO) 0.6 % (0.0-2.0); EOSINOPHILS % (AUTO) 7.2 % (0.0-3.0); LYMPHOCYTES % (AUTO) 24.6 % (20.0-45.0); MEAN CORPUSCULAR HEMOGLOBIN 33.7 PG (27.0-31.0); MEAN CORPUSCULAR HGB CONC 33.5 G/DL (32.0-36.0); MEAN CORPUSCULAR VOLUME 101 FL (80-99); MONOCYTES % (AUTO) 5.7 % (1.0-10.0); NEUTROPHILS % (AUTO) 61.9 % (45.0-75.0); PLATELET COUNT 274 K/UL (150-450); RED BLOOD COUNT 2.82 M/UL (4.20-5.40); RED CELL DISTRIBUTION WIDTH 15.2 % (11.6-14.8); WHITE BLOOD COUNT 8.2 K/UL (4.8-10.8)
[2016-09-16] MEDS: Meropenem 1 GM in NS 110 ML IVPB SCH ×2 (08:01→19:24)
[2016-09-16 08:10] LABS: ALANINE AMINOTRANSFERASE 28 U/L (3-33); ALBUMIN/GLOBULIN RATIO 0.5 (1.0-2.7); ANION GAP 6 (5-15); ASPARTATE AMINO TRANSFERASE 29 U/L (5-40); CALCIUM 8.2 mg/dL (8.6-10.2); CARBON DIOXIDE 40 mEQ/L (20-30); CHLORIDE 96 mEQ/L (98-107); CREATININE 0.3 mg/dL (0.5-0.9); HEMOLYSIS 1; POTASSIUM 3.7 mEQ/L (3.4-4.9); SODIUM 142 mEQ/L (135-145)
[2016-09-16] MEDS ORDERED: 1/2 NS 1000ml IV ONE (09:10)
[2016-09-16] MEDS ORDERED: Tubing IV Secondary IV ONE (09:10)
[2016-09-16] MEDS: Phospha 250 Neutral tab GT SCH ×3 (09:21→18:01)
[2016-09-16] MEDS: Pantoprazole Inj IVP SCH ×2 (09:21→20:35)
[2016-09-16] MEDS: Ascorbic Acid 500mg tab GT SCH (09:21)
[2016-09-16] MEDS: levETIRAcetam 500 MG in D5W 110 ML IV SCH ×2 (09:23→20:35)
[2016-09-16] MEDS: Heparin 5000 units/ml inj SUBQ SCH ×2 (09:23→20:36)
--- NOTE | 2016-09-16 09:36 | Infectious Diseases Prog Note ---
Assessment/Plan Assessment/Plan A: Sepsis Pneumonia MRSA & NISREEN colonization Cardiac arrest Hypercapnic respiratory failure Dementia Anemia Eosinophilia P; Continue Meropenem needs tracheostomy Subjective ROS Limited/Unobtainable: Yes Allergies: Coded Allergies: No Known Allergies (Verified , 03/14/16) Uncoded Allergies: MILK (Allergy, Unknown, 07/11/11) Objective Vital Signs Last 24 Hour Vital Signs Date Time Temp Pulse Resp B/P Pulse Ox O2 Delivery O2 Flow Rate FiO2 09/16/16 09:00 77 24 153/59 100 Mechanical Ventilator 40 09/16/16 08:00 97.6 75 23 157/60 100 Mechanical Ventilator 40 09/16/16 08:00 40 09/16/16 08:00 78 09/16/16 07:25 71 20 123/81 100 Mechanical Ventilator 40 09/16/16 07:08 82 17 40 09/16/16 07:00 80 20 161/51 100 Mechanical Ventilator 40 09/16/16 06:00 76 20 158/57 100 Mechanical Ventilator 40 09/16/16 05:03 87 17 40 09/16/16 05:00 81 21 129/115 100 Mechanical Ventilator 40 09/16/16 04:00 97.8 82 19 168/64 100 Mechanical Ventilator 40 09/16/16 04:00 40 09/16/16 04:00 82 09/16/16 04:00 60 09/16/16 04:00 98.4 81 20 168/64 100 Mechanical Ventilator 40 09/16/16 03:00 76 20 165/83 100 Mechanical Ventilator 40 09/16/16 02:58 80 17 40 09/16/16 02:00 82 20 168/60 100 Mechanical Ventilator 40 09/16/16 01:06 78 17 40 09/16/16 01:00 82 21 159/56 100 Mechanical Ventilator 40 09/16/16 00:00 40 09/16/16 00:00 98.7 70 19 164/60 100 Mechanical Ventilator 40 09/16/16 00:00 73 09/15/16 23:00 78 20 150/62 99 Mechanical Ventilator 40 09/15/16 22:51 75 17 40 09/15/16 22:00 75 20 154/50 99 Mechanical Ventilator 40 09/15/16 21:15 77 17 40 09/15/16 21:00 73 20 162/75 100 Mechanical Ventilator 40 09/15/16 20:00 79 09/15/16 20:00 97.7 78 19 161/72 100 Mechanical Ventilator 40 09/15/16 20:00 40 09/15/16 19:00 70 20 169/64 100 Mechanical Ventilator 40 09/15/16 18:46 81 17 40 09/15/16 18:00 71 21 168/65 100 Mechanical Ventilator 40 09/15/16 17:00 83 20 153/85 98 Mechanical Ventilator 40 09/15/16 17:00 83 19 40 09/15/16 16:00 98.9 74 19 163/61 100 Mechanical Ventilator 40 09/15/16 16:00 40 09/15/16 16:00 78 09/15/16 15:00 73 17 40 09/15/16 15:00 74 20 162/66 100 Mechanical Ventilator 40 09/15/16 14:00 76 21 156/62 100 Mechanical Ventilator 40 09/15/16 13:00 76 17 40 09/15/16 13:00 70 19 161/62 99 Mechanical Ventilator 40 09/15/16 12:00 98.2 74 20 146/54 100 Mechanical Ventilator 40 09/15/16 12:00 74 09/15/16 12:00 40 09/15/16 11:00 70 20 146/58 100 Mechanical Ventilator 40 09/15/16 10:56 71 17 40 09/15/16 10:00 85 20 152/54 100 Mechanical Ventilator 40 Height (Feet): 5 Height (Inches): 6.00 Weight (Pounds): 197 HEENT: other - swelling of tongue & lips Respiratory/Chest: lungs clear, other - on ventilator Abdomen: soft, non tender Extremities: other - Generalized edema, R arm PICC line Neurologic/Psychiatric: other - opens eyes Laboratory Tests Test 09/16/16 05:00 White Blood Count 8.2 K/UL (4.8-10.8) Red Blood Count 2.82 M/UL (4.20-5.40) L Hemoglobin 9.5 G/DL (12.0-16.0) L Hematocrit 28.4 % (37.0-47.0) L Mean Corpuscular Volume 101 FL (80-99) H Mean Corpuscular Hemoglobin 33.7 PG (27.0-31.0) H Mean Corpuscular Hemoglobin Concent 33.5 G/DL (32.0-36.0) Red Cell Distribution Width 15.2 % (11.6-14.8) H Platelet Count 274 K/UL (150-450) Mean Platelet Volume 7.0 FL (6.5-10.1) Neutrophils (%) (Auto) 61.9 % (45.0-75.0) Lymphocytes (%) (Auto) 24.6 % (20.0-45.0) Monocytes (%) (Auto) 5.7 % (1.0-10.0) Eosinophils (%) (Auto) 7.2 % (0.0-3.0) H Basophils (%) (Auto) 0.6 % (0.0-2.0) Sodium Level 142 mEQ/L (135-145) Potassium Level 3.7 mEQ/L (3.4-4.9) Chloride Level 96 mEQ/L (98-107) L Carbon Dioxide Level 40 mEQ/L (20-30) H Anion Gap 6 (5-15) Blood Urea Nitrogen 18 mg/dL (7-23) Creatinine 0.3 mg/dL (0.5-0.9) L Estimat Glomerular Filtration Rate mL/min (>60) Glucose Level 90 mg/dL (74-106) Calcium Level 8.2 mg/dL (8.6-10.2) L Total Bilirubin 0.2 mg/dL (0.0-1.2) Aspartate Amino Transf (AST/SGOT) 29 U/L (5-40) Alanine Aminotransferase (ALT/SGPT) 28 U/L (3-33) Alkaline Phosphatase 99 U/L (35-104) Total Protein 6.0 g/dL (6.6-8.7) L Albumin 2.1 g/dL (3.5-5.2) L Globulin 3.9 g/dL Albumin/Globulin Ratio 0.5 (1.0-2.7) L Current Medications Medications (Trade) Dose Ordered Sig/Lonny Route PRN Reason Start Time Stop Time Status Last Admin Dose Admin Ascorbic Acid (Vitamin C) 500 mg DAILY GT 09/07/16 09:00 10/07/16 08:59 09/16/16 09:21 Chlorhexidine Gluconate 1 applic 1 applic DAILY TOPIC 09/08/16 09:00 10/08/16 08:59 09/16/16 05:33 Diltiazem HCl (Cardizem) 5 mg Q1H PRN IV SBP>170 09/06/16 08:00 10/06/16 07:59 09/14/16 10:17 Furosemide 20 mg 20 mg EVERY 12 HOURS IV 09/13/16 16:00 10/13/16 15:59 09/16/16 09:22 Heparin Sodium (Porcine) (Heparin 5000 units/ml) 5,000 units EVERY 12 HOURS SUBQ 09/04/16 21:00 10/04/16 20:59 09/16/16 09:23 Levetiracetam/ Dextrose (Keppra/D5W) 115 ml @ 460 mls/hr Q12HR IV 09/04/16 21:00 10/04/16 20:59 09/16/16 09:23 Meropenem/Sodium Chloride (Merrem/Sodium Chloride) 110 ml @ 220 mls/hr Q12HR@0730,1930 IVPB 09/15/16 19:30 09/24/16 23:59 09/16/16 08:01 Pantoprazole 40 mg 40 mg EVERY 12 HOURS IVP 09/04/16 21:00 10/04/16 20:59 09/16/16 09:21 Phosphorus (Phospha 250 Neutral) 500 mg THREE TIMES A DAY GT 09/13/16 13:00 10/13/16 12:59 09/16/16 09:21 Sodium Chloride (0.45% NS 1000ml) 1,000 ml @ 40 mls/hr Q24H IV 09/07/16 15:00 10/07/16 14:59 09/15/16 17:31 JAYLIN BENTLEY September 16, 2016 09:36
--- NOTE | 2016-09-16 22:26 | Pulmonolgy Critical Care Note ---
Critical Care - Asmt/Plan Problems: (1) Respiratory failure (2) Respiratory distress (3) Dysphagia (4) Pneumonia (5) Feeding by G-tube (6) Anemia (7) Hypoalbuminemia (8) LFT elevation (9) Hyperkalemia Assessment/Plan: Because of her mental status right lung pneumonia and inability to wean from the vent, she will need tracheostomy. Respiratory: weaning trial Cardiac: continue to monitor HR/BP Renal: F/U I&O Infectious Disease: check cultures Gastrointestinal: continue feedings/current rate Hematologic: monitor H/H Disposition: keep in ICU Time Spent (Minutes): 40 Discussed with: nurses Critical Care - Objective Last 24 Hour Vital Signs Date Time Temp Pulse Resp B/P Pulse Ox O2 Delivery O2 Flow Rate FiO2 09/16/16 21:40 74 17 40 09/16/16 21:00 76 20 157/69 100 Mechanical Ventilator 40 09/16/16 20:00 97.9 74 20 145/76 100 Mechanical Ventilator 40 09/16/16 20:00 78 09/16/16 20:00 40 09/16/16 19:43 79 17 40 09/16/16 19:00 77 17 137/92 100 Mechanical Ventilator 40 09/16/16 18:00 72 20 156/63 100 Mechanical Ventilator 40 09/16/16 17:10 78 17 40 09/16/16 17:00 78 17 164/64 100 Mechanical Ventilator 40 09/16/16 16:00 98.2 76 17 153/58 95 Mechanical Ventilator 40 09/16/16 16:00 76 09/16/16 16:00 40 09/16/16 15:12 71 17 40 09/16/16 15:00 78 17 143/58 100 Mechanical Ventilator 40 09/16/16 14:00 77 19 150/61 98 Mechanical Ventilator 40 09/16/16 13:02 87 19 146/71 100 Mechanical Ventilator 40 09/16/16 12:52 91 22 40 09/16/16 12:40 40 09/16/16 12:00 98.1 90 23 154/60 99 Mechanical Ventilator 40 09/16/16 12:00 90 09/16/16 11:00 85 28 157/67 99 Mechanical Ventilator 40 09/16/16 10:53 83 27 40 09/16/16 10:00 79 20 154/53 100 Mechanical Ventilator 40 09/16/16 09:40 40 09/16/16 09:31 100 09/16/16 09:30 80 23 40 09/16/16 09:00 77 24 153/59 100 Mechanical Ventilator 40 09/16/16 08:00 97.6 75 23 157/60 100 Mechanical Ventilator 40 09/16/16 08:00 40 09/16/16 08:00 78 09/16/16 07:25 71 20 123/81 100 Mechanical Ventilator 40 09/16/16 07:08 82 17 40 09/16/16 07:00 80 20 161/51 100 Mechanical Ventilator 40 09/16/16 06:00 76 20 158/57 100 Mechanical Ventilator 40 09/16/16 05:03 87 17 40 09/16/16 05:00 81 21 129/115 100 Mechanical Ventilator 40 09/16/16 04:00 97.8 82 19 168/64 100 Mechanical Ventilator 40 09/16/16 04:00 40 09/16/16 04:00 82 09/16/16 04:00 60 09/16/16 04:00 98.4 81 20 168/64 100 Mechanical Ventilator 40 09/16/16 03:00 76 20 165/83 100 Mechanical Ventilator 40 09/16/16 02:58 80 17 40 09/16/16 02:00 82 20 168/60 100 Mechanical Ventilator 40 09/16/16 01:06 78 17 40 09/16/16 01:00 82 21 159/56 100 Mechanical Ventilator 40 09/16/16 00:00 40 09/16/16 00:00 98.7 70 19 164/60 100 Mechanical Ventilator 40 09/16/16 00:00 73 09/15/16 23:00 78 20 150/62 99 Mechanical Ventilator 40 09/15/16 22:51 75 17 40 Status: awake Condition: improving HEENT: atraumatic Neck: full ROM Lungs: rhonchi Heart: HR/BP stable Abdomen: soft, active bowel sounds Extremities: edema Decubiti: none Accucheck: 121 Critical Care - Subjective ROS Limited/Unobtainable: Yes ICU Day: 13 Intubation Day: 13 Interval Events: Her tongue is large half way out the mouth Condition: improving IV Access: central EKG Rhythm: Sinus Rhythm FI02: 40 Vent Support Breath Rate: 17 Vent Support Mode: AC Vent Tidal Volume: 500 Sputum Amount: Small PEEP: 5.0 PIP: 43 Tube Feeding Amount: 50 I&O: Intake and Output 09/15/16 09/16/16 19:00 07:00 Intake Total 1525 ml 1345 ml Output Total 1070 ml 1790 ml Balance 455 ml -445 ml Intake Free Water 100 ml 200 ml IV Total 645 ml 545 ml Tube Feeding 600 ml 600 ml Other 180 ml Output Urine Total 1070 ml 1790 ml # Bowel Movements 1 3 ET-Tube: 6.0 ET Position: 23 YONI ROCHE September 16, 2016 22:25
--- NOTE | 2016-09-16 22:40 | Nephrology Progress Note ---
Assessment/Plan Problem List: (1) Azotemia (2) Hyperkalemia Assessment: Resolved (3) Hyponatremia Assessment: Resolved (4) Septic shock (5) Respiratory distress (6) Dysphagia (7) Pneumonia (8) Anemia (9) Dehydration Plan Supportive care Monitor lytes, correct PRN Avoid nephrotoxic agents G-Tube feeding per GI Monitor H&H, transfuse PRN Monitor neuro status Continue wound care DVT prophylaxis PPI AM labs Subjective ROS Limited/Unobtainable: Yes Subjective Intubated, on mech vent in ICU Objective Objective Last 24 Hour Vital Signs Date Time Temp Pulse Resp B/P Pulse Ox O2 Delivery O2 Flow Rate FiO2 09/16/16 21:40 74 17 40 09/16/16 21:00 76 20 157/69 100 Mechanical Ventilator 40 09/16/16 20:00 97.9 74 20 145/76 100 Mechanical Ventilator 40 09/16/16 20:00 78 09/16/16 20:00 40 09/16/16 19:43 79 17 40 09/16/16 19:00 77 17 137/92 100 Mechanical Ventilator 40 09/16/16 18:00 72 20 156/63 100 Mechanical Ventilator 40 09/16/16 17:10 78 17 40 09/16/16 17:00 78 17 164/64 100 Mechanical Ventilator 40 09/16/16 16:00 98.2 76 17 153/58 95 Mechanical Ventilator 40 09/16/16 16:00 76 09/16/16 16:00 40 09/16/16 15:12 71 17 40 09/16/16 15:00 78 17 143/58 100 Mechanical Ventilator 40 09/16/16 14:00 77 19 150/61 98 Mechanical Ventilator 40 09/16/16 13:02 87 19 146/71 100 Mechanical Ventilator 40 09/16/16 12:52 91 22 40 09/16/16 12:40 40 09/16/16 12:00 98.1 90 23 154/60 99 Mechanical Ventilator 40 09/16/16 12:00 90 09/16/16 11:00 85 28 157/67 99 Mechanical Ventilator 40 09/16/16 10:53 83 27 40 09/16/16 10:00 79 20 154/53 100 Mechanical Ventilator 40 09/16/16 09:40 40 09/16/16 09:31 100 09/16/16 09:30 80 23 40 09/16/16 09:00 77 24 153/59 100 Mechanical Ventilator 40 09/16/16 08:00 97.6 75 23 157/60 100 Mechanical Ventilator 40 09/16/16 08:00 40 09/16/16 08:00 78 09/16/16 07:25 71 20 123/81 100 Mechanical Ventilator 40 09/16/16 07:08 82 17 40 09/16/16 07:00 80 20 161/51 100 Mechanical Ventilator 40 09/16/16 06:00 76 20 158/57 100 Mechanical Ventilator 40 09/16/16 05:03 87 17 40 09/16/16 05:00 81 21 129/115 100 Mechanical Ventilator 40 09/16/16 04:00 97.8 82 19 168/64 100 Mechanical Ventilator 40 09/16/16 04:00 40 09/16/16 04:00 82 09/16/16 04:00 60 09/16/16 04:00 98.4 81 20 168/64 100 Mechanical Ventilator 40 09/16/16 03:00 76 20 165/83 100 Mechanical Ventilator 40 09/16/16 02:58 80 17 40 09/16/16 02:00 82 20 168/60 100 Mechanical Ventilator 40 09/16/16 01:06 78 17 40 09/16/16 01:00 82 21 159/56 100 Mechanical Ventilator 40 09/16/16 00:00 40 09/16/16 00:00 98.7 70 19 164/60 100 Mechanical Ventilator 40 09/16/16 00:00 73 09/15/16 23:00 78 20 150/62 99 Mechanical Ventilator 40 09/15/16 22:51 75 17 40 Intake and Output 09/15/16 09/16/16 19:00 07:00 Intake Total 1525 ml 1345 ml Output Total 1070 ml 1790 ml Balance 455 ml -445 ml Intake Free Water 100 ml 200 ml IV Total 645 ml 545 ml Tube Feeding 600 ml 600 ml Other 180 ml Output Urine Total 1070 ml 1790 ml # Bowel Movements 1 3 Laboratory Tests 09/16/16 05:00: White Blood Count 8.2, Red Blood Count 2.82L, Hemoglobin 9.5L, Hematocrit 28.4L , Mean Corpuscular Volume 101H, Mean Corpuscular Hemoglobin 33.7H, Mean Corpuscular Hemoglobin Concent 33.5, Red Cell Distribution Width 15.2H, Platelet Count 274, Mean Platelet Volume 7.0, Neutrophils (%) (Auto) 61.9, Lymphocytes (%) (Auto) 24.6, Monocytes (%) (Auto) 5.7, Eosinophils (%) (Auto) 7.2H, Basophils (%) (Auto) 0.6, Sodium Level 142, Potassium Level 3.7, Chloride Level 96L, Carbon Dioxide Level 40H, Anion Gap 6, Blood Urea Nitrogen 18, Creatinine 0.3L, Estimat Glomerular Filtration Rate , Glucose Level 90, Calcium Level 8.2L, Total Bilirubin 0.2, Aspartate Amino Transf (AST/SGOT) 29, Alanine Aminotransferase (ALT/SGPT) 28, Alkaline Phosphatase 99, Total Protein 6.0L, Albumin 2.1L, Globulin 3.9, Albumin/Globulin Ratio 0.5L Height (Feet): 5 Height (Inches): 6.00 Weight (Pounds): 197 General Appearance: no apparent distress Neck: supple Cardiovascular: normal rate Respiratory/Chest: crackles/rales Abdomen: other - peg Genitourinary/Rectal: other - simpson Extremities: pitting Neurologic: unresponsive JOSSIE YAÑEZ September 16, 2016 22:40
--- NOTE | 2016-09-16 23:53 | Cardiology Progress Note ---
Assessment/Plan Assessment/Plan 1. Asystole cardiac arrest due to respiratory failure, echo reveals normal LVEF with no wall motion abnormalities. 2. E.Coli pneumonia/leukocytosis. 3. Hypoxic, hypercarbic respiratory failure, awaiting tracheostomy tube placement. 4. s/p PEG Subjective Subjective Intubated, Fio2 40% Sinus rhythm a 75. Sedated Objective Last 24 Hour Vital Signs Date Time Temp Pulse Resp B/P Pulse Ox O2 Delivery O2 Flow Rate FiO2 09/16/16 23:00 98.1 76 15 160/59 99 Mechanical Ventilator 40 09/16/16 22:00 70 20 148/78 100 Mechanical Ventilator 40 09/16/16 21:40 74 17 40 09/16/16 21:00 76 20 157/69 100 Mechanical Ventilator 40 09/16/16 20:00 97.9 74 20 145/76 100 Mechanical Ventilator 40 09/16/16 20:00 78 09/16/16 20:00 40 09/16/16 19:43 79 17 40 09/16/16 19:00 77 17 137/92 100 Mechanical Ventilator 40 09/16/16 18:00 72 20 156/63 100 Mechanical Ventilator 40 09/16/16 17:10 78 17 40 09/16/16 17:00 78 17 164/64 100 Mechanical Ventilator 40 09/16/16 16:00 98.2 76 17 153/58 95 Mechanical Ventilator 40 09/16/16 16:00 76 09/16/16 16:00 40 09/16/16 15:12 71 17 40 09/16/16 15:00 78 17 143/58 100 Mechanical Ventilator 40 09/16/16 14:00 77 19 150/61 98 Mechanical Ventilator 40 09/16/16 13:02 87 19 146/71 100 Mechanical Ventilator 40 09/16/16 12:52 91 22 40 09/16/16 12:40 40 09/16/16 12:00 98.1 90 23 154/60 99 Mechanical Ventilator 40 09/16/16 12:00 90 09/16/16 11:00 85 28 157/67 99 Mechanical Ventilator 40 09/16/16 10:53 83 27 40 09/16/16 10:00 79 20 154/53 100 Mechanical Ventilator 40 09/16/16 09:40 40 09/16/16 09:31 100 09/16/16 09:30 80 23 40 09/16/16 09:00 77 24 153/59 100 Mechanical Ventilator 40 09/16/16 08:00 97.6 75 23 157/60 100 Mechanical Ventilator 40 09/16/16 08:00 40 09/16/16 08:00 78 09/16/16 07:25 71 20 123/81 100 Mechanical Ventilator 40 09/16/16 07:08 82 17 40 09/16/16 07:00 80 20 161/51 100 Mechanical Ventilator 40 09/16/16 06:00 76 20 158/57 100 Mechanical Ventilator 40 09/16/16 05:03 87 17 40 09/16/16 05:00 81 21 129/115 100 Mechanical Ventilator 40 09/16/16 04:00 97.8 82 19 168/64 100 Mechanical Ventilator 40 09/16/16 04:00 40 09/16/16 04:00 82 09/16/16 04:00 60 09/16/16 04:00 98.4 81 20 168/64 100 Mechanical Ventilator 40 09/16/16 03:00 76 20 165/83 100 Mechanical Ventilator 40 09/16/16 02:58 80 17 40 09/16/16 02:00 82 20 168/60 100 Mechanical Ventilator 40 09/16/16 01:06 78 17 40 09/16/16 01:00 82 21 159/56 100 Mechanical Ventilator 40 09/16/16 00:00 40 09/16/16 00:00 98.7 70 19 164/60 100 Mechanical Ventilator 40 09/16/16 00:00 73 Intake and Output 09/15/16 09/16/16 19:00 07:00 Intake Total 1525 ml 1345 ml Output Total 1070 ml 1790 ml Balance 455 ml -445 ml Intake Free Water 100 ml 200 ml IV Total 645 ml 545 ml Tube Feeding 600 ml 600 ml Other 180 ml Output Urine Total 1070 ml 1790 ml # Bowel Movements 1 3 2D Echo: LVEF 55%, Grade I LVDD, RVSP 57 mmHg Laboratory Tests Test 09/16/16 05:00 White Blood Count 8.2 K/UL (4.8-10.8) Red Blood Count 2.82 M/UL (4.20-5.40) L Hemoglobin 9.5 G/DL (12.0-16.0) L Hematocrit 28.4 % (37.0-47.0) L Mean Corpuscular Volume 101 FL (80-99) H Mean Corpuscular Hemoglobin 33.7 PG (27.0-31.0) H Mean Corpuscular Hemoglobin Concent 33.5 G/DL (32.0-36.0) Red Cell Distribution Width 15.2 % (11.6-14.8) H Platelet Count 274 K/UL (150-450) Mean Platelet Volume 7.0 FL (6.5-10.1) Neutrophils (%) (Auto) 61.9 % (45.0-75.0) Lymphocytes (%) (Auto) 24.6 % (20.0-45.0) Monocytes (%) (Auto) 5.7 % (1.0-10.0) Eosinophils (%) (Auto) 7.2 % (0.0-3.0) H Basophils (%) (Auto) 0.6 % (0.0-2.0) Sodium Level 142 mEQ/L (135-145) Potassium Level 3.7 mEQ/L (3.4-4.9) Chloride Level 96 mEQ/L (98-107) L Carbon Dioxide Level 40 mEQ/L (20-30) H Anion Gap 6 (5-15) Blood Urea Nitrogen 18 mg/dL (7-23) Creatinine 0.3 mg/dL (0.5-0.9) L Estimat Glomerular Filtration Rate mL/min (>60) Glucose Level 90 mg/dL (74-106) Calcium Level 8.2 mg/dL (8.6-10.2) L Total Bilirubin 0.2 mg/dL (0.0-1.2) Aspartate Amino Transf (AST/SGOT) 29 U/L (5-40) Alanine Aminotransferase (ALT/SGPT) 28 U/L (3-33) Alkaline Phosphatase 99 U/L (35-104) Total Protein 6.0 g/dL (6.6-8.7) L Albumin 2.1 g/dL (3.5-5.2) L Globulin 3.9 g/dL Albumin/Globulin Ratio 0.5 (1.0-2.7) L Objective HEENT: Intubated, normocephalic, atraumatic, PERRLA, EOMI Neck: no JVD, no carotid bruit, upstroke 2+ B/L Respiratory: decreased breath sounds, crackles both bases Cardiovascular: regular rate, rhythm, normal S1S2,no murmurs, gallops or rubs Gastrointestinal: normal BS, soft non-tender, non-distended, GT in place Musculoskeletal: no clubbing cyanosis or edema MARK LEVY September 16, 2016 23:52
[2016-09-17] VITALS (24 sets, daily range): BP systolic 48–165; BP diastolic 46–96
[2016-09-17] MEDS: Dyna-Hex 2% Top Sol 8oz TOPIC SCH (03:21)
[2016-09-17] MEDS: Meropenem 1 GM in NS 110 ML IVPB SCH ×2 (07:25→19:19)
--- NOTE | 2016-09-17 08:11 | General Progress Note ---
Assessment/Plan Problem List: (1) Respiratory failure ICD Codes: J96.90 - Respiratory failure, unspecified, unspecified whether with hypoxia or hypercapnia SNOMED: 025847098 (2) LFT elevation ICD Codes: R94.5 - Abnormal results of liver function studies SNOMED: 543873606 (3) Anemia ICD Codes: D64.9 - Anemia, unspecified SNOMED: 471257495 (4) Feeding by G-tube ICD Codes: Z93.1 - Gastrostomy status SNOMED: 240167440, 333803217 (5) Dysphagia ICD Codes: R13.10 - Dysphagia, unspecified SNOMED: 85181238, 141358681 Assessment/Plan neg stool OB hold GI procedures for now ppi GTF add prn imodium Subjective ROS Limited/Unobtainable: No Allergies: Coded Allergies: No Known Allergies (Verified , 03/14/16) Uncoded Allergies: MILK (Allergy, Unknown, 07/11/11) Objective Last 24 Hour Vital Signs Date Time Temp Pulse Resp B/P Pulse Ox O2 Delivery O2 Flow Rate FiO2 09/17/16 08:00 98.5 69 17 149/47 100 Mechanical Ventilator 40 09/17/16 07:00 78 18 48/51 100 Mechanical Ventilator 40 09/17/16 06:59 82 18 40 09/17/16 06:00 79 18 148/51 100 Mechanical Ventilator 40 09/17/16 05:16 75 17 40 09/17/16 05:00 76 18 160/53 100 Mechanical Ventilator 40 09/17/16 04:00 80 09/17/16 04:00 40 09/17/16 04:00 98.3 77 19 162/65 98 Mechanical Ventilator 40 09/17/16 03:23 78 17 40 09/17/16 03:00 80 19 161/73 98 Mechanical Ventilator 40 09/17/16 02:00 78 19 165/73 98 Mechanical Ventilator 40 09/17/16 01:00 80 23 146/95 99 Mechanical Ventilator 40 09/17/16 00:47 71 18 40 09/17/16 00:00 40 09/17/16 00:00 75 09/17/16 00:00 75 17 148/72 99 Mechanical Ventilator 40 09/16/16 23:00 98.1 76 15 160/59 99 Mechanical Ventilator 40 09/16/16 22:00 70 20 148/78 100 Mechanical Ventilator 40 09/16/16 21:40 74 17 40 09/16/16 21:00 76 20 157/69 100 Mechanical Ventilator 40 09/16/16 20:00 97.9 74 20 145/76 100 Mechanical Ventilator 40 09/16/16 20:00 78 09/16/16 20:00 40 09/16/16 19:43 79 17 40 09/16/16 19:00 77 17 137/92 100 Mechanical Ventilator 40 09/16/16 18:00 72 20 156/63 100 Mechanical Ventilator 40 09/16/16 17:10 78 17 40 09/16/16 17:00 78 17 164/64 100 Mechanical Ventilator 40 09/16/16 16:00 98.2 76 17 153/58 95 Mechanical Ventilator 40 09/16/16 16:00 76 09/16/16 16:00 40 09/16/16 15:12 71 17 40 09/16/16 15:00 78 17 143/58 100 Mechanical Ventilator 40 09/16/16 14:00 77 19 150/61 98 Mechanical Ventilator 40 09/16/16 13:02 87 19 146/71 100 Mechanical Ventilator 40 09/16/16 12:52 91 22 40 09/16/16 12:40 40 09/16/16 12:00 98.1 90 23 154/60 99 Mechanical Ventilator 40 09/16/16 12:00 90 09/16/16 11:00 85 28 157/67 99 Mechanical Ventilator 40 09/16/16 10:53 83 27 40 09/16/16 10:00 79 20 154/53 100 Mechanical Ventilator 40 09/16/16 09:40 40 09/16/16 09:31 100 09/16/16 09:30 80 23 40 09/16/16 09:00 77 24 153/59 100 Mechanical Ventilator 40 Intake and Output 09/16/16 09/17/16 19:00 07:00 Intake Total 1890 ml 1370 ml Output Total 1770 ml 1810 ml Balance 120 ml -440 ml Intake Free Water 160 ml 60 ml IV Total 1080 ml 590 ml Tube Feeding 600 ml 720 ml Other 50 ml Output Urine Total 1770 ml 1810 ml # Bowel Movements 3 3 Height (Feet): 5 Height (Inches): 6.00 Weight (Pounds): 181 General Appearance: no apparent distress EENT: normal ENT inspection Neck: supple Cardiovascular: normal rate Respiratory/Chest: decreased breath sounds Abdomen: normal bowel sounds, non tender, soft Extremities: non-tender PILAR SCHMITT September 17, 2016 08:11
[2016-09-17] MEDS: Pantoprazole Inj IVP SCH ×2 (08:25→20:39)
[2016-09-17] MEDS: Heparin 5000 units/ml inj SUBQ SCH ×2 (08:25→20:41)
[2016-09-17] MEDS: Phospha 250 Neutral tab GT SCH ×3 (08:26→17:47)
[2016-09-17] MEDS: levETIRAcetam 500 MG in D5W 110 ML IV SCH ×2 (08:26→20:39)
[2016-09-17] MEDS: Ascorbic Acid 500mg tab GT SCH (08:26)
--- NOTE | 2016-09-17 11:30 | Infectious Diseases Prog Note ---
Assessment/Plan Assessment/Plan antibiotics : meropenem A 1. e.coli pneumonia 2. respiratory failure 3. allergic reaction 4. leucocytosis resolved 5. 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 continue meropenem 4 more days 2. will follow up cultures Subjective ROS Limited/Unobtainable: Yes Allergies: Coded Allergies: No Known Allergies (Verified , 03/14/16) Uncoded Allergies: MILK (Allergy, Unknown, 07/11/11) Objective Vital Signs Last 24 Hour Vital Signs Date Time Temp Pulse Resp B/P Pulse Ox O2 Delivery O2 Flow Rate FiO2 09/17/16 11:00 84 24 151/53 100 Mechanical Ventilator 40 09/17/16 10:57 87 29 40 09/17/16 10:00 83 20 161/76 100 Mechanical Ventilator 40 09/17/16 09:40 40 09/17/16 09:36 100 09/17/16 09:29 75 22 40 09/17/16 09:00 78 20 157/57 100 Mechanical Ventilator 40 09/17/16 08:00 70 09/17/16 08:00 40 09/17/16 08:00 98.5 69 17 149/47 100 Mechanical Ventilator 40 09/17/16 07:00 78 18 48/51 100 Mechanical Ventilator 40 09/17/16 06:59 82 18 40 09/17/16 06:00 79 18 148/51 100 Mechanical Ventilator 40 09/17/16 05:16 75 17 40 09/17/16 05:00 76 18 160/53 100 Mechanical Ventilator 40 09/17/16 04:00 80 09/17/16 04:00 40 09/17/16 04:00 98.3 77 19 162/65 98 Mechanical Ventilator 40 09/17/16 03:23 78 17 40 09/17/16 03:00 80 19 161/73 98 Mechanical Ventilator 40 09/17/16 02:00 78 19 165/73 98 Mechanical Ventilator 40 09/17/16 01:00 80 23 146/95 99 Mechanical Ventilator 40 09/17/16 00:47 71 18 40 09/17/16 00:00 40 09/17/16 00:00 75 09/17/16 00:00 75 17 148/72 99 Mechanical Ventilator 40 09/16/16 23:00 98.1 76 15 160/59 99 Mechanical Ventilator 40 09/16/16 22:00 70 20 148/78 100 Mechanical Ventilator 40 09/16/16 21:40 74 17 40 09/16/16 21:00 76 20 157/69 100 Mechanical Ventilator 40 09/16/16 20:00 97.9 74 20 145/76 100 Mechanical Ventilator 40 09/16/16 20:00 78 09/16/16 20:00 40 09/16/16 19:43 79 17 40 09/16/16 19:00 77 17 137/92 100 Mechanical Ventilator 40 09/16/16 18:00 72 20 156/63 100 Mechanical Ventilator 40 09/16/16 17:10 78 17 40 09/16/16 17:00 78 17 164/64 100 Mechanical Ventilator 40 09/16/16 16:00 98.2 76 17 153/58 95 Mechanical Ventilator 40 09/16/16 16:00 76 09/16/16 16:00 40 09/16/16 15:12 71 17 40 09/16/16 15:00 78 17 143/58 100 Mechanical Ventilator 40 09/16/16 14:00 77 19 150/61 98 Mechanical Ventilator 40 09/16/16 13:02 87 19 146/71 100 Mechanical Ventilator 40 09/16/16 12:52 91 22 40 09/16/16 12:40 40 09/16/16 12:00 98.1 90 23 154/60 99 Mechanical Ventilator 40 09/16/16 12:00 90 Height (Feet): 5 Height (Inches): 6.00 Weight (Pounds): 181 HEENT: other - intubated Respiratory/Chest: lungs clear Cardiovascular: normal rate, regular rhythm, no gallop/murmur Abdomen: soft, non tender, other - GT Extremities: other - + edema, right arm PICC KELLEY MITCHELL September 17, 2016 11:30
[2016-09-17] MEDS ORDERED: 1/2 NS 1000ml IV ONE (13:25)
--- NOTE | 2016-09-17 18:02 | Nephrology Progress Note ---
Assessment/Plan Problem List: (1) Cardiac arrest (2) Septic shock (3) Respiratory distress (4) Dysphagia (5) Pneumonia (6) Anemia (7) Azotemia (8) Dehydration (9) Respiratory failure Plan Supportive care Monitor lytes, correct PRN Avoid nephrotoxic agents G-Tube feeding per GI Monitor H&H, transfuse PRN Monitor neuro status Continue wound care DVT prophylaxis AM labs Subjective ROS Limited/Unobtainable: Yes Subjective Intubated, in ICU Objective Objective Last 24 Hour Vital Signs Date Time Temp Pulse Resp B/P Pulse Ox O2 Delivery O2 Flow Rate FiO2 09/17/16 16:50 78 17 40 09/17/16 16:00 73 09/17/16 16:00 40 09/17/16 16:00 98.5 72 17 132/47 100 Mechanical Ventilator 40 09/17/16 15:07 86 20 40 09/17/16 15:00 40 09/17/16 15:00 82 17 138/62 100 Mechanical Ventilator 40 09/17/16 14:00 85 29 139/57 100 Mechanical Ventilator 40 09/17/16 13:00 86 28 146/66 99 Mechanical Ventilator 40 09/17/16 12:48 84 27 40 09/17/16 12:00 83 09/17/16 12:00 98.3 85 25 135/46 100 Mechanical Ventilator 40 09/17/16 11:00 84 24 151/53 100 Mechanical Ventilator 40 09/17/16 10:57 87 29 40 09/17/16 10:00 83 20 161/76 100 Mechanical Ventilator 40 09/17/16 09:40 40 09/17/16 09:36 100 09/17/16 09:29 75 22 40 09/17/16 09:00 78 20 157/57 100 Mechanical Ventilator 40 09/17/16 08:00 70 09/17/16 08:00 40 09/17/16 08:00 98.5 69 17 149/47 100 Mechanical Ventilator 40 09/17/16 07:00 78 18 48/51 100 Mechanical Ventilator 40 09/17/16 06:59 82 18 40 09/17/16 06:00 79 18 148/51 100 Mechanical Ventilator 40 09/17/16 05:16 75 17 40 09/17/16 05:00 76 18 160/53 100 Mechanical Ventilator 40 09/17/16 04:00 80 09/17/16 04:00 40 09/17/16 04:00 98.3 77 19 162/65 98 Mechanical Ventilator 40 09/17/16 03:23 78 17 40 09/17/16 03:00 80 19 161/73 98 Mechanical Ventilator 40 09/17/16 02:00 78 19 165/73 98 Mechanical Ventilator 40 09/17/16 01:00 80 23 146/95 99 Mechanical Ventilator 40 09/17/16 00:47 71 18 40 09/17/16 00:00 40 09/17/16 00:00 75 09/17/16 00:00 75 17 148/72 99 Mechanical Ventilator 40 09/16/16 23:00 98.1 76 15 160/59 99 Mechanical Ventilator 40 09/16/16 22:00 70 20 148/78 100 Mechanical Ventilator 40 09/16/16 21:40 74 17 40 09/16/16 21:00 76 20 157/69 100 Mechanical Ventilator 40 09/16/16 20:00 97.9 74 20 145/76 100 Mechanical Ventilator 40 09/16/16 20:00 78 09/16/16 20:00 40 09/16/16 19:43 79 17 40 09/16/16 19:00 77 17 137/92 100 Mechanical Ventilator 40 Intake and Output 09/16/16 09/17/16 19:00 07:00 Intake Total 1890 ml 1370 ml Output Total 1770 ml 1810 ml Balance 120 ml -440 ml Intake Free Water 160 ml 60 ml IV Total 1080 ml 590 ml Tube Feeding 600 ml 720 ml Other 50 ml Output Urine Total 1770 ml 1810 ml # Bowel Movements 3 3 Height (Feet): 5 Height (Inches): 6.00 Weight (Pounds): 181 General Appearance: no apparent distress Cardiovascular: no JVD Respiratory/Chest: decreased breath sounds, crackles/rales Abdomen: other - peg Genitourinary/Rectal: other - simpson Neurologic: unresponsive Allison Johnson N.P. September 17, 2016 18:02
[2016-09-17] MEDS ORDERED: DiphenhydrAMINE 50mg/ml Inj IVP PRN (19:45)
--- NOTE | 2016-09-17 19:47 | Pulmonolgy Critical Care Note ---
Critical Care - Asmt/Plan Problems: (1) Respiratory failure (2) Respiratory distress (3) Dysphagia (4) Pneumonia (5) Feeding by G-tube (6) Anemia (7) Hypoalbuminemia (8) LFT elevation (9) Hyperkalemia Assessment & Plan: Weaned weaning trial even with SIMV 10 Assessment/Plan: Because of her mental status right lung pneumonia and inability to wean from the vent, she will need tracheostomy. Cardiac: continue to monitor HR/BP Renal: F/U I&O Infectious Disease: check cultures Gastrointestinal: continue feedings/current rate Hematologic: monitor H/H Discussed with: nurses, consultants Critical Care - Objective Last 24 Hour Vital Signs Date Time Temp Pulse Resp B/P Pulse Ox O2 Delivery O2 Flow Rate FiO2 09/17/16 19:00 75 19 129/76 100 Mechanical Ventilator 40 09/17/16 18:00 75 20 123/96 100 Mechanical Ventilator 40 09/17/16 17:00 70 17 125/47 100 Mechanical Ventilator 40 09/17/16 16:50 78 17 40 09/17/16 16:00 73 09/17/16 16:00 40 09/17/16 16:00 98.5 72 17 132/47 100 Mechanical Ventilator 40 09/17/16 15:07 86 20 40 09/17/16 15:00 40 09/17/16 15:00 82 17 138/62 100 Mechanical Ventilator 40 09/17/16 14:00 85 29 139/57 100 Mechanical Ventilator 40 09/17/16 13:00 86 28 146/66 99 Mechanical Ventilator 40 09/17/16 12:48 84 27 40 09/17/16 12:00 83 09/17/16 12:00 98.3 85 25 135/46 100 Mechanical Ventilator 40 09/17/16 11:00 84 24 151/53 100 Mechanical Ventilator 40 09/17/16 10:57 87 29 40 09/17/16 10:00 83 20 161/76 100 Mechanical Ventilator 40 09/17/16 09:40 40 09/17/16 09:36 100 09/17/16 09:29 75 22 40 09/17/16 09:00 78 20 157/57 100 Mechanical Ventilator 40 09/17/16 08:00 70 09/17/16 08:00 40 09/17/16 08:00 98.5 69 17 149/47 100 Mechanical Ventilator 40 09/17/16 07:00 78 18 48/51 100 Mechanical Ventilator 40 09/17/16 06:59 82 18 40 09/17/16 06:00 79 18 148/51 100 Mechanical Ventilator 40 09/17/16 05:16 75 17 40 09/17/16 05:00 76 18 160/53 100 Mechanical Ventilator 40 09/17/16 04:00 80 09/17/16 04:00 40 09/17/16 04:00 98.3 77 19 162/65 98 Mechanical Ventilator 40 09/17/16 03:23 78 17 40 09/17/16 03:00 80 19 161/73 98 Mechanical Ventilator 40 09/17/16 02:00 78 19 165/73 98 Mechanical Ventilator 40 09/17/16 01:00 80 23 146/95 99 Mechanical Ventilator 40 09/17/16 00:47 71 18 40 09/17/16 00:00 40 09/17/16 00:00 75 09/17/16 00:00 75 17 148/72 99 Mechanical Ventilator 40 09/16/16 23:00 98.1 76 15 160/59 99 Mechanical Ventilator 40 09/16/16 22:00 70 20 148/78 100 Mechanical Ventilator 40 09/16/16 21:40 74 17 40 09/16/16 21:00 76 20 157/69 100 Mechanical Ventilator 40 09/16/16 20:00 97.9 74 20 145/76 100 Mechanical Ventilator 40 09/16/16 20:00 78 09/16/16 20:00 40 09/16/16 19:43 79 17 40 Status: awake Condition: improving HEENT: atraumatic Neck: full ROM, trach Lungs: rhonchi Heart: HR/BP stable Abdomen: soft, non-tender Extremities: edema Decubiti: none Accucheck: 121 Critical Care - Subjective ROS Limited/Unobtainable: Yes ICU Day: 14 Intubation Day: 14 Interval Events: Her tongue and lip is still large Condition: stable IV Access: central EKG Rhythm: Sinus Rhythm FI02: 40 Vent Support Breath Rate: 17 Vent Support Mode: AC Vent Tidal Volume: 500 Sputum Amount: Scant PEEP: 5.0 PIP: 41 Tube Feeding Amount: 60 I&O: Intake and Output 09/16/16 09/17/16 19:00 07:00 Intake Total 1890 ml 1370 ml Output Total 1770 ml 1810 ml Balance 120 ml -440 ml Intake Free Water 160 ml 60 ml IV Total 1080 ml 590 ml Tube Feeding 600 ml 720 ml Other 50 ml Output Urine Total 1770 ml 1810 ml # Bowel Movements 3 3 ET-Tube: 6.0 ET Position: 23 YONI ROCHE September 17, 2016 19:47
[2016-09-17] MEDS: PredniSONE 20mg tab ORAL SCH (20:39)
[2016-09-18] VITALS (24 sets, daily range): BP systolic 137–166; BP diastolic 49–99
[2016-09-18] MEDS: DiphenhydrAMINE 50mg/ml Inj IVP SCH ×5 (00:18→23:33)
[2016-09-18] MEDS: Dyna-Hex 2% Top Sol 8oz TOPIC SCH (05:37)
[2016-09-18 05:45] LABS: BASOPHILS % (AUTO) 0.9 % (0.0-2.0); EOSINOPHILS % (AUTO) 1.5 % (0.0-3.0); LYMPHOCYTES % (AUTO) 23.6 % (20.0-45.0); MEAN CORPUSCULAR HEMOGLOBIN 32.7 PG (27.0-31.0); MEAN CORPUSCULAR HGB CONC 32.6 G/DL (32.0-36.0); MEAN CORPUSCULAR VOLUME 100 FL (80-99); MEAN PLATELET VOLUME 7.1 FL (6.5-10.1); MONOCYTES % (AUTO) 4.5 % (1.0-10.0); NEUTROPHILS % (AUTO) 69.5 % (45.0-75.0); PLATELET COUNT 295 K/UL (150-450); RED BLOOD COUNT 2.59 M/UL (4.20-5.40); WHITE BLOOD COUNT 4.7 K/UL (4.8-10.8)
[2016-09-18 06:07] LABS: ANION GAP 7 (5-15); CALCIUM 7.1 mg/dL (8.6-10.2); CARBON DIOXIDE 35 mEQ/L (20-30); CHLORIDE 95 mEQ/L (98-107); CREATININE 0.3 mg/dL (0.5-0.9); HEMOLYSIS 4; POTASSIUM 3.7 mEQ/L (3.4-4.9); SODIUM 137 mEQ/L (135-145)
[2016-09-18] MEDS: Phospha 250 Neutral tab GT SCH ×3 (08:27→17:53)
[2016-09-18] MEDS: Heparin 5000 units/ml inj SUBQ SCH ×2 (08:27→20:40)
[2016-09-18] MEDS: Ascorbic Acid 500mg tab GT SCH (08:28)
[2016-09-18] MEDS: levETIRAcetam 500 MG in D5W 110 ML IV SCH ×2 (08:28→20:30)
[2016-09-18] MEDS: Pantoprazole Inj IVP SCH ×2 (08:28→20:34)
[2016-09-18] MEDS: PredniSONE 20mg tab ORAL SCH (08:28)
--- NOTE | 2016-09-18 09:05 | Cardiology Progress Note ---
Assessment/Plan Assessment/Plan 1. Asystole cardiac arrest due to respiratory failure, echo reveals normal LVEF with no wall motion abnormalities. 2. E.Coli pneumonia/leukocytosis. 3. Hypoxic, hypercarbic respiratory failure, awaiting tracheostomy tube placement. 4. s/p PEG 5. HTN Subjective Subjective Intubated Sinus rhythm a 73. Sedated Awaiting trach Objective Last 24 Hour Vital Signs Date Time Temp Pulse Resp B/P Pulse Ox O2 Delivery O2 Flow Rate FiO2 09/18/16 08:00 40 09/18/16 08:00 98.6 73 17 146/52 100 Mechanical Ventilator 40 09/18/16 08:00 72 09/18/16 07:00 69 25 146/52 100 Mechanical Ventilator 40 09/18/16 06:56 80 18 40 09/18/16 06:00 69 25 153/58 100 Mechanical Ventilator 40 09/18/16 05:00 72 22 148/49 100 Mechanical Ventilator 40 09/18/16 04:47 72 27 40 09/18/16 04:00 80 09/18/16 04:00 98.5 68 21 152/52 100 Mechanical Ventilator 40 09/18/16 04:00 40 09/18/16 03:30 74 17 40 09/18/16 03:00 82 22 156/62 100 Mechanical Ventilator 40 09/18/16 02:00 84 22 139/99 100 Mechanical Ventilator 40 09/18/16 01:30 71 17 40 09/18/16 01:00 73 22 142/54 100 Mechanical Ventilator 40 09/18/16 00:00 73 09/18/16 00:00 40 09/18/16 00:00 98.2 72 22 138/49 100 Mechanical Ventilator 40 09/17/16 23:22 74 17 40 09/17/16 23:00 74 22 157/57 100 Mechanical Ventilator 40 09/17/16 22:00 79 22 152/63 100 Mechanical Ventilator 40 09/17/16 21:00 78 19 139/59 100 Mechanical Ventilator 40 09/17/16 20:59 74 18 40 09/17/16 20:00 40 09/17/16 20:00 71 09/17/16 20:00 98.5 77 19 137/61 100 Mechanical Ventilator 40 09/17/16 19:30 72 17 40 09/17/16 19:00 75 19 129/76 100 Mechanical Ventilator 40 09/17/16 18:00 75 20 123/96 100 Mechanical Ventilator 40 09/17/16 17:00 70 17 125/47 100 Mechanical Ventilator 40 09/17/16 16:50 78 17 40 09/17/16 16:00 73 09/17/16 16:00 40 09/17/16 16:00 98.5 72 17 132/47 100 Mechanical Ventilator 40 09/17/16 15:07 86 20 40 09/17/16 15:00 40 09/17/16 15:00 82 17 138/62 100 Mechanical Ventilator 40 09/17/16 14:00 85 29 139/57 100 Mechanical Ventilator 40 09/17/16 13:00 86 28 146/66 99 Mechanical Ventilator 40 09/17/16 12:48 84 27 40 09/17/16 12:00 83 09/17/16 12:00 98.3 85 25 135/46 100 Mechanical Ventilator 40 09/17/16 11:00 84 24 151/53 100 Mechanical Ventilator 40 09/17/16 10:57 87 29 40 09/17/16 10:00 83 20 161/76 100 Mechanical Ventilator 40 09/17/16 09:40 40 09/17/16 09:36 100 09/17/16 09:29 75 22 40 Intake and Output 09/17/16 09/18/16 19:00 07:00 Intake Total 2155 ml 1700 ml Output Total 1600 ml 1765 ml Balance 555 ml -65 ml Intake Free Water 200 ml 200 ml IV Total 1085 ml 780 ml Tube Feeding 720 ml 720 ml Other 150 ml Output Urine Total 1600 ml 1765 ml # Bowel Movements 2 1 2D Echo: LVEF 55%, Grade I LVDD, RVSP 57 mmHg Laboratory Tests Test 09/18/16 04:50 White Blood Count 4.7 K/UL (4.8-10.8) L Red Blood Count 2.59 M/UL (4.20-5.40) L Hemoglobin 8.5 G/DL (12.0-16.0) L Hematocrit 26.0 % (37.0-47.0) L Mean Corpuscular Volume 100 FL (80-99) H Mean Corpuscular Hemoglobin 32.7 PG (27.0-31.0) H Mean Corpuscular Hemoglobin Concent 32.6 G/DL (32.0-36.0) Red Cell Distribution Width 15.0 % (11.6-14.8) H Platelet Count 295 K/UL (150-450) Mean Platelet Volume 7.1 FL (6.5-10.1) Neutrophils (%) (Auto) 69.5 % (45.0-75.0) Lymphocytes (%) (Auto) 23.6 % (20.0-45.0) Monocytes (%) (Auto) 4.5 % (1.0-10.0) Eosinophils (%) (Auto) 1.5 % (0.0-3.0) Basophils (%) (Auto) 0.9 % (0.0-2.0) Sodium Level 137 mEQ/L (135-145) Potassium Level 3.7 mEQ/L (3.4-4.9) Chloride Level 95 mEQ/L (98-107) L Carbon Dioxide Level 35 mEQ/L (20-30) H Anion Gap 7 (5-15) Blood Urea Nitrogen 15 mg/dL (7-23) Creatinine 0.3 mg/dL (0.5-0.9) L Estimat Glomerular Filtration Rate mL/min (>60) Glucose Level 102 mg/dL (74-106) Calcium Level 7.1 mg/dL (8.6-10.2) L Objective HEENT: Intubated, normocephalic, atraumatic, PERRLA, EOMI Neck: no JVD, no carotid bruit, upstroke 2+ B/L Respiratory: decreased breath sounds, crackles both bases Cardiovascular: regular rate, rhythm, normal S1S2,no murmurs, gallops or rubs Gastrointestinal: normal BS, soft non-tender, non-distended, GT in place Musculoskeletal: no clubbing cyanosis or edema MARK LEVY September 18, 2016 09:05
--- NOTE | 2016-09-18 11:09 | Infectious Diseases Prog Note ---
Assessment/Plan Assessment/Plan A: Sepsis Pneumonia MRSA & NISREEN colonization Cardiac arrest Hypercapnic respiratory failure Dementia Anemia Eosinophilia P; Continue Meropenem X 3 days Waiting for tracheostomy Subjective ROS Limited/Unobtainable: Yes Allergies: Coded Allergies: No Known Allergies (Verified , 03/14/16) Uncoded Allergies: MILK (Allergy, Unknown, 07/11/11) Objective Vital Signs Last 24 Hour Vital Signs Date Time Temp Pulse Resp B/P Pulse Ox O2 Delivery O2 Flow Rate FiO2 09/18/16 11:04 76 17 40 09/18/16 11:00 77 18 156/54 100 Mechanical Ventilator 40 09/18/16 10:00 67 18 146/54 100 Mechanical Ventilator 40 09/18/16 09:07 63 17 40 09/18/16 09:00 61 23 158/56 100 Mechanical Ventilator 40 09/18/16 08:00 40 09/18/16 08:00 98.6 73 17 146/52 100 Mechanical Ventilator 40 09/18/16 08:00 72 09/18/16 07:00 69 25 146/52 100 Mechanical Ventilator 40 09/18/16 06:56 80 18 40 09/18/16 06:00 69 25 153/58 100 Mechanical Ventilator 40 09/18/16 05:00 72 22 148/49 100 Mechanical Ventilator 40 09/18/16 04:47 72 27 40 09/18/16 04:00 80 09/18/16 04:00 98.5 68 21 152/52 100 Mechanical Ventilator 40 09/18/16 04:00 40 09/18/16 03:30 74 17 40 09/18/16 03:00 82 22 156/62 100 Mechanical Ventilator 40 09/18/16 02:00 84 22 139/99 100 Mechanical Ventilator 40 09/18/16 01:30 71 17 40 09/18/16 01:00 73 22 142/54 100 Mechanical Ventilator 40 09/18/16 00:00 73 09/18/16 00:00 40 09/18/16 00:00 98.2 72 22 138/49 100 Mechanical Ventilator 40 09/17/16 23:22 74 17 40 09/17/16 23:00 74 22 157/57 100 Mechanical Ventilator 40 09/17/16 22:00 79 22 152/63 100 Mechanical Ventilator 40 09/17/16 21:00 78 19 139/59 100 Mechanical Ventilator 40 09/17/16 20:59 74 18 40 09/17/16 20:00 40 09/17/16 20:00 71 09/17/16 20:00 98.5 77 19 137/61 100 Mechanical Ventilator 40 09/17/16 19:30 72 17 40 09/17/16 19:00 75 19 129/76 100 Mechanical Ventilator 40 09/17/16 18:00 75 20 123/96 100 Mechanical Ventilator 40 09/17/16 17:00 70 17 125/47 100 Mechanical Ventilator 40 09/17/16 16:50 78 17 40 09/17/16 16:00 73 09/17/16 16:00 40 09/17/16 16:00 98.5 72 17 132/47 100 Mechanical Ventilator 40 09/17/16 15:07 86 20 40 09/17/16 15:00 40 09/17/16 15:00 82 17 138/62 100 Mechanical Ventilator 40 09/17/16 14:00 85 29 139/57 100 Mechanical Ventilator 40 09/17/16 13:00 86 28 146/66 99 Mechanical Ventilator 40 09/17/16 12:48 84 27 40 09/17/16 12:00 83 09/17/16 12:00 98.3 85 25 135/46 100 Mechanical Ventilator 40 Height (Feet): 5 Height (Inches): 6.00 Weight (Pounds): 184 General Appearance: no acute distress HEENT: other - orally intubated, tongue & lips swelling Respiratory/Chest: lungs clear, other - on ventilator Cardiovascular: normal rate Abdomen: soft, non tender Extremities: other - generalized edema, R PICC line Neurologic/Psychiatric: unresponsiveness Laboratory Tests Test 09/18/16 04:50 White Blood Count 4.7 K/UL (4.8-10.8) L Red Blood Count 2.59 M/UL (4.20-5.40) L Hemoglobin 8.5 G/DL (12.0-16.0) L Hematocrit 26.0 % (37.0-47.0) L Mean Corpuscular Volume 100 FL (80-99) H Mean Corpuscular Hemoglobin 32.7 PG (27.0-31.0) H Mean Corpuscular Hemoglobin Concent 32.6 G/DL (32.0-36.0) Red Cell Distribution Width 15.0 % (11.6-14.8) H Platelet Count 295 K/UL (150-450) Mean Platelet Volume 7.1 FL (6.5-10.1) Neutrophils (%) (Auto) 69.5 % (45.0-75.0) Lymphocytes (%) (Auto) 23.6 % (20.0-45.0) Monocytes (%) (Auto) 4.5 % (1.0-10.0) Eosinophils (%) (Auto) 1.5 % (0.0-3.0) Basophils (%) (Auto) 0.9 % (0.0-2.0) Sodium Level 137 mEQ/L (135-145) Potassium Level 3.7 mEQ/L (3.4-4.9) Chloride Level 95 mEQ/L (98-107) L Carbon Dioxide Level 35 mEQ/L (20-30) H Anion Gap 7 (5-15) Blood Urea Nitrogen 15 mg/dL (7-23) Creatinine 0.3 mg/dL (0.5-0.9) L Estimat Glomerular Filtration Rate mL/min (>60) Glucose Level 102 mg/dL (74-106) Calcium Level 7.1 mg/dL (8.6-10.2) L Current Medications Medications (Trade) Dose Ordered Sig/Lonny Route PRN Reason Start Time Stop Time Status Last Admin Dose Admin Ascorbic Acid (Vitamin C) 500 mg DAILY GT 09/07/16 09:00 10/07/16 08:59 09/18/16 08:28 Cetirizine HCl (ZyrTEC) 10 mg DAILY ORAL 09/17/16 21:00 10/17/16 20:59 09/18/16 08:27 Chlorhexidine Gluconate 1 applic 1 applic DAILY TOPIC 09/08/16 09:00 10/08/16 08:59 09/18/16 05:37 Diltiazem HCl (Cardizem) 5 mg Q1H PRN IV SBP>170 09/06/16 08:00 10/06/16 07:59 09/14/16 10:17 Diphenhydramine HCl (Benadryl) 25 mg Q6H IVP 09/18/16 00:00 10/18/16 00:00 09/18/16 05:37 Furosemide (Lasix) 20 mg EVERY 12 HOURS IV 09/13/16 16:00 10/13/16 15:59 09/18/16 08:28 Heparin Sodium (Porcine) (Heparin 5000 units/ml) 5,000 units EVERY 12 HOURS SUBQ 09/04/16 21:00 10/04/16 20:59 09/18/16 08:27 Levetiracetam/ Dextrose (Keppra/D5W) 115 ml @ 460 mls/hr Q12HR IV 09/04/16 21:00 10/04/16 20:59 09/18/16 08:28 Loperamide HCl (Imodium) 2 mg Q4H PRN NG Diarrhea 09/17/16 08:15 10/17/16 08:14 09/17/16 20:47 Pantoprazole 40 mg 40 mg EVERY 12 HOURS IVP 09/04/16 21:00 10/04/16 20:59 09/18/16 08:28 Phosphorus (Phospha 250 Neutral) 500 mg THREE TIMES A DAY GT 09/13/16 13:00 10/13/16 12:59 09/18/16 08:27 Prednisone (predniSONE) 20 mg DAILY ORAL 09/17/16 21:00 10/17/16 20:59 09/18/16 08:28 Sodium Chloride (0.45% NS 1000ml) 1,000 ml @ 40 mls/hr Q24H IV 09/07/16 15:00 10/07/16 14:59 09/17/16 17:53 JAYLIN BENTLEY September 18, 2016 11:09
[2016-09-18] MEDS: Meropenem 1 GM in NS 110 ML IVPB SCH ×2 (12:20→20:43)
--- NOTE | 2016-09-18 15:11 | GI Progress Note ---
Assessment/Plan Problems: (1) Dehydration ICD Codes: E86.0 - Dehydration SNOMED: 63426713 (2) Hyponatremia ICD Codes: E87.1 - Hypo-osmolality and hyponatremia SNOMED: 80666764 (3) LFT elevation ICD Codes: R94.5 - Abnormal results of liver function studies SNOMED: 660532907 (4) Hypoalbuminemia ICD Codes: E88.09 - Other disorders of plasma-protein metabolism, not elsewhere classified SNOMED: 313962222 (5) Anemia ICD Codes: D64.9 - Anemia, unspecified SNOMED: 471583116 (6) Feeding by G-tube ICD Codes: Z93.1 - Gastrostomy status SNOMED: 261323532, 118047649 (7) Dysphagia ICD Codes: R13.10 - Dysphagia, unspecified SNOMED: 76067391, 539209553 Status: unchanged Status Narrative Discussed with Dr. Britt. Assessment/Plan OB stool negative elevated CEA >> 8.8 hep panel >> negative IgE elevation >> milk allergy. hold GI procedures EGD/colonoscopy when stable given anemia and elevated CEA. monitor H&H, transfuse prn GTFs per dietary >> TF CHANGE:--> VIVONEX RTF @60 ml x 24 hrs + Prosource BID ppi abx imodium PRN fu labs Subjective Subjective limited Objective Last 24 Hour Vital Signs Date Time Temp Pulse Resp B/P Pulse Ox O2 Delivery O2 Flow Rate FiO2 09/18/16 15:00 83 22 153/61 100 Mechanical Ventilator 40 09/18/16 13:58 85 22 166/66 100 Mechanical Ventilator 40 09/18/16 13:09 83 19 40 09/18/16 13:00 85 20 153/83 100 Mechanical Ventilator 40 09/18/16 12:00 75 09/18/16 12:00 40 09/18/16 12:00 98.4 76 19 148/56 100 Mechanical Ventilator 40 09/18/16 11:04 76 17 40 09/18/16 11:00 77 18 156/54 100 Mechanical Ventilator 40 09/18/16 10:00 67 18 146/54 100 Mechanical Ventilator 40 09/18/16 09:07 63 17 40 09/18/16 09:00 61 23 158/56 100 Mechanical Ventilator 40 09/18/16 08:00 40 09/18/16 08:00 98.6 73 17 146/52 100 Mechanical Ventilator 40 09/18/16 08:00 72 09/18/16 07:00 69 25 146/52 100 Mechanical Ventilator 40 09/18/16 06:56 80 18 40 09/18/16 06:00 69 25 153/58 100 Mechanical Ventilator 40 09/18/16 05:00 72 22 148/49 100 Mechanical Ventilator 40 09/18/16 04:47 72 27 40 09/18/16 04:00 80 09/18/16 04:00 98.5 68 21 152/52 100 Mechanical Ventilator 40 09/18/16 04:00 40 09/18/16 03:30 74 17 40 09/18/16 03:00 82 22 156/62 100 Mechanical Ventilator 40 09/18/16 02:00 84 22 139/99 100 Mechanical Ventilator 40 09/18/16 01:30 71 17 40 09/18/16 01:00 73 22 142/54 100 Mechanical Ventilator 40 09/18/16 00:00 73 09/18/16 00:00 40 09/18/16 00:00 98.2 72 22 138/49 100 Mechanical Ventilator 40 09/17/16 23:22 74 17 40 09/17/16 23:00 74 22 157/57 100 Mechanical Ventilator 40 09/17/16 22:00 79 22 152/63 100 Mechanical Ventilator 40 09/17/16 21:00 78 19 139/59 100 Mechanical Ventilator 40 09/17/16 20:59 74 18 40 09/17/16 20:00 40 09/17/16 20:00 71 09/17/16 20:00 98.5 77 19 137/61 100 Mechanical Ventilator 40 09/17/16 19:30 72 17 40 09/17/16 19:00 75 19 129/76 100 Mechanical Ventilator 40 09/17/16 18:00 75 20 123/96 100 Mechanical Ventilator 40 09/17/16 17:00 70 17 125/47 100 Mechanical Ventilator 40 09/17/16 16:50 78 17 40 09/17/16 16:00 73 09/17/16 16:00 40 09/17/16 16:00 98.5 72 17 132/47 100 Mechanical Ventilator 40 Intake and Output 09/17/16 09/18/16 19:00 07:00 Intake Total 2155 ml 1700 ml Output Total 1600 ml 1765 ml Balance 555 ml -65 ml Intake Free Water 200 ml 200 ml IV Total 1085 ml 780 ml Tube Feeding 720 ml 720 ml Other 150 ml Output Urine Total 1600 ml 1765 ml # Bowel Movements 2 1 Laboratory Tests Test 09/18/16 04:50 White Blood Count 4.7 K/UL (4.8-10.8) L Red Blood Count 2.59 M/UL (4.20-5.40) L Hemoglobin 8.5 G/DL (12.0-16.0) L Hematocrit 26.0 % (37.0-47.0) L Mean Corpuscular Volume 100 FL (80-99) H Mean Corpuscular Hemoglobin 32.7 PG (27.0-31.0) H Mean Corpuscular Hemoglobin Concent 32.6 G/DL (32.0-36.0) Red Cell Distribution Width 15.0 % (11.6-14.8) H Platelet Count 295 K/UL (150-450) Mean Platelet Volume 7.1 FL (6.5-10.1) Neutrophils (%) (Auto) 69.5 % (45.0-75.0) Lymphocytes (%) (Auto) 23.6 % (20.0-45.0) Monocytes (%) (Auto) 4.5 % (1.0-10.0) Eosinophils (%) (Auto) 1.5 % (0.0-3.0) Basophils (%) (Auto) 0.9 % (0.0-2.0) Sodium Level 137 mEQ/L (135-145) Potassium Level 3.7 mEQ/L (3.4-4.9) Chloride Level 95 mEQ/L (98-107) L Carbon Dioxide Level 35 mEQ/L (20-30) H Anion Gap 7 (5-15) Blood Urea Nitrogen 15 mg/dL (7-23) Creatinine 0.3 mg/dL (0.5-0.9) L Estimat Glomerular Filtration Rate mL/min (>60) Glucose Level 102 mg/dL (74-106) Calcium Level 7.1 mg/dL (8.6-10.2) L Height (Feet): 5 Height (Inches): 6.00 Weight (Pounds): 184 General Appearance: no apparent distress Cardiovascular: normal rate Respiratory/Chest: normal breath sounds, no respiratory distress, other - mech vent Abdominal Exam: normal bowel sounds, non tender, soft, GT site - c/d/i Luna Rodriguez N.P. September 18, 2016 15:11
--- NOTE | 2016-09-18 16:48 | Diagnostic Imaging Report ---
Indication: Tongue and lip swelling Technique: Administration nonionic contrast. Spiral acquisitions obtained through the the Multiplanar reconstructions were generated. Total dose length product 761 mGycm. CTDIvol(s) 8, 40, 22 mGy. Radiation dose was minimized using automated exposure control Comparison: None Findings: The tongue is enlarged, appears edematous, protrudes well beyond the orifice of the mouth. The patient's lips are also edematous. Gas bubbles are seen surrounding the tongue. Although possibly representing soft tissue gas, the location of all of the gas bubbles appears to be explainable within being within the oral cavity at the interfaces between the tongue and oral cavity. No focal fluid collections to suggest abscess. The patient is intubated. The endotracheal tube tip is approximately 4.5 cm below the larynx and 3.5 cm above the wilder. There is mild prevertebral soft tissue swelling, no prevertebral fluid collections to suggest abscess. There is generalized edema of the subcutaneous fat. There is bilateral maxillary and ethmoid sinus disease. The parapharyngeal spaces are clear. No cervical mass or adenopathy demonstrated. The salivary glands are unremarkable. There are degenerative changes of the cervical spine. The internal jugular veins and common carotid arteries are patent. The included portions of the thorax demonstrate bilateral right greater than left pleural effusions. There are bilateral diffuse parenchymal infiltrates versus edema, extensive. There is a 1 cm diameter left upper lobe nodule which appears similar in size to the previous chest CT of 03/15/2016. The proximal thoracic esophagus is mildly dilated, contains air and debris. The thyroid demonstrates multiple nodules in the left lobe, which is enlarged. The largest nodule measures 16 mm long axis dimension. These appear larger and more conspicuous than on the prior noncontrast CT scan. Improved conspicuity may be related to the lack of IV contrast on the prior study, but nodules definitely appear larger. There appears to be paratracheal lymphadenopathy, with upper paratracheal nodes measuring up to 2.7 cm diameter. There is a right arm PICC present. There is evidence of prior left occipital craniectomy with underlying cerebellar encephalomalacia. Included portions of brain demonstrate marked cerebral volume loss. Impression: Enlarged edematous tongue, protruding anteriorly well beyond the orifice of the mouth. Etiology of this is not demonstrated. There is also edema of the patient's lips. No definite evidence of abscess Multiple left lobe thyroid nodules. New or increased since prior chest CT of 03/15/2016 Bilateral pleural effusions and extensive pulmonary parenchymal disease, new or increased since prior chest CT scan chin Bilateral mild maxillary sinus disease Mildly dilated gas and debris-filled esophagus. Downstream obstruction not excluded Paratracheal lymphadenopathy, possibly increased from prior CT Stable left upper lobe pulmonary nodule Right arm PICC Evidence of higher left occipital craniectomy, underlying cerebellar encephalomalacia Diffuse cerebral volume loss, presumed age-related Degenerative spondylosis The CT scanner at [facility] is accredited by the [employer] and the scans are performed using protocols designed to limit radiation exposure to as low as reasonably achievable to attain images of sufficient resolution adequate for diagnostic evaluation.
[2016-09-18] MEDS ORDERED: 1/2 NS 1000ml IV ONE (17:03)
[2016-09-18] MEDS ORDERED: Tubing IV Secondary IV ONE (17:03)
--- NOTE | 2016-09-18 23:12 | Nephrology Progress Note ---
Assessment/Plan Problem List: (1) Azotemia (2) Hyperkalemia Assessment: Resolved (3) Hyponatremia Assessment: Resolved (4) Septic shock (5) Respiratory distress (6) Dysphagia (7) Pneumonia (8) Anemia (9) Dehydration Plan Supportive care Pending trach Monitor lytes, correct PRN Avoid nephrotoxic agents G-Tube feeding per GI Monitor H&H, transfuse PRN Monitor neuro status Continue wound care DVT prophylaxis PPI AM labs Subjective ROS Limited/Unobtainable: Yes Subjective Intubated, on mech vent in ICU Objective Objective Last 24 Hour Vital Signs Date Time Temp Pulse Resp B/P Pulse Ox O2 Delivery O2 Flow Rate FiO2 09/18/16 22:00 78 21 158/55 100 Mechanical Ventilator 40 09/18/16 21:26 79 19 40 09/18/16 21:00 76 20 152/58 100 Mechanical Ventilator 40 09/18/16 20:00 98.5 75 20 159/55 100 Mechanical Ventilator 40 09/18/16 20:00 74 09/18/16 20:00 40 09/18/16 19:23 69 17 40 09/18/16 18:57 76 17 158/66 100 Mechanical Ventilator 40 09/18/16 18:00 76 17 137/90 100 Mechanical Ventilator 40 09/18/16 17:02 80 25 40 09/18/16 17:00 73 18 149/60 100 Mechanical Ventilator 40 09/18/16 16:00 40 09/18/16 16:00 82 09/18/16 16:00 98.6 81 23 161/61 100 Mechanical Ventilator 40 09/18/16 15:08 79 18 40 09/18/16 15:00 83 22 153/61 100 Mechanical Ventilator 40 09/18/16 13:58 85 22 166/66 100 Mechanical Ventilator 40 09/18/16 13:09 83 19 40 09/18/16 13:00 85 20 153/83 100 Mechanical Ventilator 40 09/18/16 12:00 75 09/18/16 12:00 40 09/18/16 12:00 98.4 76 19 148/56 100 Mechanical Ventilator 40 09/18/16 11:04 76 17 40 09/18/16 11:00 77 18 156/54 100 Mechanical Ventilator 40 09/18/16 10:00 67 18 146/54 100 Mechanical Ventilator 40 09/18/16 09:07 63 17 40 09/18/16 09:00 61 23 158/56 100 Mechanical Ventilator 40 09/18/16 08:00 40 09/18/16 08:00 98.6 73 17 146/52 100 Mechanical Ventilator 40 09/18/16 08:00 72 09/18/16 07:00 69 25 146/52 100 Mechanical Ventilator 40 09/18/16 06:56 80 18 40 09/18/16 06:00 69 25 153/58 100 Mechanical Ventilator 40 09/18/16 05:00 72 22 148/49 100 Mechanical Ventilator 40 09/18/16 04:47 72 27 40 09/18/16 04:00 80 09/18/16 04:00 98.5 68 21 152/52 100 Mechanical Ventilator 40 09/18/16 04:00 40 09/18/16 03:30 74 17 40 09/18/16 03:00 82 22 156/62 100 Mechanical Ventilator 40 09/18/16 02:00 84 22 139/99 100 Mechanical Ventilator 40 09/18/16 01:30 71 17 40 09/18/16 01:00 73 22 142/54 100 Mechanical Ventilator 40 09/18/16 00:00 73 09/18/16 00:00 40 09/18/16 00:00 98.2 72 22 138/49 100 Mechanical Ventilator 40 09/17/16 23:22 74 17 40 Intake and Output 09/17/16 09/18/16 18:59 06:59 Intake Total 2155 ml 1700 ml Output Total 1670 ml 1775 ml Balance 485 ml -75 ml Intake Free Water 200 ml 200 ml IV Total 1085 ml 780 ml Tube Feeding 720 ml 720 ml Other 150 ml Output Urine Total 1670 ml 1775 ml # Bowel Movements 2 1 Laboratory Tests 09/18/16 04:50: White Blood Count 4.7L, Red Blood Count 2.59L, Hemoglobin 8.5L, Hematocrit 26.0L , Mean Corpuscular Volume 100H, Mean Corpuscular Hemoglobin 32.7H, Mean Corpuscular Hemoglobin Concent 32.6, Red Cell Distribution Width 15.0H, Platelet Count 295, Mean Platelet Volume 7.1, Neutrophils (%) (Auto) 69.5, Lymphocytes (%) (Auto) 23.6, Monocytes (%) (Auto) 4.5, Eosinophils (%) (Auto) 1.5, Basophils (%) (Auto) 0.9, Sodium Level 137, Potassium Level 3.7, Chloride Level 95L, Carbon Dioxide Level 35H, Anion Gap 7, Blood Urea Nitrogen 15, Creatinine 0.3L, Estimat Glomerular Filtration Rate , Glucose Level 102, Calcium Level 7.1L Height (Feet): 5 Height (Inches): 6.00 Weight (Pounds): 184 General Appearance: no apparent distress Neck: supple Cardiovascular: normal rate Respiratory/Chest: crackles/rales Abdomen: soft, other - peg Genitourinary/Rectal: other - simpson Extremities: moderate edema, pitting Neurologic: unresponsive JOSSIE YAÑEZ September 18, 2016 23:11
[2016-09-19] VITALS (24 sets, daily range): BP systolic 125–170; BP diastolic 40–68
--- NOTE | 2016-09-19 01:49 | General Progress Note ---
Assessment/Plan Problem List: (1) Cardiac arrest Assessment & Plan: Anoxic encephalopathy with occasional myolclonic movement ICD Codes: I46.9 - Cardiac arrest, cause unspecified SNOMED: 701553886 (2) Septic shock Assessment & Plan: Improved ICD Codes: A41.9 - Sepsis, unspecified organism; R65.21 - Severe sepsis with septic shock SNOMED: 25269547 (3) Respiratory distress Assessment & Plan: On ventilator ICD Codes: R06.00 - Dyspnea, unspecified; R65.21 - Severe sepsis with septic shock SNOMED: 476702897 (4) Dysphagia Assessment & Plan: Tube feed started ICD Codes: R13.10 - Dysphagia, unspecified SNOMED: 33436510, 676155339 (5) Pneumonia Assessment & Plan: Antibiotic adjusted ICD Codes: J18.9 - Pneumonia, unspecified organism SNOMED: 547167295 Qualifiers: Qualified Codes: J13 - Pneumonia due to Streptococcus pneumoniae (6) Feeding by G-tube ICD Codes: Z93.1 - Gastrostomy status SNOMED: 631685246, 554751356 (7) esophageal wall thickening (8) Hypoalbuminemia ICD Codes: E88.09 - Other disorders of plasma-protein metabolism, not elsewhere classified SNOMED: 244534333 (9) LFT elevation ICD Codes: R94.5 - Abnormal results of liver function studies SNOMED: 827676261 (10) Hyperkalemia ICD Codes: E87.5 - Hyperkalemia SNOMED: 00037200 (11) Azotemia ICD Codes: R79.89 - Other specified abnormal findings of blood chemistry SNOMED: 938014958 (12) Hyponatremia ICD Codes: E87.1 - Hypo-osmolality and hyponatremia SNOMED: 84391581 (13) Dehydration ICD Codes: E86.0 - Dehydration SNOMED: 78218703 (14) Anemia ICD Codes: D64.9 - Anemia, unspecified SNOMED: 441592493 Assessment/Plan Can't wean her due to poor lung compliance. She may need diuresis. Will adjust fluids. Subjective Date patient seen: September 18, 2016 Time patient seen: 08:30 Constitutional: Reports: no symptoms HEENT: Reports: no symptoms Cardiovascular: Reports: no symptoms Respiratory: Reports: SOB at rest Gastrointestinal/Abdominal: Reports: no symptoms Genitourinary: Reports: no symptoms Neurologic/Psychiatric: Reports: tremors, weakness Endocrine: Reports: no symptoms Hematologic/Lymphatic: Reports: no symptoms Allergies: Coded Allergies: No Known Allergies (Verified , 03/14/16) Uncoded Allergies: MILK (Allergy, Unknown, 07/11/11) Subjective On vent AC mode 35% FIO2 Objective Last 24 Hour Vital Signs Date Time Temp Pulse Resp B/P Pulse Ox O2 Delivery O2 Flow Rate FiO2 09/19/16 01:00 70 17 142/57 100 Mechanical Ventilator 40 09/19/16 00:00 98.4 74 19 154/53 100 Mechanical Ventilator 40 09/19/16 00:00 40 09/19/16 00:00 73 09/18/16 23:30 73 17 40 09/18/16 23:00 74 17 152/69 100 Mechanical Ventilator 40 09/18/16 22:00 78 21 158/55 100 Mechanical Ventilator 40 09/18/16 21:26 79 19 40 09/18/16 21:00 76 20 152/58 100 Mechanical Ventilator 40 09/18/16 20:00 98.5 75 20 159/55 100 Mechanical Ventilator 40 09/18/16 20:00 74 09/18/16 20:00 40 09/18/16 19:23 69 17 40 09/18/16 18:57 76 17 158/66 100 Mechanical Ventilator 40 09/18/16 18:00 76 17 137/90 100 Mechanical Ventilator 40 09/18/16 17:02 80 25 40 09/18/16 17:00 73 18 149/60 100 Mechanical Ventilator 40 09/18/16 16:00 40 09/18/16 16:00 82 09/18/16 16:00 98.6 81 23 161/61 100 Mechanical Ventilator 40 09/18/16 15:08 79 18 40 09/18/16 15:00 83 22 153/61 100 Mechanical Ventilator 40 09/18/16 13:58 85 22 166/66 100 Mechanical Ventilator 40 09/18/16 13:09 83 19 40 09/18/16 13:00 85 20 153/83 100 Mechanical Ventilator 40 09/18/16 12:00 75 09/18/16 12:00 40 09/18/16 12:00 98.4 76 19 148/56 100 Mechanical Ventilator 40 09/18/16 11:04 76 17 40 09/18/16 11:00 77 18 156/54 100 Mechanical Ventilator 40 09/18/16 10:00 67 18 146/54 100 Mechanical Ventilator 40 09/18/16 09:07 63 17 40 09/18/16 09:00 61 23 158/56 100 Mechanical Ventilator 40 09/18/16 08:00 40 09/18/16 08:00 98.6 73 17 146/52 100 Mechanical Ventilator 40 09/18/16 08:00 72 09/18/16 07:00 69 25 146/52 100 Mechanical Ventilator 40 09/18/16 06:56 80 18 40 09/18/16 06:00 69 25 153/58 100 Mechanical Ventilator 40 09/18/16 05:00 72 22 148/49 100 Mechanical Ventilator 40 09/18/16 04:47 72 27 40 09/18/16 04:00 80 09/18/16 04:00 98.5 68 21 152/52 100 Mechanical Ventilator 40 09/18/16 04:00 40 09/18/16 03:30 74 17 40 09/18/16 03:00 82 22 156/62 100 Mechanical Ventilator 40 09/18/16 02:00 84 22 139/99 100 Mechanical Ventilator 40 Intake and Output 09/18/16 09/19/16 18:59 06:59 Intake Total 1845 ml 925 ml Output Total 2050 ml 1200 ml Balance -205 ml -275 ml Intake Free Water 200 ml 100 ml IV Total 685 ml 465 ml Tube Feeding 780 ml 360 ml Other 180 ml Output Urine Total 2050 ml 1200 ml Laboratory Tests 09/18/16 04:50: White Blood Count 4.7L, Red Blood Count 2.59L, Hemoglobin 8.5L, Hematocrit 26.0L , Mean Corpuscular Volume 100H, Mean Corpuscular Hemoglobin 32.7H, Mean Corpuscular Hemoglobin Concent 32.6, Red Cell Distribution Width 15.0H, Platelet Count 295, Mean Platelet Volume 7.1, Neutrophils (%) (Auto) 69.5, Lymphocytes (%) (Auto) 23.6, Monocytes (%) (Auto) 4.5, Eosinophils (%) (Auto) 1.5, Basophils (%) (Auto) 0.9, Sodium Level 137, Potassium Level 3.7, Chloride Level 95L, Carbon Dioxide Level 35H, Anion Gap 7, Blood Urea Nitrogen 15, Creatinine 0.3L, Estimat Glomerular Filtration Rate , Glucose Level 102, Calcium Level 7.1L Height (Feet): 5 Height (Inches): 6.00 Weight (Pounds): 184 General Appearance: lethargic EENT: TMs normal Neck: non-tender Cardiovascular: normal rate Respiratory/Chest: chest wall non-tender, no respiratory distress, rhonchi - bilaterally Abdomen: normal bowel sounds YONI ROCHE September 19, 2016 01:49
[2016-09-19 04:52] LABS: MEAN CORPUSCULAR HEMOGLOBIN 33.3 PG (27.0-31.0); MEAN CORPUSCULAR HGB CONC 33.4 G/DL (32.0-36.0); MEAN CORPUSCULAR VOLUME 100 FL (80-99); MEAN PLATELET VOLUME 7.1 FL (6.5-10.1); PLATELET COUNT 243 K/UL (150-450); RED BLOOD COUNT 2.38 M/UL (4.20-5.40); WHITE BLOOD COUNT 5.4 K/UL (4.8-10.8)
[2016-09-19 05:01] LABS: ALANINE AMINOTRANSFERASE 19 U/L (3-33); ALBUMIN/GLOBULIN RATIO 0.5 (1.0-2.7); ANION GAP 6 (5-15); ASPARTATE AMINO TRANSFERASE 22 U/L (5-40); CALCIUM 6.7 mg/dL (8.6-10.2); CARBON DIOXIDE 32 mEQ/L (20-30); CHLORIDE 88 mEQ/L (98-107); CREATININE 0.3 mg/dL (0.5-0.9); HEMOLYSIS 0; POTASSIUM 2.9 mEQ/L (3.4-4.9); SODIUM 126 mEQ/L (135-145); TOTAL PROTEIN 5.1 g/dL (6.6-8.7)
[2016-09-19] MEDS: DiphenhydrAMINE 50mg/ml Inj IVP SCH ×3 (05:39→17:14)
[2016-09-19] MEDS: PredniSONE 20mg tab ORAL SCH (08:05)
[2016-09-19] MEDS: Ascorbic Acid 500mg tab GT SCH (08:05)
[2016-09-19] MEDS: Heparin 5000 units/ml inj SUBQ SCH ×2 (08:06→20:31)
[2016-09-19] MEDS: Pantoprazole Inj IVP SCH ×2 (08:06→20:30)
[2016-09-19] MEDS: levETIRAcetam 500 MG in D5W 110 ML IV SCH ×2 (08:07→20:30)
[2016-09-19 08:24] LABS: ANISOCYTOSIS 1+; BAND NEUTROPHILS % (MANUAL) 0 % (0-8); BASOPHILS % (MANUAL) 0 % (0-2); EOSINOPHILS % (MANUAL) 4 % (0-3); HYPOCHROMASIA 1+; LYMPHOCYTES % (MANUAL) 25 % (20-45); NEUTROPHILS % (MANUAL) 58 % (45-75); PLATELET ESTIMATE ADEQUATE; PLATELET MORPHOLOGY NORMAL; TOTAL CELLS COUNTED 100
--- NOTE | 2016-09-19 09:18 | Infectious Diseases Prog Note ---
Assessment/Plan Assessment/Plan A: Sepsis Pneumonia MRSA & NISREEN colonization Cardiac arrest Hypercapnic respiratory failure Dementia Anemia Eosinophilia P; Continue Meropenem X 2 days Waiting for tracheostomy Subjective ROS Limited/Unobtainable: Yes Allergies: Coded Allergies: No Known Allergies (Verified , 03/14/16) Uncoded Allergies: MILK (Allergy, Unknown, 07/11/11) Objective Vital Signs Last 24 Hour Vital Signs Date Time Temp Pulse Resp B/P Pulse Ox O2 Delivery O2 Flow Rate FiO2 09/19/16 08:00 68 09/19/16 08:00 40 09/19/16 08:00 98.7 68 18 150/42 100 Mechanical Ventilator 40 09/19/16 07:00 67 19 146/45 100 Mechanical Ventilator 40 09/19/16 06:38 75 17 40 09/19/16 06:00 68 19 145/53 100 Mechanical Ventilator 40 09/19/16 05:30 76 19 40 09/19/16 05:00 72 17 150/50 100 Mechanical Ventilator 40 09/19/16 04:00 74 09/19/16 04:00 98.5 76 17 151/52 100 Mechanical Ventilator 40 09/19/16 04:00 40 09/19/16 03:22 74 16 40 09/19/16 03:00 68 17 146/47 100 Mechanical Ventilator 40 09/19/16 02:00 67 17 140/47 100 Mechanical Ventilator 40 09/19/16 01:30 68 17 40 09/19/16 01:00 70 17 142/57 100 Mechanical Ventilator 40 09/19/16 00:00 98.4 74 19 154/53 100 Mechanical Ventilator 40 09/19/16 00:00 40 09/19/16 00:00 73 09/18/16 23:30 73 17 40 09/18/16 23:00 74 17 152/69 100 Mechanical Ventilator 40 09/18/16 22:00 78 21 158/55 100 Mechanical Ventilator 40 09/18/16 21:26 79 19 40 09/18/16 21:00 76 20 152/58 100 Mechanical Ventilator 40 09/18/16 20:00 98.5 75 20 159/55 100 Mechanical Ventilator 40 09/18/16 20:00 74 09/18/16 20:00 40 09/18/16 19:23 69 17 40 09/18/16 18:57 76 17 158/66 100 Mechanical Ventilator 40 09/18/16 18:00 76 17 137/90 100 Mechanical Ventilator 40 09/18/16 17:02 80 25 40 09/18/16 17:00 73 18 149/60 100 Mechanical Ventilator 40 09/18/16 16:00 40 09/18/16 16:00 82 09/18/16 16:00 98.6 81 23 161/61 100 Mechanical Ventilator 40 09/18/16 15:08 79 18 40 09/18/16 15:00 83 22 153/61 100 Mechanical Ventilator 40 09/18/16 13:58 85 22 166/66 100 Mechanical Ventilator 40 09/18/16 13:09 83 19 40 09/18/16 13:00 85 20 153/83 100 Mechanical Ventilator 40 09/18/16 12:00 75 09/18/16 12:00 40 09/18/16 12:00 98.4 76 19 148/56 100 Mechanical Ventilator 40 09/18/16 11:04 76 17 40 09/18/16 11:00 77 18 156/54 100 Mechanical Ventilator 40 09/18/16 10:00 67 18 146/54 100 Mechanical Ventilator 40 Height (Feet): 5 Height (Inches): 6.00 Weight (Pounds): 183 HEENT: other - orally intubated Respiratory/Chest: lungs clear, other - on ventilator Cardiovascular: normal rate Abdomen: soft, non tender, other - GT feeing Extremities: other - generalized edema, R arm PICC line Neurologic/Psychiatric: other - opens eyes Laboratory Tests Test 09/19/16 04:00 White Blood Count 5.4 K/UL (4.8-10.8) Red Blood Count 2.38 M/UL (4.20-5.40) L Hemoglobin 7.9 G/DL (12.0-16.0) L Hematocrit 23.8 % (37.0-47.0) L Mean Corpuscular Volume 100 FL (80-99) H Mean Corpuscular Hemoglobin 33.3 PG (27.0-31.0) H Mean Corpuscular Hemoglobin Concent 33.4 G/DL (32.0-36.0) Red Cell Distribution Width 15.0 % (11.6-14.8) H Platelet Count 243 K/UL (150-450) Mean Platelet Volume 7.1 FL (6.5-10.1) Neutrophils (%) (Auto) % (45.0-75.0) Lymphocytes (%) (Auto) % (20.0-45.0) Monocytes (%) (Auto) % (1.0-10.0) Eosinophils (%) (Auto) % (0.0-3.0) Basophils (%) (Auto) % (0.0-2.0) Differential Total Cells Counted 100 Neutrophils % (Manual) 58 % (45-75) Lymphocytes % (Manual) 25 % (20-45) Monocytes % (Manual) 13 % (1-10) H Eosinophils % (Manual) 4 % (0-3) H Basophils % (Manual) 0 % (0-2) Band Neutrophils 0 % (0-8) Platelet Estimate Adequate Platelet Morphology Normal Hypochromasia 1+ Anisocytosis 1+ Sodium Level 126 mEQ/L (135-145) #L Potassium Level 2.9 mEQ/L (3.4-4.9) L Chloride Level 88 mEQ/L (98-107) L Carbon Dioxide Level 32 mEQ/L (20-30) H Anion Gap 6 (5-15) Blood Urea Nitrogen 15 mg/dL (7-23) Creatinine 0.3 mg/dL (0.5-0.9) L Estimat Glomerular Filtration Rate mL/min (>60) Glucose Level 97 mg/dL (74-106) Calcium Level 6.7 mg/dL (8.6-10.2) L Total Bilirubin < 0.2 mg/dL (0.0-1.2) Aspartate Amino Transf (AST/SGOT) 22 U/L (5-40) Alanine Aminotransferase (ALT/SGPT) 19 U/L (3-33) Alkaline Phosphatase 82 U/L (35-104) Total Protein 5.1 g/dL (6.6-8.7) L Albumin 1.9 g/dL (3.5-5.2) L Globulin 3.2 g/dL Albumin/Globulin Ratio 0.5 (1.0-2.7) L Current Medications Medications (Trade) Dose Ordered Sig/Lonny Route PRN Reason Start Time Stop Time Status Last Admin Dose Admin Ascorbic Acid (Vitamin C) 500 mg DAILY GT 09/07/16 09:00 10/07/16 08:59 09/19/16 08:05 Cetirizine HCl (ZyrTEC) 10 mg DAILY ORAL 09/17/16 21:00 10/17/16 20:59 09/19/16 08:05 Chlorhexidine Gluconate 1 applic 1 applic DAILY TOPIC 09/08/16 09:00 10/08/16 08:59 09/18/16 05:37 Diltiazem HCl (Cardizem) 5 mg Q1H PRN IV SBP>170 09/06/16 08:00 10/06/16 07:59 09/14/16 10:17 Diphenhydramine HCl 25 mg 25 mg Q6H IVP 09/18/16 00:00 10/18/16 00:00 09/19/16 05:39 Furosemide (Lasix) 20 mg EVERY 12 HOURS IV 09/13/16 16:00 10/13/16 15:59 09/19/16 08:06 Heparin Sodium (Porcine) (Heparin 5000 units/ml) 5,000 units EVERY 12 HOURS SUBQ 09/04/16 21:00 10/04/16 20:59 09/19/16 08:06 Levetiracetam/ Dextrose (Keppra/D5W) 115 ml @ 460 mls/hr Q12HR IV 09/04/16 21:00 10/04/16 20:59 09/19/16 08:07 Loperamide HCl (Imodium) 2 mg Q4H PRN NG Diarrhea 09/17/16 08:15 10/17/16 08:14 09/17/16 20:47 Meropenem 1 gm/ Sodium Chloride 110 ml @ 220 mls/hr Q12HR IVPB 09/18/16 13:00 09/23/16 12:59 09/18/16 20:43 Pantoprazole 40 mg 40 mg EVERY 12 HOURS IVP 09/04/16 21:00 10/04/16 20:59 09/19/16 08:06 Phosphorus (Phospha 250 Neutral) 500 mg THREE TIMES A DAY GT 09/13/16 13:00 10/13/16 12:59 09/18/16 17:53 Potassium Chloride (KCl 10% 20 mEq oral solution) 40 meq EVERY 4 HOURS GT 09/19/16 09:00 09/19/16 13:01 Potassium Chloride (KCl 20mEq/100ml Premix) 100 ml @ 50 mls/hr Q2H IVPB 09/19/16 08:00 09/19/16 11:59 09/19/16 08:05 Prednisone (predniSONE) 20 mg DAILY ORAL 09/17/16 21:00 10/17/16 20:59 09/19/16 08:05 Sodium Chloride (0.45% NS 1000ml) 1,000 ml @ 40 mls/hr Q24H IV 09/07/16 15:00 10/07/16 14:59 09/18/16 15:01 JAYLIN BENTLEY September 19, 2016 09:18
[2016-09-19] MEDS: KCl 10% 20 mEq/15ml liquid GT SCH ×2 (09:23→13:34)
[2016-09-19] MEDS: Meropenem 1 GM in NS 110 ML IVPB SCH ×2 (09:24→20:30)
[2016-09-19] MEDS: Phospha 250 Neutral tab GT SCH ×3 (09:24→17:14)
[2016-09-19] MEDS: Dyna-Hex 2% Top Sol 8oz TOPIC SCH (09:31)
--- NOTE | 2016-09-19 10:23 | GI Progress Note ---
Assessment/Plan Problems: (1) Dehydration ICD Codes: E86.0 - Dehydration SNOMED: 87232959 (2) Hyponatremia ICD Codes: E87.1 - Hypo-osmolality and hyponatremia SNOMED: 04989134 (3) LFT elevation ICD Codes: R94.5 - Abnormal results of liver function studies SNOMED: 050365770 (4) Hypoalbuminemia ICD Codes: E88.09 - Other disorders of plasma-protein metabolism, not elsewhere classified SNOMED: 298625196 (5) Anemia ICD Codes: D64.9 - Anemia, unspecified SNOMED: 251650538 (6) Feeding by G-tube ICD Codes: Z93.1 - Gastrostomy status SNOMED: 593789497, 263156768 (7) Dysphagia ICD Codes: R13.10 - Dysphagia, unspecified SNOMED: 22298943, 545173848 (8) Facial swelling ICD Codes: R22.0 - Localized swelling, mass and lump, head SNOMED: 784631009 Status: unchanged Status Narrative Discussed with Dr. Britt. Assessment/Plan OB stool negative elevated CEA >> 8.8 hep panel >> negative facial swelling >> no improvements x 5 days after TF change. IgE elevation >> milk allergy >> ordered lab send out r/o cow milk IgE vs general IgE NPO + IVFs until new bag GTF (Vivonex) arrives or IgE cow milk resulted. hold GI procedures EGD/colonoscopy when stable given anemia and elevated CEA. monitor H&H, transfuse prn GTFs per dietary >> TF CHANGE:--> VIVONEX RTF @60 ml x 24 hrs + Prosource BID ppi abx Imodium PRN fu labs Subjective Subjective limited Objective Last 24 Hour Vital Signs Date Time Temp Pulse Resp B/P Pulse Ox O2 Delivery O2 Flow Rate FiO2 09/19/16 10:00 77 19 131/52 99 Mechanical Ventilator 40 09/19/16 09:45 40 09/19/16 09:20 62 17 40 09/19/16 09:07 98.5 09/19/16 09:00 67 19 141/51 100 Mechanical Ventilator 40 09/19/16 08:00 68 09/19/16 08:00 40 09/19/16 08:00 98.7 68 18 150/42 100 Mechanical Ventilator 40 09/19/16 07:00 67 19 146/45 100 Mechanical Ventilator 40 09/19/16 06:38 75 17 40 09/19/16 06:00 68 19 145/53 100 Mechanical Ventilator 40 09/19/16 05:30 76 19 40 09/19/16 05:00 72 17 150/50 100 Mechanical Ventilator 40 09/19/16 04:00 74 09/19/16 04:00 98.5 76 17 151/52 100 Mechanical Ventilator 40 09/19/16 04:00 40 09/19/16 03:22 74 16 40 09/19/16 03:00 68 17 146/47 100 Mechanical Ventilator 40 09/19/16 02:00 67 17 140/47 100 Mechanical Ventilator 40 09/19/16 01:30 68 17 40 09/19/16 01:00 70 17 142/57 100 Mechanical Ventilator 40 09/19/16 00:00 98.4 74 19 154/53 100 Mechanical Ventilator 40 09/19/16 00:00 40 09/19/16 00:00 73 09/18/16 23:30 73 17 40 09/18/16 23:00 74 17 152/69 100 Mechanical Ventilator 40 09/18/16 22:00 78 21 158/55 100 Mechanical Ventilator 40 09/18/16 21:26 79 19 40 09/18/16 21:00 76 20 152/58 100 Mechanical Ventilator 40 09/18/16 20:00 98.5 75 20 159/55 100 Mechanical Ventilator 40 09/18/16 20:00 74 09/18/16 20:00 40 09/18/16 19:23 69 17 40 09/18/16 18:57 76 17 158/66 100 Mechanical Ventilator 40 09/18/16 18:00 76 17 137/90 100 Mechanical Ventilator 40 09/18/16 17:02 80 25 40 09/18/16 17:00 73 18 149/60 100 Mechanical Ventilator 40 09/18/16 16:00 40 09/18/16 16:00 82 09/18/16 16:00 98.6 81 23 161/61 100 Mechanical Ventilator 40 09/18/16 15:08 79 18 40 09/18/16 15:00 83 22 153/61 100 Mechanical Ventilator 40 09/18/16 13:58 85 22 166/66 100 Mechanical Ventilator 40 09/18/16 13:09 83 19 40 5/30/17 13:00 85 20 153/83 100 Mechanical Ventilator 40 09/18/16 12:00 75 09/18/16 12:00 40 09/18/16 12:00 98.4 76 19 148/56 100 Mechanical Ventilator 40 09/18/16 11:04 76 17 40 09/18/16 11:00 77 18 156/54 100 Mechanical Ventilator 40 Intake and Output 09/18/16 09/19/16 19:00 07:00 Intake Total 1785 ml 1345 ml Output Total 1980 ml 1920 ml Balance -195 ml -575 ml Intake Free Water 200 ml 100 ml IV Total 685 ml 705 ml Tube Feeding 720 ml 540 ml Other 180 ml Output Urine Total 1980 ml 1920 ml Laboratory Tests Test 09/19/16 04:00 White Blood Count 5.4 K/UL (4.8-10.8) Red Blood Count 2.38 M/UL (4.20-5.40) L Hemoglobin 7.9 G/DL (12.0-16.0) L Hematocrit 23.8 % (37.0-47.0) L Mean Corpuscular Volume 100 FL (80-99) H Mean Corpuscular Hemoglobin 33.3 PG (27.0-31.0) H Mean Corpuscular Hemoglobin Concent 33.4 G/DL (32.0-36.0) Red Cell Distribution Width 15.0 % (11.6-14.8) H Platelet Count 243 K/UL (150-450) Mean Platelet Volume 7.1 FL (6.5-10.1) Neutrophils (%) (Auto) % (45.0-75.0) Lymphocytes (%) (Auto) % (20.0-45.0) Monocytes (%) (Auto) % (1.0-10.0) Eosinophils (%) (Auto) % (0.0-3.0) Basophils (%) (Auto) % (0.0-2.0) Differential Total Cells Counted 100 Neutrophils % (Manual) 58 % (45-75) Lymphocytes % (Manual) 25 % (20-45) Monocytes % (Manual) 13 % (1-10) H Eosinophils % (Manual) 4 % (0-3) H Basophils % (Manual) 0 % (0-2) Band Neutrophils 0 % (0-8) Platelet Estimate Adequate Platelet Morphology Normal Hypochromasia 1+ Anisocytosis 1+ Sodium Level 126 mEQ/L (135-145) #L Potassium Level 2.9 mEQ/L (3.4-4.9) L Chloride Level 88 mEQ/L (98-107) L Carbon Dioxide Level 32 mEQ/L (20-30) H Anion Gap 6 (5-15) Blood Urea Nitrogen 15 mg/dL (7-23) Creatinine 0.3 mg/dL (0.5-0.9) L Estimat Glomerular Filtration Rate mL/min (>60) Glucose Level 97 mg/dL (74-106) Calcium Level 6.7 mg/dL (8.6-10.2) L Total Bilirubin < 0.2 mg/dL (0.0-1.2) Aspartate Amino Transf (AST/SGOT) 22 U/L (5-40) Alanine Aminotransferase (ALT/SGPT) 19 U/L (3-33) Alkaline Phosphatase 82 U/L (35-104) Total Protein 5.1 g/dL (6.6-8.7) L Albumin 1.9 g/dL (3.5-5.2) L Globulin 3.2 g/dL Albumin/Globulin Ratio 0.5 (1.0-2.7) L Height (Feet): 5 Height (Inches): 6.00 Weight (Pounds): 183 General Appearance: no apparent distress Cardiovascular: normal rate Respiratory/Chest: other - mech vent Abdominal Exam: GT site - c/d/i Luna Rodriguez N.P. September 19, 2016 10:23
[2016-09-19] MEDS: D5 1/2NS w/KCl 20mEq 1,000 ML IV SCH (15:30)
--- NOTE | 2016-09-19 18:39 | Nephrology Progress Note ---
Assessment/Plan Problem List: (1) Cardiac arrest (2) Septic shock (3) Respiratory distress (4) Dysphagia (5) Pneumonia (6) Anemia (7) Azotemia (8) Dehydration (9) Respiratory failure Plan Supportive care Monitor lytes, correct PRN Avoid nephrotoxic agents G-Tube feeding per GI Monitor H&H, transfuse PRN Monitor neuro status Continue wound care DVT prophylaxis AM labs Subjective ROS Limited/Unobtainable: Yes Subjective Intubated, in ICU Objective Objective Last 24 Hour Vital Signs Date Time Temp Pulse Resp B/P Pulse Ox O2 Delivery O2 Flow Rate FiO2 09/19/16 18:00 63 18 137/59 98 Mechanical Ventilator 40 09/19/16 17:00 61 18 151/61 100 Mechanical Ventilator 40 09/19/16 16:49 62 17 40 09/19/16 16:00 98.6 65 17 125/57 100 Mechanical Ventilator 40 09/19/16 16:00 63 09/19/16 16:00 40 09/19/16 15:30 74 17 40 09/19/16 15:00 69 18 140/40 100 Mechanical Ventilator 40 09/19/16 14:00 64 18 141/53 100 Mechanical Ventilator 40 09/19/16 13:00 68 17 137/61 100 Mechanical Ventilator 40 09/19/16 12:57 71 17 40 09/19/16 12:00 75 09/19/16 12:00 98.5 76 18 139/65 100 Mechanical Ventilator 40 09/19/16 11:30 40 09/19/16 11:28 87 21 40 09/19/16 11:00 80 18 133/53 100 Mechanical Ventilator 40 09/19/16 10:00 77 19 131/52 99 Mechanical Ventilator 40 09/19/16 09:45 40 09/19/16 09:20 62 17 40 09/19/16 09:07 98.5 09/19/16 09:00 67 19 141/51 100 Mechanical Ventilator 40 09/19/16 08:00 68 09/19/16 08:00 40 09/19/16 08:00 98.7 68 18 150/42 100 Mechanical Ventilator 40 09/19/16 07:00 67 19 146/45 100 Mechanical Ventilator 40 09/19/16 06:38 75 17 40 09/19/16 06:00 68 19 145/53 100 Mechanical Ventilator 40 09/19/16 05:30 76 19 40 5/31/17 05:00 72 17 150/50 100 Mechanical Ventilator 40 09/19/16 04:00 74 09/19/16 04:00 98.5 76 17 151/52 100 Mechanical Ventilator 40 09/19/16 04:00 40 09/19/16 03:22 74 16 40 09/19/16 03:00 68 17 146/47 100 Mechanical Ventilator 40 09/19/16 02:00 67 17 140/47 100 Mechanical Ventilator 40 09/19/16 01:30 68 17 40 09/19/16 01:00 70 17 142/57 100 Mechanical Ventilator 40 09/19/16 00:00 98.4 74 19 154/53 100 Mechanical Ventilator 40 09/19/16 00:00 40 09/19/16 00:00 73 09/18/16 23:30 73 17 40 09/18/16 23:00 74 17 152/69 100 Mechanical Ventilator 40 09/18/16 22:00 78 21 158/55 100 Mechanical Ventilator 40 09/18/16 21:26 79 19 40 09/18/16 21:00 76 20 152/58 100 Mechanical Ventilator 40 09/18/16 20:00 98.5 75 20 159/55 100 Mechanical Ventilator 40 09/18/16 20:00 74 09/18/16 20:00 40 09/18/16 19:23 69 17 40 09/18/16 18:57 76 17 158/66 100 Mechanical Ventilator 40 Intake and Output 09/18/16 09/19/16 19:00 07:00 Intake Total 1785 ml 1345 ml Output Total 1980 ml 1920 ml Balance -195 ml -575 ml Intake Free Water 200 ml 100 ml IV Total 685 ml 705 ml Tube Feeding 720 ml 540 ml Other 180 ml Output Urine Total 1980 ml 1920 ml Laboratory Tests 09/19/16 04:00: White Blood Count 5.4, Red Blood Count 2.38L, Hemoglobin 7.9L, Hematocrit 23.8L , Mean Corpuscular Volume 100H, Mean Corpuscular Hemoglobin 33.3H, Mean Corpuscular Hemoglobin Concent 33.4, Red Cell Distribution Width 15.0H, Platelet Count 243, Mean Platelet Volume 7.1, Neutrophils (%) (Auto) , Lymphocytes (%) (Auto) , Monocytes (%) (Auto) , Eosinophils (%) (Auto) , Basophils (%) (Auto) , Differential Total Cells Counted 100, Neutrophils % ( Manual) 58, Lymphocytes % (Manual) 25, Monocytes % (Manual) 13H, Eosinophils % ( Manual) 4H, Basophils % (Manual) 0, Band Neutrophils 0, Platelet Estimate Adequate, Platelet Morphology Normal, Hypochromasia 1+, Anisocytosis 1+, Sodium Level 126#L, Potassium Level 2.9L, Chloride Level 88L, Carbon Dioxide Level 32H , Anion Gap 6, Blood Urea Nitrogen 15, Creatinine 0.3L, Estimat Glomerular Filtration Rate , Glucose Level 97, Calcium Level 6.7L, Total Bilirubin < 0.2, Aspartate Amino Transf (AST/SGOT) 22, Alanine Aminotransferase (ALT/SGPT) 19, Alkaline Phosphatase 82, Total Protein 5.1L, Albumin 1.9L, Globulin 3.2, Albumin /Globulin Ratio 0.5L Height (Feet): 5 Height (Inches): 6.00 Weight (Pounds): 183 General Appearance: no apparent distress Cardiovascular: normal rate Respiratory/Chest: crackles/rales Abdomen: other - peg Neurologic: unresponsive Allison Johnson N.P. September 19, 2016 18:39
--- NOTE | 2016-09-19 19:30 | Cardiology Progress Note ---
Assessment/Plan Assessment/Plan 1. Asystole cardiac arrest due to respiratory failure, echo reveals normal LVEF with no wall motion abnormalities. 2. E.Coli pneumonia/leukocytosis. 3. Hypoxic, hypercarbic respiratory failure, awaiting tracheostomy tube placement. 4. s/p PEG 5. HTN Subjective Subjective Sinus rhythm at 64. Sedated Objective Last 24 Hour Vital Signs Date Time Temp Pulse Resp B/P Pulse Ox O2 Delivery O2 Flow Rate FiO2 09/19/16 19:00 65 18 158/68 98 Mechanical Ventilator 40 09/19/16 18:00 63 18 137/59 98 Mechanical Ventilator 40 09/19/16 17:00 61 18 151/61 100 Mechanical Ventilator 40 09/19/16 16:49 62 17 40 09/19/16 16:00 98.6 65 17 125/57 100 Mechanical Ventilator 40 09/19/16 16:00 63 09/19/16 16:00 40 09/19/16 15:30 74 17 40 09/19/16 15:00 69 18 140/40 100 Mechanical Ventilator 40 09/19/16 14:00 64 18 141/53 100 Mechanical Ventilator 40 09/19/16 13:00 68 17 137/61 100 Mechanical Ventilator 40 09/19/16 12:57 71 17 40 09/19/16 12:00 75 09/19/16 12:00 98.5 76 18 139/65 100 Mechanical Ventilator 40 09/19/16 11:30 40 09/19/16 11:28 87 21 40 09/19/16 11:00 80 18 133/53 100 Mechanical Ventilator 40 09/19/16 10:00 77 19 131/52 99 Mechanical Ventilator 40 09/19/16 09:45 40 09/19/16 09:20 62 17 40 09/19/16 09:07 98.5 09/19/16 09:00 67 19 141/51 100 Mechanical Ventilator 40 09/19/16 08:00 68 09/19/16 08:00 40 09/19/16 08:00 98.7 68 18 150/42 100 Mechanical Ventilator 40 09/19/16 07:00 67 19 146/45 100 Mechanical Ventilator 40 09/19/16 06:38 75 17 40 09/19/16 06:00 68 19 145/53 100 Mechanical Ventilator 40 09/19/16 05:30 76 19 40 09/19/16 05:00 72 17 150/50 100 Mechanical Ventilator 40 09/19/16 04:00 74 09/19/16 04:00 98.5 76 17 151/52 100 Mechanical Ventilator 40 09/19/16 04:00 40 09/19/16 03:22 74 16 40 09/19/16 03:00 68 17 146/47 100 Mechanical Ventilator 40 09/19/16 02:00 67 17 140/47 100 Mechanical Ventilator 40 09/19/16 01:30 68 17 40 09/19/16 01:00 70 17 142/57 100 Mechanical Ventilator 40 09/19/16 00:00 98.4 74 19 154/53 100 Mechanical Ventilator 40 09/19/16 00:00 40 09/19/16 00:00 73 09/18/16 23:30 73 17 40 09/18/16 23:00 74 17 152/69 100 Mechanical Ventilator 40 09/18/16 22:00 78 21 158/55 100 Mechanical Ventilator 40 09/18/16 21:26 79 19 40 09/18/16 21:00 76 20 152/58 100 Mechanical Ventilator 40 09/18/16 20:00 98.5 75 20 159/55 100 Mechanical Ventilator 40 09/18/16 20:00 74 09/18/16 20:00 40 Intake and Output 09/18/16 09/19/16 19:00 07:00 Intake Total 1785 ml 1345 ml Output Total 1980 ml 1920 ml Balance -195 ml -575 ml Intake Free Water 200 ml 100 ml IV Total 685 ml 705 ml Tube Feeding 720 ml 540 ml Other 180 ml Output Urine Total 1980 ml 1920 ml 2D Echo: LVEF 55%, Grade I LVDD, RVSP 57 mmHg Laboratory Tests Test 09/19/16 04:00 White Blood Count 5.4 K/UL (4.8-10.8) Red Blood Count 2.38 M/UL (4.20-5.40) L Hemoglobin 7.9 G/DL (12.0-16.0) L Hematocrit 23.8 % (37.0-47.0) L Mean Corpuscular Volume 100 FL (80-99) H Mean Corpuscular Hemoglobin 33.3 PG (27.0-31.0) H Mean Corpuscular Hemoglobin Concent 33.4 G/DL (32.0-36.0) Red Cell Distribution Width 15.0 % (11.6-14.8) H Platelet Count 243 K/UL (150-450) Mean Platelet Volume 7.1 FL (6.5-10.1) Neutrophils (%) (Auto) % (45.0-75.0) Lymphocytes (%) (Auto) % (20.0-45.0) Monocytes (%) (Auto) % (1.0-10.0) Eosinophils (%) (Auto) % (0.0-3.0) Basophils (%) (Auto) % (0.0-2.0) Differential Total Cells Counted 100 Neutrophils % (Manual) 58 % (45-75) Lymphocytes % (Manual) 25 % (20-45) Monocytes % (Manual) 13 % (1-10) H Eosinophils % (Manual) 4 % (0-3) H Basophils % (Manual) 0 % (0-2) Band Neutrophils 0 % (0-8) Platelet Estimate Adequate Platelet Morphology Normal Hypochromasia 1+ Anisocytosis 1+ Sodium Level 126 mEQ/L (135-145) #L Potassium Level 2.9 mEQ/L (3.4-4.9) L Chloride Level 88 mEQ/L (98-107) L Carbon Dioxide Level 32 mEQ/L (20-30) H Anion Gap 6 (5-15) Blood Urea Nitrogen 15 mg/dL (7-23) Creatinine 0.3 mg/dL (0.5-0.9) L Estimat Glomerular Filtration Rate mL/min (>60) Glucose Level 97 mg/dL (74-106) Calcium Level 6.7 mg/dL (8.6-10.2) L Total Bilirubin < 0.2 mg/dL (0.0-1.2) Aspartate Amino Transf (AST/SGOT) 22 U/L (5-40) Alanine Aminotransferase (ALT/SGPT) 19 U/L (3-33) Alkaline Phosphatase 82 U/L (35-104) Total Protein 5.1 g/dL (6.6-8.7) L Albumin 1.9 g/dL (3.5-5.2) L Globulin 3.2 g/dL Albumin/Globulin Ratio 0.5 (1.0-2.7) L Objective HEENT: Intubated, normocephalic, atraumatic, PERRLA, EOMI Neck: no JVD, no carotid bruit, upstroke 2+ B/L Respiratory: decreased breath sounds, crackles both bases Cardiovascular: regular rate, rhythm, normal S1S2,no murmurs, gallops or rubs Gastrointestinal: normal BS, soft non-tender, non-distended, GT in place Musculoskeletal: no clubbing cyanosis or edema MARK LEVY September 19, 2016 19:30
[2016-09-20] VITALS (25 sets, daily range): BP systolic 121–177; BP diastolic 47–74
[2016-09-20] MEDS: DiphenhydrAMINE 50mg/ml Inj IVP SCH ×5 (00:27→23:49)
--- NOTE | 2016-09-20 00:37 | Pulmonolgy Critical Care Note ---
Critical Care - Asmt/Plan Problems: (1) Respiratory failure (2) Respiratory distress (3) Dysphagia (4) Pneumonia (5) Feeding by G-tube (6) Anemia (7) Hypoalbuminemia (8) LFT elevation (9) Hyperkalemia Assessment & Plan: Weaned weaning trial even with SIMV 10 Assessment/Plan: Because of her mental status right lung pneumonia and inability to wean from the vent, she will need tracheostomy. Respiratory: weaning trial Cardiac: start pressors Renal: F/U I&O Infectious Disease: check cultures Gastrointestinal: continue feedings/current rate Endocrine: check TSH Hematologic: monitor H/H, transfuse if hgb<8.5 Neurologic: PRN Ativan Prophylaxis: Protonix Disposition: keep in ICU Time Spent (Minutes): 30 Discussed with: nurses Critical Care - Objective Last 24 Hour Vital Signs Date Time Temp Pulse Resp B/P Pulse Ox O2 Delivery O2 Flow Rate FiO2 09/20/16 00:00 40 09/20/16 00:00 97.9 66 17 154/52 100 Mechanical Ventilator 40 09/19/16 23:25 70 17 40 09/19/16 23:00 62 18 157/44 100 Mechanical Ventilator 40 09/19/16 22:00 62 18 161/60 100 Mechanical Ventilator 40 09/19/16 21:30 63 17 40 09/19/16 21:00 66 18 166/48 99 Mechanical Ventilator 40 09/19/16 20:17 88 18 Mechanical Ventilator 30 09/19/16 20:00 63 09/19/16 20:00 98.3 62 17 170/58 100 Mechanical Ventilator 40 09/19/16 20:00 40 09/19/16 19:30 63 17 40 09/19/16 19:00 65 18 158/68 98 Mechanical Ventilator 40 09/19/16 18:00 63 18 137/59 98 Mechanical Ventilator 40 09/19/16 17:00 61 18 151/61 100 Mechanical Ventilator 40 09/19/16 16:49 62 17 40 09/19/16 16:00 98.6 65 17 125/57 100 Mechanical Ventilator 40 09/19/16 16:00 63 09/19/16 16:00 40 09/19/16 15:30 74 17 40 09/19/16 15:00 69 18 140/40 100 Mechanical Ventilator 40 09/19/16 14:00 64 18 141/53 100 Mechanical Ventilator 40 09/19/16 13:00 68 17 137/61 100 Mechanical Ventilator 40 09/19/16 12:57 71 17 40 09/19/16 12:00 75 09/19/16 12:00 98.5 76 18 139/65 100 Mechanical Ventilator 40 09/19/16 11:30 40 09/19/16 11:28 87 21 40 09/19/16 11:00 80 18 133/53 100 Mechanical Ventilator 40 09/19/16 10:00 77 19 131/52 99 Mechanical Ventilator 40 09/19/16 09:45 40 09/19/16 09:20 62 17 40 09/19/16 09:07 98.5 09/19/16 09:00 67 19 141/51 100 Mechanical Ventilator 40 09/19/16 08:00 68 09/19/16 08:00 40 09/19/16 08:00 98.7 68 18 150/42 100 Mechanical Ventilator 40 09/19/16 07:00 67 19 146/45 100 Mechanical Ventilator 40 09/19/16 06:38 75 17 40 09/19/16 06:00 68 19 145/53 100 Mechanical Ventilator 40 09/19/16 05:30 76 19 40 09/19/16 05:00 72 17 150/50 100 Mechanical Ventilator 40 09/19/16 04:00 74 09/19/16 04:00 98.5 76 17 151/52 100 Mechanical Ventilator 40 09/19/16 04:00 40 09/19/16 03:22 74 16 40 09/19/16 03:00 68 17 146/47 100 Mechanical Ventilator 40 09/19/16 02:00 67 17 140/47 100 Mechanical Ventilator 40 09/19/16 01:30 68 17 40 09/19/16 01:00 70 17 142/57 100 Mechanical Ventilator 40 Status: awake Condition: improving HEENT: atraumatic Neck: full ROM Lungs: rhonchi Heart: HR/BP stable Abdomen: soft, active bowel sounds Extremities: edema Decubiti: location Accucheck: 121 Critical Care - Subjective ROS Limited/Unobtainable: Yes ICU Day: 15 Intubation Day: 15 Interval Events: Her tongue is decreasing in size Condition: improving IV Access: central EKG Rhythm: Sinus Rhythm FI02: 40 Vent Support Breath Rate: 17 Vent Support Mode: AC Vent Tidal Volume: 500 Sputum Amount: Scant PEEP: 5.0 PIP: 45 Secretions: Minimal secretion Tube Feeding Amount: 60 I&O: Intake and Output 09/19/16 09/20/16 19:00 07:00 Intake Total 1450 ml 475 ml Output Total 1630 ml 1500 ml Balance -180 ml -1025 ml IV Total 720 ml 475 ml Tube Feeding 400 ml Blood Product 250 ml Other 80 ml Output Urine Total 1630 ml 1500 ml # Bowel Movements 2 ET-Tube: 6.0 ET Position: 24 YONI ROCHE Sep 20, 2016 00:37
[2016-09-20] MEDS: Dyna-Hex 2% Top Sol 8oz TOPIC SCH (04:27)
[2016-09-20] MEDS: Diltiazem 25mg/5ml IV PRN (05:11)
[2016-09-20 05:18] LABS: BASOPHILS % (AUTO) 1.1 % (0.0-2.0); EOSINOPHILS % (AUTO) 3.7 % (0.0-3.0); LYMPHOCYTES % (AUTO) 36.4 % (20.0-45.0); MEAN CORPUSCULAR HEMOGLOBIN 32.7 PG (27.0-31.0); MEAN CORPUSCULAR HGB CONC 33.3 G/DL (32.0-36.0); MEAN CORPUSCULAR VOLUME 98 FL (80-99); MEAN PLATELET VOLUME 7.1 FL (6.5-10.1); MONOCYTES % (AUTO) 9.7 % (1.0-10.0); NEUTROPHILS % (AUTO) 49.1 % (45.0-75.0); PLATELET COUNT 306 K/UL (150-450); RED BLOOD COUNT 3.19 M/UL (4.20-5.40); RED CELL DISTRIBUTION WIDTH 15.1 % (11.6-14.8); WHITE BLOOD COUNT 5.7 K/UL (4.8-10.8)
[2016-09-20 05:37] LABS: ALANINE AMINOTRANSFERASE 24 U/L (3-33); ALBUMIN/GLOBULIN RATIO 0.5 (1.0-2.7); ANION GAP 8 (5-15); ASPARTATE AMINO TRANSFERASE 28 U/L (5-40); CALCIUM 8.3 mg/dL (8.6-10.2); CARBON DIOXIDE 33 mEQ/L (20-30); CHLORIDE 94 mEQ/L (98-107); CREATININE 0.4 mg/dL (0.5-0.9); HEMOLYSIS 4; POTASSIUM 4.2 mEQ/L (3.4-4.9); SODIUM 135 mEQ/L (135-145); TOTAL PROTEIN 6.7 g/dL (6.6-8.7)
[2016-09-20] MEDS: Meropenem 1 GM in NS 110 ML IVPB SCH (08:37)
[2016-09-20] MEDS: Phospha 250 Neutral tab GT SCH ×3 (08:38→17:50)
[2016-09-20] MEDS: PredniSONE 20mg tab ORAL SCH (08:38)
[2016-09-20] MEDS: Ascorbic Acid 500mg tab GT SCH (08:38)
[2016-09-20] MEDS: Heparin 5000 units/ml inj SUBQ SCH ×2 (08:39→20:46)
[2016-09-20] MEDS ORDERED: Tubing IV Secondary IV ONE ×2 (09:55)
[2016-09-20] MEDS ORDERED: NS 275ml ONE (09:55)
[2016-09-20] MEDS ORDERED: Tubing Blood Filter IV ONE (09:55)
[2016-09-20] MEDS: levETIRAcetam 500 MG in D5W 110 ML IV SCH ×2 (09:59→20:44)
[2016-09-20] MEDS: Pantoprazole Inj IVP SCH ×2 (09:59→20:44)
--- NOTE | 2016-09-20 10:36 | GI Progress Note ---
Assessment/Plan Problems: (1) Dehydration ICD Codes: E86.0 - Dehydration SNOMED: 68289718 (2) Hyponatremia ICD Codes: E87.1 - Hypo-osmolality and hyponatremia SNOMED: 97217319 (3) LFT elevation ICD Codes: R94.5 - Abnormal results of liver function studies SNOMED: 065489190 (4) Hypoalbuminemia ICD Codes: E88.09 - Other disorders of plasma-protein metabolism, not elsewhere classified SNOMED: 395956395 (5) Anemia ICD Codes: D64.9 - Anemia, unspecified SNOMED: 927177680 (6) Feeding by G-tube ICD Codes: Z93.1 - Gastrostomy status SNOMED: 043876225, 799726996 (7) Dysphagia ICD Codes: R13.10 - Dysphagia, unspecified SNOMED: 51904496, 524805647 (8) Facial swelling ICD Codes: R22.0 - Localized swelling, mass and lump, head SNOMED: 549160670 Status: unchanged Status Narrative Discussed with Dr. Britt. Assessment/Plan OB stool negative elevated CEA >> 8.8 hep panel >> negative facial swelling >> no improvements x 5 days after TF change. >> ordered IgA marker r/o IgA neuropathy IgE elevation >> milk allergy? >> lab send out r/o cow milk IgE vs general IgE NPO + IVFs until new bag GTF (Vivonex) arrives or IgE cow milk resulted. hold GI procedures EGD/colonoscopy when stable given anemia and elevated CEA. fu IgA & IgE monitor H&H, transfuse prn GTFs per dietary >> TF CHANGE:--> VIVONEX RTF @60 ml x 24 hrs + Prosource BID ppi abx Imodium PRN fu labs Subjective Subjective limited Objective Last 24 Hour Vital Signs Date Time Temp Pulse Resp B/P Pulse Ox O2 Delivery O2 Flow Rate FiO2 09/20/16 08:32 78 17 40 09/20/16 08:00 69 09/20/16 08:00 69 18 163/65 100 Mechanical Ventilator 40 09/20/16 08:00 40 09/20/16 07:16 70 17 40 09/20/16 07:00 72 18 155/66 100 Mechanical Ventilator 40 09/20/16 06:00 66 18 153/64 100 Mechanical Ventilator 40 09/20/16 05:11 84 170/74 09/20/16 05:00 84 18 170/74 100 Mechanical Ventilator 40 09/20/16 04:58 83 20 40 09/20/16 04:00 40 09/20/16 04:00 85 09/20/16 04:00 98.3 76 17 171/58 100 Mechanical Ventilator 40 09/20/16 03:30 71 17 40 09/20/16 03:00 69 17 168/59 100 Mechanical Ventilator 40 09/20/16 02:00 65 18 161/61 100 Mechanical Ventilator 40 09/20/16 01:30 72 17 40 09/20/16 01:00 72 18 164/67 100 Mechanical Ventilator 40 09/20/16 00:00 40 09/20/16 00:00 63 09/20/16 00:00 97.9 66 17 154/52 100 Mechanical Ventilator 40 09/19/16 23:25 70 17 40 09/19/16 23:00 62 18 157/44 100 Mechanical Ventilator 40 09/19/16 22:00 62 18 161/60 100 Mechanical Ventilator 40 09/19/16 21:30 63 17 40 09/19/16 21:00 66 18 166/48 99 Mechanical Ventilator 40 09/19/16 20:17 88 18 Mechanical Ventilator 30 09/19/16 20:00 63 09/19/16 20:00 98.3 62 17 170/58 100 Mechanical Ventilator 40 09/19/16 20:00 40 09/19/16 19:30 63 17 40 09/19/16 19:00 65 18 158/68 98 Mechanical Ventilator 40 09/19/16 18:00 63 18 137/59 98 Mechanical Ventilator 40 09/19/16 17:00 61 18 151/61 100 Mechanical Ventilator 40 09/19/16 16:49 62 17 40 09/19/16 16:00 98.6 65 17 125/57 100 Mechanical Ventilator 40 09/19/16 16:00 63 09/19/16 16:00 40 09/19/16 15:30 74 17 40 09/19/16 15:00 69 18 140/40 100 Mechanical Ventilator 40 09/19/16 14:00 64 18 141/53 100 Mechanical Ventilator 40 09/19/16 13:00 68 17 137/61 100 Mechanical Ventilator 40 09/19/16 12:57 71 17 40 09/19/16 12:00 75 09/19/16 12:00 98.5 76 18 139/65 100 Mechanical Ventilator 40 09/19/16 11:30 40 09/19/16 11:28 87 21 40 09/19/16 11:00 80 18 133/53 100 Mechanical Ventilator 40 Intake and Output 09/19/16 09/20/16 19:00 07:00 Intake Total 1450 ml 825 ml Output Total 1630 ml 2420 ml Balance -180 ml -1595 ml IV Total 720 ml 825 ml Tube Feeding 400 ml Blood Product 250 ml Other 80 ml Output Urine Total 1630 ml 2420 ml # Bowel Movements 2 Laboratory Tests Test 09/20/16 05:00 White Blood Count 5.7 K/UL (4.8-10.8) Red Blood Count 3.19 M/UL (4.20-5.40) L Hemoglobin 10.5 G/DL (12.0-16.0) #L Hematocrit 31.4 % (37.0-47.0) #L Mean Corpuscular Volume 98 FL (80-99) Mean Corpuscular Hemoglobin 32.7 PG (27.0-31.0) H Mean Corpuscular Hemoglobin Concent 33.3 G/DL (32.0-36.0) Red Cell Distribution Width 15.1 % (11.6-14.8) H Platelet Count 306 K/UL (150-450) Mean Platelet Volume 7.1 FL (6.5-10.1) Neutrophils (%) (Auto) 49.1 % (45.0-75.0) Lymphocytes (%) (Auto) 36.4 % (20.0-45.0) Monocytes (%) (Auto) 9.7 % (1.0-10.0) Eosinophils (%) (Auto) 3.7 % (0.0-3.0) H Basophils (%) (Auto) 1.1 % (0.0-2.0) Sodium Level 135 mEQ/L (135-145) Potassium Level 4.2 mEQ/L (3.4-4.9) Chloride Level 94 mEQ/L (98-107) L Carbon Dioxide Level 33 mEQ/L (20-30) H Anion Gap 8 (5-15) Blood Urea Nitrogen 16 mg/dL (7-23) Creatinine 0.4 mg/dL (0.5-0.9) L Estimat Glomerular Filtration Rate mL/min (>60) Glucose Level 75 mg/dL (74-106) Calcium Level 8.3 mg/dL (8.6-10.2) #L Total Bilirubin 0.3 mg/dL (0.0-1.2) Aspartate Amino Transf (AST/SGOT) 28 U/L (5-40) Alanine Aminotransferase (ALT/SGPT) 24 U/L (3-33) Alkaline Phosphatase 108 U/L (35-104) H Total Protein 6.7 g/dL (6.6-8.7) # Albumin 2.5 g/dL (3.5-5.2) L Globulin 4.2 g/dL Albumin/Globulin Ratio 0.5 (1.0-2.7) L Height (Feet): 5 Height (Inches): 6.00 Weight (Pounds): 185 General Appearance: no apparent distress, overweight, other - facial edema Cardiovascular: normal rate Respiratory/Chest: other - mech vent Abdominal Exam: GT site - c/d/i Luna Rodriguez N.P. Sep 20, 2016 10:36
--- NOTE | 2016-09-20 10:55 | Infectious Diseases Prog Note ---
Assessment/Plan Assessment/Plan antibiotics : meropenem A 1. e.coli pneumonia 2. respiratory failure 3. allergic reaction 4. leucocytosis resolved 5. 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 d/c meropenem 2. observe off antibiotics Subjective ROS Limited/Unobtainable: Yes Allergies: Coded Allergies: No Known Allergies (Verified , 03/14/16) Uncoded Allergies: MILK (Allergy, Unknown, 07/11/11) Objective Vital Signs Last 24 Hour Vital Signs Date Time Temp Pulse Resp B/P Pulse Ox O2 Delivery O2 Flow Rate FiO2 09/20/16 10:00 70 19 155/54 100 Mechanical Ventilator 40 09/20/16 09:00 98.5 71 18 158/65 100 Mechanical Ventilator 40 09/20/16 08:32 78 17 40 09/20/16 08:00 69 09/20/16 08:00 69 18 163/65 100 Mechanical Ventilator 40 09/20/16 08:00 40 09/20/16 07:16 70 17 40 09/20/16 07:00 72 18 155/66 100 Mechanical Ventilator 40 09/20/16 06:00 66 18 153/64 100 Mechanical Ventilator 40 09/20/16 05:11 84 170/74 09/20/16 05:00 84 18 170/74 100 Mechanical Ventilator 40 09/20/16 04:58 83 20 40 09/20/16 04:00 40 09/20/16 04:00 85 09/20/16 04:00 98.3 76 17 171/58 100 Mechanical Ventilator 40 09/20/16 03:30 71 17 40 09/20/16 03:00 69 17 168/59 100 Mechanical Ventilator 40 09/20/16 02:00 65 18 161/61 100 Mechanical Ventilator 40 09/20/16 01:30 72 17 40 09/20/16 01:00 72 18 164/67 100 Mechanical Ventilator 40 09/20/16 00:00 40 09/20/16 00:00 63 09/20/16 00:00 97.9 66 17 154/52 100 Mechanical Ventilator 40 09/19/16 23:25 70 17 40 09/19/16 23:00 62 18 157/44 100 Mechanical Ventilator 40 09/19/16 22:00 62 18 161/60 100 Mechanical Ventilator 40 09/19/16 21:30 63 17 40 09/19/16 21:00 66 18 166/48 99 Mechanical Ventilator 40 09/19/16 20:17 88 18 Mechanical Ventilator 30 09/19/16 20:00 63 09/19/16 20:00 98.3 62 17 170/58 100 Mechanical Ventilator 40 09/19/16 20:00 40 09/19/16 19:30 63 17 40 09/19/16 19:00 65 18 158/68 98 Mechanical Ventilator 40 09/19/16 18:00 63 18 137/59 98 Mechanical Ventilator 40 09/19/16 17:00 61 18 151/61 100 Mechanical Ventilator 40 09/19/16 16:49 62 17 40 09/19/16 16:00 98.6 65 17 125/57 100 Mechanical Ventilator 40 09/19/16 16:00 63 09/19/16 16:00 40 09/19/16 15:30 74 17 40 09/19/16 15:00 69 18 140/40 100 Mechanical Ventilator 40 09/19/16 14:00 64 18 141/53 100 Mechanical Ventilator 40 09/19/16 13:00 68 17 137/61 100 Mechanical Ventilator 40 09/19/16 12:57 71 17 40 09/19/16 12:00 75 09/19/16 12:00 98.5 76 18 139/65 100 Mechanical Ventilator 40 09/19/16 11:30 40 09/19/16 11:28 87 21 40 09/19/16 11:00 80 18 133/53 100 Mechanical Ventilator 40 Height (Feet): 5 Height (Inches): 6.00 Weight (Pounds): 185 HEENT: other - intubated Respiratory/Chest: lungs clear Cardiovascular: normal rate, regular rhythm, no gallop/murmur Abdomen: soft, non tender, other - GT Extremities: other - + edema, right arm PICC Laboratory Tests Test 09/20/16 05:00 White Blood Count 5.7 K/UL (4.8-10.8) Red Blood Count 3.19 M/UL (4.20-5.40) L Hemoglobin 10.5 G/DL (12.0-16.0) #L Hematocrit 31.4 % (37.0-47.0) #L Mean Corpuscular Volume 98 FL (80-99) Mean Corpuscular Hemoglobin 32.7 PG (27.0-31.0) H Mean Corpuscular Hemoglobin Concent 33.3 G/DL (32.0-36.0) Red Cell Distribution Width 15.1 % (11.6-14.8) H Platelet Count 306 K/UL (150-450) Mean Platelet Volume 7.1 FL (6.5-10.1) Neutrophils (%) (Auto) 49.1 % (45.0-75.0) Lymphocytes (%) (Auto) 36.4 % (20.0-45.0) Monocytes (%) (Auto) 9.7 % (1.0-10.0) Eosinophils (%) (Auto) 3.7 % (0.0-3.0) H Basophils (%) (Auto) 1.1 % (0.0-2.0) Sodium Level 135 mEQ/L (135-145) Potassium Level 4.2 mEQ/L (3.4-4.9) Chloride Level 94 mEQ/L (98-107) L Carbon Dioxide Level 33 mEQ/L (20-30) H Anion Gap 8 (5-15) Blood Urea Nitrogen 16 mg/dL (7-23) Creatinine 0.4 mg/dL (0.5-0.9) L Estimat Glomerular Filtration Rate mL/min (>60) Glucose Level 75 mg/dL (74-106) Calcium Level 8.3 mg/dL (8.6-10.2) #L Total Bilirubin 0.3 mg/dL (0.0-1.2) Aspartate Amino Transf (AST/SGOT) 28 U/L (5-40) Alanine Aminotransferase (ALT/SGPT) 24 U/L (3-33) Alkaline Phosphatase 108 U/L (35-104) H Total Protein 6.7 g/dL (6.6-8.7) # Albumin 2.5 g/dL (3.5-5.2) L Globulin 4.2 g/dL Albumin/Globulin Ratio 0.5 (1.0-2.7) L KELLEY MITCHELL Sep 20, 2016 10:55
[2016-09-20] MEDS: D5 1/2NS w/KCl 20mEq 1,000 ML IV SCH (11:51)
--- NOTE | 2016-09-20 20:42 | Cardiology Progress Note ---
Assessment/Plan Assessment/Plan 1. Asystole cardiac arrest due to respiratory failure, echo reveals normal LVEF with no wall motion abnormalities. 2. E.Coli pneumonia/leukocytosis. 3. Hypoxic, hypercarbic respiratory failure, awaiting tracheostomy tube placement. 4. s/p PEG 5. HTN, start amlodipine 5mg per GT daily. Subjective Subjective Sinus rhythm at 69. Sedated Objective Last 24 Hour Vital Signs Date Time Temp Pulse Resp B/P Pulse Ox O2 Delivery O2 Flow Rate FiO2 09/20/16 20:31 73 17 167/57 100 Mechanical Ventilator 40 09/20/16 20:00 40 09/20/16 20:00 98.7 68 17 177/63 100 Mechanical Ventilator 40 09/20/16 20:00 71 09/20/16 19:19 74 17 40 09/20/16 19:00 65 17 158/51 100 Mechanical Ventilator 40 09/20/16 18:00 61 17 162/72 100 Mechanical Ventilator 40 09/20/16 17:14 75 18 40 09/20/16 17:00 71 17 166/64 100 Mechanical Ventilator 40 09/20/16 16:00 40 09/20/16 16:00 98.6 67 17 146/54 100 Mechanical Ventilator 40 09/20/16 16:00 95 09/20/16 15:00 69 17 162/53 100 Mechanical Ventilator 40 09/20/16 14:48 67 17 40 09/20/16 14:00 64 20 163/54 100 Mechanical Ventilator 40 09/20/16 13:00 64 24 121/61 100 Mechanical Ventilator 40 09/20/16 12:36 64 17 40 09/20/16 12:00 98.6 63 23 138/47 100 Mechanical Ventilator 40 09/20/16 12:00 66 09/20/16 12:00 40 09/20/16 11:00 73 20 142/64 100 Mechanical Ventilator 40 09/20/16 10:53 70 17 40 09/20/16 10:00 70 19 155/54 100 Mechanical Ventilator 40 09/20/16 09:00 98.5 71 18 158/65 100 Mechanical Ventilator 40 09/20/16 08:32 78 17 40 09/20/16 08:00 69 09/20/16 08:00 69 18 163/65 100 Mechanical Ventilator 40 09/20/16 08:00 40 09/20/16 07:16 70 17 40 09/20/16 07:00 72 18 155/66 100 Mechanical Ventilator 40 09/20/16 06:00 66 18 153/64 100 Mechanical Ventilator 40 09/20/16 05:11 84 170/74 09/20/16 05:00 84 18 170/74 100 Mechanical Ventilator 40 09/20/16 04:58 83 20 40 09/20/16 04:00 40 09/20/16 04:00 85 09/20/16 04:00 98.3 76 17 171/58 100 Mechanical Ventilator 40 09/20/16 03:30 71 17 40 09/20/16 03:00 69 17 168/59 100 Mechanical Ventilator 40 09/20/16 02:00 65 18 161/61 100 Mechanical Ventilator 40 09/20/16 01:30 72 17 40 09/20/16 01:00 72 18 164/67 100 Mechanical Ventilator 40 09/20/16 00:00 40 09/20/16 00:00 63 09/20/16 00:00 97.9 66 17 154/52 100 Mechanical Ventilator 40 09/19/16 23:25 70 17 40 09/19/16 23:00 62 18 157/44 100 Mechanical Ventilator 40 09/19/16 22:00 62 18 161/60 100 Mechanical Ventilator 40 09/19/16 21:30 63 17 40 09/19/16 21:00 66 18 166/48 99 Mechanical Ventilator 40 Intake and Output 09/19/16 09/20/16 19:00 07:00 Intake Total 1450 ml 825 ml Output Total 1630 ml 2420 ml Balance -180 ml -1595 ml IV Total 720 ml 825 ml Tube Feeding 400 ml Blood Product 250 ml Other 80 ml Output Urine Total 1630 ml 2420 ml # Bowel Movements 2 2D Echo: LVEF 55%, Grade I LVDD, RVSP 57 mmHg Laboratory Tests Test 09/20/16 05:00 White Blood Count 5.7 K/UL (4.8-10.8) Red Blood Count 3.19 M/UL (4.20-5.40) L Hemoglobin 10.5 G/DL (12.0-16.0) #L Hematocrit 31.4 % (37.0-47.0) #L Mean Corpuscular Volume 98 FL (80-99) Mean Corpuscular Hemoglobin 32.7 PG (27.0-31.0) H Mean Corpuscular Hemoglobin Concent 33.3 G/DL (32.0-36.0) Red Cell Distribution Width 15.1 % (11.6-14.8) H Platelet Count 306 K/UL (150-450) Mean Platelet Volume 7.1 FL (6.5-10.1) Neutrophils (%) (Auto) 49.1 % (45.0-75.0) Lymphocytes (%) (Auto) 36.4 % (20.0-45.0) Monocytes (%) (Auto) 9.7 % (1.0-10.0) Eosinophils (%) (Auto) 3.7 % (0.0-3.0) H Basophils (%) (Auto) 1.1 % (0.0-2.0) Sodium Level 135 mEQ/L (135-145) Potassium Level 4.2 mEQ/L (3.4-4.9) Chloride Level 94 mEQ/L (98-107) L Carbon Dioxide Level 33 mEQ/L (20-30) H Anion Gap 8 (5-15) Blood Urea Nitrogen 16 mg/dL (7-23) Creatinine 0.4 mg/dL (0.5-0.9) L Estimat Glomerular Filtration Rate mL/min (>60) Glucose Level 75 mg/dL (74-106) Calcium Level 8.3 mg/dL (8.6-10.2) #L Total Bilirubin 0.3 mg/dL (0.0-1.2) Aspartate Amino Transf (AST/SGOT) 28 U/L (5-40) Alanine Aminotransferase (ALT/SGPT) 24 U/L (3-33) Alkaline Phosphatase 108 U/L (35-104) H Total Protein 6.7 g/dL (6.6-8.7) # Albumin 2.5 g/dL (3.5-5.2) L Globulin 4.2 g/dL Albumin/Globulin Ratio 0.5 (1.0-2.7) L Objective HEENT: Intubated, normocephalic, atraumatic, PERRLA, EOMI Neck: no JVD, no carotid bruit, upstroke 2+ B/L Respiratory: decreased breath sounds, crackles both bases Cardiovascular: regular rate, rhythm, normal S1S2,no murmurs, gallops or rubs Gastrointestinal: normal BS, soft non-tender, non-distended, GT in place Musculoskeletal: no clubbing cyanosis or edema MARK LEVY Sep 20, 2016 20:42
[2016-09-21] VITALS (24 sets, daily range): BP systolic 147–168; BP diastolic 48–118
--- NOTE | 2016-09-21 02:16 | General Progress Note ---
Assessment/Plan Problem List: (1) Cardiac arrest Assessment & Plan: Anoxic encephalopathy with occasional myolclonic movement ICD Codes: I46.9 - Cardiac arrest, cause unspecified SNOMED: 294610229 (2) Septic shock Assessment & Plan: Improved ICD Codes: A41.9 - Sepsis, unspecified organism; R65.21 - Severe sepsis with septic shock SNOMED: 52191495 (3) Respiratory distress Assessment & Plan: On ventilator ICD Codes: R06.00 - Dyspnea, unspecified; R65.21 - Severe sepsis with septic shock SNOMED: 047716328 (4) Dysphagia Assessment & Plan: Tube feed started ICD Codes: R13.10 - Dysphagia, unspecified SNOMED: 98667291, 046348228 (5) Pneumonia Assessment & Plan: Antibiotic adjusted ICD Codes: J18.9 - Pneumonia, unspecified organism SNOMED: 314359868 Qualifiers: Qualified Codes: J13 - Pneumonia due to Streptococcus pneumoniae (6) Feeding by G-tube ICD Codes: Z93.1 - Gastrostomy status SNOMED: 900246707, 051175179 (7) esophageal wall thickening (8) Hypoalbuminemia ICD Codes: E88.09 - Other disorders of plasma-protein metabolism, not elsewhere classified SNOMED: 788333855 (9) LFT elevation ICD Codes: R94.5 - Abnormal results of liver function studies SNOMED: 444948813 (10) Hyperkalemia ICD Codes: E87.5 - Hyperkalemia SNOMED: 25654056 (11) Azotemia ICD Codes: R79.89 - Other specified abnormal findings of blood chemistry SNOMED: 668664883 (12) Hyponatremia ICD Codes: E87.1 - Hypo-osmolality and hyponatremia SNOMED: 67533827 (13) Dehydration ICD Codes: E86.0 - Dehydration SNOMED: 03156456 (14) Anemia ICD Codes: D64.9 - Anemia, unspecified SNOMED: 409982885 Status: stable Status Narrative The size of her lip and tongue is decreasing in size. She is awake. No change in her respiratory status. Overall doing well. Spoke again with Dr. Don regarding trach. Assessment/Plan Can't wean her due to poor lung compliance. She may need diuresis. Will adjust fluids. Subjective Date patient seen: Sep 20, 2016 Time patient seen: 11:30 ROS Limited/Unobtainable: Yes Allergies: Coded Allergies: No Known Allergies (Verified , 03/14/16) Uncoded Allergies: MILK (Allergy, Unknown, 07/11/11) Subjective On vent AC mode 35% FIO2 Objective Last 24 Hour Vital Signs Date Time Temp Pulse Resp B/P Pulse Ox O2 Delivery O2 Flow Rate FiO2 09/21/16 01:07 70 17 40 09/21/16 01:00 68 18 150/50 100 Mechanical Ventilator 40 09/21/16 00:00 98.9 69 17 152/54 100 Mechanical Ventilator 40 09/21/16 00:00 40 09/21/16 00:00 70 09/20/16 23:20 72 17 40 09/20/16 23:00 75 20 153/64 100 Mechanical Ventilator 40 09/20/16 22:00 75 17 157/53 100 Mechanical Ventilator 40 09/20/16 21:05 76 20 40 09/20/16 21:00 73 17 167/67 100 Mechanical Ventilator 40 09/20/16 20:54 73 167/57 09/20/16 20:31 73 17 167/57 100 Mechanical Ventilator 40 09/20/16 20:00 40 09/20/16 20:00 98.7 68 17 177/63 100 Mechanical Ventilator 40 09/20/16 20:00 71 09/20/16 19:19 74 17 40 09/20/16 19:00 65 17 158/51 100 Mechanical Ventilator 40 09/20/16 18:00 61 17 162/72 100 Mechanical Ventilator 40 09/20/16 17:14 75 18 40 09/20/16 17:00 71 17 166/64 100 Mechanical Ventilator 40 09/20/16 16:00 40 09/20/16 16:00 98.6 67 17 146/54 100 Mechanical Ventilator 40 09/20/16 16:00 95 09/20/16 15:00 69 17 162/53 100 Mechanical Ventilator 40 09/20/16 14:48 67 17 40 09/20/16 14:00 64 20 163/54 100 Mechanical Ventilator 40 09/20/16 13:00 64 24 121/61 100 Mechanical Ventilator 40 09/20/16 12:36 64 17 40 09/20/16 12:00 98.6 63 23 138/47 100 Mechanical Ventilator 40 09/20/16 12:00 66 09/20/16 12:00 40 09/20/16 11:00 73 20 142/64 100 Mechanical Ventilator 40 09/20/16 10:53 70 17 40 09/20/16 10:00 70 19 155/54 100 Mechanical Ventilator 40 09/20/16 09:00 98.5 71 18 158/65 100 Mechanical Ventilator 40 09/20/16 08:32 78 17 40 09/20/16 08:00 69 09/20/16 08:00 69 18 163/65 100 Mechanical Ventilator 40 09/20/16 08:00 40 09/20/16 07:16 70 17 40 09/20/16 07:00 72 18 155/66 100 Mechanical Ventilator 40 09/20/16 06:00 66 18 153/64 100 Mechanical Ventilator 40 09/20/16 05:11 84 170/74 09/20/16 05:00 84 18 170/74 100 Mechanical Ventilator 40 09/20/16 04:58 83 20 40 09/20/16 04:00 40 09/20/16 04:00 85 09/20/16 04:00 98.3 76 17 171/58 100 Mechanical Ventilator 40 09/20/16 03:30 71 17 40 09/20/16 03:00 69 17 168/59 100 Mechanical Ventilator 40 Intake and Output 09/20/16 09/21/16 19:00 07:00 Intake Total 1820 ml 855 ml Output Total 1475 ml 1670 ml Balance 345 ml -815 ml Intake Free Water 200 ml 100 ml IV Total 1020 ml 465 ml Tube Feeding 600 ml 240 ml Other 50 ml Output Urine Total 1475 ml 1670 ml Laboratory Tests 09/20/16 05:00: White Blood Count 5.7, Red Blood Count 3.19L, Hemoglobin 10.5#L, Hematocrit 31.4 #L, Mean Corpuscular Volume 98, Mean Corpuscular Hemoglobin 32.7H, Mean Corpuscular Hemoglobin Concent 33.3, Red Cell Distribution Width 15.1H, Platelet Count 306, Mean Platelet Volume 7.1, Neutrophils (%) (Auto) 49.1, Lymphocytes (%) (Auto) 36.4, Monocytes (%) (Auto) 9.7, Eosinophils (%) (Auto) 3.7H, Basophils (%) (Auto) 1.1, Sodium Level 135, Potassium Level 4.2, Chloride Level 94L, Carbon Dioxide Level 33H, Anion Gap 8, Blood Urea Nitrogen 16, Creatinine 0.4L, Estimat Glomerular Filtration Rate , Glucose Level 75, Calcium Level 8.3#L, Total Bilirubin 0.3, Aspartate Amino Transf (AST/SGOT) 28, Alanine Aminotransferase (ALT/SGPT) 24, Alkaline Phosphatase 108H, Total Protein 6.7#, Albumin 2.5L, Globulin 4.2, Albumin/Globulin Ratio 0.5L Height (Feet): 5 Height (Inches): 6.00 Weight (Pounds): 185 General Appearance: no apparent distress EENT: PERRL/EOMI Neck: non-tender Cardiovascular: normal peripheral pulses Abdomen: normal bowel sounds Skin: warm/dry YONI ROCHE Sep 21, 2016 02:16
[2016-09-21] MEDS: Dyna-Hex 2% Top Sol 8oz TOPIC SCH (03:21)
[2016-09-21 05:10] LABS: BASOPHILS % (AUTO) 2.2 % (0.0-2.0); EOSINOPHILS % (AUTO) 3.9 % (0.0-3.0); LYMPHOCYTES % (AUTO) 30.5 % (20.0-45.0); MEAN CORPUSCULAR HEMOGLOBIN 32.1 PG (27.0-31.0); MEAN CORPUSCULAR VOLUME 97 FL (80-99); MEAN PLATELET VOLUME 7.8 FL (6.5-10.1); MONOCYTES % (AUTO) 11.9 % (1.0-10.0); NEUTROPHILS % (AUTO) 51.5 % (45.0-75.0); PLATELET COUNT 325 K/UL (150-450); RED BLOOD COUNT 3.38 M/UL (4.20-5.40); RED CELL DISTRIBUTION WIDTH 14.8 % (11.6-14.8); WHITE BLOOD COUNT 6.3 K/UL (4.8-10.8)
[2016-09-21 05:20] LABS: ALANINE AMINOTRANSFERASE 25 U/L (3-33); ALBUMIN/GLOBULIN RATIO 0.5 (1.0-2.7); ANION GAP 11 (5-15); ASPARTATE AMINO TRANSFERASE 32 U/L (5-40); CALCIUM 8.3 mg/dL (8.6-10.2); CARBON DIOXIDE 29 mEQ/L (20-30); CHLORIDE 94 mEQ/L (98-107); CREATININE 0.4 mg/dL (0.5-0.9); HEMOLYSIS 47; POTASSIUM 4.5 mEQ/L (3.4-4.9); SODIUM 134 mEQ/L (135-145); TOTAL PROTEIN 6.8 g/dL (6.6-8.7)
[2016-09-21] MEDS: DiphenhydrAMINE 50mg/ml Inj IVP SCH ×4 (05:54→23:33)
[2016-09-21] MEDS: D5 1/2NS w/KCl 20mEq 1,000 ML IV SCH (06:40)
--- NOTE | 2016-09-21 08:09 | Anethesia Preoperative Eval ---
Anesthesia Pre-op PMH/ROS General Date of Evaluation: Sep 21, 2016 Time of Evaluation: 09:32 Anesthesiologist: Lasha ASA Score: ASA 4 Mallampati Score Class I : Soft palate, uvula, fauces, pillars visible Class II: Soft palate, uvula, fauces visible Class III: Soft palate, base of uvula visible Class IV: Only hard plate visible Mallampati Classification: Class II Surgeon: Dagmar Diagnosis: Ventilatory Insufficiency Surgical Procedure: Tracheostomy Anesthesia History: none Family History: no anesthesia problems Allergies: Coded Allergies: No Known Allergies (Verified , 03/14/16) Uncoded Allergies: MILK (Allergy, Unknown, 07/11/11) Medications: see eMAR Past Medical History Cardiovascular: Reports: HTN Pulmonary: Reports: COPD, asthma Gastrointestinal/Genitourinary: Reports: GERD Neurologic/Psychiatric: Reports: CVA, dementia, other - Szs Endocrine: Reports: other - Hepatomegaly Hematology/Immune: Reports: anemia Anesthesia Pre-op Phys. Exam Physician Exam Last Vital Signs Date Time Temp Pulse Resp B/P Pulse Ox O2 Delivery O2 Flow Rate FiO2 09/21/16 06:56 61 17 40 09/21/16 06:00 152/49 100 Mechanical Ventilator 09/21/16 04:00 98.3 Constitutional: NAD Neurologic: CN 2-12 intact Cardiovascular: RRR Respiratory: CTA Gastrointestinal: S/NT/ND Airway Exam Mallampati Score: Class II MO: limited ROM: limited Teeth: missing Anesthesia Pre-op A/P Labs Hematology Test 09/21/16 04:30 White Blood Count 6.3 K/UL (4.8-10.8) Red Blood Count 3.38 M/UL (4.20-5.40) L Hemoglobin 10.8 G/DL (12.0-16.0) L Hematocrit 32.9 % (37.0-47.0) L Mean Corpuscular Volume 97 FL (80-99) Mean Corpuscular Hemoglobin 32.1 PG (27.0-31.0) H Mean Corpuscular Hemoglobin Concent 33.0 G/DL (32.0-36.0) Red Cell Distribution Width 14.8 % (11.6-14.8) Platelet Count 325 K/UL (150-450) Mean Platelet Volume 7.8 FL (6.5-10.1) Neutrophils (%) (Auto) 51.5 % (45.0-75.0) Lymphocytes (%) (Auto) 30.5 % (20.0-45.0) Monocytes (%) (Auto) 11.9 % (1.0-10.0) H Eosinophils (%) (Auto) 3.9 % (0.0-3.0) H Basophils (%) (Auto) 2.2 % (0.0-2.0) H Chemistry Test 09/21/16 04:30 Sodium Level 134 mEQ/L (135-145) L Potassium Level 4.5 mEQ/L (3.4-4.9) Chloride Level 94 mEQ/L (98-107) L Carbon Dioxide Level 29 mEQ/L (20-30) Anion Gap 11 (5-15) Blood Urea Nitrogen 14 mg/dL (7-23) Creatinine 0.4 mg/dL (0.5-0.9) L Estimat Glomerular Filtration Rate mL/min (>60) Glucose Level 88 mg/dL (74-106) Calcium Level 8.3 mg/dL (8.6-10.2) L Total Bilirubin 0.4 mg/dL (0.0-1.2) Aspartate Amino Transf (AST/SGOT) 32 U/L (5-40) Alanine Aminotransferase (ALT/SGPT) 25 U/L (3-33) Alkaline Phosphatase 119 U/L (35-104) H Total Protein 6.8 g/dL (6.6-8.7) Albumin 2.3 g/dL (3.5-5.2) L Globulin 4.5 g/dL Albumin/Globulin Ratio 0.5 (1.0-2.7) L Risk Assessment & Plan Assessment: ASA 4 Plan: GA Status Change Before Surgery: No Pre-Antibiotics Drug: Bhavik Clement MD Sep 21, 2016 08:09
[2016-09-21] MEDS: Heparin 5000 units/ml inj SUBQ SCH ×2 (09:19→20:51)
[2016-09-21] MEDS: levETIRAcetam 500 MG in D5W 110 ML IV SCH ×2 (09:19→20:49)
[2016-09-21] MEDS: Phospha 250 Neutral tab GT SCH ×3 (09:20→18:41)
[2016-09-21] MEDS: Pantoprazole Inj IVP SCH ×2 (09:20→20:49)
[2016-09-21] MEDS: PredniSONE 20mg tab ORAL SCH (09:21)
[2016-09-21] MEDS: Ascorbic Acid 500mg tab GT SCH (09:21)
--- NOTE | 2016-09-21 10:23 | GI Progress Note ---
Assessment/Plan Problems: (1) Dehydration ICD Codes: E86.0 - Dehydration SNOMED: 20131787 (2) Hyponatremia ICD Codes: E87.1 - Hypo-osmolality and hyponatremia SNOMED: 91635919 (3) LFT elevation ICD Codes: R94.5 - Abnormal results of liver function studies SNOMED: 494036185 (4) Hypoalbuminemia ICD Codes: E88.09 - Other disorders of plasma-protein metabolism, not elsewhere classified SNOMED: 766291566 (5) Anemia ICD Codes: D64.9 - Anemia, unspecified SNOMED: 112746827 (6) Feeding by G-tube ICD Codes: Z93.1 - Gastrostomy status SNOMED: 502384834, 057340014 (7) Dysphagia ICD Codes: R13.10 - Dysphagia, unspecified SNOMED: 00436265, 459270089 (8) Facial swelling ICD Codes: R22.0 - Localized swelling, mass and lump, head SNOMED: 090693227 Status: unchanged Status Narrative Discussed with Dr. Britt. Assessment/Plan OB stool negative elevated CEA >> 8.8 hep panel >> negative facial swelling >> no improvements x 5 days after TF change. >> ordered IgA marker r/o IgA neuropathy IgE elevation >> milk allergy? >> fu lab send out r/o cow milk IgE vs general IgE hold GI procedures EGD/colonoscopy when stable given anemia and elevated CEA. fu IgA & IgE monitor H&H, transfuse prn GTFs per dietary >> TF change to non-dairy formula >> VIVONEX RTF @60 ml x 24 hrs + Prosource BID ppi abx Imodium PRN fu labs Subjective Subjective limited Objective Last 24 Hour Vital Signs Date Time Temp Pulse Resp B/P Pulse Ox O2 Delivery O2 Flow Rate FiO2 09/21/16 09:21 66 168/64 09/21/16 09:05 65 17 40 09/21/16 08:00 98.4 63 20 153/52 100 Mechanical Ventilator 40 09/21/16 08:00 62 09/21/16 08:00 40 09/21/16 07:00 68 18 157/118 100 Mechanical Ventilator 40 09/21/16 06:56 61 17 40 09/21/16 06:00 64 18 152/49 100 Mechanical Ventilator 40 09/21/16 05:15 71 17 40 09/21/16 05:00 66 18 155/56 100 Mechanical Ventilator 40 09/21/16 04:00 74 09/21/16 04:00 98.3 77 17 160/60 100 Mechanical Ventilator 40 09/21/16 04:00 40 09/21/16 03:00 76 18 151/49 100 Mechanical Ventilator 40 09/21/16 02:57 74 17 40 09/21/16 02:00 74 18 147/74 100 Mechanical Ventilator 40 09/21/16 01:07 70 17 40 09/21/16 01:00 68 18 150/50 100 Mechanical Ventilator 40 09/21/16 00:00 98.9 69 17 152/54 100 Mechanical Ventilator 40 09/21/16 00:00 40 09/21/16 00:00 70 09/20/16 23:20 72 17 40 09/20/16 23:00 75 20 153/64 100 Mechanical Ventilator 40 09/20/16 22:00 75 17 157/53 100 Mechanical Ventilator 40 09/20/16 21:05 76 20 40 09/20/16 21:00 73 17 167/67 100 Mechanical Ventilator 40 09/20/16 20:54 73 167/57 09/20/16 20:31 73 17 167/57 100 Mechanical Ventilator 40 09/20/16 20:00 40 09/20/16 20:00 98.7 68 17 177/63 100 Mechanical Ventilator 40 09/20/16 20:00 71 09/20/16 19:19 74 17 40 09/20/16 19:00 65 17 158/51 100 Mechanical Ventilator 40 09/20/16 18:00 61 17 162/72 100 Mechanical Ventilator 40 09/20/16 17:14 75 18 40 09/20/16 17:00 71 17 166/64 100 Mechanical Ventilator 40 09/20/16 16:00 40 09/20/16 16:00 98.6 67 17 146/54 100 Mechanical Ventilator 40 09/20/16 16:00 95 09/20/16 15:00 69 17 162/53 100 Mechanical Ventilator 40 09/20/16 14:48 67 17 40 09/20/16 14:00 64 20 163/54 100 Mechanical Ventilator 40 09/20/16 13:00 64 24 121/61 100 Mechanical Ventilator 40 09/20/16 12:36 64 17 40 09/20/16 12:00 98.6 63 23 138/47 100 Mechanical Ventilator 40 09/20/16 12:00 66 09/20/16 12:00 40 09/20/16 11:00 73 20 142/64 100 Mechanical Ventilator 40 09/20/16 10:53 70 17 40 Intake and Output 09/20/16 09/21/16 19:00 07:00 Intake Total 1820 ml 1055 ml Output Total 1475 ml 2195 ml Balance 345 ml -1140 ml Intake Free Water 200 ml 100 ml IV Total 1020 ml 665 ml Tube Feeding 600 ml 240 ml Other 50 ml Output Urine Total 1475 ml 2195 ml # Bowel Movements 2 Laboratory Tests Test 09/21/16 04:30 White Blood Count 6.3 K/UL (4.8-10.8) Red Blood Count 3.38 M/UL (4.20-5.40) L Hemoglobin 10.8 G/DL (12.0-16.0) L Hematocrit 32.9 % (37.0-47.0) L Mean Corpuscular Volume 97 FL (80-99) Mean Corpuscular Hemoglobin 32.1 PG (27.0-31.0) H Mean Corpuscular Hemoglobin Concent 33.0 G/DL (32.0-36.0) Red Cell Distribution Width 14.8 % (11.6-14.8) Platelet Count 325 K/UL (150-450) Mean Platelet Volume 7.8 FL (6.5-10.1) Neutrophils (%) (Auto) 51.5 % (45.0-75.0) Lymphocytes (%) (Auto) 30.5 % (20.0-45.0) Monocytes (%) (Auto) 11.9 % (1.0-10.0) H Eosinophils (%) (Auto) 3.9 % (0.0-3.0) H Basophils (%) (Auto) 2.2 % (0.0-2.0) H Sodium Level 134 mEQ/L (135-145) L Potassium Level 4.5 mEQ/L (3.4-4.9) Chloride Level 94 mEQ/L (98-107) L Carbon Dioxide Level 29 mEQ/L (20-30) Anion Gap 11 (5-15) Blood Urea Nitrogen 14 mg/dL (7-23) Creatinine 0.4 mg/dL (0.5-0.9) L Estimat Glomerular Filtration Rate mL/min (>60) Glucose Level 88 mg/dL (74-106) Calcium Level 8.3 mg/dL (8.6-10.2) L Total Bilirubin 0.4 mg/dL (0.0-1.2) Aspartate Amino Transf (AST/SGOT) 32 U/L (5-40) Alanine Aminotransferase (ALT/SGPT) 25 U/L (3-33) Alkaline Phosphatase 119 U/L (35-104) H Total Protein 6.8 g/dL (6.6-8.7) Albumin 2.3 g/dL (3.5-5.2) L Globulin 4.5 g/dL Albumin/Globulin Ratio 0.5 (1.0-2.7) L Height (Feet): 5 Height (Inches): 6.00 Weight (Pounds): 184 General Appearance: no apparent distress, alert, other - facial edema Cardiovascular: normal rate Respiratory/Chest: other - mech vent Abdominal Exam: GT site - c/d/i Luna Rodriguez N.P. Sep 21, 2016 10:23
--- NOTE | 2016-09-21 11:52 | Infectious Diseases Prog Note ---
Assessment/Plan Assessment/Plan antibiotics : none A 1. e.coli pneumonia s/p rx 2. respiratory failure 3. allergic reaction 4. leucocytosis resolved 5. 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 observe off antibiotics Subjective ROS Limited/Unobtainable: Yes Allergies: Coded Allergies: No Known Allergies (Verified , 03/14/16) Uncoded Allergies: MILK (Allergy, Unknown, 07/11/11) Objective Vital Signs Last 24 Hour Vital Signs Date Time Temp Pulse Resp B/P Pulse Ox O2 Delivery O2 Flow Rate FiO2 09/21/16 11:10 68 17 40 09/21/16 11:00 61 17 163/58 100 Mechanical Ventilator 40 09/21/16 10:00 63 17 148/54 100 Mechanical Ventilator 40 09/21/16 09:21 66 168/64 09/21/16 09:05 65 17 40 09/21/16 09:00 68 19 168/64 100 Mechanical Ventilator 40 09/21/16 08:00 98.4 63 20 153/52 100 Mechanical Ventilator 40 09/21/16 08:00 62 09/21/16 08:00 40 09/21/16 07:00 68 18 157/118 100 Mechanical Ventilator 40 09/21/16 06:56 61 17 40 09/21/16 06:00 64 18 152/49 100 Mechanical Ventilator 40 09/21/16 05:15 71 17 40 09/21/16 05:00 66 18 155/56 100 Mechanical Ventilator 40 09/21/16 04:00 74 09/21/16 04:00 98.3 77 17 160/60 100 Mechanical Ventilator 40 09/21/16 04:00 40 09/21/16 03:00 76 18 151/49 100 Mechanical Ventilator 40 09/21/16 02:57 74 17 40 09/21/16 02:00 74 18 147/74 100 Mechanical Ventilator 40 09/21/16 01:07 70 17 40 09/21/16 01:00 68 18 150/50 100 Mechanical Ventilator 40 09/21/16 00:00 98.9 69 17 152/54 100 Mechanical Ventilator 40 09/21/16 00:00 40 09/21/16 00:00 70 09/20/16 23:20 72 17 40 09/20/16 23:00 75 20 153/64 100 Mechanical Ventilator 40 09/20/16 22:00 75 17 157/53 100 Mechanical Ventilator 40 09/20/16 21:05 76 20 40 09/20/16 21:00 73 17 167/67 100 Mechanical Ventilator 40 09/20/16 20:54 73 167/57 09/20/16 20:31 73 17 167/57 100 Mechanical Ventilator 40 09/20/16 20:00 40 09/20/16 20:00 98.7 68 17 177/63 100 Mechanical Ventilator 40 09/20/16 20:00 71 09/20/16 19:19 74 17 40 09/20/16 19:00 65 17 158/51 100 Mechanical Ventilator 40 09/20/16 18:00 61 17 162/72 100 Mechanical Ventilator 40 09/20/16 17:14 75 18 40 09/20/16 17:00 71 17 166/64 100 Mechanical Ventilator 40 09/20/16 16:00 40 09/20/16 16:00 98.6 67 17 146/54 100 Mechanical Ventilator 40 09/20/16 16:00 95 09/20/16 15:00 69 17 162/53 100 Mechanical Ventilator 40 09/20/16 14:48 67 17 40 09/20/16 14:00 64 20 163/54 100 Mechanical Ventilator 40 09/20/16 13:00 64 24 121/61 100 Mechanical Ventilator 40 09/20/16 12:36 64 17 40 09/20/16 12:00 98.6 63 23 138/47 100 Mechanical Ventilator 40 09/20/16 12:00 66 09/20/16 12:00 40 Height (Feet): 5 Height (Inches): 6.00 Weight (Pounds): 184 HEENT: other - intubated, tongue swelling Respiratory/Chest: lungs clear Cardiovascular: normal rate, regular rhythm, no gallop/murmur Abdomen: soft, non tender, other - GT Extremities: other - + edema, right arm PICC Laboratory Tests Test 09/21/16 04:30 White Blood Count 6.3 K/UL (4.8-10.8) Red Blood Count 3.38 M/UL (4.20-5.40) L Hemoglobin 10.8 G/DL (12.0-16.0) L Hematocrit 32.9 % (37.0-47.0) L Mean Corpuscular Volume 97 FL (80-99) Mean Corpuscular Hemoglobin 32.1 PG (27.0-31.0) H Mean Corpuscular Hemoglobin Concent 33.0 G/DL (32.0-36.0) Red Cell Distribution Width 14.8 % (11.6-14.8) Platelet Count 325 K/UL (150-450) Mean Platelet Volume 7.8 FL (6.5-10.1) Neutrophils (%) (Auto) 51.5 % (45.0-75.0) Lymphocytes (%) (Auto) 30.5 % (20.0-45.0) Monocytes (%) (Auto) 11.9 % (1.0-10.0) H Eosinophils (%) (Auto) 3.9 % (0.0-3.0) H Basophils (%) (Auto) 2.2 % (0.0-2.0) H Sodium Level 134 mEQ/L (135-145) L Potassium Level 4.5 mEQ/L (3.4-4.9) Chloride Level 94 mEQ/L (98-107) L Carbon Dioxide Level 29 mEQ/L (20-30) Anion Gap 11 (5-15) Blood Urea Nitrogen 14 mg/dL (7-23) Creatinine 0.4 mg/dL (0.5-0.9) L Estimat Glomerular Filtration Rate mL/min (>60) Glucose Level 88 mg/dL (74-106) Calcium Level 8.3 mg/dL (8.6-10.2) L Total Bilirubin 0.4 mg/dL (0.0-1.2) Aspartate Amino Transf (AST/SGOT) 32 U/L (5-40) Alanine Aminotransferase (ALT/SGPT) 25 U/L (3-33) Alkaline Phosphatase 119 U/L (35-104) H Total Protein 6.8 g/dL (6.6-8.7) Albumin 2.3 g/dL (3.5-5.2) L Globulin 4.5 g/dL Albumin/Globulin Ratio 0.5 (1.0-2.7) L KELLEY MITCHELL Sep 21, 2016 11:52
--- NOTE | 2016-09-21 14:53 | Pulmonolgy Critical Care Note ---
Critical Care - Asmt/Plan Problems: (1) Respiratory failure (2) Respiratory distress (3) Dysphagia (4) Pneumonia (5) Feeding by G-tube (6) Anemia (7) Hypoalbuminemia (8) LFT elevation (9) Hyperkalemia Assessment & Plan: Weaned weaning trial even with SIMV 10 Assessment/Plan: Because of her mental status right lung pneumonia and inability to wean from the vent, she will need tracheostomy. Respiratory: monitor respiratory rate Cardiac: continue to monitor HR/BP Renal: F/U I&O Disposition: keep in ICU Time Spent (Minutes): 30 Notes Reviewed: other Discussed with: nurses Critical Care - Objective Last 24 Hour Vital Signs Date Time Temp Pulse Resp B/P Pulse Ox O2 Delivery O2 Flow Rate FiO2 09/21/16 14:00 67 17 163/50 100 Mechanical Ventilator 40 09/21/16 13:00 66 17 150/48 100 Mechanical Ventilator 40 09/21/16 13:00 64 17 40 09/21/16 12:00 97.9 67 17 149/65 100 Mechanical Ventilator 40 09/21/16 12:00 72 09/21/16 12:00 40 09/21/16 11:10 68 17 40 09/21/16 11:00 61 17 163/58 100 Mechanical Ventilator 40 09/21/16 10:00 63 17 148/54 100 Mechanical Ventilator 40 09/21/16 09:21 66 168/64 09/21/16 09:05 65 17 40 09/21/16 09:00 68 19 168/64 100 Mechanical Ventilator 40 09/21/16 08:00 98.4 63 20 153/52 100 Mechanical Ventilator 40 09/21/16 08:00 62 09/21/16 08:00 40 09/21/16 07:00 68 18 157/118 100 Mechanical Ventilator 40 09/21/16 06:56 61 17 40 09/21/16 06:00 64 18 152/49 100 Mechanical Ventilator 40 09/21/16 05:15 71 17 40 09/21/16 05:00 66 18 155/56 100 Mechanical Ventilator 40 09/21/16 04:00 74 09/21/16 04:00 98.3 77 17 160/60 100 Mechanical Ventilator 40 09/21/16 04:00 40 09/21/16 03:00 76 18 151/49 100 Mechanical Ventilator 40 09/21/16 02:57 74 17 40 09/21/16 02:00 74 18 147/74 100 Mechanical Ventilator 40 09/21/16 01:07 70 17 40 09/21/16 01:00 68 18 150/50 100 Mechanical Ventilator 40 09/21/16 00:00 98.9 69 17 152/54 100 Mechanical Ventilator 40 09/21/16 00:00 40 09/21/16 00:00 70 09/20/16 23:20 72 17 40 09/20/16 23:00 75 20 153/64 100 Mechanical Ventilator 40 09/20/16 22:00 75 17 157/53 100 Mechanical Ventilator 40 09/20/16 21:05 76 20 40 09/20/16 21:00 73 17 167/67 100 Mechanical Ventilator 40 09/20/16 20:54 73 167/57 09/20/16 20:31 73 17 167/57 100 Mechanical Ventilator 40 09/20/16 20:00 40 09/20/16 20:00 98.7 68 17 177/63 100 Mechanical Ventilator 40 09/20/16 20:00 71 09/20/16 19:19 74 17 40 09/20/16 19:00 65 17 158/51 100 Mechanical Ventilator 40 09/20/16 18:00 61 17 162/72 100 Mechanical Ventilator 40 09/20/16 17:14 75 18 40 09/20/16 17:00 71 17 166/64 100 Mechanical Ventilator 40 09/20/16 16:00 40 09/20/16 16:00 98.6 67 17 146/54 100 Mechanical Ventilator 40 09/20/16 16:00 95 09/20/16 15:00 69 17 162/53 100 Mechanical Ventilator 40 Status: awake Condition: improving HEENT: atraumatic Neck: full ROM Lungs: rhonchi Heart: HR/BP stable Abdomen: soft Extremities: edema Decubiti: none Accucheck: 121 Critical Care - Subjective ROS Limited/Unobtainable: Yes ICU Day: 16 Intubation Day: 16 Interval Events: No significant change in the size of her tongue since yesterday. Condition: stable IV Access: central EKG Rhythm: Sinus Rhythm FI02: 40 Vent Support Breath Rate: 17 Vent Support Mode: AC Vent Tidal Volume: 500 Sputum Amount: Moderate PEEP: 5.0 PIP: 41 Fluids: D5 1/2 NS with KCL 20meq @ 50 Tube Feeding Amount: 30 I&O: Intake and Output 09/20/16 09/21/16 19:00 07:00 Intake Total 1820 ml 1105 ml Output Total 1475 ml 2195 ml Balance 345 ml -1090 ml Intake Free Water 200 ml 100 ml IV Total 1020 ml 715 ml Tube Feeding 600 ml 240 ml Other 50 ml Output Urine Total 1475 ml 2195 ml # Bowel Movements 2 ET-Tube: 6.0 ET Position: 23 YONI ROCHE Sep 21, 2016 14:53
--- NOTE | 2016-09-21 16:39 | Nephrology Progress Note ---
Assessment/Plan Problem List: (1) Cardiac arrest (2) Septic shock (3) Respiratory distress (4) Dysphagia (5) Pneumonia (6) Anemia (7) Azotemia (8) Dehydration (9) Respiratory failure Plan Supportive care Monitor lytes, correct PRN Avoid nephrotoxic agents G-Tube feeding per GI Monitor H&H, transfuse PRN Monitor neuro status Pending trach Continue wound care DVT prophylaxis AM labs Subjective ROS Limited/Unobtainable: Yes Subjective Intubated, in ICU Objective Objective Last 24 Hour Vital Signs Date Time Temp Pulse Resp B/P Pulse Ox O2 Delivery O2 Flow Rate FiO2 09/21/16 15:00 64 17 40 09/21/16 15:00 67 17 159/61 100 Mechanical Ventilator 40 09/21/16 14:00 67 17 163/50 100 Mechanical Ventilator 40 09/21/16 13:00 66 17 150/48 100 Mechanical Ventilator 40 09/21/16 13:00 64 17 40 09/21/16 12:00 97.9 67 17 149/65 100 Mechanical Ventilator 40 09/21/16 12:00 72 09/21/16 12:00 40 09/21/16 11:10 68 17 40 09/21/16 11:00 61 17 163/58 100 Mechanical Ventilator 40 09/21/16 10:00 63 17 148/54 100 Mechanical Ventilator 40 09/21/16 09:21 66 168/64 09/21/16 09:05 65 17 40 09/21/16 09:00 68 19 168/64 100 Mechanical Ventilator 40 09/21/16 08:00 98.4 63 20 153/52 100 Mechanical Ventilator 40 09/21/16 08:00 62 09/21/16 08:00 40 09/21/16 07:00 68 18 157/118 100 Mechanical Ventilator 40 09/21/16 06:56 61 17 40 09/21/16 06:00 64 18 152/49 100 Mechanical Ventilator 40 09/21/16 05:15 71 17 40 09/21/16 05:00 66 18 155/56 100 Mechanical Ventilator 40 09/21/16 04:00 74 09/21/16 04:00 98.3 77 17 160/60 100 Mechanical Ventilator 40 09/21/16 04:00 40 09/21/16 03:00 76 18 151/49 100 Mechanical Ventilator 40 09/21/16 02:57 74 17 40 09/21/16 02:00 74 18 147/74 100 Mechanical Ventilator 40 09/21/16 01:07 70 17 40 09/21/16 01:00 68 18 150/50 100 Mechanical Ventilator 40 09/21/16 00:00 98.9 69 17 152/54 100 Mechanical Ventilator 40 09/21/16 00:00 40 09/21/16 00:00 70 09/20/16 23:20 72 17 40 09/20/16 23:00 75 20 153/64 100 Mechanical Ventilator 40 09/20/16 22:00 75 17 157/53 100 Mechanical Ventilator 40 09/20/16 21:05 76 20 40 09/20/16 21:00 73 17 167/67 100 Mechanical Ventilator 40 09/20/16 20:54 73 167/57 09/20/16 20:31 73 17 167/57 100 Mechanical Ventilator 40 09/20/16 20:00 40 09/20/16 20:00 98.7 68 17 177/63 100 Mechanical Ventilator 40 09/20/16 20:00 71 09/20/16 19:19 74 17 40 09/20/16 19:00 65 17 158/51 100 Mechanical Ventilator 40 09/20/16 18:00 61 17 162/72 100 Mechanical Ventilator 40 09/20/16 17:14 75 18 40 09/20/16 17:00 71 17 166/64 100 Mechanical Ventilator 40 Intake and Output 09/20/16 09/21/16 19:00 07:00 Intake Total 1820 ml 1105 ml Output Total 1475 ml 2195 ml Balance 345 ml -1090 ml Intake Free Water 200 ml 100 ml IV Total 1020 ml 715 ml Tube Feeding 600 ml 240 ml Other 50 ml Output Urine Total 1475 ml 2195 ml # Bowel Movements 2 Laboratory Tests 09/21/16 04:30: White Blood Count 6.3, Red Blood Count 3.38L, Hemoglobin 10.8L, Hematocrit 32.9L , Mean Corpuscular Volume 97, Mean Corpuscular Hemoglobin 32.1H, Mean Corpuscular Hemoglobin Concent 33.0, Red Cell Distribution Width 14.8, Platelet Count 325, Mean Platelet Volume 7.8, Neutrophils (%) (Auto) 51.5, Lymphocytes (% ) (Auto) 30.5, Monocytes (%) (Auto) 11.9H, Eosinophils (%) (Auto) 3.9H, Basophils (%) (Auto) 2.2H, Sodium Level 134L, Potassium Level 4.5, Chloride Level 94L, Carbon Dioxide Level 29, Anion Gap 11, Blood Urea Nitrogen 14, Creatinine 0.4L, Estimat Glomerular Filtration Rate , Glucose Level 88, Calcium Level 8.3L, Total Bilirubin 0.4, Aspartate Amino Transf (AST/SGOT) 32, Alanine Aminotransferase (ALT/SGPT) 25, Alkaline Phosphatase 119H, Total Protein 6.8, Albumin 2.3L, Globulin 4.5, Albumin/Globulin Ratio 0.5L Height (Feet): 5 Height (Inches): 6.00 Weight (Pounds): 184 General Appearance: no apparent distress Cardiovascular: normal rate Respiratory/Chest: crackles/rales, other - on vent support Abdomen: other - peg Genitourinary/Rectal: other - simpson Neurologic: unresponsive Allison Johnson N.P. Sep 21, 2016 16:39
--- NOTE | 2016-09-21 23:18 | Cardiology Progress Note ---
Assessment/Plan Assessment/Plan 1. Asystole cardiac arrest due to respiratory failure, echo reveals normal LVEF with no wall motion abnormalities. 2. E.Coli pneumonia/leukocytosis. 3. Hypoxic, hypercarbic respiratory failure, awaiting tracheostomy tube placement. 4. s/p PEG 5. HTN, increase amlodipine 5mg per GT bid. Subjective Subjective Sinus rhythm at 75. Sedated Objective Last 24 Hour Vital Signs Date Time Temp Pulse Resp B/P Pulse Ox O2 Delivery O2 Flow Rate FiO2 09/21/16 22:00 76 22 156/60 100 Mechanical Ventilator 40 09/21/16 21:28 73 24 40 09/21/16 21:00 75 22 160/67 100 Mechanical Ventilator 40 09/21/16 20:00 69 09/21/16 20:00 40 09/21/16 20:00 97.9 66 17 162/54 100 Mechanical Ventilator 40 09/21/16 19:00 66 17 161/57 100 Mechanical Ventilator 40 09/21/16 18:42 69 17 40 09/21/16 18:00 66 17 149/61 100 Mechanical Ventilator 40 09/21/16 17:00 70 19 150/62 100 Mechanical Ventilator 40 09/21/16 17:00 72 17 40 09/21/16 16:00 40 09/21/16 16:00 97.8 72 19 150/56 100 Mechanical Ventilator 40 09/21/16 16:00 78 09/21/16 15:00 64 17 40 09/21/16 15:00 67 17 159/61 100 Mechanical Ventilator 40 09/21/16 14:00 67 17 163/50 100 Mechanical Ventilator 40 09/21/16 13:00 66 17 150/48 100 Mechanical Ventilator 40 09/21/16 13:00 64 17 40 09/21/16 12:00 97.9 67 17 149/65 100 Mechanical Ventilator 40 09/21/16 12:00 72 09/21/16 12:00 40 09/21/16 11:10 68 17 40 09/21/16 11:00 61 17 163/58 100 Mechanical Ventilator 40 09/21/16 10:00 63 17 148/54 100 Mechanical Ventilator 40 09/21/16 09:21 66 168/64 09/21/16 09:05 65 17 40 09/21/16 09:00 68 19 168/64 100 Mechanical Ventilator 40 09/21/16 08:00 98.4 63 20 153/52 100 Mechanical Ventilator 40 09/21/16 08:00 62 09/21/16 08:00 40 09/21/16 07:00 68 18 157/118 100 Mechanical Ventilator 40 09/21/16 06:56 61 17 40 09/21/16 06:00 64 18 152/49 100 Mechanical Ventilator 40 09/21/16 05:15 71 17 40 09/21/16 05:00 66 18 155/56 100 Mechanical Ventilator 40 09/21/16 04:00 74 09/21/16 04:00 98.3 77 17 160/60 100 Mechanical Ventilator 40 09/21/16 04:00 40 09/21/16 03:00 76 18 151/49 100 Mechanical Ventilator 40 09/21/16 02:57 74 17 40 09/21/16 02:00 74 18 147/74 100 Mechanical Ventilator 40 09/21/16 01:07 70 17 40 09/21/16 01:00 68 18 150/50 100 Mechanical Ventilator 40 09/21/16 00:00 98.9 69 17 152/54 100 Mechanical Ventilator 40 09/21/16 00:00 40 09/21/16 00:00 70 09/20/16 23:20 72 17 40 Intake and Output 09/20/16 09/21/16 19:00 07:00 Intake Total 1820 ml 1105 ml Output Total 1475 ml 2195 ml Balance 345 ml -1090 ml Intake Free Water 200 ml 100 ml IV Total 1020 ml 715 ml Tube Feeding 600 ml 240 ml Other 50 ml Output Urine Total 1475 ml 2195 ml # Bowel Movements 2 2D Echo: LVEF 55%, Grade I LVDD, RVSP 57 mmHg Laboratory Tests Test 09/21/16 04:30 White Blood Count 6.3 K/UL (4.8-10.8) Red Blood Count 3.38 M/UL (4.20-5.40) L Hemoglobin 10.8 G/DL (12.0-16.0) L Hematocrit 32.9 % (37.0-47.0) L Mean Corpuscular Volume 97 FL (80-99) Mean Corpuscular Hemoglobin 32.1 PG (27.0-31.0) H Mean Corpuscular Hemoglobin Concent 33.0 G/DL (32.0-36.0) Red Cell Distribution Width 14.8 % (11.6-14.8) Platelet Count 325 K/UL (150-450) Mean Platelet Volume 7.8 FL (6.5-10.1) Neutrophils (%) (Auto) 51.5 % (45.0-75.0) Lymphocytes (%) (Auto) 30.5 % (20.0-45.0) Monocytes (%) (Auto) 11.9 % (1.0-10.0) H Eosinophils (%) (Auto) 3.9 % (0.0-3.0) H Basophils (%) (Auto) 2.2 % (0.0-2.0) H Sodium Level 134 mEQ/L (135-145) L Potassium Level 4.5 mEQ/L (3.4-4.9) Chloride Level 94 mEQ/L (98-107) L Carbon Dioxide Level 29 mEQ/L (20-30) Anion Gap 11 (5-15) Blood Urea Nitrogen 14 mg/dL (7-23) Creatinine 0.4 mg/dL (0.5-0.9) L Estimat Glomerular Filtration Rate mL/min (>60) Glucose Level 88 mg/dL (74-106) Calcium Level 8.3 mg/dL (8.6-10.2) L Total Bilirubin 0.4 mg/dL (0.0-1.2) Aspartate Amino Transf (AST/SGOT) 32 U/L (5-40) Alanine Aminotransferase (ALT/SGPT) 25 U/L (3-33) Alkaline Phosphatase 119 U/L (35-104) H Total Protein 6.8 g/dL (6.6-8.7) Albumin 2.3 g/dL (3.5-5.2) L Globulin 4.5 g/dL Albumin/Globulin Ratio 0.5 (1.0-2.7) L Objective HEENT: Intubated, normocephalic, atraumatic, PERRLA, EOMI Neck: no JVD, no carotid bruit, upstroke 2+ B/L Respiratory: decreased breath sounds, crackles both bases Cardiovascular: regular rate, rhythm, normal S1S2,no murmurs, gallops or rubs Gastrointestinal: normal BS, soft non-tender, non-distended, GT in place Musculoskeletal: no clubbing cyanosis or edema MARK LEVY Sep 21, 2016 23:18
[2016-09-22] VITALS (25 sets, daily range): BP systolic 94–164; BP diastolic 33–76
[2016-09-22] MEDS: D5 1/2NS w/KCl 20mEq 1,000 ML IV SCH ×2 (02:55→23:01)
[2016-09-22] MEDS: Dyna-Hex 2% Top Sol 8oz TOPIC SCH (02:55)
[2016-09-22 05:40] LABS: BASOPHILS % (AUTO) 1.5 % (0.0-2.0); EOSINOPHILS % (AUTO) 1.5 % (0.0-3.0); LYMPHOCYTES % (AUTO) 30.8 % (20.0-45.0); MEAN CORPUSCULAR HEMOGLOBIN 32.1 PG (27.0-31.0); MEAN CORPUSCULAR HGB CONC 32.7 G/DL (32.0-36.0); MEAN CORPUSCULAR VOLUME 98 FL (80-99); MEAN PLATELET VOLUME 7.3 FL (6.5-10.1); NEUTROPHILS % (AUTO) 52.3 % (45.0-75.0); PLATELET COUNT 293 K/UL (150-450); RED BLOOD COUNT 3.43 M/UL (4.20-5.40); RED CELL DISTRIBUTION WIDTH 14.6 % (11.6-14.8); WHITE BLOOD COUNT 5.2 K/UL (4.8-10.8)
[2016-09-22] MEDS: DiphenhydrAMINE 50mg/ml Inj IVP SCH ×3 (06:03→17:40)
[2016-09-22 06:15] LABS: ALANINE AMINOTRANSFERASE 22 U/L (3-33); ALBUMIN/GLOBULIN RATIO 0.6 (1.0-2.7); ANION GAP 12 (5-15); ASPARTATE AMINO TRANSFERASE 23 U/L (5-40); CALCIUM 8.1 mg/dL (8.6-10.2); CARBON DIOXIDE 29 mEQ/L (20-30); CHLORIDE 93 mEQ/L (98-107); CREATININE 0.4 mg/dL (0.5-0.9); HEMOLYSIS 1; MAGNESIUM 1.5 mg/dL (1.7-2.5); PHOSPHORUS 3.2 mg/dL (2.5-4.8); POTASSIUM 3.8 mEQ/L (3.4-4.9); SODIUM 134 mEQ/L (135-145); TOTAL PROTEIN 6.8 g/dL (6.6-8.7)
[2016-09-22] MEDS: levETIRAcetam 500 MG in D5W 110 ML IV SCH ×2 (08:56→21:01)
[2016-09-22] MEDS: Ascorbic Acid 500mg tab GT SCH (08:57)
[2016-09-22] MEDS: PredniSONE 20mg tab ORAL SCH (08:57)
[2016-09-22] MEDS: Phospha 250 Neutral tab GT SCH ×3 (08:57→17:39)
[2016-09-22] MEDS: Heparin 5000 units/ml inj SUBQ SCH ×2 (09:03→21:02)
[2016-09-22] MEDS: Pantoprazole Inj IVP SCH ×2 (09:04→21:01)
--- NOTE | 2016-09-22 10:45 | General Progress Note ---
Assessment/Plan Problem List: (1) Respiratory failure ICD Codes: J96.90 - Respiratory failure, unspecified, unspecified whether with hypoxia or hypercapnia SNOMED: 857962846 (2) LFT elevation ICD Codes: R94.5 - Abnormal results of liver function studies SNOMED: 497509781 (3) Anemia ICD Codes: D64.9 - Anemia, unspecified SNOMED: 577244493 (4) Feeding by G-tube ICD Codes: Z93.1 - Gastrostomy status SNOMED: 054023615, 097708313 (5) Dysphagia ICD Codes: R13.10 - Dysphagia, unspecified SNOMED: 38481161, 032701151 Assessment/Plan neg stool OB hold GI procedures for now ppi GTF Subjective ROS Limited/Unobtainable: No Allergies: Coded Allergies: No Known Allergies (Verified , 03/14/16) Uncoded Allergies: MILK (Allergy, Unknown, 07/11/11) Objective Last 24 Hour Vital Signs Date Time Temp Pulse Resp B/P Pulse Ox O2 Delivery O2 Flow Rate FiO2 09/22/16 10:00 66 21 94/33 100 Mechanical Ventilator 40 09/22/16 09:15 78 22 40 09/22/16 09:00 73 23 151/43 100 Mechanical Ventilator 40 09/22/16 08:57 65 117/36 09/22/16 08:00 98.4 70 20 117/36 100 Mechanical Ventilator 40 09/22/16 08:00 73 09/22/16 08:00 40 09/22/16 07:04 69 17 40 09/22/16 07:00 81 21 137/43 100 Mechanical Ventilator 40 09/22/16 06:00 72 22 134/41 100 Mechanical Ventilator 40 09/22/16 05:26 75 18 40 09/22/16 05:00 76 22 143/48 100 Mechanical Ventilator 40 09/22/16 04:00 40 09/22/16 04:00 98.6 80 22 156/60 100 Mechanical Ventilator 40 09/22/16 04:00 81 09/22/16 03:00 88 26 164/76 100 Mechanical Ventilator 40 09/22/16 02:48 76 21 40 09/22/16 02:00 74 21 162/53 100 Mechanical Ventilator 40 09/22/16 01:00 69 21 157/60 100 Mechanical Ventilator 40 09/22/16 00:51 66 17 40 09/22/16 00:00 40 09/22/16 00:00 63 09/22/16 00:00 64 21 145/53 100 Mechanical Ventilator 40 09/21/16 23:18 64 18 40 09/21/16 23:00 98.3 64 22 156/60 100 Mechanical Ventilator 40 09/21/16 22:00 76 22 156/60 100 Mechanical Ventilator 40 09/21/16 21:28 73 24 40 09/21/16 21:00 75 22 160/67 100 Mechanical Ventilator 40 09/21/16 20:00 69 09/21/16 20:00 40 09/21/16 20:00 97.9 66 17 162/54 100 Mechanical Ventilator 40 09/21/16 19:00 66 17 161/57 100 Mechanical Ventilator 40 09/21/16 18:42 69 17 40 09/21/16 18:00 66 17 149/61 100 Mechanical Ventilator 40 09/21/16 17:00 70 19 150/62 100 Mechanical Ventilator 40 09/21/16 17:00 72 17 40 09/21/16 16:00 40 09/21/16 16:00 97.8 72 19 150/56 100 Mechanical Ventilator 40 09/21/16 16:00 78 09/21/16 15:00 64 17 40 09/21/16 15:00 67 17 159/61 100 Mechanical Ventilator 40 09/21/16 14:00 67 17 163/50 100 Mechanical Ventilator 40 09/21/16 13:00 66 17 150/48 100 Mechanical Ventilator 40 09/21/16 13:00 64 17 40 09/21/16 12:00 97.9 67 17 149/65 100 Mechanical Ventilator 40 09/21/16 12:00 72 09/21/16 12:00 40 09/21/16 11:10 68 17 40 09/21/16 11:00 61 17 163/58 100 Mechanical Ventilator 40 Intake and Output 09/21/16 09/22/16 19:00 07:00 Intake Total 1205 ml 1250 ml Output Total 1845 ml 1700 ml Balance -640 ml -450 ml Intake Free Water 100 ml IV Total 715 ml 600 ml Tube Feeding 370 ml 650 ml Other 20 ml Output Urine Total 1845 ml 1700 ml Laboratory Tests 09/22/16 04:55: White Blood Count 5.2, Red Blood Count 3.43L, Hemoglobin 11.0L, Hematocrit 33.6L , Mean Corpuscular Volume 98, Mean Corpuscular Hemoglobin 32.1H, Mean Corpuscular Hemoglobin Concent 32.7, Red Cell Distribution Width 14.6, Platelet Count 293, Mean Platelet Volume 7.3, Neutrophils (%) (Auto) 52.3, Lymphocytes (% ) (Auto) 30.8, Monocytes (%) (Auto) 14.0H, Eosinophils (%) (Auto) 1.5, Basophils (%) (Auto) 1.5, Sodium Level 134L, Potassium Level 3.8, Chloride Level 93L, Carbon Dioxide Level 29, Anion Gap 12, Blood Urea Nitrogen 16, Creatinine 0.4L, Estimat Glomerular Filtration Rate , Glucose Level 122H, Calcium Level 8.1L, Phosphorus Level 3.2, Magnesium Level 1.5L, Total Bilirubin 0.3, Aspartate Amino Transf (AST/SGOT) 23, Alanine Aminotransferase (ALT/SGPT) 22, Alkaline Phosphatase 121H, Total Protein 6.8, Albumin 2.6L, Globulin 4.2, Albumin/Globulin Ratio 0.6L Height (Feet): 5 Height (Inches): 6.00 Weight (Pounds): 189 General Appearance: no apparent distress EENT: normal ENT inspection Neck: supple Cardiovascular: normal rate Respiratory/Chest: decreased breath sounds Abdomen: normal bowel sounds, non tender, soft Extremities: non-tender PILAR SCHMITT Sep 22, 2016 10:45
--- NOTE | 2016-09-22 10:50 | Infectious Diseases Prog Note ---
Assessment/Plan Assessment/Plan antibiotics : none A 1. e.coli pneumonia s/p rx 2. respiratory failure 3. allergic reaction 4. leucocytosis resolved 5. 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 observe off antibiotics Subjective ROS Limited/Unobtainable: Yes Allergies: Coded Allergies: No Known Allergies (Verified , 03/14/16) Uncoded Allergies: MILK (Allergy, Unknown, 07/11/11) Objective Vital Signs Last 24 Hour Vital Signs Date Time Temp Pulse Resp B/P Pulse Ox O2 Delivery O2 Flow Rate FiO2 09/22/16 10:00 66 21 94/33 100 Mechanical Ventilator 40 09/22/16 09:15 78 22 40 09/22/16 09:00 73 23 151/43 100 Mechanical Ventilator 40 09/22/16 08:57 65 117/36 09/22/16 08:00 98.4 70 20 117/36 100 Mechanical Ventilator 40 09/22/16 08:00 73 09/22/16 08:00 40 09/22/16 07:04 69 17 40 09/22/16 07:00 81 21 137/43 100 Mechanical Ventilator 40 09/22/16 06:00 72 22 134/41 100 Mechanical Ventilator 40 09/22/16 05:26 75 18 40 09/22/16 05:00 76 22 143/48 100 Mechanical Ventilator 40 09/22/16 04:00 40 09/22/16 04:00 98.6 80 22 156/60 100 Mechanical Ventilator 40 09/22/16 04:00 81 09/22/16 03:00 88 26 164/76 100 Mechanical Ventilator 40 09/22/16 02:48 76 21 40 09/22/16 02:00 74 21 162/53 100 Mechanical Ventilator 40 09/22/16 01:00 69 21 157/60 100 Mechanical Ventilator 40 09/22/16 00:51 66 17 40 09/22/16 00:00 40 09/22/16 00:00 63 09/22/16 00:00 64 21 145/53 100 Mechanical Ventilator 40 09/21/16 23:18 64 18 40 09/21/16 23:00 98.3 64 22 156/60 100 Mechanical Ventilator 40 09/21/16 22:00 76 22 156/60 100 Mechanical Ventilator 40 09/21/16 21:28 73 24 40 09/21/16 21:00 75 22 160/67 100 Mechanical Ventilator 40 09/21/16 20:00 69 09/21/16 20:00 40 09/21/16 20:00 97.9 66 17 162/54 100 Mechanical Ventilator 40 09/21/16 19:00 66 17 161/57 100 Mechanical Ventilator 40 09/21/16 18:42 69 17 40 09/21/16 18:00 66 17 149/61 100 Mechanical Ventilator 40 09/21/16 17:00 70 19 150/62 100 Mechanical Ventilator 40 09/21/16 17:00 72 17 40 09/21/16 16:00 40 09/21/16 16:00 97.8 72 19 150/56 100 Mechanical Ventilator 40 09/21/16 16:00 78 09/21/16 15:00 64 17 40 09/21/16 15:00 67 17 159/61 100 Mechanical Ventilator 40 09/21/16 14:00 67 17 163/50 100 Mechanical Ventilator 40 09/21/16 13:00 66 17 150/48 100 Mechanical Ventilator 40 09/21/16 13:00 64 17 40 09/21/16 12:00 97.9 67 17 149/65 100 Mechanical Ventilator 40 09/21/16 12:00 72 09/21/16 12:00 40 09/21/16 11:10 68 17 40 09/21/16 11:00 61 17 163/58 100 Mechanical Ventilator 40 Height (Feet): 5 Height (Inches): 6.00 Weight (Pounds): 189 HEENT: other - intubated, tongue swelling Respiratory/Chest: lungs clear Cardiovascular: normal rate, regular rhythm, no gallop/murmur Abdomen: soft, non tender, other - GT Extremities: no edema, other - right arm PICC Laboratory Tests Test 09/22/16 04:55 White Blood Count 5.2 K/UL (4.8-10.8) Red Blood Count 3.43 M/UL (4.20-5.40) L Hemoglobin 11.0 G/DL (12.0-16.0) L Hematocrit 33.6 % (37.0-47.0) L Mean Corpuscular Volume 98 FL (80-99) Mean Corpuscular Hemoglobin 32.1 PG (27.0-31.0) H Mean Corpuscular Hemoglobin Concent 32.7 G/DL (32.0-36.0) Red Cell Distribution Width 14.6 % (11.6-14.8) Platelet Count 293 K/UL (150-450) Mean Platelet Volume 7.3 FL (6.5-10.1) Neutrophils (%) (Auto) 52.3 % (45.0-75.0) Lymphocytes (%) (Auto) 30.8 % (20.0-45.0) Monocytes (%) (Auto) 14.0 % (1.0-10.0) H Eosinophils (%) (Auto) 1.5 % (0.0-3.0) Basophils (%) (Auto) 1.5 % (0.0-2.0) Sodium Level 134 mEQ/L (135-145) L Potassium Level 3.8 mEQ/L (3.4-4.9) Chloride Level 93 mEQ/L (98-107) L Carbon Dioxide Level 29 mEQ/L (20-30) Anion Gap 12 (5-15) Blood Urea Nitrogen 16 mg/dL (7-23) Creatinine 0.4 mg/dL (0.5-0.9) L Estimat Glomerular Filtration Rate mL/min (>60) Glucose Level 122 mg/dL (74-106) H Calcium Level 8.1 mg/dL (8.6-10.2) L Phosphorus Level 3.2 mg/dL (2.5-4.8) Magnesium Level 1.5 mg/dL (1.7-2.5) L Total Bilirubin 0.3 mg/dL (0.0-1.2) Aspartate Amino Transf (AST/SGOT) 23 U/L (5-40) Alanine Aminotransferase (ALT/SGPT) 22 U/L (3-33) Alkaline Phosphatase 121 U/L (35-104) H Total Protein 6.8 g/dL (6.6-8.7) Albumin 2.6 g/dL (3.5-5.2) L Globulin 4.2 g/dL Albumin/Globulin Ratio 0.6 (1.0-2.7) L KELLEY MITCHELL Sep 22, 2016 10:50
[2016-09-22] MEDS ORDERED: Tubing IV Secondary IV ONE (17:16)
[2016-09-22] MEDS ORDERED: NS 275ml ONE (17:16)
--- NOTE | 2016-09-22 17:27 | Nephrology Progress Note ---
Assessment/Plan Problem List: (1) Cardiac arrest (2) Septic shock (3) Respiratory distress (4) Dysphagia (5) Pneumonia (6) Anemia (7) Azotemia (8) Dehydration (9) Respiratory failure Plan Supportive care Monitor lytes, correct PRN Avoid nephrotoxic agents G-Tube feeding per GI Monitor H&H, transfuse PRN Monitor neuro status Pending trach DVT prophylaxis AM labs Subjective ROS Limited/Unobtainable: Yes Subjective Intubated, in ICU Objective Objective Last 24 Hour Vital Signs Date Time Temp Pulse Resp B/P Pulse Ox O2 Delivery O2 Flow Rate FiO2 09/22/16 16:44 77 17 40 09/22/16 16:00 40 09/22/16 16:00 98.6 80 17 123/40 100 Mechanical Ventilator 40 09/22/16 16:00 83 09/22/16 15:12 87 17 40 09/22/16 15:00 73 20 132/56 100 Mechanical Ventilator 40 09/22/16 14:00 66 29 141/54 100 Mechanical Ventilator 40 09/22/16 13:27 71 17 40 09/22/16 13:00 77 20 123/43 100 Mechanical Ventilator 40 09/22/16 12:00 98.7 76 17 123/43 100 Mechanical Ventilator 40 09/22/16 12:00 73 09/22/16 12:00 40 09/22/16 11:18 77 22 40 09/22/16 11:00 80 19 131/51 100 Mechanical Ventilator 40 09/22/16 10:00 66 21 94/33 100 Mechanical Ventilator 40 09/22/16 09:15 78 22 40 09/22/16 09:00 73 23 151/43 100 Mechanical Ventilator 40 09/22/16 08:57 65 117/36 09/22/16 08:00 98.4 70 20 117/36 100 Mechanical Ventilator 40 09/22/16 08:00 73 09/22/16 08:00 40 09/22/16 07:04 69 17 40 09/22/16 07:00 81 21 137/43 100 Mechanical Ventilator 40 09/22/16 06:00 72 22 134/41 100 Mechanical Ventilator 40 09/22/16 05:26 75 18 40 09/22/16 05:00 76 22 143/48 100 Mechanical Ventilator 40 09/22/16 04:00 40 09/22/16 04:00 98.6 80 22 156/60 100 Mechanical Ventilator 40 09/22/16 04:00 81 09/22/16 03:00 88 26 164/76 100 Mechanical Ventilator 40 09/22/16 02:48 76 21 40 09/22/16 02:00 74 21 162/53 100 Mechanical Ventilator 40 09/22/16 01:00 69 21 157/60 100 Mechanical Ventilator 40 09/22/16 00:51 66 17 40 09/22/16 00:00 40 09/22/16 00:00 63 09/22/16 00:00 64 21 145/53 100 Mechanical Ventilator 40 09/21/16 23:18 64 18 40 09/21/16 23:00 98.3 64 22 156/60 100 Mechanical Ventilator 40 09/21/16 22:00 76 22 156/60 100 Mechanical Ventilator 40 09/21/16 21:28 73 24 40 09/21/16 21:00 75 22 160/67 100 Mechanical Ventilator 40 09/21/16 20:00 69 09/21/16 20:00 40 09/21/16 20:00 97.9 66 17 162/54 100 Mechanical Ventilator 40 09/21/16 19:00 66 17 161/57 100 Mechanical Ventilator 40 09/21/16 18:42 69 17 40 09/21/16 18:00 66 17 149/61 100 Mechanical Ventilator 40 Intake and Output 09/21/16 09/22/16 19:00 07:00 Intake Total 1205 ml 1250 ml Output Total 1845 ml 1700 ml Balance -640 ml -450 ml Intake Free Water 100 ml IV Total 715 ml 600 ml Tube Feeding 370 ml 650 ml Other 20 ml Output Urine Total 1845 ml 1700 ml Laboratory Tests 09/22/16 04:55: White Blood Count 5.2, Red Blood Count 3.43L, Hemoglobin 11.0L, Hematocrit 33.6L , Mean Corpuscular Volume 98, Mean Corpuscular Hemoglobin 32.1H, Mean Corpuscular Hemoglobin Concent 32.7, Red Cell Distribution Width 14.6, Platelet Count 293, Mean Platelet Volume 7.3, Neutrophils (%) (Auto) 52.3, Lymphocytes (% ) (Auto) 30.8, Monocytes (%) (Auto) 14.0H, Eosinophils (%) (Auto) 1.5, Basophils (%) (Auto) 1.5, Sodium Level 134L, Potassium Level 3.8, Chloride Level 93L, Carbon Dioxide Level 29, Anion Gap 12, Blood Urea Nitrogen 16, Creatinine 0.4L, Estimat Glomerular Filtration Rate , Glucose Level 122H, Calcium Level 8.1L, Phosphorus Level 3.2, Magnesium Level 1.5L, Total Bilirubin 0.3, Aspartate Amino Transf (AST/SGOT) 23, Alanine Aminotransferase (ALT/SGPT) 22, Alkaline Phosphatase 121H, Total Protein 6.8, Albumin 2.6L, Globulin 4.2, Albumin/Globulin Ratio 0.6L Height (Feet): 5 Height (Inches): 6.00 Weight (Pounds): 189 General Appearance: no apparent distress Neck: supple Cardiovascular: normal rate, regular rhythm Respiratory/Chest: crackles/rales, other - on vent Abdomen: non tender, other - PEG Genitourinary/Rectal: other - SCHULZ Extremities: pitting Neurologic: unresponsive Allison Johnson N.P. Sep 22, 2016 17:27
--- NOTE | 2016-09-22 22:53 | Pulmonolgy Critical Care Note ---
Critical Care - Asmt/Plan Problems: (1) Respiratory failure (2) Respiratory distress (3) Dysphagia (4) Pneumonia (5) Feeding by G-tube (6) Anemia (7) Hypoalbuminemia (8) LFT elevation (9) Hyperkalemia Assessment & Plan: Weaned weaning trial even with SIMV 10 Assessment/Plan: Because of her mental status right lung pneumonia and inability to wean from the vent, she will need tracheostomy. Respiratory: monitor respiratory rate Cardiac: continue to monitor HR/BP Renal: F/U I&O Infectious Disease: check cultures Gastrointestinal: continue feedings/current rate Disposition: keep in ICU Time Spent (Minutes): 30 Discussed with: nurses, consultants Critical Care - Objective Last 24 Hour Vital Signs Date Time Temp Pulse Resp B/P Pulse Ox O2 Delivery O2 Flow Rate FiO2 09/22/16 22:00 76 17 132/45 100 Mechanical Ventilator 40 09/22/16 21:00 80 18 132/40 100 Mechanical Ventilator 40 09/22/16 20:33 82 20 40 09/22/16 20:00 98.0 80 18 140/40 100 Mechanical Ventilator 40 09/22/16 20:00 78 09/22/16 20:00 40 09/22/16 19:14 80 18 40 09/22/16 19:00 79 18 132/47 100 Mechanical Ventilator 40 09/22/16 18:00 73 17 138/51 100 Mechanical Ventilator 40 09/22/16 17:39 79 132/46 09/22/16 17:00 72 20 132/46 100 Mechanical Ventilator 40 09/22/16 16:44 77 17 40 09/22/16 16:00 40 09/22/16 16:00 98.6 80 17 123/40 100 Mechanical Ventilator 40 09/22/16 16:00 83 09/22/16 15:12 87 17 40 09/22/16 15:00 73 20 132/56 100 Mechanical Ventilator 40 09/22/16 14:00 66 29 141/54 100 Mechanical Ventilator 40 09/22/16 13:27 71 17 40 09/22/16 13:00 77 20 123/43 100 Mechanical Ventilator 40 09/22/16 12:00 98.7 76 17 123/43 100 Mechanical Ventilator 40 09/22/16 12:00 73 09/22/16 12:00 40 09/22/16 11:18 77 22 40 09/22/16 11:00 80 19 131/51 100 Mechanical Ventilator 40 09/22/16 10:00 66 21 94/33 100 Mechanical Ventilator 40 09/22/16 09:15 78 22 40 09/22/16 09:00 73 23 151/43 100 Mechanical Ventilator 40 09/22/16 08:57 65 117/36 09/22/16 08:00 98.4 70 20 117/36 100 Mechanical Ventilator 40 09/22/16 08:00 73 09/22/16 08:00 40 09/22/16 07:04 69 17 40 09/22/16 07:00 81 21 137/43 100 Mechanical Ventilator 40 09/22/16 06:00 72 22 134/41 100 Mechanical Ventilator 40 09/22/16 05:26 75 18 40 09/22/16 05:00 76 22 143/48 100 Mechanical Ventilator 40 09/22/16 04:00 40 09/22/16 04:00 98.6 80 22 156/60 100 Mechanical Ventilator 40 09/22/16 04:00 81 09/22/16 03:00 88 26 164/76 100 Mechanical Ventilator 40 09/22/16 02:48 76 21 40 09/22/16 02:00 74 21 162/53 100 Mechanical Ventilator 40 09/22/16 01:00 69 21 157/60 100 Mechanical Ventilator 40 09/22/16 00:51 66 17 40 09/22/16 00:00 40 09/22/16 00:00 63 09/22/16 00:00 64 21 145/53 100 Mechanical Ventilator 40 09/21/16 23:18 64 18 40 09/21/16 23:00 98.3 64 22 156/60 100 Mechanical Ventilator 40 Status: awake Condition: improving HEENT: atraumatic, other - Her tongue is out partly Neck: full ROM Heart: HR/BP stable Abdomen: soft, non-tender, active bowel sounds Extremities: edema, other - 2+ edema she is on lasix Decubiti: none Accucheck: 121 Critical Care - Subjective ROS Limited/Unobtainable: Yes ICU Day: 17 Intubation Day: 17 Interval Events: No significant change Condition: stable IV Access: PICC EKG Rhythm: Sinus Rhythm FI02: 40 Vent Support Breath Rate: 17 Vent Support Mode: AC Vent Tidal Volume: 500 Sputum Amount: Small PEEP: 5.0 PIP: 44 Tube Feeding Amount: 60 I&O: Intake and Output 09/21/16 09/22/16 19:00 07:00 Intake Total 1205 ml 1250 ml Output Total 1845 ml 1700 ml Balance -640 ml -450 ml Intake Free Water 100 ml IV Total 715 ml 600 ml Tube Feeding 370 ml 650 ml Other 20 ml Output Urine Total 1845 ml 1700 ml ET-Tube: 6.0 ET Position: 23 YONI ROCHE Sep 22, 2016 22:53
[2016-09-23] VITALS (24 sets, daily range): BP systolic 97–145; BP diastolic 30–82
[2016-09-23] MEDS: DiphenhydrAMINE 50mg/ml Inj IVP SCH ×4 (00:04→17:51)
[2016-09-23] MEDS: Dyna-Hex 2% Top Sol 8oz TOPIC SCH (03:44)
--- NOTE | 2016-09-23 08:27 | Diagnostic Imaging Report ---
Indication:Abdominal pain Technique: Grayscale and duplex Doppler imaging of the abdomen performed. Comparison: None Findings: There is no hydronephrosis demonstrated. There is a cyst in the right kidney measuring 3.6 cm in the lower pole. There is trace ascites. Bilateral pleural effusions are present. There is thickening of the gallbladder wall which is nonspecific. No biliary dilatation is appreciated. CBD is approximately 4 mm in diameter. Aorta and pancreas are grossly unremarkable as visualized. Impression: Mild gallbladder wall thickening nonspecific. Right renal cyst Bilateral pleural effusions Trace ascites
[2016-09-23] MEDS: Heparin 5000 units/ml inj SUBQ SCH ×2 (09:00→20:35)
--- NOTE | 2016-09-23 09:07 | General Progress Note ---
Assessment/Plan Problem List: (1) Respiratory failure ICD Codes: J96.90 - Respiratory failure, unspecified, unspecified whether with hypoxia or hypercapnia SNOMED: 210233972 (2) LFT elevation ICD Codes: R94.5 - Abnormal results of liver function studies SNOMED: 414622472 (3) Anemia ICD Codes: D64.9 - Anemia, unspecified SNOMED: 883485604 (4) Feeding by G-tube ICD Codes: Z93.1 - Gastrostomy status SNOMED: 790194383, 934612045 (5) Dysphagia ICD Codes: R13.10 - Dysphagia, unspecified SNOMED: 95509013, 254201389 Assessment/Plan neg stool OB hold GI procedures for now ppi GTF GT care respiratory care fu Subjective ROS Limited/Unobtainable: No Allergies: Coded Allergies: No Known Allergies (Verified , 03/14/16) Uncoded Allergies: MILK (Allergy, Unknown, 07/11/11) Objective Last 24 Hour Vital Signs Date Time Temp Pulse Resp B/P Pulse Ox O2 Delivery O2 Flow Rate FiO2 09/23/16 08:55 68 17 30 09/23/16 07:06 66 17 30 09/23/16 07:00 69 17 127/41 100 Mechanical Ventilator 40 09/23/16 06:00 71 17 117/44 100 Mechanical Ventilator 40 09/23/16 05:00 74 21 40 09/23/16 05:00 72 18 132/45 100 Mechanical Ventilator 40 09/23/16 04:00 98.0 76 18 128/49 100 Mechanical Ventilator 40 09/23/16 04:00 40 09/23/16 04:00 79 09/23/16 03:00 79 18 110/34 100 Mechanical Ventilator 40 09/23/16 02:45 74 18 40 09/23/16 02:00 75 18 127/82 100 Mechanical Ventilator 40 09/23/16 01:05 74 19 40 09/23/16 01:00 74 18 145/54 100 Mechanical Ventilator 40 09/23/16 00:00 40 09/23/16 00:00 98.7 82 22 138/48 100 Mechanical Ventilator 40 09/23/16 00:00 74 09/22/16 23:00 75 18 131/44 100 Mechanical Ventilator 40 09/22/16 22:55 75 19 40 09/22/16 22:00 76 17 132/45 100 Mechanical Ventilator 40 09/22/16 21:00 80 18 132/40 100 Mechanical Ventilator 40 09/22/16 20:33 82 20 40 09/22/16 20:00 98.0 80 18 140/40 100 Mechanical Ventilator 40 09/22/16 20:00 78 09/22/16 20:00 40 09/22/16 19:14 80 18 40 09/22/16 19:00 79 18 132/47 100 Mechanical Ventilator 40 09/22/16 18:00 73 17 138/51 100 Mechanical Ventilator 40 09/22/16 17:39 79 132/46 09/22/16 17:00 72 20 132/46 100 Mechanical Ventilator 40 09/22/16 16:44 77 17 40 09/22/16 16:00 40 09/22/16 16:00 98.6 80 17 123/40 100 Mechanical Ventilator 40 09/22/16 16:00 83 09/22/16 15:12 87 17 40 09/22/16 15:00 73 20 132/56 100 Mechanical Ventilator 40 09/22/16 14:00 66 29 141/54 100 Mechanical Ventilator 40 09/22/16 13:27 71 17 40 09/22/16 13:00 77 20 123/43 100 Mechanical Ventilator 40 09/22/16 12:00 98.7 76 17 123/43 100 Mechanical Ventilator 40 09/22/16 12:00 73 09/22/16 12:00 40 09/22/16 11:18 77 22 40 09/22/16 11:00 80 19 131/51 100 Mechanical Ventilator 40 09/22/16 10:00 66 21 94/33 100 Mechanical Ventilator 40 09/22/16 09:15 78 22 40 Intake and Output 09/22/16 09/23/16 19:00 07:00 Intake Total 1655 ml 1385 ml Output Total 1475 ml 1335 ml Balance 180 ml 50 ml Intake Free Water 100 ml 100 ml IV Total 715 ml 565 ml Tube Feeding 720 ml 720 ml Other 120 ml Output Urine Total 1475 ml 1335 ml # Bowel Movements 2 2 Laboratory Tests 09/23/16 05:00: Activated Partial Thromboplast Time 24 Height (Feet): 5 Height (Inches): 6.00 Weight (Pounds): 184 General Appearance: no apparent distress EENT: normal ENT inspection Neck: supple Cardiovascular: normal rate Respiratory/Chest: decreased breath sounds Abdomen: normal bowel sounds, non tender, soft Extremities: non-tender PILAR SCHMITT Sep 23, 2016 09:07
[2016-09-23] MEDS: levETIRAcetam 500 MG in D5W 110 ML IV SCH ×2 (09:15→20:41)
[2016-09-23] MEDS: Phospha 250 Neutral tab GT SCH ×3 (09:16→17:51)
[2016-09-23] MEDS: Ascorbic Acid 500mg tab GT SCH (09:16)
[2016-09-23] MEDS: PredniSONE 20mg tab ORAL SCH (09:16)
[2016-09-23] MEDS: Pantoprazole Inj IVP SCH ×2 (09:16→20:42)
--- NOTE | 2016-09-23 09:33 | Pulmonolgy Critical Care Note ---
Critical Care - Asmt/Plan Problems: (1) Respiratory failure (2) Respiratory distress (3) Dysphagia (4) Pneumonia (5) Feeding by G-tube (6) Anemia (7) Hypoalbuminemia (8) LFT elevation (9) Hyperkalemia Assessment & Plan: Weaned weaning trial even with SIMV 10 (10) Hypomagnesemia Assessment/Plan: Because of her mental status right lung pneumonia and inability to wean from the vent, she will need tracheostomy. Respiratory: monitor respiratory rate Cardiac: continue to monitor HR/BP Renal: F/U I&O Gastrointestinal: hold feedings Hematologic: monitor H/H Neurologic: PRN Ativan Disposition: keep in ICU Time Spent (Minutes): 30 Notes Reviewed: other Discussed with: nurses Critical Care - Objective Last 24 Hour Vital Signs Date Time Temp Pulse Resp B/P Pulse Ox O2 Delivery O2 Flow Rate FiO2 09/23/16 09:16 65 131/41 09/23/16 08:55 68 17 30 09/23/16 07:06 66 17 30 09/23/16 07:00 69 17 127/41 100 Mechanical Ventilator 40 09/23/16 06:00 71 17 117/44 100 Mechanical Ventilator 40 09/23/16 05:00 74 21 40 09/23/16 05:00 72 18 132/45 100 Mechanical Ventilator 40 09/23/16 04:00 98.0 76 18 128/49 100 Mechanical Ventilator 40 09/23/16 04:00 40 09/23/16 04:00 79 09/23/16 03:00 79 18 110/34 100 Mechanical Ventilator 40 09/23/16 02:45 74 18 40 09/23/16 02:00 75 18 127/82 100 Mechanical Ventilator 40 09/23/16 01:05 74 19 40 09/23/16 01:00 74 18 145/54 100 Mechanical Ventilator 40 09/23/16 00:00 40 09/23/16 00:00 98.7 82 22 138/48 100 Mechanical Ventilator 40 09/23/16 00:00 74 09/22/16 23:00 75 18 131/44 100 Mechanical Ventilator 40 09/22/16 22:55 75 19 40 09/22/16 22:00 76 17 132/45 100 Mechanical Ventilator 40 09/22/16 21:00 80 18 132/40 100 Mechanical Ventilator 40 09/22/16 20:33 82 20 40 09/22/16 20:00 98.0 80 18 140/40 100 Mechanical Ventilator 40 09/22/16 20:00 78 09/22/16 20:00 40 09/22/16 19:14 80 18 40 09/22/16 19:00 79 18 132/47 100 Mechanical Ventilator 40 09/22/16 18:00 73 17 138/51 100 Mechanical Ventilator 40 09/22/16 17:39 79 132/46 09/22/16 17:00 72 20 132/46 100 Mechanical Ventilator 40 09/22/16 16:44 77 17 40 09/22/16 16:00 40 09/22/16 16:00 98.6 80 17 123/40 100 Mechanical Ventilator 40 09/22/16 16:00 83 09/22/16 15:12 87 17 40 09/22/16 15:00 73 20 132/56 100 Mechanical Ventilator 40 09/22/16 14:00 66 29 141/54 100 Mechanical Ventilator 40 09/22/16 13:27 71 17 40 09/22/16 13:00 77 20 123/43 100 Mechanical Ventilator 40 09/22/16 12:00 98.7 76 17 123/43 100 Mechanical Ventilator 40 09/22/16 12:00 73 09/22/16 12:00 40 09/22/16 11:18 77 22 40 09/22/16 11:00 80 19 131/51 100 Mechanical Ventilator 40 09/22/16 10:00 66 21 94/33 100 Mechanical Ventilator 40 Accucheck: 121 Critical Care - Subjective ROS Limited/Unobtainable: Yes ICU Day: 17 Intubation Day: 17 Interval Events: The size of her tongue is gradually decreasing Condition: improving FI02: 30 Vent Support Breath Rate: 17 Vent Support Mode: AC Vent Tidal Volume: 500 Sputum Amount: Small PEEP: 5.0 PIP: 50 Secretions: minimal Fluids: 1/2 NS and tube feed Tube Feeding Amount: 60 I&O: Intake and Output 09/22/16 09/23/16 19:00 07:00 Intake Total 1655 ml 1385 ml Output Total 1475 ml 1335 ml Balance 180 ml 50 ml Intake Free Water 100 ml 100 ml IV Total 715 ml 565 ml Tube Feeding 720 ml 720 ml Other 120 ml Output Urine Total 1475 ml 1335 ml # Bowel Movements 2 2 Subjective: Overall stable ET-Tube: 6.0 ET Position: 24 BABAALI,YONI Sep 23, 2016 09:33
--- NOTE | 2016-09-23 09:50 | Infectious Diseases Prog Note ---
Assessment/Plan Assessment/Plan A: Sepsis s/p Rx Pneumonia s/p Rx Sinusitis Thyroid nodules MRSA & NISREEN colonization Cardiac arrest Hypercapnic respiratory failure Dementia Anemia Eosinophilia P; Observe off antibiotic Subjective ROS Limited/Unobtainable: Yes Allergies: Coded Allergies: No Known Allergies (Verified , 03/14/16) Uncoded Allergies: MILK (Allergy, Unknown, 07/11/11) Objective Vital Signs Last 24 Hour Vital Signs Date Time Temp Pulse Resp B/P Pulse Ox O2 Delivery O2 Flow Rate FiO2 09/23/16 09:16 65 131/41 09/23/16 09:00 30 09/23/16 08:55 68 17 30 09/23/16 07:06 66 17 30 09/23/16 07:00 69 17 127/41 100 Mechanical Ventilator 40 09/23/16 06:00 71 17 117/44 100 Mechanical Ventilator 40 09/23/16 05:00 74 21 40 09/23/16 05:00 72 18 132/45 100 Mechanical Ventilator 40 09/23/16 04:00 98.0 76 18 128/49 100 Mechanical Ventilator 40 09/23/16 04:00 40 09/23/16 04:00 79 09/23/16 03:00 79 18 110/34 100 Mechanical Ventilator 40 09/23/16 02:45 74 18 40 09/23/16 02:00 75 18 127/82 100 Mechanical Ventilator 40 09/23/16 01:05 74 19 40 09/23/16 01:00 74 18 145/54 100 Mechanical Ventilator 40 09/23/16 00:00 40 09/23/16 00:00 98.7 82 22 138/48 100 Mechanical Ventilator 40 09/23/16 00:00 74 09/22/16 23:00 75 18 131/44 100 Mechanical Ventilator 40 09/22/16 22:55 75 19 40 09/22/16 22:00 76 17 132/45 100 Mechanical Ventilator 40 09/22/16 21:00 80 18 132/40 100 Mechanical Ventilator 40 09/22/16 20:33 82 20 40 09/22/16 20:00 98.0 80 18 140/40 100 Mechanical Ventilator 40 09/22/16 20:00 78 09/22/16 20:00 40 09/22/16 19:14 80 18 40 09/22/16 19:00 79 18 132/47 100 Mechanical Ventilator 40 09/22/16 18:00 73 17 138/51 100 Mechanical Ventilator 40 09/22/16 17:39 79 132/46 09/22/16 17:00 72 20 132/46 100 Mechanical Ventilator 40 09/22/16 16:44 77 17 40 09/22/16 16:00 40 09/22/16 16:00 98.6 80 17 123/40 100 Mechanical Ventilator 40 09/22/16 16:00 83 09/22/16 15:12 87 17 40 09/22/16 15:00 73 20 132/56 100 Mechanical Ventilator 40 09/22/16 14:00 66 29 141/54 100 Mechanical Ventilator 40 09/22/16 13:27 71 17 40 09/22/16 13:00 77 20 123/43 100 Mechanical Ventilator 40 09/22/16 12:00 98.7 76 17 123/43 100 Mechanical Ventilator 40 09/22/16 12:00 73 09/22/16 12:00 40 09/22/16 11:18 77 22 40 09/22/16 11:00 80 19 131/51 100 Mechanical Ventilator 40 09/22/16 10:00 66 21 94/33 100 Mechanical Ventilator 40 Height (Feet): 5 Height (Inches): 6.00 Weight (Pounds): 184 HEENT: other - orally intubated, swelling of tonue & lips Respiratory/Chest: lungs clear, other - on ventilator Cardiovascular: normal rate Abdomen: soft, non tender Extremities: other - right arm PICC line Neurologic/Psychiatric: other - awake Laboratory Tests Test 09/23/16 05:00 Activated Partial Thromboplast Time 24 SEC (23-33) Current Medications Medications (Trade) Dose Ordered Sig/Lonny Route PRN Reason Start Time Stop Time Status Last Admin Dose Admin Amlodipine Besylate 5 mg 5 mg BID ORAL 09/22/16 09:00 10/22/16 08:59 09/23/16 09:16 Ascorbic Acid (Vitamin C) 500 mg DAILY GT 09/07/16 09:00 10/07/16 08:59 09/23/16 09:16 Cetirizine HCl (ZyrTEC) 10 mg DAILY ORAL 09/17/16 21:00 10/17/16 20:59 09/23/16 09:15 Chlorhexidine Gluconate (Guerda-Hex 2%) 1 applic DAILY TOPIC 09/08/16 09:00 10/08/16 08:59 09/23/16 03:44 Dextrose/ Electrolytes (D5 0.45%NS W/ KCl 20mEq) 1,000 ml @ 50 mls/hr Q20H IV 09/19/16 15:00 10/19/16 14:59 09/22/16 23:01 Diltiazem HCl (Cardizem) 5 mg Q1H PRN IV SBP>170 09/06/16 08:00 10/06/16 07:59 09/20/16 05:11 Diphenhydramine HCl 25 mg 25 mg Q6H IVP 09/18/16 00:00 10/18/16 00:00 09/23/16 05:54 Furosemide (Lasix) 20 mg EVERY 12 HOURS IV 09/13/16 16:00 10/13/16 15:59 09/23/16 09:15 Heparin Sodium (Porcine) (Heparin 5000 units/ml) 5,000 units EVERY 12 HOURS SUBQ 09/04/16 21:00 10/04/16 20:59 09/22/16 21:02 Levetiracetam/ Dextrose (Keppra/D5W) 115 ml @ 460 mls/hr Q12HR IV 09/04/16 21:00 10/04/16 20:59 09/23/16 09:15 Loperamide HCl (Imodium) 2 mg Q4H PRN NG Diarrhea 09/17/16 08:15 10/17/16 08:14 09/17/16 20:47 Magnesium Sulfate (Magnesium Sulfate 1gm/100ml) 100 ml @ 100 mls/hr Q1H IVPB 09/23/16 09:45 09/23/16 11:44 Pantoprazole 40 mg 40 mg EVERY 12 HOURS IVP 09/04/16 21:00 10/04/16 20:59 09/23/16 09:16 Phosphorus (Phospha 250 Neutral) 500 mg THREE TIMES A DAY GT 09/13/16 13:00 10/13/16 12:59 09/23/16 09:16 JAYLIN BENTLEY Sep 23, 2016 09:50
[2016-09-23] MEDS ORDERED: Tubing IV Secondary IV ONE (15:29)
[2016-09-23] MEDS ORDERED: NS 275ml ONE (15:29)
[2016-09-23] MEDS: D5 1/2NS w/KCl 20mEq 1,000 ML IV SCH (17:51)
--- NOTE | 2016-09-23 17:52 | Nephrology Progress Note ---
Assessment/Plan Problem List: (1) Cardiac arrest (2) Septic shock (3) Respiratory distress (4) Dysphagia (5) Pneumonia (6) Anemia (7) Azotemia (8) Dehydration (9) Respiratory failure Plan Supportive care Monitor lytes, correct PRN Avoid nephrotoxic agents G-Tube feeding per GI Monitor H&H, transfuse PRN Monitor neuro status Pending trach DVT prophylaxis AM labs Subjective ROS Limited/Unobtainable: Yes Subjective Intubated, in ICU Objective Objective Last 24 Hour Vital Signs Date Time Temp Pulse Resp B/P Pulse Ox O2 Delivery O2 Flow Rate FiO2 09/23/16 17:21 72 18 30 09/23/16 16:00 30 09/23/16 16:00 71 09/23/16 16:00 98.5 78 20 143/60 100 Mechanical Ventilator 40 09/23/16 15:01 80 23 30 09/23/16 15:00 70 21 120/41 100 Mechanical Ventilator 40 09/23/16 14:00 68 18 97/30 99 Mechanical Ventilator 40 09/23/16 13:21 64 17 30 09/23/16 13:00 66 25 107/42 98 Mechanical Ventilator 40 09/23/16 12:00 70 09/23/16 12:00 30 09/23/16 12:00 98.2 70 23 120/42 100 Mechanical Ventilator 40 09/23/16 11:22 68 21 30 09/23/16 11:00 68 20 124/43 100 Mechanical Ventilator 40 09/23/16 10:00 74 23 143/56 100 Mechanical Ventilator 40 09/23/16 09:16 65 131/41 09/23/16 09:00 30 09/23/16 09:00 66 19 131/41 100 Mechanical Ventilator 40 09/23/16 08:55 68 17 30 09/23/16 08:00 98.6 69 19 129/46 100 Mechanical Ventilator 40 09/23/16 08:00 70 09/23/16 07:06 66 17 30 09/23/16 07:00 69 17 127/41 100 Mechanical Ventilator 40 09/23/16 06:00 71 17 117/44 100 Mechanical Ventilator 40 09/23/16 05:00 74 21 40 09/23/16 05:00 72 18 132/45 100 Mechanical Ventilator 40 09/23/16 04:00 98.0 76 18 128/49 100 Mechanical Ventilator 40 09/23/16 04:00 40 09/23/16 04:00 79 09/23/16 03:00 79 18 110/34 100 Mechanical Ventilator 40 09/23/16 02:45 74 18 40 09/23/16 02:00 75 18 127/82 100 Mechanical Ventilator 40 09/23/16 01:05 74 19 40 09/23/16 01:00 74 18 145/54 100 Mechanical Ventilator 40 09/23/16 00:00 40 09/23/16 00:00 98.7 82 22 138/48 100 Mechanical Ventilator 40 09/23/16 00:00 74 09/22/16 23:00 75 18 131/44 100 Mechanical Ventilator 40 09/22/16 22:55 75 19 40 09/22/16 22:00 76 17 132/45 100 Mechanical Ventilator 40 09/22/16 21:00 80 18 132/40 100 Mechanical Ventilator 40 09/22/16 20:33 82 20 40 09/22/16 20:00 98.0 80 18 140/40 100 Mechanical Ventilator 40 09/22/16 20:00 78 09/22/16 20:00 40 09/22/16 19:14 80 18 40 09/22/16 19:00 79 18 132/47 100 Mechanical Ventilator 40 09/22/16 18:00 73 17 138/51 100 Mechanical Ventilator 40 Intake and Output 09/22/16 09/23/16 19:00 07:00 Intake Total 1655 ml 1435 ml Output Total 1475 ml 1335 ml Balance 180 ml 100 ml Intake Free Water 100 ml 100 ml IV Total 715 ml 615 ml Tube Feeding 720 ml 720 ml Other 120 ml Output Urine Total 1475 ml 1335 ml # Bowel Movements 2 2 Laboratory Tests 09/23/16 05:00: Activated Partial Thromboplast Time 24 Height (Feet): 5 Height (Inches): 6.00 Weight (Pounds): 184 General Appearance: no apparent distress Neck: supple Cardiovascular: regular rhythm Respiratory/Chest: crackles/rales Abdomen: other - PEG Genitourinary/Rectal: other - SCHULZ Extremities: moderate edema Neurologic: motor weakness Allison Johnson N.P. Sep 23, 2016 17:51
--- NOTE | 2016-09-23 22:43 | Cardiology Progress Note ---
Assessment/Plan Assessment/Plan 1. Asystole cardiac arrest due to respiratory failure, echo reveals normal LVEF with no wall motion abnormalities. 2. E.Coli pneumonia/leukocytosis. 3. Hypoxic, hypercarbic respiratory failure, awaiting tracheostomy tube placement in am. 4. s/p PEG 5. HTN, well controlled, continue amlodipine. Subjective Subjective Sinus rhythm at 72.. Awaiting tracheostomy tube placement in the morning. Intubated and sedated. Objective Last 24 Hour Vital Signs Date Time Temp Pulse Resp B/P Pulse Ox O2 Delivery O2 Flow Rate FiO2 09/23/16 22:00 71 18 136/48 100 Mechanical Ventilator 40 09/23/16 21:33 74 21 30 09/23/16 21:00 75 18 139/48 100 Mechanical Ventilator 40 09/23/16 20:00 30 09/23/16 20:00 98.7 69 20 136/55 100 Mechanical Ventilator 40 09/23/16 20:00 77 09/23/16 19:44 77 22 30 09/23/16 19:00 77 22 142/56 100 Mechanical Ventilator 40 09/23/16 18:00 70 24 135/58 100 Mechanical Ventilator 40 09/23/16 17:53 73 135/58 09/23/16 17:21 72 18 30 09/23/16 17:00 72 20 111/43 100 Mechanical Ventilator 40 09/23/16 16:00 30 09/23/16 16:00 71 09/23/16 16:00 98.5 78 20 143/60 100 Mechanical Ventilator 40 09/23/16 15:01 80 23 30 09/23/16 15:00 70 21 120/41 100 Mechanical Ventilator 40 09/23/16 14:00 68 18 97/30 99 Mechanical Ventilator 40 09/23/16 13:21 64 17 30 09/23/16 13:00 66 25 107/42 98 Mechanical Ventilator 40 09/23/16 12:00 70 09/23/16 12:00 30 09/23/16 12:00 98.2 70 23 120/42 100 Mechanical Ventilator 40 09/23/16 11:22 68 21 30 09/23/16 11:00 68 20 124/43 100 Mechanical Ventilator 40 09/23/16 10:00 74 23 143/56 100 Mechanical Ventilator 40 09/23/16 09:16 65 131/41 09/23/16 09:00 30 09/23/16 09:00 66 19 131/41 100 Mechanical Ventilator 40 09/23/16 08:55 68 17 30 09/23/16 08:00 98.6 69 19 129/46 100 Mechanical Ventilator 40 09/23/16 08:00 70 09/23/16 07:06 66 17 30 09/23/16 07:00 69 17 127/41 100 Mechanical Ventilator 40 09/23/16 06:00 71 17 117/44 100 Mechanical Ventilator 40 09/23/16 05:00 74 21 40 09/23/16 05:00 72 18 132/45 100 Mechanical Ventilator 40 09/23/16 04:00 98.0 76 18 128/49 100 Mechanical Ventilator 40 09/23/16 04:00 40 09/23/16 04:00 79 09/23/16 03:00 79 18 110/34 100 Mechanical Ventilator 40 09/23/16 02:45 74 18 40 09/23/16 02:00 75 18 127/82 100 Mechanical Ventilator 40 09/23/16 01:05 74 19 40 09/23/16 01:00 74 18 145/54 100 Mechanical Ventilator 40 09/23/16 00:00 40 09/23/16 00:00 98.7 82 22 138/48 100 Mechanical Ventilator 40 09/23/16 00:00 74 09/22/16 23:00 75 18 131/44 100 Mechanical Ventilator 40 09/22/16 22:55 75 19 40 Intake and Output 09/22/16 09/23/16 19:00 07:00 Intake Total 1655 ml 1435 ml Output Total 1475 ml 1335 ml Balance 180 ml 100 ml Intake Free Water 100 ml 100 ml IV Total 715 ml 615 ml Tube Feeding 720 ml 720 ml Other 120 ml Output Urine Total 1475 ml 1335 ml # Bowel Movements 2 2 2D Echo: LVEF 55%, Grade I LVDD, RVSP 57 mmHg Laboratory Tests Test 09/23/16 05:00 Activated Partial Thromboplast Time 24 SEC (23-33) Objective HEENT: Intubated, normocephalic, atraumatic, PERRLA, EOMI Neck: no JVD, no carotid bruit, upstroke 2+ B/L Respiratory: decreased breath sounds, crackles both bases Cardiovascular: regular rate, rhythm, normal S1S2,no murmurs, gallops or rubs Gastrointestinal: normal BS, soft non-tender, non-distended, GT in place Musculoskeletal: no clubbing cyanosis or edema MARK LEVY Sep 23, 2016 22:43
[2016-09-24] VITALS (23 sets, daily range): BP systolic 104–169; BP diastolic 38–71
[2016-09-24] MEDS: DiphenhydrAMINE 50mg/ml Inj IVP SCH ×4 (00:05→17:42)
[2016-09-24] MEDS: Dyna-Hex 2% Top Sol 8oz TOPIC SCH (03:34)
[2016-09-24] MEDS: D5 1/2NS w/KCl 20mEq 1,000 ML IV SCH ×3 (05:00→15:44)
[2016-09-24 05:55] LABS: EOSINOPHILS % (AUTO) 1.8 % (0.0-3.0); LYMPHOCYTES % (AUTO) 34.2 % (20.0-45.0); MEAN CORPUSCULAR HEMOGLOBIN 33.8 PG (27.0-31.0); MEAN CORPUSCULAR HGB CONC 34.3 G/DL (32.0-36.0); MEAN CORPUSCULAR VOLUME 99 FL (80-99); MEAN PLATELET VOLUME 7.6 FL (6.5-10.1); MONOCYTES % (AUTO) 14.1 % (1.0-10.0); NEUTROPHILS % (AUTO) 47.9 % (45.0-75.0); PLATELET COUNT 280 K/UL (150-450); RED BLOOD COUNT 2.97 M/UL (4.20-5.40); RED CELL DISTRIBUTION WIDTH 14.7 % (11.6-14.8); WHITE BLOOD COUNT 6.1 K/UL (4.8-10.8)
[2016-09-24 06:18] LABS: ANION GAP 9 (5-15); CALCIUM 8.2 mg/dL (8.6-10.2); CARBON DIOXIDE 29 mEQ/L (20-30); CHLORIDE 97 mEQ/L (98-107); CREATININE 0.4 mg/dL (0.5-0.9); HEMOLYSIS 10; MAGNESIUM 1.7 mg/dL (1.7-2.5); PHOSPHORUS 3.4 mg/dL (2.5-4.8); POTASSIUM 3.8 mEQ/L (3.4-4.9); SODIUM 135 mEQ/L (135-145)
[2016-09-24] MEDS ORDERED: Midazolam 2mg/2ml Inj ONE ×2 (09:00→12:00)
[2016-09-24] MEDS ORDERED: Metoclopramide 10mg/2ml Inj ONE (09:00)
[2016-09-24] MEDS ORDERED: Propofol 10mg/ml 20ml IV ONE ×2 (09:00→12:00)
[2016-09-24] MEDS ORDERED: fentaNYL 100 mcg/2 mL IV ONE ×2 (09:00→12:00)
[2016-09-24] MEDS ORDERED: LR 1000ml ONE (09:00)
[2016-09-24] MEDS: Heparin 5000 units/ml inj SUBQ SCH ×2 (09:00→21:02)
[2016-09-24] MEDS: levETIRAcetam 500 MG in D5W 110 ML IV SCH ×2 (09:14→21:00)
[2016-09-24] MEDS: Phospha 250 Neutral tab GT SCH ×3 (09:14→17:42)
[2016-09-24] MEDS: Pantoprazole Inj IVP SCH ×2 (09:14→21:01)
[2016-09-24] MEDS: Ascorbic Acid 500mg tab GT SCH (09:14)
[2016-09-24] MEDS ORDERED: Tubing IV Secondary IV ONE (11:12)
--- NOTE | 2016-09-24 11:12 | GI Progress Note ---
Assessment/Plan Problems: (1) Dehydration ICD Codes: E86.0 - Dehydration SNOMED: 53737425 (2) Hyponatremia ICD Codes: E87.1 - Hypo-osmolality and hyponatremia SNOMED: 49909560 (3) LFT elevation ICD Codes: R94.5 - Abnormal results of liver function studies SNOMED: 277002296 (4) Hypoalbuminemia ICD Codes: E88.09 - Other disorders of plasma-protein metabolism, not elsewhere classified SNOMED: 131731153 (5) Anemia ICD Codes: D64.9 - Anemia, unspecified SNOMED: 164957859 (6) Feeding by G-tube ICD Codes: Z93.1 - Gastrostomy status SNOMED: 308129777, 630763990 (7) Dysphagia ICD Codes: R13.10 - Dysphagia, unspecified SNOMED: 11440665, 570145231 (8) Facial swelling ICD Codes: R22.0 - Localized swelling, mass and lump, head SNOMED: 962769570 Status: progressing, unchanged Status Narrative Discussed with Dr. Britt. Assessment/Plan OB stool negative elevated CEA >> 8.8 hep panel >> negative facial swelling >> approximately 50% improvement per RN IgE elevation >> milk allergy? >> fu lab send out r/o cow milk IgE vs general IgE hold GI procedures EGD/colonoscopy when stable given anemia and elevated CEA. fu IgA marker r/o IgA neuropathy monitor H&H, transfuse prn GTFs per dietary >> TF change to non-dairy formula >> VIVONEX RTF @60 ml x 24 hrs + Prosource BID ppi abx Imodium PRN fu labs Subjective Subjective limited Objective Last 24 Hour Vital Signs Date Time Temp Pulse Resp B/P Pulse Ox O2 Delivery O2 Flow Rate FiO2 09/24/16 10:48 67 20 30 09/24/16 10:00 68 20 144/50 99 Mechanical Ventilator 30 09/24/16 09:26 66 18 30 09/24/16 09:14 65 125/38 09/24/16 09:00 63 19 125/38 100 Mechanical Ventilator 30 09/24/16 08:00 73 09/24/16 08:00 98.4 71 19 147/48 100 Mechanical Ventilator 30 09/24/16 08:00 30 09/24/16 07:26 77 19 30 09/24/16 07:00 69 18 136/46 100 Mechanical Ventilator 30 09/24/16 06:00 65 18 155/49 100 Mechanical Ventilator 30 09/24/16 05:09 69 19 30 09/24/16 05:00 74 18 147/52 100 Mechanical Ventilator 30 09/24/16 04:00 30 09/24/16 04:00 79 09/24/16 04:00 98.7 79 20 152/48 100 Mechanical Ventilator 30 09/24/16 03:35 84 24 30 09/24/16 03:00 79 18 147/49 100 Mechanical Ventilator 30 09/24/16 02:00 67 18 148/49 100 Mechanical Ventilator 30 09/24/16 01:44 81 20 30 09/24/16 01:00 70 18 141/71 100 Mechanical Ventilator 30 09/24/16 00:00 98.5 76 22 155/52 100 Mechanical Ventilator 30 09/24/16 00:00 75 09/24/16 00:00 30 09/23/16 23:30 77 22 30 09/23/16 23:00 73 18 140/45 100 Mechanical Ventilator 30 09/23/16 22:00 71 18 136/48 100 Mechanical Ventilator 30 09/23/16 21:33 74 21 30 09/23/16 21:00 75 18 139/48 100 Mechanical Ventilator 30 09/23/16 20:00 30 09/23/16 20:00 98.7 69 20 136/55 100 Mechanical Ventilator 30 09/23/16 20:00 77 09/23/16 19:44 77 22 30 09/23/16 19:00 77 22 142/56 100 Mechanical Ventilator 30 09/23/16 18:00 70 24 135/58 100 Mechanical Ventilator 40 09/23/16 17:53 73 135/58 09/23/16 17:21 72 18 30 09/23/16 17:00 72 20 111/43 100 Mechanical Ventilator 40 09/23/16 16:00 30 09/23/16 16:00 71 09/23/16 16:00 98.5 78 20 143/60 100 Mechanical Ventilator 40 09/23/16 15:01 80 23 30 09/23/16 15:00 70 21 120/41 100 Mechanical Ventilator 40 09/23/16 14:00 68 18 97/30 99 Mechanical Ventilator 40 09/23/16 13:21 64 17 30 09/23/16 13:00 66 25 107/42 98 Mechanical Ventilator 40 09/23/16 12:00 70 09/23/16 12:00 30 09/23/16 12:00 98.2 70 23 120/42 100 Mechanical Ventilator 40 09/23/16 11:22 68 21 30 Intake and Output 09/23/16 09/24/16 19:00 07:00 Intake Total 1965 ml 1265 ml Output Total 1305 ml 1650 ml Balance 660 ml -385 ml Intake Free Water 200 ml IV Total 915 ml 915 ml Tube Feeding 720 ml 300 ml Other 130 ml 50 ml Output Urine Total 1305 ml 1650 ml # Bowel Movements 2 Laboratory Tests Test 09/24/16 04:50 White Blood Count 6.1 K/UL (4.8-10.8) Red Blood Count 2.97 M/UL (4.20-5.40) L Hemoglobin 10.0 G/DL (12.0-16.0) L Hematocrit 29.3 % (37.0-47.0) L Mean Corpuscular Volume 99 FL (80-99) Mean Corpuscular Hemoglobin 33.8 PG (27.0-31.0) H Mean Corpuscular Hemoglobin Concent 34.3 G/DL (32.0-36.0) Red Cell Distribution Width 14.7 % (11.6-14.8) Platelet Count 280 K/UL (150-450) Mean Platelet Volume 7.6 FL (6.5-10.1) Neutrophils (%) (Auto) 47.9 % (45.0-75.0) Lymphocytes (%) (Auto) 34.2 % (20.0-45.0) Monocytes (%) (Auto) 14.1 % (1.0-10.0) H Eosinophils (%) (Auto) 1.8 % (0.0-3.0) Basophils (%) (Auto) 2.0 % (0.0-2.0) Prothrombin Time 10.0 SEC (9.30-11.50) Prothromb Time International Ratio 1.0 (0.9-1.1) Sodium Level 135 mEQ/L (135-145) Potassium Level 3.8 mEQ/L (3.4-4.9) Chloride Level 97 mEQ/L (98-107) L Carbon Dioxide Level 29 mEQ/L (20-30) Anion Gap 9 (5-15) Blood Urea Nitrogen 19 mg/dL (7-23) Creatinine 0.4 mg/dL (0.5-0.9) L Estimat Glomerular Filtration Rate mL/min (>60) Glucose Level 88 mg/dL (74-106) Calcium Level 8.2 mg/dL (8.6-10.2) L Phosphorus Level 3.4 mg/dL (2.5-4.8) Magnesium Level 1.7 mg/dL (1.7-2.5) Height (Feet): 5 Height (Inches): 5.00 Weight (Pounds): 183 General Appearance: no apparent distress Cardiovascular: normal rate Respiratory/Chest: normal breath sounds, no respiratory distress, other - mech vent Abdominal Exam: GT site - c/d/i Luna Rodriguez N.P. Sep 24, 2016 11:12
[2016-09-24] MEDS ORDERED: Lidocaine 1% MPF 10mg/ml 5ml ONE (12:00)
[2016-09-24] MEDS ORDERED: Nimbex 2mg/ml Inj 10ML IVP ONE (12:00)
--- NOTE | 2016-09-24 12:06 | Infectious Diseases Prog Note ---
Assessment/Plan Assessment/Plan A: Sepsis s/p Rx Pneumonia s/p Rx Sinusitis Thyroid nodules MRSA & NISREEN colonization Cardiac arrest Hypercapnic respiratory failure Dementia Anemia Eosinophilia resolved P; Observe off antibiotic will have tracheostomy Subjective ROS Limited/Unobtainable: Yes Allergies: Coded Allergies: No Known Allergies (Verified , 03/14/16) Uncoded Allergies: MILK (Allergy, Unknown, 07/11/11) Objective Vital Signs Last 24 Hour Vital Signs Date Time Temp Pulse Resp B/P Pulse Ox O2 Delivery O2 Flow Rate FiO2 09/24/16 12:03 68 09/24/16 12:02 65 21 159/59 100 Mechanical Ventilator 30 09/24/16 11:30 98.4 71 20 159/59 99 Mechanical Ventilator 30 09/24/16 11:00 68 21 144/49 100 Mechanical Ventilator 30 09/24/16 10:48 67 20 30 09/24/16 10:00 68 20 144/50 99 Mechanical Ventilator 30 09/24/16 09:26 66 18 30 09/24/16 09:14 65 125/38 09/24/16 09:00 63 19 125/38 100 Mechanical Ventilator 30 09/24/16 08:00 73 09/24/16 08:00 98.4 71 19 147/48 100 Mechanical Ventilator 30 09/24/16 08:00 30 09/24/16 07:26 77 19 30 09/24/16 07:00 69 18 136/46 100 Mechanical Ventilator 30 09/24/16 06:00 65 18 155/49 100 Mechanical Ventilator 30 09/24/16 05:09 69 19 30 09/24/16 05:00 74 18 147/52 100 Mechanical Ventilator 30 09/24/16 04:00 30 09/24/16 04:00 79 09/24/16 04:00 98.7 79 20 152/48 100 Mechanical Ventilator 30 09/24/16 03:35 84 24 30 09/24/16 03:00 79 18 147/49 100 Mechanical Ventilator 30 09/24/16 02:00 67 18 148/49 100 Mechanical Ventilator 30 09/24/16 01:44 81 20 30 09/24/16 01:00 70 18 141/71 100 Mechanical Ventilator 30 09/24/16 00:00 98.5 76 22 155/52 100 Mechanical Ventilator 30 09/24/16 00:00 75 09/24/16 00:00 30 09/23/16 23:30 77 22 30 09/23/16 23:00 73 18 140/45 100 Mechanical Ventilator 30 09/23/16 22:00 71 18 136/48 100 Mechanical Ventilator 30 09/23/16 21:33 74 21 30 09/23/16 21:00 75 18 139/48 100 Mechanical Ventilator 30 09/23/16 20:00 30 09/23/16 20:00 98.7 69 20 136/55 100 Mechanical Ventilator 30 09/23/16 20:00 77 09/23/16 19:44 77 22 30 09/23/16 19:00 77 22 142/56 100 Mechanical Ventilator 30 09/23/16 18:00 70 24 135/58 100 Mechanical Ventilator 40 09/23/16 17:53 73 135/58 09/23/16 17:21 72 18 30 09/23/16 17:00 72 20 111/43 100 Mechanical Ventilator 40 09/23/16 16:00 30 09/23/16 16:00 71 09/23/16 16:00 98.5 78 20 143/60 100 Mechanical Ventilator 40 09/23/16 15:01 80 23 30 09/23/16 15:00 70 21 120/41 100 Mechanical Ventilator 40 09/23/16 14:00 68 18 97/30 99 Mechanical Ventilator 40 09/23/16 13:21 64 17 30 09/23/16 13:00 66 25 107/42 98 Mechanical Ventilator 40 Height (Feet): 5 Height (Inches): 5.00 Weight (Pounds): 183 HEENT: other - orally intubated Respiratory/Chest: lungs clear, other - on ventilator Cardiovascular: normal rate Abdomen: soft, non tender, other - Gt feeding Extremities: other - PICC line, mild dependent edema Neurologic/Psychiatric: unresponsiveness Laboratory Tests Test 09/24/16 04:50 White Blood Count 6.1 K/UL (4.8-10.8) Red Blood Count 2.97 M/UL (4.20-5.40) L Hemoglobin 10.0 G/DL (12.0-16.0) L Hematocrit 29.3 % (37.0-47.0) L Mean Corpuscular Volume 99 FL (80-99) Mean Corpuscular Hemoglobin 33.8 PG (27.0-31.0) H Mean Corpuscular Hemoglobin Concent 34.3 G/DL (32.0-36.0) Red Cell Distribution Width 14.7 % (11.6-14.8) Platelet Count 280 K/UL (150-450) Mean Platelet Volume 7.6 FL (6.5-10.1) Neutrophils (%) (Auto) 47.9 % (45.0-75.0) Lymphocytes (%) (Auto) 34.2 % (20.0-45.0) Monocytes (%) (Auto) 14.1 % (1.0-10.0) H Eosinophils (%) (Auto) 1.8 % (0.0-3.0) Basophils (%) (Auto) 2.0 % (0.0-2.0) Prothrombin Time 10.0 SEC (9.30-11.50) Prothromb Time International Ratio 1.0 (0.9-1.1) Sodium Level 135 mEQ/L (135-145) Potassium Level 3.8 mEQ/L (3.4-4.9) Chloride Level 97 mEQ/L (98-107) L Carbon Dioxide Level 29 mEQ/L (20-30) Anion Gap 9 (5-15) Blood Urea Nitrogen 19 mg/dL (7-23) Creatinine 0.4 mg/dL (0.5-0.9) L Estimat Glomerular Filtration Rate mL/min (>60) Glucose Level 88 mg/dL (74-106) Calcium Level 8.2 mg/dL (8.6-10.2) L Phosphorus Level 3.4 mg/dL (2.5-4.8) Magnesium Level 1.7 mg/dL (1.7-2.5) Current Medications Medications (Trade) Dose Ordered Sig/Lonny Route PRN Reason Start Time Stop Time Status Last Admin Dose Admin Amlodipine Besylate 5 mg 5 mg BID ORAL 09/22/16 09:00 10/22/16 08:59 09/24/16 09:14 Ascorbic Acid (Vitamin C) 500 mg DAILY GT 09/07/16 09:00 10/07/16 08:59 09/24/16 09:14 Cetirizine HCl (ZyrTEC) 10 mg DAILY ORAL 09/17/16 21:00 10/17/16 20:59 09/24/16 09:14 Chlorhexidine Gluconate (Guerda-Hex 2%) 1 applic DAILY TOPIC 09/08/16 09:00 10/08/16 08:59 09/24/16 03:34 Dextrose/ Electrolytes (D5 0.45%NS W/ KCl 20mEq) 1,000 ml @ 100 mls/hr Q10H IV 09/24/16 05:00 10/24/16 04:59 09/24/16 10:00 Diltiazem HCl (Cardizem) 5 mg Q1H PRN IV SBP>170 09/06/16 08:00 10/06/16 07:59 09/20/16 05:11 Diphenhydramine HCl (Benadryl) 25 mg Q6H IVP 09/18/16 00:00 10/18/16 00:00 09/24/16 05:36 Furosemide (Lasix) 20 mg EVERY 12 HOURS IV 09/13/16 16:00 10/13/16 15:59 09/24/16 09:14 Heparin Sodium (Porcine) (Heparin 5000 units/ml) 5,000 units EVERY 12 HOURS SUBQ 09/04/16 21:00 10/04/16 20:59 09/22/16 21:02 Levetiracetam/ Dextrose (Keppra/D5W) 115 ml @ 460 mls/hr Q12HR IV 09/04/16 21:00 10/04/16 20:59 09/24/16 09:14 Loperamide HCl (Imodium) 2 mg Q4H PRN NG Diarrhea 09/17/16 08:15 10/17/16 08:14 09/17/16 20:47 Pantoprazole 40 mg 40 mg EVERY 12 HOURS IVP 09/04/16 21:00 10/04/16 20:59 09/24/16 09:14 Phosphorus (Phospha 250 Neutral) 500 mg THREE TIMES A DAY GT 09/13/16 13:00 10/13/16 12:59 09/24/16 09:14 JAYLIN BENTLEY 5, 2017 12:06
[2016-09-24] MEDS ORDERED: NS Irrig 1000ml IRRIG ONE (12:15)
--- NOTE | 2016-09-24 12:41 | Pre-Procedure Note/Attestation ---
Pre-Procedure Note/Attestation Complete Prior to Procedure Planned Procedure: not applicable Procedure Narrative: tracheostomy Indications for Procedure Pre-Operative Diagnosis: resp failure Attestation I attest that I discussed the nature of the procedure; its benefits; risks and complications; and alternatives (and the risks and benefits of such alternatives ), prior to the procedure, with the patient (or the patient's legal nutrition representative). I attest that, if there was a reasonable possibility of needing a blood transfusion, the patient (or the patient's legal nutrition representative) was given the [facility] standardized written summary, pursuant to the Amado Brennan Blood Safety Act ([place] Health and Safety Code # 1645, as amended). I attest that I re-evaluated the patient just prior to the surgery and that there has been no change in the patient's H&P, except as documented below: ASIF LY Sep 24, 2016 12:41
--- NOTE | 2016-09-24 13:02 | Operative Note - PDOC ---
Operative Note Operative Note Date of Operation/Procedure: Sep 24, 2016 Chief Complaint: resp failure Pre-op Diagnosis: resp failure Procedure: tracheostomy Post-op Diagnosis: resp failure Surgeon: dr fletcher Anesthesia: general Specimen: none Complications: none Condition: stable Estimated Blood Loss: none Drains: none Implant(s) used?: ASIF Asher Sep 24, 2016 13:02
[2016-09-24] MEDS ORDERED: D5 1/2NS w/KCl 20mEq 1,000 ML IV SCH (15:00)
--- NOTE | 2016-09-24 17:32 | Nephrology Progress Note ---
Assessment/Plan Problem List: (1) Cardiac arrest (2) Septic shock (3) Respiratory distress (4) Dysphagia (5) Pneumonia (6) Anemia (7) Azotemia (8) Dehydration (9) Respiratory failure Plan Supportive care Monitor lytes, correct PRN Avoid nephrotoxic agents G-Tube feeding per GI S/P Trach Monitor H&H, transfuse PRN Monitor neuro status DVT prophylaxis AM labs Subjective ROS Limited/Unobtainable: Yes Subjective Intubated, in ICU Objective Objective Last 24 Hour Vital Signs Date Time Temp Pulse Resp B/P Pulse Ox O2 Delivery O2 Flow Rate FiO2 09/24/16 17:00 73 20 152/61 100 Mechanical Ventilator 30 09/24/16 16:00 98.4 76 18 161/51 100 Mechanical Ventilator 30 09/24/16 16:00 76 09/24/16 16:00 30 09/24/16 15:24 79 20 30 09/24/16 15:00 75 19 160/51 100 Mechanical Ventilator 30 09/24/16 14:00 65 28 169/55 100 Mechanical Ventilator 30 09/24/16 14:00 30 09/24/16 13:25 62 28 104/40 100 Mechanical Ventilator 30 09/24/16 13:20 60 17 30 09/24/16 12:03 68 09/24/16 12:03 30 09/24/16 12:02 65 21 159/59 100 Mechanical Ventilator 30 09/24/16 11:30 98.4 71 20 159/59 99 Mechanical Ventilator 30 09/24/16 11:00 68 21 144/49 100 Mechanical Ventilator 30 09/24/16 10:48 67 20 30 09/24/16 10:00 68 20 144/50 99 Mechanical Ventilator 30 09/24/16 09:26 66 18 30 09/24/16 09:14 65 125/38 09/24/16 09:00 63 19 125/38 100 Mechanical Ventilator 30 09/24/16 08:00 73 09/24/16 08:00 98.4 71 19 147/48 100 Mechanical Ventilator 30 09/24/16 08:00 30 09/24/16 07:26 77 19 30 09/24/16 07:00 69 18 136/46 100 Mechanical Ventilator 30 09/24/16 06:00 65 18 155/49 100 Mechanical Ventilator 30 09/24/16 05:09 69 19 30 09/24/16 05:00 74 18 147/52 100 Mechanical Ventilator 30 09/24/16 04:00 30 09/24/16 04:00 79 09/24/16 04:00 98.7 79 20 152/48 100 Mechanical Ventilator 30 09/24/16 03:35 84 24 30 09/24/16 03:00 79 18 147/49 100 Mechanical Ventilator 30 09/24/16 02:00 67 18 148/49 100 Mechanical Ventilator 09/24/16 01:44 81 20 30 09/24/16 01:00 70 18 141/71 100 Mechanical Ventilator 30 09/24/16 00:00 98.5 76 22 155/52 100 Mechanical Ventilator 30 09/24/16 00:00 75 09/24/16 00:00 30 09/23/16 23:30 77 22 30 09/23/16 23:00 73 18 140/45 100 Mechanical Ventilator 30 09/23/16 22:00 71 18 136/48 100 Mechanical Ventilator 30 09/23/16 21:33 74 21 30 09/23/16 21:00 75 18 139/48 100 Mechanical Ventilator 30 09/23/16 20:00 30 09/23/16 20:00 98.7 69 20 136/55 100 Mechanical Ventilator 30 09/23/16 20:00 77 09/23/16 19:44 77 22 30 09/23/16 19:00 77 22 142/56 100 Mechanical Ventilator 30 09/23/16 18:00 70 24 135/58 100 Mechanical Ventilator 40 09/23/16 17:53 73 135/58 Intake and Output 09/23/16 09/24/16 19:00 07:00 Intake Total 1965 ml 1265 ml Output Total 1305 ml 1650 ml Balance 660 ml -385 ml Intake Free Water 200 ml IV Total 915 ml 915 ml Tube Feeding 720 ml 300 ml Other 130 ml 50 ml Output Urine Total 1305 ml 1650 ml # Bowel Movements 2 Laboratory Tests 09/24/16 04:50: White Blood Count 6.1, Red Blood Count 2.97L, Hemoglobin 10.0L, Hematocrit 29.3L , Mean Corpuscular Volume 99, Mean Corpuscular Hemoglobin 33.8H, Mean Corpuscular Hemoglobin Concent 34.3, Red Cell Distribution Width 14.7, Platelet Count 280, Mean Platelet Volume 7.6, Neutrophils (%) (Auto) 47.9, Lymphocytes (% ) (Auto) 34.2, Monocytes (%) (Auto) 14.1H, Eosinophils (%) (Auto) 1.8, Basophils (%) (Auto) 2.0, Prothrombin Time 10.0, Prothromb Time International Ratio 1.0, Sodium Level 135, Potassium Level 3.8, Chloride Level 97L, Carbon Dioxide Level 29, Anion Gap 9, Blood Urea Nitrogen 19, Creatinine 0.4L, Estimat Glomerular Filtration Rate , Glucose Level 88, Calcium Level 8.2L, Phosphorus Level 3.4, Magnesium Level 1.7 Height (Feet): 5 Height (Inches): 5.00 Weight (Pounds): 183 General Appearance: no apparent distress EENT: other - opens eyes Neck: other - trach Cardiovascular: regular rhythm Respiratory/Chest: crackles/rales Abdomen: other - PEG Genitourinary/Rectal: other - SCHULZ Extremities: moderate edema Neurologic: motor weakness Allison Johnson N.P. Sep 24, 2016 17:32
--- NOTE | 2016-09-24 23:21 | Cardiology Progress Note ---
Assessment/Plan Assessment/Plan 1. Asystole cardiac arrest due to respiratory failure, echo reveals normal LVEF with no wall motion abnormalities. 2. E.Coli pneumonia/leukocytosis. 3. Hypoxic, hypercarbic respiratory failure, s/p tracheostomy tube placement, POD # 0. 4. s/p PEG 5. HTN, stage I, continue amlodipine. Subjective Subjective Sinus rhythm at 68. s/p tracheostomy tube placement. POD #0 Objective Last 24 Hour Vital Signs Date Time Temp Pulse Resp B/P Pulse Ox O2 Delivery O2 Flow Rate FiO2 09/24/16 21:00 69 19 147/52 100 Mechanical Ventilator 30 09/24/16 20:18 82 18 Mechanical Ventilator 30 09/24/16 20:00 98.0 70 19 145/58 100 Mechanical Ventilator 30 09/24/16 19:30 70 21 30 09/24/16 18:00 68 17 152/47 100 Mechanical Ventilator 30 09/24/16 17:43 76 152/61 09/24/16 17:09 71 20 30 09/24/16 17:00 73 20 152/61 100 Mechanical Ventilator 30 09/24/16 16:00 98.4 76 18 161/51 100 Mechanical Ventilator 30 09/24/16 16:00 76 09/24/16 16:00 30 09/24/16 15:24 79 20 30 09/24/16 15:00 75 19 160/51 100 Mechanical Ventilator 30 09/24/16 14:00 65 28 169/55 100 Mechanical Ventilator 30 09/24/16 14:00 30 09/24/16 13:25 62 28 104/40 100 Mechanical Ventilator 30 09/24/16 13:20 60 17 30 09/24/16 12:03 68 09/24/16 12:03 30 09/24/16 12:02 65 21 159/59 100 Mechanical Ventilator 30 09/24/16 11:30 98.4 71 20 159/59 99 Mechanical Ventilator 30 09/24/16 11:00 68 21 144/49 100 Mechanical Ventilator 30 09/24/16 10:48 67 20 30 09/24/16 10:00 68 20 144/50 99 Mechanical Ventilator 30 09/24/16 09:26 66 18 30 09/24/16 09:14 65 125/38 09/24/16 09:00 63 19 125/38 100 Mechanical Ventilator 30 09/24/16 08:00 73 09/24/16 08:00 98.4 71 19 147/48 100 Mechanical Ventilator 30 09/24/16 08:00 30 09/24/16 07:26 77 19 30 09/24/16 07:00 69 18 136/46 100 Mechanical Ventilator 30 09/24/16 06:00 65 18 155/49 100 Mechanical Ventilator 30 09/24/16 05:09 69 19 30 09/24/16 05:00 74 18 147/52 100 Mechanical Ventilator 09/24/16 04:00 30 09/24/16 04:00 79 09/24/16 04:00 98.7 79 20 152/48 100 Mechanical Ventilator 09/24/16 03:35 84 24 30 09/24/16 03:00 79 18 147/49 100 Mechanical Ventilator 30 09/24/16 02:00 67 18 148/49 100 Mechanical Ventilator 09/24/16 01:44 81 20 30 09/24/16 01:00 70 18 141/71 100 Mechanical Ventilator 09/24/16 00:00 98.5 76 22 155/52 100 Mechanical Ventilator 09/24/16 00:00 75 09/24/16 00:00 30 09/23/16 23:30 77 22 30 Intake and Output 09/23/16 09/24/16 19:00 07:00 Intake Total 1965 ml 1265 ml Output Total 1305 ml 1650 ml Balance 660 ml -385 ml Intake Free Water 200 ml IV Total 915 ml 915 ml Tube Feeding 720 ml 300 ml Other 130 ml 50 ml Output Urine Total 1305 ml 1650 ml # Bowel Movements 2 2D Echo: LVEF 55%, Grade I LVDD, RVSP 57 mmHg Laboratory Tests Test 09/24/16 04:50 White Blood Count 6.1 K/UL (4.8-10.8) Red Blood Count 2.97 M/UL (4.20-5.40) L Hemoglobin 10.0 G/DL (12.0-16.0) L Hematocrit 29.3 % (37.0-47.0) L Mean Corpuscular Volume 99 FL (80-99) Mean Corpuscular Hemoglobin 33.8 PG (27.0-31.0) H Mean Corpuscular Hemoglobin Concent 34.3 G/DL (32.0-36.0) Red Cell Distribution Width 14.7 % (11.6-14.8) Platelet Count 280 K/UL (150-450) Mean Platelet Volume 7.6 FL (6.5-10.1) Neutrophils (%) (Auto) 47.9 % (45.0-75.0) Lymphocytes (%) (Auto) 34.2 % (20.0-45.0) Monocytes (%) (Auto) 14.1 % (1.0-10.0) H Eosinophils (%) (Auto) 1.8 % (0.0-3.0) Basophils (%) (Auto) 2.0 % (0.0-2.0) Prothrombin Time 10.0 SEC (9.30-11.50) Prothromb Time International Ratio 1.0 (0.9-1.1) Sodium Level 135 mEQ/L (135-145) Potassium Level 3.8 mEQ/L (3.4-4.9) Chloride Level 97 mEQ/L (98-107) L Carbon Dioxide Level 29 mEQ/L (20-30) Anion Gap 9 (5-15) Blood Urea Nitrogen 19 mg/dL (7-23) Creatinine 0.4 mg/dL (0.5-0.9) L Estimat Glomerular Filtration Rate mL/min (>60) Glucose Level 88 mg/dL (74-106) Calcium Level 8.2 mg/dL (8.6-10.2) L Phosphorus Level 3.4 mg/dL (2.5-4.8) Magnesium Level 1.7 mg/dL (1.7-2.5) Objective HEENT: + trach tube attached to the ventilator, normocephalic, atraumatic, PERRLA, EOMI, edematous tongue and the lips. Neck: no JVD, no carotid bruit, upstroke 2+ B/L Respiratory: decreased breath sounds, crackles both bases Cardiovascular: regular rate, rhythm, normal S1S2,no murmurs, gallops or rubs Gastrointestinal: normal BS, soft non-tender, non-distended, GT in place Musculoskeletal: no clubbing cyanosis or edema MARK LEVY Sep 24, 2016 23:21
--- NOTE | 2016-09-24 23:52 | Consultation ---
History of Present Illness General Chief Complaint: Dyspnea/Respdistress Referring physician: YONI ROCHE Reason for Consultation: Azotemia, hyponatremia Present Illness HPI 85-year-old female who is a custodial resident admitted on 09/04/2016 with hypoxemia decreasing the O2 saturation in the custodial. Im her treating psychiatrist at [place]. the pt is nonresponsive and not engaged, no agitation. Allergies: Coded Allergies: No Known Allergies (Verified , 03/14/16) Uncoded Allergies: MILK (Allergy, Unknown, 07/11/11) Medication History Scheduled Amlodipine Besylate (Norvasc), 5 MG GT DAILY, (Reported) Clonidine Hcl* (Catapres*), 0.1 MG GT EVERY 6 HOURS, (Reported) Gabapentin* (Neurontin*), 100 MG GT THREE TIMES A DAY, (Reported) Losartan Potassium* (Cozaar*), 100 MG GT DAILY, (Reported) Multivitamin Liquid* (Multi-Delyn*), 5 ML GT DAILY, (Reported) Phenytoin (Dilantin-125), 125 MG GT DAILY, (Reported) Scheduled PRN Acetaminophen (Tylenol), 650 MG ORAL Q6H PRN for Prn Pain/Headache/Temp > 101, ( Reported) Magnesium Hydroxide* (Milk Of Magnesia*), 30 ML ORAL DAILY PRN for Constipation, (Reported) Miscellaneous Medications Bisacodyl (Dulcolax), 10 MG RC, (Reported) Docusate Sodium (Docu Liquid), 100 MG GT, (Reported) Ipratropium/Albuterol Sulfate (DuoNeb 0.5-3(2.5)mg/3ml), 3 ML HHN, (Reported) Vit/Iron Fumarate/Fa (O-Bi Fa Tablet), 1 EACH GT, (Reported) Patient History Healthcare decision maker Resuscitation status Full Code Advanced Directive on File Past Medical/Surgical History Past Medical/Surgical History: (1) Cardiac arrest (2) Septic shock (3) Respiratory distress (4) Dysphagia (5) Pneumonia (6) Feeding by G-tube (7) esophageal wall thickening (8) Anemia (9) Hypoalbuminemia (10) LFT elevation (11) Hyperkalemia (12) Azotemia (13) Hyponatremia (14) Dehydration (15) Respiratory failure (16) Facial swelling (17) Hypomagnesemia Review of Systems Psychiatric: Reports: prior hx Physical Exam General Appearance: no apparent distress, lethargic Neurologic: unresponsiveness Last 24 Hour Vital Signs Date Time Temp Pulse Resp B/P Pulse Ox O2 Delivery O2 Flow Rate FiO2 09/24/16 23:30 65 16 30 09/24/16 21:30 65 17 30 09/24/16 21:00 69 19 147/52 100 Mechanical Ventilator 30 09/24/16 20:18 82 18 Mechanical Ventilator 30 09/24/16 20:00 98.0 70 19 145/58 100 Mechanical Ventilator 30 09/24/16 19:30 70 21 30 09/24/16 18:00 68 17 152/47 100 Mechanical Ventilator 30 09/24/16 17:43 76 152/61 09/24/16 17:09 71 20 30 09/24/16 17:00 73 20 152/61 100 Mechanical Ventilator 30 09/24/16 16:00 98.4 76 18 161/51 100 Mechanical Ventilator 30 09/24/16 16:00 76 09/24/16 16:00 30 09/24/16 15:24 79 20 30 09/24/16 15:00 75 19 160/51 100 Mechanical Ventilator 30 09/24/16 14:00 65 28 169/55 100 Mechanical Ventilator 30 09/24/16 14:00 30 09/24/16 13:25 62 28 104/40 100 Mechanical Ventilator 30 09/24/16 13:20 60 17 30 09/24/16 12:03 68 09/24/16 12:03 30 09/24/16 12:02 65 21 159/59 100 Mechanical Ventilator 30 09/24/16 11:30 98.4 71 20 159/59 99 Mechanical Ventilator 30 09/24/16 11:00 68 21 144/49 100 Mechanical Ventilator 30 09/24/16 10:48 67 20 30 09/24/16 10:00 68 20 144/50 99 Mechanical Ventilator 30 09/24/16 09:26 66 18 30 09/24/16 09:14 65 125/38 09/24/16 09:00 63 19 125/38 100 Mechanical Ventilator 30 09/24/16 08:00 73 09/24/16 08:00 98.4 71 19 147/48 100 Mechanical Ventilator 30 09/24/16 08:00 30 09/24/16 07:26 77 19 30 09/24/16 07:00 69 18 136/46 100 Mechanical Ventilator 30 09/24/16 06:00 65 18 155/49 100 Mechanical Ventilator 09/24/16 05:09 69 19 30 09/24/16 05:00 74 18 147/52 100 Mechanical Ventilator 30 09/24/16 04:00 30 09/24/16 04:00 79 09/24/16 04:00 98.7 79 20 152/48 100 Mechanical Ventilator 09/24/16 03:35 84 24 30 09/24/16 03:00 79 18 147/49 100 Mechanical Ventilator 30 09/24/16 02:00 67 18 148/49 100 Mechanical Ventilator 09/24/16 01:44 81 20 30 09/24/16 01:00 70 18 141/71 100 Mechanical Ventilator 30 09/24/16 00:00 98.5 76 22 155/52 100 Mechanical Ventilator 30 09/24/16 00:00 75 09/24/16 00:00 30 Intake and Output 09/23/16 09/24/16 19:00 07:00 Intake Total 1965 ml 1265 ml Output Total 1305 ml 1650 ml Balance 660 ml -385 ml Intake Free Water 200 ml IV Total 915 ml 915 ml Tube Feeding 720 ml 300 ml Other 130 ml 50 ml Output Urine Total 1305 ml 1650 ml # Bowel Movements 2 Laboratory Tests Test 09/24/16 04:50 White Blood Count 6.1 K/UL (4.8-10.8) Red Blood Count 2.97 M/UL (4.20-5.40) L Hemoglobin 10.0 G/DL (12.0-16.0) L Hematocrit 29.3 % (37.0-47.0) L Mean Corpuscular Volume 99 FL (80-99) Mean Corpuscular Hemoglobin 33.8 PG (27.0-31.0) H Mean Corpuscular Hemoglobin Concent 34.3 G/DL (32.0-36.0) Red Cell Distribution Width 14.7 % (11.6-14.8) Platelet Count 280 K/UL (150-450) Mean Platelet Volume 7.6 FL (6.5-10.1) Neutrophils (%) (Auto) 47.9 % (45.0-75.0) Lymphocytes (%) (Auto) 34.2 % (20.0-45.0) Monocytes (%) (Auto) 14.1 % (1.0-10.0) H Eosinophils (%) (Auto) 1.8 % (0.0-3.0) Basophils (%) (Auto) 2.0 % (0.0-2.0) Prothrombin Time 10.0 SEC (9.30-11.50) Prothromb Time International Ratio 1.0 (0.9-1.1) Sodium Level 135 mEQ/L (135-145) Potassium Level 3.8 mEQ/L (3.4-4.9) Chloride Level 97 mEQ/L (98-107) L Carbon Dioxide Level 29 mEQ/L (20-30) Anion Gap 9 (5-15) Blood Urea Nitrogen 19 mg/dL (7-23) Creatinine 0.4 mg/dL (0.5-0.9) L Estimat Glomerular Filtration Rate mL/min (>60) Glucose Level 88 mg/dL (74-106) Calcium Level 8.2 mg/dL (8.6-10.2) L Phosphorus Level 3.4 mg/dL (2.5-4.8) Magnesium Level 1.7 mg/dL (1.7-2.5) Height (Feet): 5 Height (Inches): 5.00 Weight (Pounds): 183 Medications Current Medications Medications (Trade) Dose Ordered Sig/Lonny Route PRN Reason Start Time Stop Time Status Last Admin Dose Admin Amlodipine Besylate 5 mg 5 mg BID ORAL 09/22/16 09:00 10/22/16 08:59 09/24/16 17:43 Ascorbic Acid (Vitamin C) 500 mg DAILY GT 09/07/16 09:00 10/07/16 08:59 09/24/16 09:14 Cetirizine HCl (ZyrTEC) 10 mg DAILY ORAL 09/17/16 21:00 10/17/16 20:59 09/24/16 09:14 Chlorhexidine Gluconate (Guerda-Hex 2%) 1 applic DAILY TOPIC 09/08/16 09:00 10/08/16 08:59 09/24/16 03:34 Dextrose/ Electrolytes (D5 0.45%NS W/ KCl 20mEq) 1,000 ml @ 100 mls/hr Q10H IV 09/24/16 05:00 10/24/16 04:59 09/24/16 15:44 Diltiazem HCl (Cardizem) 5 mg Q1H PRN IV SBP>170 09/06/16 08:00 10/06/16 07:59 09/20/16 05:11 Diphenhydramine HCl (Benadryl) 25 mg Q6H IVP 09/18/16 00:00 10/18/16 00:00 09/24/16 17:42 Furosemide (Lasix) 20 mg EVERY 12 HOURS IV 09/13/16 16:00 10/13/16 15:59 09/24/16 21:01 Heparin Sodium (Porcine) (Heparin 5000 units/ml) 5,000 units EVERY 12 HOURS SUBQ 09/04/16 21:00 10/04/16 20:59 09/24/16 21:02 Levetiracetam/ Dextrose (Keppra/D5W) 115 ml @ 460 mls/hr Q12HR IV 09/04/16 21:00 10/04/16 20:59 09/24/16 21:00 Loperamide HCl (Imodium) 2 mg Q4H PRN NG Diarrhea 09/17/16 08:15 10/17/16 08:14 09/17/16 20:47 Pantoprazole 40 mg 40 mg EVERY 12 HOURS IVP 09/04/16 21:00 10/04/16 20:59 09/24/16 21:01 Phosphorus (Phospha 250 Neutral) 500 mg THREE TIMES A DAY GT 09/13/16 13:00 10/13/16 12:59 09/24/16 17:42 Assessment/Plan Status: not improved Assessment/Plan delirium due to mmp -would consider low dose on olanzapine. Олег Catherine M.D. Sep 24, 2016 23:52
[2016-09-25] VITALS (24 sets, daily range): BP systolic 123–170; BP diastolic 35–105
[2016-09-25] MEDS: DiphenhydrAMINE 50mg/ml Inj IVP SCH ×4 (00:07→17:57)
[2016-09-25] MEDS: D5 1/2NS w/KCl 20mEq 1,000 ML IV SCH ×2 (00:43→11:21)
--- NOTE | 2016-09-25 01:30 | General Progress Note ---
Assessment/Plan Problem List: (1) Cardiac arrest Assessment & Plan: Anoxic encephalopathy with occasional myolclonic movement ICD Codes: I46.9 - Cardiac arrest, cause unspecified SNOMED: 997705590 (2) Septic shock Assessment & Plan: Improved ICD Codes: A41.9 - Sepsis, unspecified organism; R65.21 - Severe sepsis with septic shock SNOMED: 73679200 (3) Respiratory distress Assessment & Plan: On ventilator ICD Codes: R06.00 - Dyspnea, unspecified; R65.21 - Severe sepsis with septic shock SNOMED: 154051298 (4) Dysphagia Assessment & Plan: Tube feed started ICD Codes: R13.10 - Dysphagia, unspecified SNOMED: 62218057, 376697824 (5) Pneumonia Assessment & Plan: Antibiotic adjusted ICD Codes: J18.9 - Pneumonia, unspecified organism SNOMED: 860329554 Qualifiers: Qualified Codes: J13 - Pneumonia due to Streptococcus pneumoniae (6) Feeding by G-tube ICD Codes: Z93.1 - Gastrostomy status SNOMED: 143888617, 738461864 (7) esophageal wall thickening (8) Hypoalbuminemia ICD Codes: E88.09 - Other disorders of plasma-protein metabolism, not elsewhere classified SNOMED: 415273682 (9) LFT elevation ICD Codes: R94.5 - Abnormal results of liver function studies SNOMED: 895715097 (10) Hyperkalemia ICD Codes: E87.5 - Hyperkalemia SNOMED: 25854782 (11) Azotemia ICD Codes: R79.89 - Other specified abnormal findings of blood chemistry SNOMED: 705960355 (12) Hyponatremia ICD Codes: E87.1 - Hypo-osmolality and hyponatremia SNOMED: 91047057 (13) Dehydration ICD Codes: E86.0 - Dehydration SNOMED: 68404091 (14) Anemia ICD Codes: D64.9 - Anemia, unspecified SNOMED: 534169919 Status: doing well Status Narrative Patient doing well post rrach. Assessment/Plan Can't wean her due to poor lung compliance. She may need diuresis. Will adjust fluids. Subjective Date patient seen: Sep 24, 2016 Time patient seen: 14:00 ROS Limited/Unobtainable: Yes Constitutional: Reports: no symptoms HEENT: Reports: no symptoms Cardiovascular: Reports: no symptoms Respiratory: Reports: no symptoms Gastrointestinal/Abdominal: Reports: no symptoms Neurologic/Psychiatric: Reports: no symptoms Endocrine: Reports: no symptoms Allergies: Coded Allergies: No Known Allergies (Verified , 03/14/16) Uncoded Allergies: MILK (Allergy, Unknown, 07/11/11) Subjective On vent AC mode 35% FIO2 Objective Last 24 Hour Vital Signs Date Time Temp Pulse Resp B/P Pulse Ox O2 Delivery O2 Flow Rate FiO2 09/25/16 01:00 73 21 30 09/24/16 23:30 65 16 30 09/24/16 21:30 65 17 30 09/24/16 21:00 69 19 147/52 100 Mechanical Ventilator 30 09/24/16 20:18 82 18 Mechanical Ventilator 30 09/24/16 20:00 98.0 70 19 145/58 100 Mechanical Ventilator 30 09/24/16 19:30 70 21 30 09/24/16 18:00 68 17 152/47 100 Mechanical Ventilator 30 09/24/16 17:43 76 152/61 09/24/16 17:09 71 20 30 09/24/16 17:00 73 20 152/61 100 Mechanical Ventilator 30 09/24/16 16:00 98.4 76 18 161/51 100 Mechanical Ventilator 30 09/24/16 16:00 76 09/24/16 16:00 30 09/24/16 15:24 79 20 30 09/24/16 15:00 75 19 160/51 100 Mechanical Ventilator 30 09/24/16 14:00 65 28 169/55 100 Mechanical Ventilator 30 09/24/16 14:00 30 09/24/16 13:25 62 28 104/40 100 Mechanical Ventilator 30 09/24/16 13:20 60 17 30 09/24/16 12:03 68 09/24/16 12:03 30 09/24/16 12:02 65 21 159/59 100 Mechanical Ventilator 30 09/24/16 11:30 98.4 71 20 159/59 99 Mechanical Ventilator 30 09/24/16 11:00 68 21 144/49 100 Mechanical Ventilator 30 09/24/16 10:48 67 20 30 09/24/16 10:00 68 20 144/50 99 Mechanical Ventilator 30 09/24/16 09:26 66 18 30 09/24/16 09:14 65 125/38 09/24/16 09:00 63 19 125/38 100 Mechanical Ventilator 30 09/24/16 08:00 73 09/24/16 08:00 98.4 71 19 147/48 100 Mechanical Ventilator 30 09/24/16 08:00 30 09/24/16 07:26 77 19 30 09/24/16 07:00 69 18 136/46 100 Mechanical Ventilator 30 09/24/16 06:00 65 18 155/49 100 Mechanical Ventilator 30 09/24/16 05:09 69 19 30 09/24/16 05:00 74 18 147/52 100 Mechanical Ventilator 30 09/24/16 04:00 30 09/24/16 04:00 79 09/24/16 04:00 98.7 79 20 152/48 100 Mechanical Ventilator 09/24/16 03:35 84 24 30 09/24/16 03:00 79 18 147/49 100 Mechanical Ventilator 30 09/24/16 02:00 67 18 148/49 100 Mechanical Ventilator 30 09/24/16 01:44 81 20 30 Intake and Output 09/24/16 09/25/16 19:00 07:00 Intake Total 1019 ml 60 ml Output Total 1725 ml 330 ml Balance -706 ml -270 ml Intake Free Water 90 ml IV Total 839 ml Tube Feeding 40 ml 60 ml Other 50 ml Output Urine Total 1725 ml 330 ml Laboratory Tests 09/24/16 04:50: White Blood Count 6.1, Red Blood Count 2.97L, Hemoglobin 10.0L, Hematocrit 29.3L , Mean Corpuscular Volume 99, Mean Corpuscular Hemoglobin 33.8H, Mean Corpuscular Hemoglobin Concent 34.3, Red Cell Distribution Width 14.7, Platelet Count 280, Mean Platelet Volume 7.6, Neutrophils (%) (Auto) 47.9, Lymphocytes (% ) (Auto) 34.2, Monocytes (%) (Auto) 14.1H, Eosinophils (%) (Auto) 1.8, Basophils (%) (Auto) 2.0, Prothrombin Time 10.0, Prothromb Time International Ratio 1.0, Sodium Level 135, Potassium Level 3.8, Chloride Level 97L, Carbon Dioxide Level 29, Anion Gap 9, Blood Urea Nitrogen 19, Creatinine 0.4L, Estimat Glomerular Filtration Rate , Glucose Level 88, Calcium Level 8.2L, Phosphorus Level 3.4, Magnesium Level 1.7 Height (Feet): 5 Height (Inches): 5.00 Weight (Pounds): 183 Cardiovascular: normal peripheral pulses Respiratory/Chest: chest wall non-tender Abdomen: normal bowel sounds YONI ROCHE Sep 25, 2016 01:30
[2016-09-25 04:32] LABS: BASOPHILS % (AUTO) 2.7 % (0.0-2.0); EOSINOPHILS % (AUTO) 5.4 % (0.0-3.0); LYMPHOCYTES % (AUTO) 26.6 % (20.0-45.0); MEAN CORPUSCULAR HEMOGLOBIN 33.3 PG (27.0-31.0); MEAN CORPUSCULAR HGB CONC 33.6 G/DL (32.0-36.0); MEAN CORPUSCULAR VOLUME 99 FL (80-99); MEAN PLATELET VOLUME 7.8 FL (6.5-10.1); MONOCYTES % (AUTO) 12.2 % (1.0-10.0); NEUTROPHILS % (AUTO) 53.1 % (45.0-75.0); PLATELET COUNT 280 K/UL (150-450); RED BLOOD COUNT 3.22 M/UL (4.20-5.40); RED CELL DISTRIBUTION WIDTH 14.8 % (11.6-14.8); WHITE BLOOD COUNT 6.7 K/UL (4.8-10.8)
[2016-09-25 05:01] LABS: ALANINE AMINOTRANSFERASE 19 U/L (3-33); ALBUMIN/GLOBULIN RATIO 0.5 (1.0-2.7); ANION GAP 12 (5-15); ASPARTATE AMINO TRANSFERASE 25 U/L (5-40); CALCIUM 8.1 mg/dL (8.6-10.2); CARBON DIOXIDE 27 mEQ/L (20-30); CHLORIDE 97 mEQ/L (98-107); CREATININE 0.4 mg/dL (0.5-0.9); HEMOLYSIS 25; POTASSIUM 4.3 mEQ/L (3.4-4.9); SODIUM 136 mEQ/L (135-145); TOTAL PROTEIN 6.9 g/dL (6.6-8.7)
[2016-09-25] MEDS: Ascorbic Acid 500mg tab GT SCH (08:57)
[2016-09-25] MEDS: levETIRAcetam 500 MG in D5W 110 ML IV SCH (08:57)
[2016-09-25] MEDS: Dyna-Hex 2% Top Sol 8oz TOPIC SCH (08:57)
[2016-09-25] MEDS: Phospha 250 Neutral tab GT SCH ×3 (08:57→17:57)
[2016-09-25] MEDS: Heparin 5000 units/ml inj SUBQ SCH ×2 (09:01→21:06)
--- NOTE | 2016-09-25 11:05 | Wound Care Consultation ---
Wound Assessment Wound Assessment #1: Wound Number: #1 Wound Present on Admission: Yes New Wound: No Status Change of Wound: No Wound Location Body Site Modif: left, mid, lateral Wound Location Body Site: foot Wound Type: pressure ulcer Aydee Test: Does not Aydee Pressure Ulcer Stage: IV/unstageable Wound Thickness: Full Thickness Wound Length: 0.5 Wound Width: 0.4 Wound Depth: utd,dry scab Percent of Wound Black/Brown: 100 - resolving dry scab intact. Wound Drainage Amount: None Wound Drainage Odor: None/Absent Tissue Surrounding Wound: Intact Wound General Appearance: Clean/Dry Wound Assessment #2: Wound Number: #2 Wound Present on Admission: Yes New Wound: No Status Change of Wound: No Wound Location Body Site Modif: right Wound Location Body Site: heel Wound Type: pressure ulcer Aydee Test: Does not Aydee Pressure Ulcer Stage: deep tissue injury - resolving Wound Thickness: Full Thickness Wound Length: 5.0 Wound Width: 5.0 Wound Depth: utd , Percent of Wound Purple/Maroon: 100 - resolving intact , dry rivas color present. 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 no drainage noted. #2 right heel deep tissue injury.- noted good progress intact, noted pathology laboratory aide in color rivas color , no further deterioration present. #3 full thickness scar tissue to right lateral malleolus, scattered to left lateral foot, left 5th metatarsal head, left lateral malleolus, left heel, left mid foot, and left 4th toe, all sites remain intact, no further deterioration. Recommendation. - Local wound care as ordered. - Continue low air loss mattress. - keep clean and dry. -optimize nutrition. -heel protectors. -Offload affected sites. -Avoid shear and friction. -Assess and notify MD for any changes of condition to skin. MITCH GAMBLE Sep 25, 2016 11:05
--- NOTE | 2016-09-25 11:40 | Infectious Diseases Prog Note ---
Assessment/Plan Assessment/Plan antibiotics : none A 1. e.coli pneumonia s/p rx 2. respiratory failure 3. allergic reaction 4. leucocytosis resolved 5. 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 observe off antibiotics Subjective ROS Limited/Unobtainable: Yes Allergies: Coded Allergies: MILK (Verified Allergy, Unknown, 09/25/16) Objective Vital Signs Last 24 Hour Vital Signs Date Time Temp Pulse Resp B/P Pulse Ox O2 Delivery O2 Flow Rate FiO2 09/25/16 11:06 81 26 30 09/25/16 11:00 73 23 146/105 98 Mechanical Ventilator 30 09/25/16 10:00 70 20 132/36 100 Mechanical Ventilator 30 09/25/16 09:21 65 22 30 09/25/16 09:00 65 24 123/35 100 Mechanical Ventilator 30 09/25/16 08:57 65 130/46 09/25/16 08:00 30 09/25/16 08:00 74 09/25/16 08:00 98.6 66 34 130/46 100 Mechanical Ventilator 30 09/25/16 07:26 59 17 30 09/25/16 07:00 57 30 135/48 100 Mechanical Ventilator 30 09/25/16 06:00 58 25 124/40 100 Mechanical Ventilator 30 09/25/16 05:03 66 18 30 09/25/16 05:00 64 21 126/35 100 Mechanical Ventilator 30 09/25/16 04:00 30 09/25/16 04:00 98.0 73 23 139/37 100 Mechanical Ventilator 30 09/25/16 04:00 73 09/25/16 03:30 71 19 30 09/25/16 03:00 69 21 153/61 100 Mechanical Ventilator 30 09/25/16 02:00 67 26 147/58 100 Mechanical Ventilator 30 09/25/16 01:00 73 21 30 09/25/16 01:00 67 20 163/54 100 Mechanical Ventilator 09/25/16 00:00 30 09/25/16 00:00 98.8 67 20 151/60 100 Mechanical Ventilator 30 09/25/16 00:00 71 09/24/16 23:30 65 16 30 09/24/16 22:00 67 20 151/55 100 Mechanical Ventilator 09/24/16 21:30 65 17 30 09/24/16 21:00 69 19 147/52 100 Mechanical Ventilator 30 09/24/16 20:18 82 18 Mechanical Ventilator 30 09/24/16 20:00 70 09/24/16 20:00 98.0 70 19 145/58 100 Mechanical Ventilator 30 09/24/16 20:00 30 09/24/16 19:30 70 21 30 09/24/16 18:00 68 17 152/47 100 Mechanical Ventilator 30 09/24/16 17:43 76 152/61 09/24/16 17:09 71 20 30 09/24/16 17:00 73 20 152/61 100 Mechanical Ventilator 30 09/24/16 16:00 98.4 76 18 161/51 100 Mechanical Ventilator 30 09/24/16 16:00 76 09/24/16 16:00 30 09/24/16 15:24 79 20 30 09/24/16 15:00 75 19 160/51 100 Mechanical Ventilator 30 09/24/16 14:00 65 28 169/55 100 Mechanical Ventilator 30 09/24/16 14:00 30 09/24/16 13:25 62 28 104/40 100 Mechanical Ventilator 30 09/24/16 13:20 60 17 30 09/24/16 12:03 68 09/24/16 12:03 30 09/24/16 12:02 65 21 159/59 100 Mechanical Ventilator 30 Height (Feet): 5 Height (Inches): 5.00 Weight (Pounds): 178 HEENT: status post trach, other - tongue swelling Respiratory/Chest: lungs clear Cardiovascular: normal rate, regular rhythm, no gallop/murmur Abdomen: soft, non tender, other - GT Extremities: other - + edema, right arm PICC Laboratory Tests Test 09/25/16 03:25 White Blood Count 6.7 K/UL (4.8-10.8) Red Blood Count 3.22 M/UL (4.20-5.40) L Hemoglobin 10.7 G/DL (12.0-16.0) L Hematocrit 32.0 % (37.0-47.0) L Mean Corpuscular Volume 99 FL (80-99) Mean Corpuscular Hemoglobin 33.3 PG (27.0-31.0) H Mean Corpuscular Hemoglobin Concent 33.6 G/DL (32.0-36.0) Red Cell Distribution Width 14.8 % (11.6-14.8) Platelet Count 280 K/UL (150-450) Mean Platelet Volume 7.8 FL (6.5-10.1) Neutrophils (%) (Auto) 53.1 % (45.0-75.0) Lymphocytes (%) (Auto) 26.6 % (20.0-45.0) Monocytes (%) (Auto) 12.2 % (1.0-10.0) H Eosinophils (%) (Auto) 5.4 % (0.0-3.0) H Basophils (%) (Auto) 2.7 % (0.0-2.0) H Sodium Level 136 mEQ/L (135-145) Potassium Level 4.3 mEQ/L (3.4-4.9) Chloride Level 97 mEQ/L (98-107) L Carbon Dioxide Level 27 mEQ/L (20-30) Anion Gap 12 (5-15) Blood Urea Nitrogen 14 mg/dL (7-23) Creatinine 0.4 mg/dL (0.5-0.9) L Estimat Glomerular Filtration Rate mL/min (>60) Glucose Level 89 mg/dL (74-106) Calcium Level 8.1 mg/dL (8.6-10.2) L Total Bilirubin 0.3 mg/dL (0.0-1.2) Aspartate Amino Transf (AST/SGOT) 25 U/L (5-40) Alanine Aminotransferase (ALT/SGPT) 19 U/L (3-33) Alkaline Phosphatase 126 U/L (35-104) H Total Protein 6.9 g/dL (6.6-8.7) Albumin 2.5 g/dL (3.5-5.2) L Globulin 4.4 g/dL Albumin/Globulin Ratio 0.5 (1.0-2.7) L KELLEY MITCHELL Sep 25, 2016 11:40
--- NOTE | 2016-09-25 14:20 | GI Progress Note ---
Assessment/Plan Problems: (1) Dehydration ICD Codes: E86.0 - Dehydration SNOMED: 41125103 (2) Hyponatremia ICD Codes: E87.1 - Hypo-osmolality and hyponatremia SNOMED: 07818259 (3) LFT elevation ICD Codes: R94.5 - Abnormal results of liver function studies SNOMED: 169123570 (4) Hypoalbuminemia ICD Codes: E88.09 - Other disorders of plasma-protein metabolism, not elsewhere classified SNOMED: 993018247 (5) Anemia ICD Codes: D64.9 - Anemia, unspecified SNOMED: 472373873 (6) Feeding by G-tube ICD Codes: Z93.1 - Gastrostomy status SNOMED: 864864140, 938596044 (7) Dysphagia ICD Codes: R13.10 - Dysphagia, unspecified SNOMED: 16364932, 483284864 (8) Facial swelling ICD Codes: R22.0 - Localized swelling, mass and lump, head SNOMED: 880259379 Status: stable, progressing Status Narrative Discussed with Dr. Britt. Assessment/Plan OB stool negative elevated CEA >> 8.8 hep panel >> negative s/p trach 09/24/16 facial swelling >> greatly improving IgE elevation >> milk allergy? >> fu lab send out r/o cow milk IgE vs general IgE hold GI procedures EGD/colonoscopy when stable given anemia and elevated CEA. fu IgA marker r/o IgA neuropathy monitor H&H, transfuse prn GTFs per dietary >> TF change to non-dairy formula >> VIVONEX RTF @60 ml x 24 hrs + Prosource BID ppi abx Imodium PRN fu labs Subjective Subjective limited Objective Last 24 Hour Vital Signs Date Time Temp Pulse Resp B/P Pulse Ox O2 Delivery O2 Flow Rate FiO2 09/25/16 13:45 78 26 30 09/25/16 13:00 71 20 136/50 100 Mechanical Ventilator 30 09/25/16 12:07 30 09/25/16 12:00 75 09/25/16 12:00 98.1 70 20 138/45 100 Mechanical Ventilator 30 09/25/16 11:06 81 26 30 09/25/16 11:00 73 23 146/105 98 Mechanical Ventilator 30 09/25/16 10:00 70 20 132/36 100 Mechanical Ventilator 30 09/25/16 09:21 65 22 30 6/6/17 09:00 65 24 123/35 100 Mechanical Ventilator 30 09/25/16 08:57 65 130/46 09/25/16 08:00 30 09/25/16 08:00 74 09/25/16 08:00 98.6 66 34 130/46 100 Mechanical Ventilator 30 09/25/16 07:26 59 17 30 09/25/16 07:00 57 30 135/48 100 Mechanical Ventilator 30 09/25/16 06:00 58 25 124/40 100 Mechanical Ventilator 30 09/25/16 05:03 66 18 30 09/25/16 05:00 64 21 126/35 100 Mechanical Ventilator 30 09/25/16 04:00 30 09/25/16 04:00 98.0 73 23 139/37 100 Mechanical Ventilator 30 09/25/16 04:00 73 09/25/16 03:30 71 19 30 09/25/16 03:00 69 21 153/61 100 Mechanical Ventilator 30 09/25/16 02:00 67 26 147/58 100 Mechanical Ventilator 30 09/25/16 01:00 73 21 30 09/25/16 01:00 67 20 163/54 100 Mechanical Ventilator 30 09/25/16 00:00 30 09/25/16 00:00 98.8 67 20 151/60 100 Mechanical Ventilator 30 09/25/16 00:00 71 09/24/16 23:30 65 16 30 09/24/16 22:00 67 20 151/55 100 Mechanical Ventilator 30 09/24/16 21:30 65 17 30 09/24/16 21:00 69 19 147/52 100 Mechanical Ventilator 30 09/24/16 20:18 82 18 Mechanical Ventilator 30 09/24/16 20:00 70 09/24/16 20:00 98.0 70 19 145/58 100 Mechanical Ventilator 30 09/24/16 20:00 30 09/24/16 19:30 70 21 30 09/24/16 18:00 68 17 152/47 100 Mechanical Ventilator 30 09/24/16 17:43 76 152/61 6 17:09 71 20 30 09/24/16 17:00 73 20 152/61 100 Mechanical Ventilator 30 09/24/16 16:00 98.4 76 18 161/51 100 Mechanical Ventilator 30 09/24/16 16:00 76 09/24/16 16:00 30 09/24/16 15:24 79 20 30 09/24/16 15:00 75 19 160/51 100 Mechanical Ventilator 30 Intake and Output 09/24/16 09/25/16 19:00 07:00 Intake Total 1019 ml 1690 ml Output Total 1725 ml 2360 ml Balance -706 ml -670 ml Intake Free Water 90 ml 60 ml IV Total 839 ml 1200 ml Tube Feeding 40 ml 430 ml Other 50 ml Output Urine Total 1725 ml 2360 ml Stool Total 0 ml Laboratory Tests Test 09/25/16 03:25 White Blood Count 6.7 K/UL (4.8-10.8) Red Blood Count 3.22 M/UL (4.20-5.40) L Hemoglobin 10.7 G/DL (12.0-16.0) L Hematocrit 32.0 % (37.0-47.0) L Mean Corpuscular Volume 99 FL (80-99) Mean Corpuscular Hemoglobin 33.3 PG (27.0-31.0) H Mean Corpuscular Hemoglobin Concent 33.6 G/DL (32.0-36.0) Red Cell Distribution Width 14.8 % (11.6-14.8) Platelet Count 280 K/UL (150-450) Mean Platelet Volume 7.8 FL (6.5-10.1) Neutrophils (%) (Auto) 53.1 % (45.0-75.0) Lymphocytes (%) (Auto) 26.6 % (20.0-45.0) Monocytes (%) (Auto) 12.2 % (1.0-10.0) H Eosinophils (%) (Auto) 5.4 % (0.0-3.0) H Basophils (%) (Auto) 2.7 % (0.0-2.0) H Sodium Level 136 mEQ/L (135-145) Potassium Level 4.3 mEQ/L (3.4-4.9) Chloride Level 97 mEQ/L (98-107) L Carbon Dioxide Level 27 mEQ/L (20-30) Anion Gap 12 (5-15) Blood Urea Nitrogen 14 mg/dL (7-23) Creatinine 0.4 mg/dL (0.5-0.9) L Estimat Glomerular Filtration Rate mL/min (>60) Glucose Level 89 mg/dL (74-106) Calcium Level 8.1 mg/dL (8.6-10.2) L Total Bilirubin 0.3 mg/dL (0.0-1.2) Aspartate Amino Transf (AST/SGOT) 25 U/L (5-40) Alanine Aminotransferase (ALT/SGPT) 19 U/L (3-33) Alkaline Phosphatase 126 U/L (35-104) H Total Protein 6.9 g/dL (6.6-8.7) Albumin 2.5 g/dL (3.5-5.2) L Globulin 4.4 g/dL Albumin/Globulin Ratio 0.5 (1.0-2.7) L Height (Feet): 5 Height (Inches): 5.00 Weight (Pounds): 178 General Appearance: alert, other - facial edema greatly improving Cardiovascular: normal rate Respiratory/Chest: other - mech vent Abdominal Exam: GT site - c/d/i Luna Rodriguez N.P. Sep 25, 2016 14:20
[2016-09-25] MEDS ORDERED: D5 1/2NS 1,000 ML IV SCH (21:00)
[2016-09-25] MEDS: levETIRAcetam 500mg/5ml Liquid GT SCH (21:05)
--- NOTE | 2016-09-25 23:24 | Cardiology Progress Note ---
Assessment/Plan Assessment/Plan 1. Asystole cardiac arrest due to respiratory failure, echo reveals normal LVEF with no wall motion abnormalities. 2. E.Coli pneumonia/leukocytosis. 3. Hypoxic, hypercarbic respiratory failure, s/p tracheostomy tube placement, POD #1 4. s/p PEG 5. HTN, stage I, continue amlodipine. Subjective Subjective Sinus rhythm at 77. s/p tracheostomy tube placement. POD #1 Objective Last 24 Hour Vital Signs Date Time Temp Pulse Resp B/P Pulse Ox O2 Delivery O2 Flow Rate FiO2 09/25/16 23:13 85 24 30 09/25/16 22:00 82 20 138/48 100 Mechanical Ventilator 30 09/25/16 21:47 72 23 30 09/25/16 21:00 82 22 142/46 100 Mechanical Ventilator 30 09/25/16 20:00 98.3 87 20 170/60 100 Mechanical Ventilator 30 09/25/16 20:00 87 09/25/16 20:00 30 09/25/16 19:44 76 23 30 09/25/16 19:00 86 22 138/52 100 Mechanical Ventilator 30 09/25/16 18:00 80 28 138/46 100 Mechanical Ventilator 30 09/25/16 17:57 74 125/38 09/25/16 17:09 75 23 30 09/25/16 17:00 71 19 125/38 100 Mechanical Ventilator 30 09/25/16 16:00 78 09/25/16 16:00 30 09/25/16 16:00 98.6 80 23 139/52 100 Mechanical Ventilator 30 09/25/16 15:15 65 24 30 09/25/16 15:00 76 22 145/53 100 Mechanical Ventilator 30 09/25/16 14:00 75 22 146/48 100 Mechanical Ventilator 30 09/25/16 13:45 78 26 30 09/25/16 13:00 71 20 136/50 100 Mechanical Ventilator 30 09/25/16 12:07 30 09/25/16 12:00 75 09/25/16 12:00 98.1 70 20 138/45 100 Mechanical Ventilator 30 09/25/16 11:06 81 26 30 09/25/16 11:00 73 23 146/105 98 Mechanical Ventilator 30 09/25/16 10:00 70 20 132/36 100 Mechanical Ventilator 30 09/25/16 09:21 65 22 30 09/25/16 09:00 65 24 123/35 100 Mechanical Ventilator 30 09/25/16 08:57 65 130/46 09/25/16 08:00 30 09/25/16 08:00 74 09/25/16 08:00 98.6 66 34 130/46 100 Mechanical Ventilator 30 09/25/16 07:26 59 17 30 09/25/16 07:00 57 30 135/48 100 Mechanical Ventilator 30 09/25/16 06:00 58 25 124/40 100 Mechanical Ventilator 09/25/16 05:03 66 18 30 09/25/16 05:00 64 21 126/35 100 Mechanical Ventilator 30 09/25/16 04:00 30 09/25/16 04:00 98.0 73 23 139/37 100 Mechanical Ventilator 09/25/16 04:00 73 09/25/16 03:30 71 19 30 09/25/16 03:00 69 21 153/61 100 Mechanical Ventilator 09/25/16 02:00 67 26 147/58 100 Mechanical Ventilator 09/25/16 01:00 73 21 30 09/25/16 01:00 67 20 163/54 100 Mechanical Ventilator 30 09/25/16 00:00 30 09/25/16 00:00 98.8 67 20 151/60 100 Mechanical Ventilator 09/25/16 00:00 71 09/24/16 23:30 65 16 30 Intake and Output 09/24/16 09/25/16 19:00 07:00 Intake Total 1019 ml 1690 ml Output Total 1725 ml 2360 ml Balance -706 ml -670 ml Intake Free Water 90 ml 60 ml IV Total 839 ml 1200 ml Tube Feeding 40 ml 430 ml Other 50 ml Output Urine Total 1725 ml 2360 ml Stool Total 0 ml 2D Echo: LVEF 55%, Grade I LVDD, RVSP 57 mmHg Laboratory Tests Test 09/25/16 03:25 White Blood Count 6.7 K/UL (4.8-10.8) Red Blood Count 3.22 M/UL (4.20-5.40) L Hemoglobin 10.7 G/DL (12.0-16.0) L Hematocrit 32.0 % (37.0-47.0) L Mean Corpuscular Volume 99 FL (80-99) Mean Corpuscular Hemoglobin 33.3 PG (27.0-31.0) H Mean Corpuscular Hemoglobin Concent 33.6 G/DL (32.0-36.0) Red Cell Distribution Width 14.8 % (11.6-14.8) Platelet Count 280 K/UL (150-450) Mean Platelet Volume 7.8 FL (6.5-10.1) Neutrophils (%) (Auto) 53.1 % (45.0-75.0) Lymphocytes (%) (Auto) 26.6 % (20.0-45.0) Monocytes (%) (Auto) 12.2 % (1.0-10.0) H Eosinophils (%) (Auto) 5.4 % (0.0-3.0) H Basophils (%) (Auto) 2.7 % (0.0-2.0) H Sodium Level 136 mEQ/L (135-145) Potassium Level 4.3 mEQ/L (3.4-4.9) Chloride Level 97 mEQ/L (98-107) L Carbon Dioxide Level 27 mEQ/L (20-30) Anion Gap 12 (5-15) Blood Urea Nitrogen 14 mg/dL (7-23) Creatinine 0.4 mg/dL (0.5-0.9) L Estimat Glomerular Filtration Rate mL/min (>60) Glucose Level 89 mg/dL (74-106) Calcium Level 8.1 mg/dL (8.6-10.2) L Total Bilirubin 0.3 mg/dL (0.0-1.2) Aspartate Amino Transf (AST/SGOT) 25 U/L (5-40) Alanine Aminotransferase (ALT/SGPT) 19 U/L (3-33) Alkaline Phosphatase 126 U/L (35-104) H Total Protein 6.9 g/dL (6.6-8.7) Albumin 2.5 g/dL (3.5-5.2) L Globulin 4.4 g/dL Albumin/Globulin Ratio 0.5 (1.0-2.7) L Objective HEENT: + trach tube attached to the ventilator, normocephalic, atraumatic, PERRLA, EOMI, edematous tongue and the lips. Neck: no JVD, no carotid bruit, upstroke 2+ B/L Respiratory: decreased breath sounds, crackles both bases Cardiovascular: regular rate, rhythm, normal S1S2,no murmurs, gallops or rubs Gastrointestinal: normal BS, soft non-tender, non-distended, GT in place Musculoskeletal: no clubbing cyanosis or edema MARK LEVY Sep 25, 2016 23:24
--- NOTE | 2016-09-25 23:37 | Nephrology Progress Note ---
Assessment/Plan Problem List: (1) Azotemia (2) Hyperkalemia Assessment: Resolved (3) Hyponatremia Assessment: Resolved (4) Septic shock (5) Respiratory distress (6) Dysphagia (7) Pneumonia (8) Anemia (9) Dehydration Plan trach care. d/c planning to subacute. renal function stable. Subjective Subjective s/p trach Objective Objective Last 24 Hour Vital Signs Date Time Temp Pulse Resp B/P Pulse Ox O2 Delivery O2 Flow Rate FiO2 09/25/16 23:13 85 24 30 09/25/16 23:00 96 24 137/54 100 Mechanical Ventilator 30 09/25/16 22:00 82 20 138/48 100 Mechanical Ventilator 30 09/25/16 21:47 72 23 30 09/25/16 21:00 82 22 142/46 100 Mechanical Ventilator 30 09/25/16 20:00 98.3 87 20 170/60 100 Mechanical Ventilator 30 09/25/16 20:00 87 09/25/16 20:00 30 09/25/16 19:44 76 23 30 09/25/16 19:00 86 22 138/52 100 Mechanical Ventilator 30 09/25/16 18:00 80 28 138/46 100 Mechanical Ventilator 30 09/25/16 17:57 74 125/38 09/25/16 17:09 75 23 30 09/25/16 17:00 71 19 125/38 100 Mechanical Ventilator 30 09/25/16 16:00 78 09/25/16 16:00 30 09/25/16 16:00 98.6 80 23 139/52 100 Mechanical Ventilator 30 09/25/16 15:15 65 24 30 09/25/16 15:00 76 22 145/53 100 Mechanical Ventilator 30 09/25/16 14:00 75 22 146/48 100 Mechanical Ventilator 30 09/25/16 13:45 78 26 30 09/25/16 13:00 71 20 136/50 100 Mechanical Ventilator 30 09/25/16 12:07 30 09/25/16 12:00 75 09/25/16 12:00 98.1 70 20 138/45 100 Mechanical Ventilator 30 09/25/16 11:06 81 26 30 09/25/16 11:00 73 23 146/105 98 Mechanical Ventilator 30 09/25/16 10:00 70 20 132/36 100 Mechanical Ventilator 30 09/25/16 09:21 65 22 30 09/25/16 09:00 65 24 123/35 100 Mechanical Ventilator 30 09/25/16 08:57 65 130/46 09/25/16 08:00 30 09/25/16 08:00 74 09/25/16 08:00 98.6 66 34 130/46 100 Mechanical Ventilator 30 09/25/16 07:26 59 17 30 09/25/16 07:00 57 30 135/48 100 Mechanical Ventilator 30 09/25/16 06:00 58 25 124/40 100 Mechanical Ventilator 09/25/16 05:03 66 18 30 09/25/16 05:00 64 21 126/35 100 Mechanical Ventilator 30 09/25/16 04:00 30 09/25/16 04:00 98.0 73 23 139/37 100 Mechanical Ventilator 09/25/16 04:00 73 09/25/16 03:30 71 19 30 09/25/16 03:00 69 21 153/61 100 Mechanical Ventilator 09/25/16 02:00 67 26 147/58 100 Mechanical Ventilator 09/25/16 01:00 73 21 30 09/25/16 01:00 67 20 163/54 100 Mechanical Ventilator 09/25/16 00:00 30 09/25/16 00:00 98.8 67 20 151/60 100 Mechanical Ventilator 09/25/16 00:00 71 Intake and Output 09/24/16 09/25/16 19:00 07:00 Intake Total 1019 ml 1690 ml Output Total 1725 ml 2360 ml Balance -706 ml -670 ml Intake Free Water 90 ml 60 ml IV Total 839 ml 1200 ml Tube Feeding 40 ml 430 ml Other 50 ml Output Urine Total 1725 ml 2360 ml Stool Total 0 ml Laboratory Tests 09/25/16 03:25: White Blood Count 6.7, Red Blood Count 3.22L, Hemoglobin 10.7L, Hematocrit 32.0L , Mean Corpuscular Volume 99, Mean Corpuscular Hemoglobin 33.3H, Mean Corpuscular Hemoglobin Concent 33.6, Red Cell Distribution Width 14.8, Platelet Count 280, Mean Platelet Volume 7.8, Neutrophils (%) (Auto) 53.1, Lymphocytes (% ) (Auto) 26.6, Monocytes (%) (Auto) 12.2H, Eosinophils (%) (Auto) 5.4H, Basophils (%) (Auto) 2.7H, Sodium Level 136, Potassium Level 4.3, Chloride Level 97L, Carbon Dioxide Level 27, Anion Gap 12, Blood Urea Nitrogen 14, Creatinine 0.4L, Estimat Glomerular Filtration Rate , Glucose Level 89, Calcium Level 8.1L, Total Bilirubin 0.3, Aspartate Amino Transf (AST/SGOT) 25, Alanine Aminotransferase (ALT/SGPT) 19, Alkaline Phosphatase 126H, Total Protein 6.9, Albumin 2.5L, Globulin 4.4, Albumin/Globulin Ratio 0.5L Height (Feet): 5 Height (Inches): 5.00 Weight (Pounds): 178 General Appearance: no apparent distress Cardiovascular: normal rate, regular rhythm Respiratory/Chest: lungs clear Abdomen: non tender, soft JOSSIE YAÑEZ Sep 25, 2016 23:37
[2016-09-26] VITALS (15 sets, daily range): BP systolic 134–157; BP diastolic 40–66
[2016-09-26] MEDS: DiphenhydrAMINE 50mg/ml Inj IVP SCH ×3 (00:32→12:24)
[2016-09-26 04:42] LABS: BASOPHILS % (AUTO) 1.4 % (0.0-2.0); EOSINOPHILS % (AUTO) 6.2 % (0.0-3.0); LYMPHOCYTES % (AUTO) 26.5 % (20.0-45.0); MEAN CORPUSCULAR HEMOGLOBIN 33.3 PG (27.0-31.0); MEAN CORPUSCULAR HGB CONC 33.7 G/DL (32.0-36.0); MEAN CORPUSCULAR VOLUME 99 FL (80-99); MEAN PLATELET VOLUME 7.5 FL (6.5-10.1); MONOCYTES % (AUTO) 15.3 % (1.0-10.0); NEUTROPHILS % (AUTO) 50.7 % (45.0-75.0); PLATELET COUNT 259 K/UL (150-450); RED CELL DISTRIBUTION WIDTH 14.2 % (11.6-14.8); WHITE BLOOD COUNT 8.1 K/UL (4.8-10.8)
[2016-09-26] MEDS: Dyna-Hex 2% Top Sol 8oz TOPIC SCH (05:01)
[2016-09-26 05:34] LABS: ALANINE AMINOTRANSFERASE 17 U/L (3-33); ALBUMIN/GLOBULIN RATIO 0.5 (1.0-2.7); ANION GAP 8 (5-15); ASPARTATE AMINO TRANSFERASE 19 U/L (5-40); CALCIUM 8.2 mg/dL (8.6-10.2); CARBON DIOXIDE 27 mEQ/L (20-30); CHLORIDE 92 mEQ/L (98-107); CREATININE 0.4 mg/dL (0.5-0.9); HEMOLYSIS 6; POTASSIUM 3.3 mEQ/L (3.4-4.9); SODIUM 127 mEQ/L (135-145); TOTAL PROTEIN 6.7 g/dL (6.6-8.7)
--- NOTE | 2016-09-26 07:09 | Immediate Post-Op Evaluation ---
Immediate Post-Op Evalulation Immediate Post-Op Evalulation Procedure: Trach Date of Evaluation: Sep 24, 2016 Time of Evaluation: 13:25 IV Fluids: 200 Blood Products: 0 Estimated Blood Loss: min Urinary Output: 150 Blood Pressure Systolic: 104 Blood Pressure Diastolic: 40 Pulse Rate: 60 Respiratory Rate: 17 O2 Sat by Pulse Oximetry: 100 Temperature (Fahrenheit): 97.2 Pain Score (1-10): 0 Nausea: No Vomiting: No Complications 0 Patient Status: no response - sedated, ventilated - on trach, none Hydration Status: adequate Drug: Ancef 1g Given Within 1 Hr of Incision: Yes Time Given: 12:10 GLORIA RANDOLPH M.D. Sep 26, 2016 07:09
[2016-09-26] MEDS: levETIRAcetam 500mg/5ml Liquid GT SCH (08:27)
[2016-09-26] MEDS: Phospha 250 Neutral tab GT SCH ×2 (08:27→13:00)
[2016-09-26] MEDS: Ascorbic Acid 500mg tab GT SCH (08:28)
[2016-09-26] MEDS: Heparin 5000 units/ml inj SUBQ SCH (08:46)
--- NOTE | 2016-09-26 10:32 | Infectious Diseases Prog Note ---
Assessment/Plan Assessment/Plan antibiotics : none A 1. e.coli pneumonia s/p rx 2. respiratory failure 3. allergic reaction 4. leucocytosis resolved 5. 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 observe off antibiotics Subjective ROS Limited/Unobtainable: Yes Allergies: Coded Allergies: MILK (Verified Allergy, Unknown, 09/25/16) Objective Vital Signs Last 24 Hour Vital Signs Date Time Temp Pulse Resp B/P Pulse Ox O2 Delivery O2 Flow Rate FiO2 09/26/16 08:42 92 155/51 09/26/16 08:30 85 25 30 09/26/16 08:00 30 09/26/16 08:00 92 09/26/16 08:00 98.6 92 28 155/51 100 Mechanical Ventilator 09/26/16 07:09 60 17 100 09/26/16 07:00 82 20 138/40 100 Mechanical Ventilator 09/26/16 06:56 82 26 30 09/26/16 06:00 83 20 148/50 100 Mechanical Ventilator 09/26/16 05:05 87 28 30 09/26/16 05:00 82 22 139/66 100 Mechanical Ventilator 30 09/26/16 04:00 90 09/26/16 04:00 98.3 87 20 139/66 100 Mechanical Ventilator 30 09/26/16 04:00 30 09/26/16 03:16 88 26 30 09/26/16 03:00 84 22 157/54 100 Mechanical Ventilator 09/26/16 02:00 84 22 150/53 100 Mechanical Ventilator 09/26/16 01:00 86 24 140/63 100 Mechanical Ventilator 09/26/16 00:30 82 23 30 09/26/16 00:00 85 09/26/16 00:00 30 09/26/16 00:00 98.6 83 23 153/53 100 Mechanical Ventilator 30 09/25/16 23:13 85 24 30 09/25/16 23:00 96 24 137/54 100 Mechanical Ventilator 30 09/25/16 22:00 82 20 138/48 100 Mechanical Ventilator 30 09/25/16 21:47 72 23 30 09/25/16 21:00 82 22 142/46 100 Mechanical Ventilator 30 09/25/16 20:00 98.3 87 20 170/60 100 Mechanical Ventilator 30 09/25/16 20:00 87 09/25/16 20:00 30 09/25/16 19:44 76 23 30 09/25/16 19:00 86 22 138/52 100 Mechanical Ventilator 30 09/25/16 18:00 80 28 138/46 100 Mechanical Ventilator 30 09/25/16 17:57 74 125/38 09/25/16 17:09 75 23 30 09/25/16 17:00 71 19 125/38 100 Mechanical Ventilator 30 09/25/16 16:00 78 09/25/16 16:00 30 09/25/16 16:00 98.6 80 23 139/52 100 Mechanical Ventilator 30 09/25/16 15:15 65 24 30 09/25/16 15:00 76 22 145/53 100 Mechanical Ventilator 30 09/25/16 14:00 75 22 146/48 100 Mechanical Ventilator 30 09/25/16 13:45 78 26 30 09/25/16 13:00 71 20 136/50 100 Mechanical Ventilator 30 09/25/16 12:07 30 09/25/16 12:00 75 09/25/16 12:00 98.1 70 20 138/45 100 Mechanical Ventilator 30 09/25/16 11:06 81 26 30 09/25/16 11:00 73 23 146/105 98 Mechanical Ventilator 30 Height (Feet): 5 Height (Inches): 5.00 Weight (Pounds): 176 HEENT: status post trach Respiratory/Chest: lungs clear Cardiovascular: normal rate, regular rhythm, no gallop/murmur Abdomen: soft, non tender, other - GT Extremities: other - + edema, right arm PICC Laboratory Tests Test 09/26/16 04:00 White Blood Count 8.1 K/UL (4.8-10.8) Red Blood Count 3.10 M/UL (4.20-5.40) L Hemoglobin 10.3 G/DL (12.0-16.0) L Hematocrit 30.7 % (37.0-47.0) L Mean Corpuscular Volume 99 FL (80-99) Mean Corpuscular Hemoglobin 33.3 PG (27.0-31.0) H Mean Corpuscular Hemoglobin Concent 33.7 G/DL (32.0-36.0) Red Cell Distribution Width 14.2 % (11.6-14.8) Platelet Count 259 K/UL (150-450) Mean Platelet Volume 7.5 FL (6.5-10.1) Neutrophils (%) (Auto) 50.7 % (45.0-75.0) Lymphocytes (%) (Auto) 26.5 % (20.0-45.0) Monocytes (%) (Auto) 15.3 % (1.0-10.0) H Eosinophils (%) (Auto) 6.2 % (0.0-3.0) H Basophils (%) (Auto) 1.4 % (0.0-2.0) Sodium Level 127 mEQ/L (135-145) L Potassium Level 3.3 mEQ/L (3.4-4.9) L Chloride Level 92 mEQ/L (98-107) L Carbon Dioxide Level 27 mEQ/L (20-30) Anion Gap 8 (5-15) Blood Urea Nitrogen 18 mg/dL (7-23) Creatinine 0.4 mg/dL (0.5-0.9) L Estimat Glomerular Filtration Rate mL/min (>60) Glucose Level 109 mg/dL (74-106) H Calcium Level 8.2 mg/dL (8.6-10.2) L Total Bilirubin 0.5 mg/dL (0.0-1.2) Aspartate Amino Transf (AST/SGOT) 19 U/L (5-40) Alanine Aminotransferase (ALT/SGPT) 17 U/L (3-33) Alkaline Phosphatase 129 U/L (35-104) H Total Protein 6.7 g/dL (6.6-8.7) Albumin 2.5 g/dL (3.5-5.2) L Globulin 4.2 g/dL Albumin/Globulin Ratio 0.5 (1.0-2.7) L KELLEY MITCHELL Sep 26, 2016 10:32
[2016-09-26] MEDS ORDERED: NS 275ml ONE ×2 (10:36→13:59)
[2016-09-26] MEDS ORDERED: D5 1/2NS 1000ml IV ONE (10:36)
--- NOTE | 2016-09-26 16:35 | General Progress Note ---
Assessment/Plan Problem List: (1) Cardiac arrest Assessment & Plan: Anoxic encephalopathy with occasional myolclonic movement ICD Codes: I46.9 - Cardiac arrest, cause unspecified SNOMED: 632769134 (2) Septic shock Assessment & Plan: Improved ICD Codes: A41.9 - Sepsis, unspecified organism; R65.21 - Severe sepsis with septic shock SNOMED: 39997715 (3) Respiratory distress Assessment & Plan: On ventilator ICD Codes: R06.00 - Dyspnea, unspecified; R65.21 - Severe sepsis with septic shock SNOMED: 096193611 (4) Dysphagia Assessment & Plan: Tube feed started ICD Codes: R13.10 - Dysphagia, unspecified SNOMED: 53111895, 270319716 (5) Pneumonia Assessment & Plan: Antibiotic adjusted ICD Codes: J18.9 - Pneumonia, unspecified organism SNOMED: 516556536 Qualifiers: Qualified Codes: J13 - Pneumonia due to Streptococcus pneumoniae (6) Feeding by G-tube ICD Codes: Z93.1 - Gastrostomy status SNOMED: 275877979, 022394774 (7) esophageal wall thickening (8) Hypoalbuminemia ICD Codes: E88.09 - Other disorders of plasma-protein metabolism, not elsewhere classified SNOMED: 232619433 (9) LFT elevation ICD Codes: R94.5 - Abnormal results of liver function studies SNOMED: 074661030 (10) Hyperkalemia ICD Codes: E87.5 - Hyperkalemia SNOMED: 12154656 (11) Azotemia ICD Codes: R79.89 - Other specified abnormal findings of blood chemistry SNOMED: 434151625 (12) Hyponatremia ICD Codes: E87.1 - Hypo-osmolality and hyponatremia SNOMED: 27442784 (13) Dehydration ICD Codes: E86.0 - Dehydration SNOMED: 21285813 (14) Anemia ICD Codes: D64.9 - Anemia, unspecified SNOMED: 256510846 Status: doing well Status Narrative Spoke to [employer] enterprise resource planner and made arrangements for patient to go to subacute care unit. Assessment/Plan Can't wean her due to poor lung compliance. She may need diuresis. Will adjust fluids. Subjective Date patient seen: Sep 25, 2016 Time patient seen: 19:00 ROS Limited/Unobtainable: Yes Allergies: Coded Allergies: MILK (Verified Allergy, Unknown, 09/25/16) Subjective On vent AC mode 35% FIO2. She is doing well post trach and no bleeding. Resumption of tube feed when effect of anesthesia wears off. Objective Last 24 Hour Vital Signs Date Time Temp Pulse Resp B/P Pulse Ox O2 Delivery O2 Flow Rate FiO2 09/26/16 14:00 79 19 135/57 100 Mechanical Ventilator 30 09/26/16 13:00 81 20 136/40 100 Mechanical Ventilator 30 09/26/16 12:54 81 20 30 09/26/16 12:00 88 09/26/16 12:00 98.6 89 28 135/53 100 Mechanical Ventilator 30 09/26/16 12:00 30 09/26/16 11:04 84 25 30 09/26/16 11:00 88 28 134/45 100 Mechanical Ventilator 09/26/16 10:00 89 28 135/56 100 Mechanical Ventilator 09/26/16 09:00 88 28 142/55 100 Mechanical Ventilator 09/26/16 08:42 92 155/51 09/26/16 08:30 85 25 30 09/26/16 08:00 30 09/26/16 08:00 92 09/26/16 08:00 98.6 92 28 155/51 100 Mechanical Ventilator 09/26/16 07:09 60 17 100 09/26/16 07:00 82 20 138/40 100 Mechanical Ventilator 09/26/16 06:56 82 26 30 09/26/16 06:00 83 20 148/50 100 Mechanical Ventilator 09/26/16 05:05 87 28 30 09/26/16 05:00 82 22 139/66 100 Mechanical Ventilator 09/26/16 04:00 90 09/26/16 04:00 98.3 87 20 139/66 100 Mechanical Ventilator 30 09/26/16 04:00 30 09/26/16 03:16 88 26 30 09/26/16 03:00 84 22 157/54 100 Mechanical Ventilator 09/26/16 02:00 84 22 150/53 100 Mechanical Ventilator 09/26/16 01:00 86 24 140/63 100 Mechanical Ventilator 09/26/16 00:30 82 23 30 09/26/16 00:00 85 09/26/16 00:00 30 09/26/16 00:00 98.6 83 23 153/53 100 Mechanical Ventilator 30 09/25/16 23:13 85 24 30 09/25/16 23:00 96 24 137/54 100 Mechanical Ventilator 30 09/25/16 22:00 82 20 138/48 100 Mechanical Ventilator 30 09/25/16 21:47 72 23 30 09/25/16 21:00 82 22 142/46 100 Mechanical Ventilator 30 09/25/16 20:00 98.3 87 20 170/60 100 Mechanical Ventilator 30 09/25/16 20:00 87 09/25/16 20:00 30 09/25/16 19:44 76 23 30 09/25/16 19:00 86 22 138/52 100 Mechanical Ventilator 30 09/25/16 18:00 80 28 138/46 100 Mechanical Ventilator 30 09/25/16 17:57 74 125/38 09/25/16 17:09 75 23 30 09/25/16 17:00 71 19 125/38 100 Mechanical Ventilator 30 Intake and Output 09/25/16 09/26/16 19:00 07:00 Intake Total 2135 ml 1550 ml Output Total 1650 ml 2000 ml Balance 485 ml -450 ml Intake Free Water 120 ml 100 ml IV Total 1215 ml 700 ml Tube Feeding 660 ml 720 ml Other 140 ml 30 ml Output Urine Total 1650 ml 2000 ml Laboratory Tests 09/26/16 04:00: White Blood Count 8.1, Red Blood Count 3.10L, Hemoglobin 10.3L, Hematocrit 30.7L , Mean Corpuscular Volume 99, Mean Corpuscular Hemoglobin 33.3H, Mean Corpuscular Hemoglobin Concent 33.7, Red Cell Distribution Width 14.2, Platelet Count 259, Mean Platelet Volume 7.5, Neutrophils (%) (Auto) 50.7, Lymphocytes (% ) (Auto) 26.5, Monocytes (%) (Auto) 15.3H, Eosinophils (%) (Auto) 6.2H, Basophils (%) (Auto) 1.4, Sodium Level 127L, Potassium Level 3.3L, Chloride Level 92L, Carbon Dioxide Level 27, Anion Gap 8, Blood Urea Nitrogen 18, Creatinine 0.4L, Estimat Glomerular Filtration Rate , Glucose Level 109H, Calcium Level 8.2L, Total Bilirubin 0.5, Aspartate Amino Transf (AST/SGOT) 19, Alanine Aminotransferase (ALT/SGPT) 17, Alkaline Phosphatase 129H, Total Protein 6.7, Albumin 2.5L, Globulin 4.2, Albumin/Globulin Ratio 0.5L Height (Feet): 5 Height (Inches): 5.00 Weight (Pounds): 176 General Appearance: WD/WN EENT: normal ENT inspection Neck: non-tender Cardiovascular: normal peripheral pulses Respiratory/Chest: chest wall non-tender Abdomen: normal bowel sounds Pelvis: normal external exam Extremities: normal range of motion Edema: mild edema 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
--- NOTE | 2016-09-26 16:56 | Discharge Summary ---
Discharge Summary Hospital Course Date of Admission September 04, 2016 at 00:54 Date of Discharge Sep 26, 2016 at 14:00 Admitting Diagnosis RESP DISTRESS Respiratory failure Anoxic Encephalopathy Acute renal failure Dysphagia Hx of CVARESP DISTRESS HPI Gloria Kameron Barr is a 86 year old female who was admitted on September 04, 2016 at 00: 54 for Respiratory Distress Consultations Infectious disease GI Nephrology Cardiothoracic Neurology Procedures Tracheostomy 09/25/2016 Hospital Course Patient admitted with acute respiratory failure which required intubation. however for unknown reason possibly due to antibiotic allergy she developed very large tongue and lips. It was not possible to extubate her. She was septic and she improved with antibiotic and antibiotic was discontinued. Her tongue gradually decreased in size however it continued to be partly out of her mouth. She was transfered to subacute care unit for futher care. Discharge Condition Upon Discharge: stable Discharge Disposition Patient was discharged to SNF/Subacute Facility(03) Discharge Diagnoses: (1) Dysphagia (2) Feeding by G-tube (3) esophageal wall thickening (4) Anemia (5) Hypoalbuminemia (6) LFT elevation (7) Azotemia (8) Respiratory failure (9) Facial swelling (10) Hypomagnesemia (11) Hyperkalemia (12) Hyponatremia (13) Dehydration YONI ROCHE Sep 26, 2016 16:56
--- NOTE | 2016-09-26 17:51 | Cardiology Report ---
APPROVED REPORT EKG Measurement Heart [id number] Sinus rhythm with premature atrial complexes Otherwise normal ECG
--- NOTE | 2016-09-26 22:00 | Operative Note - Dictated ---
DATE OF OPERATION: 09/24/2016 PREOPERATIVE DIAGNOSIS: Respiratory failure. POSTOPERATIVE DIAGNOSIS: Respiratory failure. PROCEDURE: Bronchoscopy, tracheostomy, thyroid isthmusectomy, Giselle tracheostomy flap creation, placement of size 8 Shiley tracheostomy tube. SURGEON: Keron Leavitt M.D. ANESTHESIA: General. COMPLICATION: None DESCRIPTION OF PROCEDURE: The patient was brought to the operative room and placed supine on the operative table. After EKG leads, O2 sat monitor, and blood pressure cuff were attached to the patient, general anesthesia was then induced. I performed a bronchoscopy, which showed the tracheobronchial tree to be within normal limits. Moderate amount of secretions were found to be present, which were suctioned using the bronchoscope. Next, the bronchoscope was removed and the anterior neck area was prepped and draped in the usual sterile fashion. Next, an approximately 2 cm incision was made just above the sternal manubrium. The incision was carried out through the platysma and in between the strap muscles until the anterior surface of the thyroid gland was identified. A standard thyroid isthmusectomy was done followed by much improved access to the anterior tracheal wall. The Giselle tracheostomy flap was created at the level of the anterior third tracheal ring. A size 8 Shiley tracheostomy tube was placed without any difficulty after previously the endotracheal tube was removed. The patient tolerated the procedure well and was transported in stable condition to the recovery room. Keron Leavitt M.D. DR: DEEPIKA JOB#: [id number] CC:
--- NOTE | 2016-09-27 09:15 | Progress Note ---
SUBJECTIVE: The patient's medical condition is unchanged. The patient is withdrawn. No agitation. MENTAL STATUS EXAMINATION: The patient is nonresponsive. Mood is neutral. Affect is flat. Eyes closed. Thought process, there is a paucity of thought content. Cognition is impaired. ASSESSMENT: 1. Encephalopathy. 2. Respiratory failure. PLAN: continue for the underlying cause of encephalopathy. No new medications. We will continue to follow. Олег Catherine M.D. DR: PASCUAL JOB#: [id number] CC:
--- NOTE | 2016-09-27 22:45 | Progress Note ---
DATE: 09/26/2016 SUBJECTIVE: The patient's mental condition is unchanged, continued to be nonresponsive however stable at baseline. There is no anxiety or agitation. MENTAL STATUS EXAMINATION: . Mood is neutral. Affect is flat. Eyes closed. Thought process is concrete. Thought content, no suicidal or homicidal ideation. Cognition is impaired. ASSESSMENT: Encephalopathy which is chronic, dementia. PLAN: The patient will be continued on current medication. No additional medication. Олег Catherine M.D. DR: Brandon JOB#: [id number] CC:
== END 2016-09-26 14:00 | DRG 4 ==
LOC: ENRESERVTM → ENRESERVDT → ENRESERV → EDBD 23:01 → EDUNIT# 23:01 → EMR 23:33 → ICU 09-04 00:54 → EDBEDREQ 09-04 06:26 → ICU 09-04 08:50
PROC: 06HM33Z Insertion of Infusion Device into Right Femoral Vein, Percutaneous Approach (ICD-10-PCS; principal; 2016-09-04)
PROC: 5A1955Z Respiratory Ventilation, Greater than 96 Consecutive Hours (ICD-10-PCS; principal; 2016-09-04)
PROC: 0BH17EZ Insertion of Endotracheal Airway into Trachea, Via Natural or Artificial Opening (ICD-10-PCS; principal; 2016-09-04)
PROC: 02HV33Z Insertion of Infusion Device into Superior Vena Cava, Percutaneous Approach (ICD-10-PCS; 2016-09-07)
PROC: B548ZZA Ultrasonography of Superior Vena Cava, Guidance (ICD-10-PCS; 2016-09-07)
PROC: 0BJ08ZZ Inspection of Tracheobronchial Tree, Via Natural or Artificial Opening Endoscopic (ICD-10-PCS; 2016-09-24)
PROC: 0B110F4 Bypass Trachea to Cutaneous with Tracheostomy Device, Open Approach (ICD-10-PCS; 2016-09-24)
DX: A41.9 Sepsis, unspecified organism (principal); R65.21 Severe sepsis with septic shock; I46.9 Cardiac arrest, cause unspecified; J15.5 Pneumonia due to Escherichia coli; G93.1 Anoxic brain damage, not elsewhere classified; R09.2 Respiratory arrest; J96.21 Acute and chronic respiratory failure with hypoxia; J44.0 Chronic obstructive pulmonary disease with (acute) lower respiratory infection; R13.10 Dysphagia, unspecified; D69.6 Thrombocytopenia, unspecified; J96.22 Acute and chronic respiratory failure with hypercapnia; J44.1 Chronic obstructive pulmonary disease with (acute) exacerbation; E87.1 Hypo-osmolality and hyponatremia; Z99.11 Dependence on respirator [ventilator] status; Z93.1 Gastrostomy status; D64.9 Anemia, unspecified; F03.90 Unspecified dementia, unspecified severity, without behavioral disturbance, psychotic disturbance, mood disturbance, and anxiety; Z22.322 Carrier or suspected carrier of Methicillin resistant Staphylococcus aureus; E87.5 Hyperkalemia; E86.0 Dehydration; E88.09 Other disorders of plasma-protein metabolism, not elsewhere classified; E83.42 Hypomagnesemia; R94.5 Abnormal results of liver function studies; I10 Essential (primary) hypertension; G40.909 Epilepsy, unspecified, not intractable, without status epilepticus
CPT/HCPCS: 31500; 36415; 36569; 36600; 70491; 71010; 76700; 76937; 80048; 80053; 80076; 81003; 82270; 82378; 82550; 82553; 82607; 82728; 82746; 82785; 82803; 82962; 83540; 83550; 83605; 83735; 84100; 84439; 84443; 84484; 85007; 85025; 85044; 85610; 85730; 86705; 86709; 86803; 86850; 86900; 86901; 86920; 87040; 87070; 87081; 87086; 87181; 87205; 87324; 87340; 92950; 92960; 93005; 93306; 94002; 94003; 94150; 94640; 94644; 94664; C9399; J0171; J2250; J2405; J2765; J7620